=== PATIENT | male | born 1965 | race Caucasian/White ===

== ENCOUNTER 2020-10-01 14:30 | Observation (INO) | payer BC ==
[2020-10-01] MEDS ORDERED: SODIUM CHLORIDE 0.9% 1,000 ML IV ONE (15:32)
--- NOTE | 2020-10-01 15:32 | ED ---
General Adult HPI - General Chief complaint: Altered Mental Status Stated complaint: AMS Time Seen by Provider: 10/01/20 14:35 Source: patient, EMS, RN notes reviewed, old records reviewed Mode of arrival: EMS Limitations: no limitations - History of Present Illness Initial comments: This is a 55-year-old male who presents to the emergency department because he was altered this morning according to the . Patient comes from [facility] where he had a workup done a CAT scan of his brain and neck. Patient had lab work done as well. Patient's states this morning about 6:30 he started acting confused and texting her about his mother and answered all of her dad stating that they were coming up to see him patient states he uses house phone he hasn't had a house for many years patient also took a knife to cut superficially an the left thigh because of the timing seem to make sense to him that that might relieve some of the pain he was having in his back and leg. Patient still a little bit confused now but states is considerably better than he was. states he hasn't had any recent fever chills and in fact has been working the last 6 days in a row and acting completely fine. Patient states been getting enough sleep lately. Patient has no complaints currently the believes he still a little bit confused. Patient denies any recent chest pain or difficulty breathing or shortness of breath. Patient denies any palpitations. Patient denies any recent injury or trauma. Review of Systems ROS Statement: Those systems with pertinent positive or pertinent negative responses have been documented in the HPI. ROS Other: All systems not noted in ROS Statement are negative. Past Medical History Past Medical History: Diabetes Mellitus, Hypertension, Sleep Apnea/CPAP/BIPAP Additional Past Medical History / Comment(s): LULÚ, diverticulitis History of Any Multi-Drug Resistant Organisms: None Reported Past Surgical History: Hernia Repair, Orthopedic Surgery, Tonsillectomy Additional Past Surgical History / Comment(s): sigmoid colon, vasectomy Smoking Status: Never smoker Past Alcohol Use History: None Reported Past Drug Use History: None Reported General Exam - General Exam Comments Initial Comments: GENERAL: Patient is well-developed and well-nourished. Patient is nontoxic and well- hydrated and is in no acute distress. ENT: Neck is soft and supple. No significant lymphadenopathy is noted. Oropharynx is clear. Moist mucous membranes. Neck has full range of motion without eliciting any pain. EYES: The sclera were anicteric and conjunctiva were pink and moist. Extraocular movements were intact and pupils were equal round and reactive to light. Eyelids were unremarkable. PULMONARY: Unlabored respirations. Good breath sounds bilaterally. No audible rales rhonchi or wheezing was noted. CARDIOVASCULAR: There is a regular rate and rhythm without any murmurs gallops or rubs. ABDOMEN: Soft and nontender with normal bowel sounds. SKIN: Skin is clear with no lesions or rashes and otherwise unremarkable. NEUROLOGIC: Patient is alert and oriented x3. Cranial nerves II through XII are grossly intact. Motor and sensory are also intact. Normal speech, volume and content. Symmetrical smile. Cerebellar testing finger to nose is normal bilaterally. Patient has no drift MUSCULOSKELETAL: Normal extremities with adequate strength and full range of motion. LYMPHATICS: No significant lymphadenopathy is noted PSYCHIATRIC: Normal psychiatric evaluation. Limitations: no limitations Course Vital Signs 10/01/20 14:32 Temperature 98.8 F Pulse Rate 65 Respiratory 19 Rate Blood Pressure 151/89 O2 Sat by Pulse 96 Oximetry Medical Decision Making - Medical Decision Making I reviewed the patient's labs and CAT scans. I spoke with Dr. Lozano agreed with the patient admitted the patient wrote admitting orders. Disposition Clinical Impression: Altered mental status Disposition: ADMITTED IP TO THIS HOSP Referrals: Troy Michele MD [Primary Care Provider] - 1-2 days Time of Disposition: 15:32
[2020-10-01] MEDS ORDERED: NALOXONE 0.4 MG/ML 1 ML VIAL IV PRN (16:26)
[2020-10-01] MEDS ORDERED: CYCLOBENZAPRINE 10 MG TAB PO PRN (16:26)
[2020-10-01] MEDS ORDERED: LORazepam 0.5 MG TAB PO PRN (16:26)
[2020-10-01] MEDS ORDERED: MAGNESIUM HYDROXIDE 2,400 MG/10 ML CUP PO PRN (16:26)
[2020-10-01] MEDS ORDERED: ONDANSETRON 4 MG/2 ML VIAL IVP PRN (16:26)
[2020-10-01] MEDS ORDERED: MELATONIN 3 MG TABLET PO PRN (16:26)
[2020-10-01] MEDS ORDERED: LACTULOSE 20 GM/30 ML CUP PO PRN (16:26)
[2020-10-01] MEDS ORDERED: MAG HYDROX/AL HYDROX/SIMETH 30 ML CUP PO PRN (16:26)
[2020-10-01] MEDS ORDERED: CALCIUM CARBONATE 500 MG CHEWABLE PO PRN (16:26)
[2020-10-01] MEDS ORDERED: ACETAMINOPHEN TAB 325 MG TAB PO PRN (16:26)
[2020-10-01] MEDS ORDERED: IBUPROFEN 200 MG TAB PO PRN (16:26)
--- NOTE | 2020-10-01 17:38 | P.HPIM ---
History of Present Illness H&P Date: 10/01/20 Chief Complaint: New-onset of confusion History of presenting complaint: This is a pleasant 55-year-old patient who follows with Dr. Michele. Chronic stable medical conditions include diabetes mellitus type 2, hypertension, obstructive sleep apnea uses CPAP, diverticulosis, ankylosing spondylosis causing lower back pain depression. History is obtained by the at the bedside. 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 This morning around 5 AM the received text from the patient saying that his right leg felt wriggly. She asked him to take Aleve. She came into work and he was leaving and saw him briefly. Subsequently she had received a text from him, saying that. Taking care of his like. Then she would've texture him that he is in the proximal out which 0 9 AM. He was sitting in his truck. He was talking about 2 of his aunts Ruby and Barb were coming home and he was concerned about them. They both had been . He was looking somewhat agitated. When she tried to tell him that they were diet he got somewhat upset. He also didn't show to that he had taken a knife and made a superficial cut on the right thigh to take care of the discomfort. Apparently patient had gone home and taken some boxes to the post office. Some of the events of the morning slightly fuzzy to him. He still thinks that the aunts are not . Patient's sleep cycle is rather disturbed as he often mixes nights a nd days. There is no fever. There is no use of alcohol or any recreational drugs. has noticed symptoms of bit more critical and skeptical in the last few months about things. Review of systems: GEN.: None EYES: None HEENT: None NECK: None RESPIRATORY: None CARDIOVASCULAR: None GASTROINTESTINAL: None GENITOURINARY: None MUSCULOSKELETAL: Chronic low back pain LYMPHATICS: None HEMATOLOGICAL: None PSYCHIATRY: As above NEUROLOGICAL: None Past medical history to include: Diabetes, hypertension, obstructive sleep apnea uses CPAP, depression, and ankylosing spondylosis Social history: 18-year-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 . 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 Physical examination: VITAL SIGNS: 98.8, 65, 19, 151/89, 96% room air GENERAL: BMI 30.8, laying in bed, somewhat anxious appearing. EYES: Pupils equal. Conjunctiva normal. HEENT: External appearance of nose and ears normal, oral cavity grossly normal. NECK: JVD not raised; masses not palpable. HEART: First and second heart sounds are normal; no edema. LUNGS: Respiratory rate normal; clear to auscultation. ABDOMEN: Soft, nontender, liver spleen not palpable, no masses palpable. PSYCH: Alert and oriented x3; mood and affect anxiousl. NEUROLOGICAL: Cranial nerves grossly intact; no facial asymmetry, power and sensation grossly intact. DERMATOLOGICAL: Superficial linear cut on the right thigh LYMPHATICS: No lymph nodes palpable in the axilla and neck INVESTIGATIONS, reviewed in the clinical context: From [facility] Assessment and plan: -This patient has a new onset of symptoms that appear to be delusional. Patient has been noted to be somewhat skeptical in the last few months. This could be underlying schizophrenia-like disorder with element of psychosis. This will need further evaluation by psychiatry. They could be a contribution from underlying sleep deprivation. Did not see any obvious metabolic reason for the presentation. Patient does not have any focal neurological symptoms otherwise. There is no obvious change in sensorium -Diabetes mellitus type 2, oral hypoglycemic Resume Glucophage, Glucotrol and farxiga. Follow Accu-Cheks -Essential hypertension Continue Vasotec 10 mg daily at bedtime -Hyperlipidemia Continue Pravachol 10 mg daily at bedtime -Depression not otherwise specified On Effexor XR 35.5 mg by mouth daily at bedtime -Chronic ankylosing spondylitis primarily affecting the lumbar spine. With muscle spasms Use Flexeril when necessary -Linear self-inflicted laceration on the right thigh with a knife. Bacitracin ointment twice daily -Obstructive sleep apnea Continue CPAP We will order EEG, MRI of the brain. Use CPAP. Home medications to be resumed. Follow Accu-Cheks. Consultation to neurology and psychiatry. Care was discussed with the patient and at the bedside. Questions answered. Given the complexity and severity of patient's condition expect the patient to be in the hospital at least for 2 overnights. Patient not be safe to be discharged prior to that. Past Medical History Past Medical History: Diabetes Mellitus, Hypertension, Sleep Apnea/CPAP/BIPAP Additional Past Medical History / Comment(s): LULÚ, diverticulitis History of Any Multi-Drug Resistant Organisms: None Reported Past Surgical History: Hernia Repair, Orthopedic Surgery, Tonsillectomy Additional Past Surgical History / Comment(s): sigmoid colon, vasectomy Smoking Status: Never smoker Past Alcohol Use History: None Reported Past Drug Use History: None Reported Medications and Allergies Home Medications Medication Instructions Recorded Confirmed Type Cyclobenzaprine [Flexeril] 10 mg PO TID PRN 10/01/20 10/01/20 History Dapagliflozin Propanediol [Farxiga] 10 mg PO HS 10/01/20 10/01/20 History Enalapril [Vasotec] 10 mg PO HS 10/01/20 10/01/20 History Fexofenadine HCl [Candi Allergy] 180 mg PO HS 10/01/20 10/01/20 History Fluticasone Nasal [place] [Flonase 1 - 2 spr EA NOSTRIL DAILY PRN 10/01/20 10/01/20 History Nasal [place]] Ibuprofen [Motrin Ib] 400 mg PO Q6H PRN 10/01/20 10/01/20 History Montelukast [Singulair] 10 mg PO HS 10/01/20 10/01/20 History Pravastatin Sodium [Pravachol] 10 mg PO HS 10/01/20 10/01/20 History Venlafaxine HCl ER [Effexor Xr] 37.5 mg PO HS 10/01/20 10/01/20 History glipiZIDE [Glucotrol] 10 mg PO BID 10/01/20 10/01/20 History metFORMIN HCL [Glucophage] 1,000 mg PO BID 10/01/20 10/01/20 History Allergies Allergy/AdvReac Type Severity Reaction Status Date / Time Cephalosporins AdvReac Nausea & Verified 10/01/20 16:21 Vomiting & Diarrhea Physical Exam Vitals: Vital Signs Temp Pulse Resp BP Pulse Ox 10/01/20 14:32 98.8 F 65 19 151/89 96 Intake and Output 10/01/20 10/01/20 10/01/20 06:59 14:59 22:59 Other: Weight 97.522 kg
[2020-10-01 17:51] LABS: Glucose,Whole Blood 115 mg/dL (75-99)
[2020-10-01] MEDS: INSULIN ASPART (NovoLOG) 100 UNIT/ML VIAL SQ SCH ×2 (17:59→21:36)
[2020-10-01] MEDS: ENOXAPARIN 40 MG/0.4 ML SYRINGE SQ SCH (18:20)
[2020-10-01] MEDS: BACITRACIN OINT 1 EACH PACKET TOPICAL SCH ×2 (18:20→21:37)
[2020-10-01 21:13] LABS: Glucose,Whole Blood 207 mg/dL (75-99)
[2020-10-01] MEDS: NON FORMULARY DRUG (Dapagliflozin Propanediol [Farxiga] 10 MG Tablet) PO SCH (21:33)
[2020-10-01] MEDS: PRAVASTATIN SODIUM 20 MG TAB PO SCH (21:36)
[2020-10-01] MEDS: metFORMIN 500 MG TAB PO SCH (21:37)
[2020-10-01] MEDS: VENLAFAXINE HCL ER 37.5 MG CAP PO SCH (21:37)
[2020-10-01] MEDS: glipiZIDE 10 MG TAB PO SCH (21:37)
[2020-10-01] MEDS: lisinopriL 20 MG TAB PO SCH (21:37)
[2020-10-01] MEDS: MONTELUKAST 10 MG TAB PO SCH (21:37)
[2020-10-02 07:26] LABS: Glucose,Whole Blood 93 mg/dL (75-99)
[2020-10-02] MEDS: INSULIN ASPART (NovoLOG) 100 UNIT/ML VIAL SQ SCH ×4 (07:33→20:15)
[2020-10-02] MEDS: metFORMIN 500 MG TAB PO SCH ×2 (07:43→19:57)
[2020-10-02] MEDS: BACITRACIN OINT 1 EACH PACKET TOPICAL SCH ×3 (07:43→19:57)
[2020-10-02] MEDS: glipiZIDE 10 MG TAB PO SCH ×2 (07:43→19:56)
[2020-10-02 11:35] LABS: Glucose,Whole Blood 105 mg/dL (75-99)
--- NOTE | 2020-10-02 11:36 | MR ---
EXAMINATION TYPE: MR brain wo/w con DATE OF EXAM: 10/02/2020 COMPARISON: None HISTORY: New onset of confusion. Nonfocal. CONTRAST: Performed utilizing 10 mL intravenous Gadavist gadolinium contrast. TECHNIQUE: Multiplanar, multiecho imaging on a 3.0 Duyen magnet is performed through the brain. Stud y is performed within 24 hours of arrival to the hospital. The craniovertebral junction is normal. The pituitary is normal. Minimal diffuse narrowing of the m id posterior corpus callosum is not excluded. No abnormal signal however is evident. Diffusion-weighted imaging is performed. No abnormal hyperintensity is present to suggest an acute i ntracranial infarct or acute ischemic change. There are multiple punctate hypointense areas within the centrum semiovale white matter. Couple of fa int similar areas are within the basal ganglion. Findings are nonspecific but may be related to etat crible, perivascular atrophy. Preliminary results were discussed with Dr. Flores by Dr. Staples by tel cristian at the time of preliminary interpretation. Within the left cerebral, series 601 image 9, there is a 0.4 cm hyperintense area. This is nonspecifi c. Conjunction with the perivascular atrophy, consider the possibility of developing multiple scleros is. Additional findings to suggest multiple sclerosis are not evident. Ventricles and sulci are appropriate for the patient age. IMPRESSIONS: 1. Centrum semiovale etat crible and a white matter lesion within the left medial cerebellum. Finding s are nonspecific, but consider possible developing multiple sclerosis. 2. Mild corpus callosum atrophy not excluded. 3. Suspicious mass lesions or other lesions not identified.
[2020-10-02 11:51] LABS: Basophils # (A) 0.04 X 10*3/uL (0.00-0.10); Basophils % (A) 0.5 %; Eosinophils # (A) 0.13 X 10*3/uL (0.04-0.35); Eosinophils % (A) 1.7 %; HCT 48.5 % (39.6-50.0); HGB 15.8 g/dL (13.0-17.0); Lymphocytes # (A) 2.15 X 10*3/uL (0.90-5.00); Lymphocytes % (A) 27.6 %; MCH 28.3 pg (27.0-32.0); MCHC 32.6 g/dL (32.0-37.0); MCV 86.9 fL (80.0-97.0); Mean Platelet Volume 10.6 fL (9.5-12.2); Monocytes # (A) 0.66 X 10*3/uL (0.20-1.00); Monocytes % (A) 8.5 %; Neutrophils # (A) 4.78 X 10*3/uL (1.80-7.70); Neutrophils % (A) 61.2 %; Platelet Count 261 X 10*3/uL (140-440); RBC 5.58 X 10*6/uL (4.40-5.60); RDW 13.7 % (11.5-14.5)
--- NOTE | 2020-10-02 13:35 | EEG ---
ELECTROENCEPHALOGRAM REPORT DATE OF SERVICE: 10/02/2020. CLINICAL HISTORY: This is a 55-year-old gentleman who presented to the hospital because of an episode of confusion. The video EEG is obtained to evaluate for seizure episode and epileptiform activity. RELEVANT MEDICATION: The patient is not on any antiepileptic drugs. EEG TYPE: A routine 21 channel EEG is performed with video using the 10/20 electrode system. DESCRIPTION: Wakefulness is only obtained. During wakefulness, there is a posterior dominant rhythm of low to moderate voltage of 9.5 hertz, that is well modulated, well sustained. There is no sleep architecture seen. There is no focal slowing. Interictal and ictal is none. ACTIVATION PROCEDURES: Photic stimulation did not evoke a posterior driving response. There is no abnormality during the photic stimulation. Hyperventilation is performed and there was no abnormality during hyperventilation. CLINICAL INTERPRETATION: This is a normal routine EEG. There are no focal slowing, epileptiform discharges or seizure on the EEG. Clinical correlation is recommended. MMYING / IJN: [id number] /
--- NOTE | 2020-10-02 13:41 | P.CNNES ---
History of Present Illness Consult date: 10/02/20 Requesting physician: Ilir Salcedo Reason for Consult: altered mental status History of Present Illness: This is a 55-year-old gentleman with medical history of ADD, diabetes mellitus (for 10-12 years), peripheral neuropathy, sleep apnea on CPAP (chronic) who was transferred from outside facility to our emergency department on 10/01/2020 for altered mental status and escalation of care. History is obtained from the patient's (Barb) and she is accompanied with their son who are at bedside. 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 Then he texted-her back again at 6:30 and in the morning that same day that he didn't feel right and he notified her that he fixed the issue. Around 9:15 AM he was in the parking lot of the hospital ([facility]) for her come and see him. At 9:30 the she stated that when she saw me was a visibly upset and he stated his aunts called to their house to their land line which she stated they don't have land line and that he had to notified them about the of his mother. She stated that his mother as well as his aunts are all . She also saw him with the multiple abrasion in the right thigh and it seems that he caught himself. Patient states he still feels his aunt has called him and he known it is off for him. Per the she denies of the patient had that any complaints of headaches, fevers, any focal weakness, any rash, she denies that he completed of any visual disturbance or difficulty getting his words out recently. She denies similar episodes like this in the past. She stated that the patient has been falling the last 6-8 months and his right or left leg gives out and there were in the process of seeing a neurologist but have not done so. He does have chronic lower back pain. He also has history of neuropathy. He usually has a photophobia but that's chronic nothing more than usual. That she denied that he has any history of any intentional weight loss. Denies any recent travel in the last 6 month. 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 Patient denies of alcohol use, tobacco use or illicit drug use. Patient does not have any history of seizures, stroke or TIA in the past. She is not sure about his history thinks it was normal. There is no family history of seizures. Of note patient saw Dr. Tapia in the past and was told he had peripheral neuropathy in his feet and he had injection but he said it did not help. His home medication consist of Flexeril 10 mg 1 tablet 3 times a day when necessary, metformin, glipizide, Effexor, pravastatin 10 mg daily at bedtime, ibuprofen, Candi, enalapril, Dapagliflozin. Some other workup in the hospital consisted of: Initial vital signs is blood pressure of 151/89, heart rate of 65, respiratory of 19, temperature of 98.8 Fahrenheit oral and pulse ox of 96% room air. Since the patient has been the hospital the patient has been afebrile. Initial POC glucose is 115 in the repeat his daughter and 7. I do not see any labs on the patient besides the POC glucose in our facility since he had work-up at outside facility: Per the patient had CT of the head as well as CT of the head and neck and was reported as normal. As well all labs were normal except for elevated lacte level. wbc 8.5K (normal). Na 140, Creatning 0.7, calcium 9.4, phosphorus 2.8, Magnesium 2.0 (all normal). Lactate level is 3.2 (elevated) TSH: 2.06, AST 28 and ALT 26 U/A was negative for UTI. Urine drug screen negative. EtOH 0.0 CT of the head as well as a CT angiography of the head and neck was reported as unremarkable pre-contrast imaging of the brain. Normal enhancement of intracranial anatomy. No evidence of significant carotid vascular or vertebral artery disease. MRI lumbar on 06/03/2016: is reported as mild multilevel degenerative disc disease. Of note there is a right intraforaminal disc protrusion at L4-L5 causing moderate right neuroforaminal stenosis with disc material abutting the existing right L4 nerve root. Mild left neuroforaminal stenosis at this level. No significant spinal canal stenosis though there is mild congenital canal narrowing in the mid lumbar spine. Review of Systems Review of system: The 12 point system was reviewed and apparent positive and negative per HPI. Past Medical History Past Medical History: Diabetes Mellitus, Hypertension, Sleep Apnea/CPAP/BIPAP Additional Past Medical History / Comment(s): LULÚ, diverticulitis History of Any Multi-Drug Resistant Organisms: None Reported Past Surgical History: Hernia Repair, Orthopedic Surgery, Tonsillectomy Additional Past Surgical History / Comment(s): sigmoid colon, vasectomy Additional Psychological History / Comment(s): Patient admitted with altered mental status. Smoking Status: Never smoker Past Alcohol Use History: None Reported Past Drug Use History: None Reported - Past Family History Mother Additional Family Medical History / Comment(s): Cancer history Father Additional Family Medical History / Comment(s): Heart Disease Medications and Allergies Home Medications Medication Instructions Recorded Confirmed Type Cyclobenzaprine [Flexeril] 10 mg PO TID PRN 10/01/20 10/01/20 History Dapagliflozin Propanediol [Farxiga] 10 mg PO HS 10/01/20 10/01/20 History Enalapril [Vasotec] 10 mg PO HS 10/01/20 10/01/20 History Fexofenadine HCl [Candi Allergy] 180 mg PO HS 10/01/20 10/01/20 History Fluticasone Nasal [place] [Flonase 1 - 2 spr EA NOSTRIL DAILY PRN 10/01/20 10/01/20 History Nasal [place]] Ibuprofen [Motrin Ib] 400 mg PO Q6H PRN 10/01/20 10/01/20 History Montelukast [Singulair] 10 mg PO HS 10/01/20 10/01/20 History Pravastatin Sodium [Pravachol] 10 mg PO HS 10/01/20 10/01/20 History Venlafaxine HCl ER [Effexor Xr] 37.5 mg PO HS 10/01/20 10/01/20 History glipiZIDE [Glucotrol] 10 mg PO BID 10/01/20 10/01/20 History metFORMIN HCL [Glucophage] 1,000 mg PO BID 10/01/20 10/01/20 History Allergies Allergy/AdvReac Type Severity Reaction Status Date / Time Cephalosporins AdvReac Nausea & Verified 10/01/20 16:21 Vomiting & Diarrhea Physical Examination - Vital Signs Vital Signs: Vital Signs Temp Pulse Pulse Resp BP BP Pulse Ox 10/02/20 07:22 97.9 F 53 L 17 125/71 97 10/02/20 02:00 98.3 F 58 L 15 119/75 97 10/01/20 20:00 97.8 F 53 L 16 135/80 97 10/01/20 18:00 97.9 F 66 18 148/88 97 10/01/20 17:35 98.6 F 78 16 146/79 98 10/01/20 14:32 98.8 F 65 19 151/89 96 Intake and Output 10/01/20 10/02/20 10/02/20 22:59 06:59 14:59 Other: # Voids 1 2 Weight 97.522 kg GENERAL: The patient is lying in bed and is not in acute distress. CHEST: The heart rate is regular rate rhythm. No murmurs to auscultation. No carotid bruit bilaterally. LUNG: Clear to auscultation bilaterally no wheezing noted throughout. Not labored breathing. ABDOMEN/GI: Bowel sounds present in all 4 quadrants. No tenderness to palpation throughout. INTEGUMENTARY: Has scar abrasion on anterior of right thigh. NEUROLOGICAL: Higher mental function: The patient is awake, alert, oriented to self, place and time. Patient is following commands. No aphasia and no neglect. Cranial nerves: The pupils are round, equal and reactive to light and accommodation. Visual zurita are full to confrontation throughout. Extraocular movement is intact no nystagmus is noted. Facial sensation is normal to touch throughout. The facial strength is normal throughout. Hearing is normal bilaterally to hand rub. Tongue is midline and moved [id number] without any difficulty. No dysarthria is noted. Shoulder shrug is normal bilaterally. Motor: Gait is normal with normal arm swings. The strength is right proximal thigh flexion is 5-. Otherwise 5 over 5 throughout. Normal tone and bulk. Cerebellum: Normal finger to nose heel to mcrae bilaterally. Sensation: Sensation is normal to touch throughout. Reflexes (right/left): 2+ throughout. Plantars are downgoing bilaterally. Results - Laboratory Findings CBC and BMP: 10/02/20 08:03 10/02/20 08:03 Abnormal Lab Findings: Abnormal Labs 10/01/20 10/01/20 17:50 21:13 POC Glucose (mg/dL) 115 H 207 H Assessment and Plan Assessment: * Acute transient Encephalopathy of unknown etiology. No fever or leukocytosis for suggestion of meningoencephalitis. * Brief psychotic episode--resolved * Falling episode for the past 6-8 months on unknown etiology * Chronic low back pain * History of Lumbar spondylosis L4-L5 over MRI Lumbar spine * History of Neuropathy * ADD * Diabetes mellitus (for past 10-12 years) * Sleep apnea on CPAP (chronic) Plan: MRI of the brain with and without is ordered as well as an EEG is ordered by the primary team is pending Also ordered MRI Cervical spine and ordered lumbar puncture. Continue neuro checks. Psychiatry is also consulted. We'll defer the rest of medical management to the primary team. Upon discharge would recommend to follow-up with neurologist as outpatient within 1-2 weeks for further work-up (I gave him a referral script to see a neurologist and he was told to see someone that he feels comfortable with). The plan is discussed with the patient and his . Thank you for consultation. UPDATE: MRI Brain w/ and w/o: Centrum semiovale et al crible and a white matter lesion within the left medial cerebellum. Findings are nonspecific but consider possible developing Multiple Sclerosis. I personally reviewed MRI of the brain and I don't feel that patient's white matter lesions are the cause of his Transient encephalopathy/psychotic event. Routine EEG on 10/02/20 was normal. There are no focal slowing, epileptiform discharges or seizure on the EEG. I ordered MRI of the brain as well as lumbar puncture to rule out any lesion that would support multiple sclerosis. The patient does not have any fever or leukocytosis that'll be suggestive of the meningeal encephalitis. This was updated to the patient. Kali Go MD Neuro-Hospitalist Time with Patient: Greater than 30
[2020-10-02 14:16] LABS: African American GFR (CKD) 118.2 (60.0-200.0); Anion Gap 9.9 mmol/L (4.00-12.00); BUN/Creat Ratio 16.25 Ratio (12.00-20.00); Calcium 9.2 mg/dL (8.7-10.3); Carbon Dioxide 24.1 mmol/L (21.6-31.8); Potassium 4.4 mmol/L (3.5-5.5)
--- NOTE | 2020-10-02 15:38 | P.CN ---
Psychiatric Consult - . Consult date: 10/02/20 Consult:: 10/02/20 15:35 IDENTIFYING DATA: This patient is a , employed, 55-year-old male with a significant history of ADHD, diabetes mellitus, sleep apnea presented to this hospital with psychosis. HISTORY OF PRESENT ILLNESS: The patient presented to the hospital brought in by EMS on 10/01/2020 from [facility] for confusion. Present in the room with the patient is his Barb Escalante. The patient verbally agrees to allow his to present in the room to provide any collateral information. The patient reports that approximately between 4:30 and 5 AM on 10/01/20, the patient began to feel "a little off and foggy." He then reported that he began to feel like there was a worm in his right leg that was moving. At 6 AM, the patient got off work and continued to feel like the leg was bothering him. He then states that around 6:30 AM, the patient contacted his informing her that he "fixed it (his leg)." The patient ended up superficially cutting hims elf on his right upper thigh. The patient then reports that in between 7 AM and 9 AM and he received a call from his aunt informing him about the of his mother. He also reported to his that they spoke to him over the land line even though they do not own a landline anymore. Examination of the patient's phone revealed no calls were made to him during the times he stated. The patient then returned back to the hospital at 9 AM to see his . The patient then went to the hospital at [place] and he was found to have a blood sugar of 255 and was admitted for evaluation of altered mental status. Both patient and report that he appears to be back to normal. The patient is currently denying any auditory or visual hallucinations. He is denying any tactile hallucinations. He is not reporting any paranoia or other delusions at this time. The patient is able to acknowledge that what happened over the phone was very bizarre and not real. He is denying any other delusions when explored. He reports no delusions of parasitosis. Both patient and report no prior history of psychotic episodes. In regards to mood symptoms, he is currently denying any suicidal or homicidal ideation, intention, and/or plan. He denies any significant symptoms of depression at this time but does admit that he has a significant history of depression and was treated for it 20+ years ago. He reports no prior attempts at suicide. The patient is also reporting no significant history of bipolar disorder. He reports no periods of excessive energy, grandiosity, or increased goal-directed behavior. The patient does endorse an irregular sleep schedule. 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 He states that when he is not working, that he is unable to sleep and at times has gone 24 hours without any sleep. He does have a significant history of sleep apnea and is on CPAP. The patient does admit that he has occasional episodes of sleep paralysis where he feels like he cannot move his arms while he is lying down in bed. He does report that he has had multiple falls and is being worked up by his Neurologist Dr Tapia. The patient does state that when he has these "falls" he feels like his leg on the left appears to give out. PAST PSYCHIATRIC HISTORY: Patient has a history of depression and ADHD. The patient reports that he has trialed multiple antidepressant medications but is only able to recall Effexor and Paxil. He reports he has been in adherent with his Effexor for his depression. The patient reports no prior inpatient psychiatric hospitalizations. He reports that he was last seen by [facility] almost 15-20 years ago. He is currently not open with any outpatient psychiatric clinic. PAST MEDICAL HISTORY: Past Medical History: Diabetes Mellitus, Hypertension, Sleep Apnea/CPAP/BIPAP Additional Past Medical History / Comment(s): LULÚ, diverticulitis History of Any Multi-Drug Resistant Organisms: None Reported Past Surgical History: Hernia Repair, Orthopedic Surgery, Tonsillectomy Additional Past Surgical History / Comment(s): sigmoid colon, vasectomy Additional Psychological History / Comment(s): Patient admitted with altered mental status. Smoking Status: Never smoker Past Alcohol Use History: None Reported Past Drug Use History: None Reported ALLERGIES: Cephalosporins CHEMICAL DEPENDENCY HISTORY: Patient denies any tobacco, alcohol, marijuana, or illicit drug use. He reports no previous abuse of any benzodiazepine or opiate medications. FAMILY PSYCHIATRIC/SUBSTANCE USE HISTORY: No reported family psychiatric or substance abuse history. SOCIAL HISTORY: Patient is currently to his Barb for the past 29 years and have 5 children together. 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 The patient previously was in the [employer]. He reports no significant history of trauma. MENTAL STATUS EXAM: General Appearance: Patient appears to be stated age is alert, pleasant, and cooperative. Patient appears to have excellent hygiene and grooming wearing hospital gown with good eye contact. Behavior: Patient is calmly seated in his chair without any agitated behavior. Approach is cooperative and polite. Speech: Patient's speech is fluent and nonpressured. Mood/Affect: Patient reports their mood is "I feel pretty good", affect is congruent and euthymic to bright. Full range of affect. Suicidality/Homicidality: Patient denies having any suicidal or homicidal ideation intent or plan. Perceptions: Patient denies any visual hallucinations and denies any auditory hallucinations Though content/process: There is no evidence of any delusional thought content and thought process is linear and goal-directed. Memory and concentration: AOX3, grossly intact for the purposes of this session. Can spell "WORLD" backwards Judgment and insight: Good IMPRESSIONS: Brief psychotic episode - appears resolved; Onset of psychotic symptoms appear to be acute in nature. The patient appears to have a full range of affect and does not appear to be responding to any internal stimuli. The patient is currently being worked up by neurology for possible causes of altered mental status. ADD Depressive disorder, unspecified -On Effexor, low dose - do not suspect reason for psychosis at this dose. Falling episode for the past 6-8 months on unknown etiology -As patient does endorse a history of cataplexy-like episodes. Furthermore reports a history of sleep paralysis. Consider MSLT. Chronic low back pain History of Lumbar spondylosis L4-L5 over MRI Lumbar spine History of Neuropathy Diabetes mellitus (for past 10-12 years) Sleep apnea on CPAP (chronic) PLAN: -At this time patient DOES NOT meet criteria for inpatient psychiatric admission. Patient is cleared Psychiatrically for discharge. Brief Psychotic episode appears to be resolved at this time. He does not present with an imminent risk of harm to self, others, or display an inability to care for himself. He has numerous protective factors including strong family support, financial stability, no substance abuse history, and no prior attempts at suicide. Patient and family were encouraged to return to the hospital should another episode occur. -Would recommend the following medication changes/additions: No medication recommendations at this time. -Agree with Neurology work up. Consider work up for Narcolepsy in the outpatient setting. -Psychiatry will sign off at this point, please contact with any questions. 10/02/20 15:36
[2020-10-02 16:33] LABS: Glucose,Whole Blood 223 mg/dL (75-99)
--- NOTE | 2020-10-02 16:51 | P.PN ---
Progress Note - Text Progress Note Date: 10/02/20 Chief Complaint: New-onset of confusion History of presenting complaint: This is a pleasant 55-year-old patient who follows with Dr. Michele. Chronic stable medical conditions include diabetes mellitus type 2, hypertension, obstructive sleep apnea uses CPAP, diverticulosis, ankylosing spondylosis causing lower back pain depression. History is obtained by the at the bedside. 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 This morning around 5 AM the received text from the patient saying that his right leg felt wriggly. She asked him to take Aleve. She came into work and he was leaving and saw him briefly. Subsequently she had received a text from him, saying that. Taking care of his like. Then she would've texture him that he is in the proximal out which 0 9 AM. He was sitting in his truck. He was talking about 2 of his aunts Ruby and Barb were coming home and he was concerned about them. They both had been . He was looking somewhat agitated. When she tried to tell him that they were diet he got somewhat upset. He also didn't show to that he had taken a knife and made a superficial cut on the right thigh to take care of the discomfort. Apparently patient had gone home and taken some boxes to the post office. Some of the events of the morning slightly fuzzy to him. He still thinks that the aunts are not . Patient's sleep cycle is rather disturbed as he often mixes nights and days. There is no fever. There is no use of alcohol or any recreational drugs. has noticed symptoms of bit more critical and skeptical in the last few months about things. Patient admitted with suspected acute psychosis, sleep deprivation. Consultation made to psychiatry and neurology. October 02: Patient doing much better today. He did explain that when he is not doing nights his sleep is rather poor. EEG was negative for seizure activity. MRI showed some white matter changes. Discussion was held with Dr. Clement from psychiatry. Episode was felt to be acute psychosis. Which is resolved. Lumbar puncture is being planned by Dr. Go from neurology Review of systems: Was done for constitutional, cardiovascular, GI, pulmonary. relevant finding as above Active Medications Acetaminophen (Acetaminophen Tab 325 Mg Tab) 650 mg PO Q6HR PRN PRN Reason: Mild Pain or Fever > 100.5 Al Hydroxide/Mg Hydroxide (Mag Hydrox/Al Hydrox/Simeth 30 Ml Cup) 15 ml PO Q6HR PRN PRN Reason: Indigestion Bacitracin (Bacitracin Oint 1 Each Packet) 1 each TOPICAL TID [facility]; Protocol Last Admin: 10/02/20 07:43 Dose: 1 each Documented by: Calcium Carbonate/Glycine (Calcium Carbonate 500 Mg Chewable) 1,000 mg PO Q4HR PRN PRN Reason: Dyspepsia Cyclobenzaprine HCl (Cyclobenzaprine 10 Mg Tab) 10 mg PO TID PRN PRN Reason: Muscle Spasm Enoxaparin Sodium (Enoxaparin 40 Mg/0.4 Ml Syringe) 40 mg SQ DAILY@1800 [facility] Last Admin: 10/01/20 18:20 Dose: 40 mg Documented by: Glipizide (Glipizide 10 Mg Tab) 10 mg PO BID [facility] Last Admin: 10/02/20 07:43 Dose: 10 mg Documented by: Ibuprofen (Ibuprofen 200 Mg Tab) 400 mg PO Q6H PRN PRN Reason: Pain Insulin Aspart (Insulin Aspart (Novolog) 100 Unit/Ml Vial) 0 unit SQ [facility]; Protocol Last Admin: 10/02/20 12:47 Dose: Not Given Documented by: Lactulose (Lactulose 20 Gm/30 Ml Cup) 20 gm PO DAILY PRN PRN Reason: Constipation Lisinopril (Lisinopril 20 Mg Tab) 20 mg PO HS [facility] Last Admin: 10/01/20 21:37 Dose: 20 mg Documented by: Lorazepam (Lorazepam 0.5 Mg Tab) 0.5 mg PO Q6HR PRN PRN Reason: Anxiety Magnesium Hydroxide (Magnesium Hydroxide 2,400 Mg/10 Ml Cup) 2,400 mg PO DAILY PRN PRN Reason: Constipation Melatonin (Melatonin 3 Mg Tablet) 3 mg PO HS PRN PRN Reason: Insomnia Metformin HCl (Metformin 500 Mg Tab) 1,000 mg PO BID [facility] Last Admin: 10/02/20 07:43 Dose: 1,000 mg Documented by: Montelukast Sodium (Montelukast 10 Mg Tab) 10 mg PO [facility] Last Admin: 10/01/20 21:37 Dose: 10 mg Documented by: Naloxone HCl (Naloxone 0.4 Mg/Ml 1 Ml Vial) 0.2 mg IV Q2M PRN PRN Reason: Opioid Reversal Non-Formulary Medication (Dapagliflozin Propanediol [Farxiga]) 10 mg PO [facility] Last Admin: 10/01/20 21:33 Dose: Not Given Documented by: Ondansetron HCl (Ondansetron 4 Mg/2 Ml Vial) 4 mg IVP Q8H PRN PRN Reason: Nausea And Vomiting Pravastatin Sodium (Pravastatin Sodium 20 Mg Tab) 10 mg PO [facility] Last Admin: 10/01/20 21:36 Dose: 10 mg Documented by: Venlafaxine HCl (Venlafaxine Hcl Er 37.5 Mg Cap) 37.5 mg PO [facility] Last Admin: 10/01/20 21:37 Dose: 37.5 mg Documented by: Past medical history to include: Diabetes, hypertension, obstructive sleep apnea uses CPAP, depression, and ankylosing spondylosis Social history: 18-year-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 . 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 Physical examination: VITAL SIGNS: 97.7, 63, 18, 123/72, 97% room air GENERAL: Sitting up, comfortable EYES: Pupils equal. Conjunctiva normal. NECK: JVD not raised; masses not palpable. HEART: First and second heart sounds are normal; no edema. LUNGS: Respiratory rate normal; clear to auscultation. ABDOMEN: Soft, nontender, liver spleen not palpable, no masses palpable. PSYCH: Alert and oriented x3; mood and affect anxiousl. DERMATOLOGICAL: Superficial linear cut on the right thigh INVESTIGATIONS, reviewed in the clinical context: WBC 7.8 hemoglobin 15.8 platelets 261 potassium 4.4 creatinine 0.8 EEG: Negative for epileptiform activity. MRI of the brain: Within the left contrast: Multiple punctate hyperintense areas within the centrum semiovale white matter. From [facility] Assessment and plan: -Acute psychosis, likely precipitated by sleep deprivation. Discussed with psychiatry Dr. Clement. Not for any medications. No need for any outpatient psychiatry follow-up at this point. -Diabetes mellitus type 2, oral hypoglycemic Glucophage, Glucotrol and farxiga. Follow Accu-Cheks -Essential hypertension Vasotec 10 mg daily at bedtime -Hyperlipidemia Pravachol 10 mg daily at bedtime -Depression not otherwise specified On Effexor XR 35.5 mg by mouth daily at bedtime -Chronic ankylosing spondylitis primarily affecting the lumbar spine. With musc le spasms Use Flexeril when necessary -Linear self-inflicted laceration on the right thigh with a knife. Bacitracin ointment twice daily -Obstructive sleep apnea Continue CPAP -Acute and chronic sleep deprivation, from poor sleeps hygiene/habits Care was discussed at length with the patient and the . Importantly patient have to maintain his sleep cycle and developed a more specific schedule. That could be contribution. Patient white matter changes are nonspecific. Lumbar puncture is planned by neurology. Other medications to continue. Care also discussed with Dr. Clement from psychiatry. Total time spent today about 45 minutes with over 25 minutes of discussion
[2020-10-02] MEDS: ENOXAPARIN 40 MG/0.4 ML SYRINGE SQ SCH (17:23)
[2020-10-02] MEDS: NON FORMULARY DRUG (Dapagliflozin Propanediol [Farxiga] 10 MG Tablet) PO SCH (19:26)
[2020-10-02 19:46] LABS: Glucose,Whole Blood 221 mg/dL (75-99)
[2020-10-02] MEDS: VENLAFAXINE HCL ER 37.5 MG CAP PO SCH (19:57)
[2020-10-02] MEDS: MONTELUKAST 10 MG TAB PO SCH (19:57)
[2020-10-02] MEDS: lisinopriL 20 MG TAB PO SCH (19:57)
[2020-10-02] MEDS: PRAVASTATIN SODIUM 20 MG TAB PO SCH (19:57)
[2020-10-03 06:51] LABS: Glucose,Whole Blood 104 mg/dL (75-99)
[2020-10-03] MEDS: INSULIN ASPART (NovoLOG) 100 UNIT/ML VIAL SQ SCH ×2 (06:59→11:50)
[2020-10-03] MEDS: metFORMIN 500 MG TAB PO SCH (07:01)
[2020-10-03] MEDS: glipiZIDE 10 MG TAB PO SCH (07:01)
[2020-10-03] MEDS: BACITRACIN OINT 1 EACH PACKET TOPICAL SCH (07:02)
[2020-10-03 08:25] VITALS: TEMP 98.2
[2020-10-03 09:31] VITALS: RESP 16
[2020-10-03 10:08] VITALS: BP 125/67; PULSE 58
[2020-10-03] MEDS ORDERED: LACTATED RINGERS 1,000 ML IV ONE (10:15)
--- NOTE | 2020-10-03 10:42 | P.PCN ---
Date of Procedure: 10/03/20 Procedure(s) Performed: Preoperative diagnosis: Altered mental status Post operative diagnoses: Altered mental status Procedure= lumbar puncture Anesthesia local infiltration with lidocaine 1% 4 mL. Condition: stable Complication: none. Description of the procedure procedure risk and benefits discussed with the patient , consent signed. Patient and the procedure area placed in sitting positions, back prepped with chlorhexidine 3 times been local infiltration of the skin and subcutaneous tissue with lidocaine 1% 4mL for skin and subcu interstitial frustrations at L4 5 levels then 22-gauge Quincke-type needle advanced slowly at L4- 5 interlaminar space there was positive cerebrospinal fluid which was clear, no heme, no paresthesia ,total of 8 ML of clear cerebrospinal fluid collected in 4 different tubes 2 mL in each, then the needle removed and a Band-Aid applied and patient tolerated the procedure well without any complications.
[2020-10-03 11:27] LABS: Glucose,Whole Blood 107 mg/dL (75-99)
--- NOTE | 2020-10-03 11:42 | MR ---
EXAMINATION TYPE: MR cervical spine wo/w con DATE OF EXAM: 10/03/2020 COMPARISON: None HISTORY: Falls, Rule out any cervical lesion or MS lesions CONTRAST: Performed utilizing 10 mL intravenous Gadavist gadolinium contrast. TECHNIQUE: Multiplanar multiecho imaging on a 3.0 Duyen magnet is performed through the cervical spin e. FINDINGS: The craniovertebral junction is normal. Vertebral body alignment is normal. C7-T1: Right paracentral broad-based disc bulge is present with moderate anterior thecal sac marlin mia. No cord contact is evident. No spinal canal stenosis is present. Neural foramen appear patent.. C6-7: There is central disc protrusion with mild anterior thecal sac contact. No AP spinal canal sten osis is present. Neural foramen are patent.. C5-6: Mild central protrusion is present with mild anterior thecal sac contact. No cord contact. No s willie canal stenosis is present. Some mild left foraminal narrowing is present. C4-5: No focal disc herniation or significant disc bulge is evident. No spinal canal stenosis or avery ral foraminal stenosis is present. C3-4: No focal disc herniation or significant disc bulge is evident. No spinal canal stenosis or avery ral foraminal stenosis is present. C2-3: No focal disc herniation or significant disc bulge is evident. No spinal canal stenosis or avery ral foraminal stenosis is present. IMPRESSIONS: 1. Disc protrusion C5-6 and C6-7. 2. Right paracentral disc bulging C7-T1 with moderate anterior thecal sac compression.
[2020-10-03 12:13] LABS: Glucose,CSF 85 mg/dL (40-70); Total Protein,CSF 56 mg/dL (12-60)
[2020-10-03 12:42] LABS: CSF Tube Number 1
[2020-10-03 13:20] LABS: Appearance,CSF Clear; CSF Tube Number 4; Nucleated Cells, CSF 1 u/L (0-5); Red Blood Cell,CSF 2 u/L (0-10)
--- NOTE | 2020-10-03 16:25 | P.PN ---
Subjective Progress Note Date: 10/03/20 The patient is seen at bedside and he feels he continues to be at baseline. He denies of any further neurological issues or any further psychotic events. At outside facility work-up: All labs were normal except for elevated lacte level. wbc 8.5K (normal). Na 140, Creatning 0.7, calcium 9.4, phosphorus 2.8, Magnesium 2.0 (all normal). Lactate level is 3.2 (elevated) TSH: 2.06, AST 28 and ALT 26 U/A was negative for UTI. Urine drug screen negative. EtOH 0.0 CT of the head as well as a CT angiography of the head and neck was reported as unremarkable pre-contrast imaging of the brain. Normal enhancement of intracranial anatomy. No evidence of significant carotid vascular or vertebral artery disease. At out facility work-up ESR of 2 and CRP is less than 0.5 which is considered within the normal limits. MRI Brain w/ and w/o: Centrum semiovale et al crible and a white matter lesion within the left medial cerebellum. Findings are nonspecific but consider possible developing Multiple Sclerosis. I personally reviewed MRI of the brain and I don't feel that patient's white matter lesions are the cause of his Transient encephalopathy/psychotic event. Routine EEG on 10/02/20 was normal. There are no focal slowing, epileptiform discharges or seizure on the EEG. MRI of the cervical spine was reported as disc protrusion over the C5-C6 and C6- C7. Right paracentral disc bulging over the C7-T1 with moderate anterior thecal sac a compression. CSF study on 10/03/2020 and appears clear, colorless, 1 nuclear cells, the glucose is 85 which is elevated them baseline and the protein is 56 which is within normal limits. His elevated glucose is likely due to his diabetes mellitus. CSF Gram stain there is no organisms seen. Rare epithelial cells. Objective - Vital Signs Vital signs: Vital Signs Temp 98.2 F 10/03/20 08:23 Pulse 58 L 10/03/20 10:07 Resp 16 10/03/20 10:07 BP 125/67 10/03/20 10:07 Pulse Ox 95 10/03/20 10:07 Intake & Output 10/02/20 10/03/20 10/03/20 18:59 06:59 18:59 Intake Total 600 Balance 600 Intake: IV 600 Other: # Voids 2 - Labs CBC & Chem 7: 10/02/20 08:03 10/02/20 08:03 Labs: Abnormal Lab Results - Last 24 Hours (Table) 10/02/20 10/02/20 10/03/20 Range/Units 16:31 19:44 06:50 POC Glucose (mg/dL) 223 H 221 H 104 H (75-99) mg/dL CSF Glucose (40-70) mg/dL 10/03/20 10/03/20 Range/Units 09:52 11:25 POC Glucose (mg/dL) 107 H (75-99) mg/dL CSF Glucose 85 H (40-70) mg/dL Microbiology - Last 24 Hours (Table) 10/03/20 09:52 CSF Gram Stain - Preliminary Cerebral Spinal Fluid CSF Culture - Preliminary Assessment and Plan Assessment: * Acute transient Encephalopathy of unknown etiology. No fever or leukocytosis for suggestion of meningoencephalitis (also CSF study is negative). * Brief psychotic episode--resolved * Falling episode for the past 6-8 months on unknown etiology * Chronic low back pain * History of Lumbar spondylosis L4-L5 over MRI Lumbar spine * History of Neuropathy * ADD * Diabetes mellitus (for past 10-12 years) * Sleep apnea on CPAP (chronic) Plan: Psychiatry is on board.. We'll defer the rest of medical management to the primary team. Upon discharge would recommend to follow-up with neurologist as outpatient within 1-2 weeks for further work-up (I gave him a referral script to see a neurologist and he was told to see someone that he feels comfortable with). The plan is discussed with the patient and his . There is no further work-up. He is clear from neurological stand point. Kali Go MD Neuro-Hospitalist Time with Patient: Less than 30
--- NOTE | 2020-10-03 17:55 | P.DS ---
Providers Date of admission: 10/01/20 15:52 Expected date of discharge: 10/03/20 Attending physician: Rodney Lozano Consults: 10/01/20 15:32 Consult Physician Urgent Consulting Provider: Kali Go Consult Reason/Comments: Altered mental status Do you want consulting provider notified?: Yes 10/01/20 16:59 Consult Physician Urgent Consulting Provider: Ilya Clement Consult Reason/Comments: Delusional, altered mental status Do you want consulting provider notified?: Yes 10/02/20 12:48 Consult Physician Stat Consulting Provider: Anesthesia,Services Consult Reason/Comments: lumbar puncture Do you want consulting provider notified?: Already Contacted Primary care physician: [facility] Course: Chief Complaint: New-onset of confusion History of presenting complaint: This is a pleasant 55-year-old patient who follows with Dr. Michele. Chronic stable medical conditions include diabetes mellitus type 2, hypertension, obstructive sleep apnea uses CPAP, diverticulosis, ankylosing spondylosis causing lower back pain depression. History is obtained by the at the bedside. 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 This morning around 5 AM the received text from the patient saying that his right leg felt wriggly. She asked him to take Aleve. She came into work and he was leaving and saw him briefly. Subsequently she had received a text from him, saying that. Taking care of his like. Then she would've texture him that he is in the proximal out which 0 9 AM. He was sitting in his truck. He was talking about 2 of his aunts Ruby and Barb were coming home and he was concerned about them. They both had been . He was looking somewhat agitated. When she tried to tell him that they were diet he got somewhat upset. He also didn't show to that he had taken a knife and made a superficial cut on the right thigh to take care of the discomfort. Apparently patient had gone home and taken some boxes to the post office. Some of the events of the morning slightly fuzzy to him. He still thinks that the aunts are not . Patient's sleep cycle is rather disturbed as he often mixes nights and days. There is no fever. There is no use of alcohol or any recreational drugs. has noticed symptoms of bit more critical and skeptical in the last few months about things. Patient admitted with suspected acute psychosis, sleep deprivation. Consultation made to psychiatry and neurology. October 02: Patient doing much better today. He did explain that when he is not doing nights his sleep is rather poor. EEG was negative for seizure activity. MRI showed some white matter changes. Discussion was held with Dr. Clement from psychiatry. Episode was felt to be acute psychosis. Which is resolved. Lumbar puncture is being planned by Dr. Go from neurology October 03: Sitting up in a chair. Comfortable. Patient and son are present. Had a lengthy discussion with them. I told him first and foremost she should try and regulate his sleep cycle. He does sleep well on the days he is working. Then after that doesn't work then he needs to get a further sleep study done. Outpatient neurology workup. CSF came back unremarkable. Cleared by Dr. Go. Discussion and discharge planning more than 35 minutes Consultation: Dr. Go from neurology Dr. Clement from psychiatry Past medical history to include: Diabetes, hypertension, obstructive sleep apnea uses CPAP, depression, and ankylosing spondylosis Social history: 18-year-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 . 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 Physical examination: VITAL SIGNS: 98.2, 58, 16, 125 a 67, 95% room air GENERAL: Sitting up, comfortable EYES: Pupils equal. Conjunctiva normal. NECK: JVD not raised; masses not palpable. HEART: First and second heart sounds are normal; no edema. LUNGS: Respiratory rate normal; clear to auscultation. ABDOMEN: Soft, nontender, liver spleen not palpable, no masses palpable. PSYCH: Alert and oriented x3; mood and affect normal DERMATOLOGICAL: Superficial linear cut on the right thigh INVESTIGATIONS, reviewed in the clinical context: CSF nucleated cells 1 glucose 85. Total protein 56 WBC 7.8 hemoglobin 15.8 platelets 261 potassium 4.4 creatinine 0.8 EEG: Negative for epileptiform activity. MRI of the brain: Within the left contrast: Multiple punctate hyperintense areas within the centrum semiovale white matter. From [facility] Assessment and plan: -Acute psychosis, likely precipitated by severe sleep deprivation. Discussed with psychiatry Dr. Clement. Not for any medications. No need for any outpatient psychiatry follow-up at this point. -Diabetes mellitus type 2, oral hypoglycemic Glucophage, Glucotrol and farxiga. Follow Accu-Cheks -Essential hypertension Vasotec 10 mg daily at bedtime -Hyperlipidemia Pravachol 10 mg daily at bedtime -Depression not otherwise specified On Effexor XR 35.5 mg by mouth daily at bedtime -Chronic ankylosing spondylitis primarily affecting the lumbar spine. With muscle spasms Use Flexeril when necessary -Linear self-inflicted laceration on the right thigh with a knife. Bacitracin ointment twice daily -Obstructive sleep apnea Continue CPAP -Acute and chronic sleep deprivation, from poor sleeps hygiene/habits Sleep hygiene to be improved. Disposition: Home Patient Condition at Discharge: Good Plan - Discharge Summary New Discharge Prescriptions: Continue metFORMIN HCL [Glucophage] 1,000 mg PO BID Venlafaxine HCl ER [Effexor XR] 37.5 mg PO HS Pravastatin Sodium [Pravachol] 10 mg PO HS Ibuprofen [Motrin Ib] 400 mg PO Q6H PRN PRN Reason: Pain Cyclobenzaprine [Flexeril] 10 mg PO TID PRN PRN Reason: Muscle Spasm Montelukast [Singulair] 10 mg PO HS glipiZIDE [Glucotrol] 10 mg PO BID Enalapril [Vasotec] 10 mg PO HS Dapagliflozin Propanediol [Farxiga] 10 mg PO HS Discontinued Fexofenadine HCl [Candi Allergy] 180 mg PO HS Fluticasone Nasal [place] [Flonase Nasal [place]] 1 - 2 spr EA NOSTRIL DAILY PRN PRN Reason: Allergy Symptoms Discharge Medication List Cyclobenzaprine [Flexeril] 10 mg PO TID PRN 10/01/20 [History] Dapagliflozin Propanediol [Farxiga] 10 mg PO HS 10/01/20 [History] Enalapril [Vasotec] 10 mg PO HS 10/01/20 [History] Ibuprofen [Motrin Ib] 400 mg PO Q6H PRN 10/01/20 [History] Montelukast [Singulair] 10 mg PO HS 10/01/20 [History] Pravastatin Sodium [Pravachol] 10 mg PO HS 10/01/20 [History] Venlafaxine HCl ER [Effexor XR] 37.5 mg PO HS 10/01/20 [History] glipiZIDE [Glucotrol] 10 mg PO BID 10/01/20 [History] metFORMIN HCL [Glucophage] 1,000 mg PO BID 10/01/20 [History] Follow up Appointment(s)/Referral(s): Troy Michele MD [Primary Care Provider] - 10/08/20 9:30 am Damir Tapia MD [Medical Doctor] - 10/21/20 2:00 pm Patient Instructions/Handouts: Altered Mental Status (GEN) Discharge Disposition: HOME SELF-CARE
== END 2020-10-03 14:20 | disposition home or self-care (01) ==
LOC: EC 14:30 → 4SSUR 15:52
PROVIDERS: ADMIT Hospitalist; ATTEND Hospitalist
DX: F23 Brief psychotic disorder (principal); R41.82 Altered mental status, unspecified; E11.42 Type 2 diabetes mellitus with diabetic polyneuropathy; E11.65 Type 2 diabetes mellitus with hyperglycemia; E78.5 Hyperlipidemia, unspecified; F32.9 Major depressive disorder, single episode, unspecified; G47.33 Obstructive sleep apnea (adult) (pediatric); G89.29 Other chronic pain; I10 Essential (primary) hypertension; K57.90 Diverticulosis of intestine, part unspecified, without perforation or abscess without bleeding; M45.9 Ankylosing spondylitis of unspecified sites in spine; M47.9 Spondylosis, unspecified; M48.061 Spinal stenosis, lumbar region without neurogenic claudication; M50.222 Other cervical disc displacement at C5-C6 level; M51.26 Other intervertebral disc displacement, lumbar region; X78.9XXA Intentional self-harm by unspecified sharp object, initial encounter; Z72.820 Sleep deprivation; Z79.84 Long term (current) use of oral hypoglycemic drugs; Z79.899 Other long term (current) drug therapy
CPT/HCPCS: 62270; 99285; 96372 ×2; 95816; 84157; 80048; 82945; 85652; 83916; 82164; 83873; 85025; 86140; 89050; 84311; 87070; 87205; 70553; 72156; G0378 ×3; J1650 ×2; A9585 ×2

== ENCOUNTER 2020-10-06 10:13 | Emergency (ER) | payer BC ==
[2020-10-06 10:17] VITALS: RESP 18
[2020-10-06] MEDS ORDERED: KETOROLAC 15 MG/ML 1 ML VIAL IVP STA (11:23)
[2020-10-06] MEDS ORDERED: METOCLOPRAMIDE 5 MG/ML 2 ML VIAL IVP STA (11:23)
[2020-10-06] MEDS ORDERED: diphenhydrAMINE 50 MG/ML 1 ML VIAL IVP STA (11:23)
[2020-10-06] MEDS ORDERED: SODIUM CHLORIDE 0.9% 1,000 ML IV STA (11:23)
--- NOTE | 2020-10-06 11:24 | ED ---
General Adult HPI - General Chief complaint: Headache Stated complaint: spinal headache Time Seen by Provider: 10/06/20 10:35 Source: patient Mode of arrival: ambulatory Limitations: no limitations - History of Present Illness Initial comments: 55-year-old male with a possible history of diabetes mellitus, hypertension presents to the emergency room for chief complaint of headache. Patient describes the pain across his forehead at a 7 out of 10 in pain. No vomiting. Patient states he had a spinal tap 3 days ago to rule out multiple sclerosis by Dr Schwarz. For the past 2 days patient has had a headache. Patient states it is better when he lies flat and worse and he stands up. Patient states he has difficulty lying completely flat because of chronic back pain as well. Patient has not been able to go to work today because of the headache so presented to the emergency room. He has been trying to take Aleve and caffeine and has been unsuccessful with pain improvement.Patient has no other complaints at this time including shortness of breath, chest pain, abdominal pain, nausea or vomiting, or visual changes. - Related Data Home Medications Medication Instructions Recorded Confirmed Cyclobenzaprine [Flexeril] 10 mg PO TID PRN 10/01/20 10/06/20 Dapagliflozin Propanediol [Farxiga] 10 mg PO HS 10/01/20 10/06/20 Enalapril [Vasotec] 10 mg PO HS 10/01/20 10/06/20 Ibuprofen [Motrin Ib] 400 mg PO Q6H PRN 10/01/20 10/06/20 Montelukast [Singulair] 10 mg PO HS 10/01/20 10/06/20 Pravastatin Sodium [Pravachol] 10 mg PO HS 10/01/20 10/06/20 Venlafaxine HCl ER [Effexor XR] 37.5 mg PO HS 10/01/20 10/06/20 glipiZIDE [Glucotrol] 10 mg PO BID 10/01/20 10/06/20 metFORMIN HCL [Glucophage] 1,000 mg PO BID 10/01/20 10/06/20 Allergies Allergy/AdvReac Type Severity Reaction Status Date / Time Cephalosporins AdvReac Nausea & Verified 10/06/20 10:58 Vomiting & Diarrhea Review of Systems ROS Statement: Those systems with pertinent positive or pertinent negative responses have been documented in the HPI. ROS Other: All systems not noted in ROS Statement are negative. Past Medical History Past Medical History: Diabetes Mellitus, Hypertension, Sleep Apnea/CPAP/BIPAP Additional Past Medical History / Comment(s): LULÚ, diverticulitis History of Any Multi-Drug Resistant Organisms: C-DIFF Date of last positivie culture/infection: 1994 Past Surgical History: Hernia Repair, Orthopedic Surgery, Tonsillectomy Additional Past Surgical History / Comment(s): sigmoid colon, vasectomy Past Psychological History: Depression Smoking Status: Never smoker Past Alcohol Use History: None Reported Past Drug Use History: None Reported - Past Family History Mother Additional Family Medical History / Comment(s): Cancer history Father Additional Family Medical History / Comment(s): Heart Disease General Exam Limitations: no limitations General appearance: alert, in no apparent distress Head exam: Present: atraumatic Eye exam: Present: normal appearance, PERRL, EOMI. Absent: scleral icterus, conjunctival injection ENT exam: Present: normal exam, mucous membranes moist Neck exam: Present: normal inspection, full ROM. Absent: tenderness Respiratory exam: Present: normal lung sounds bilaterally. Absent: respiratory distress, wheezes Cardiovascular Exam: Present: regular rate, normal rhythm, normal heart sounds GI/Abdominal exam: Present: soft, normal bowel sounds. Absent: distended, tenderness, guarding, rebound, rigid Neurological exam: Present: alert, oriented X3, normal gait Course Vital Signs 10/06/20 10/06/20 10:15 17:19 Temperature 98 F 98.3 F Pulse Rate 70 76 Respiratory 18 18 Rate Blood Pressure 159/82 143/88 O2 Sat by Pulse 98 98 Oximetry Medical Decision Making - Medical Decision Making Vitals are stable. Patient well-appearing. Patient presents with positional headache status post lumbar puncture 3 days ago. Migraine cocktail was ordered as well as caffeine IV. This did not seem to help much with pain. Anesthesia was consulted. Blood patch was performed. The patient to be discharged home to follow up with primary care. Will return here for any worsening symptoms. Disposition Clinical Impression: Spinal headache Disposition: HOME SELF-CARE Condition: Good Instructions (If sedation given, give patient instructions): Acute Headache (ED) Additional Instructions: Follow-up with your doctor. Return to the emergency room for any worsening symptoms. Is patient prescribed a controlled substance at d/c from ED?: No Referrals: Troy Michele MD [Primary Care Provider] - 1-2 days Time of Disposition: 15:45
[2020-10-06] MEDS ORDERED: CAFFEINE-SODIUM BENZOATE 500 MG in SODIUM CHLORIDE 0.9% 1,000 ML IVPB ONE (11:45)
[2020-10-06] MEDS ORDERED: LIDOCAINE 1% INJ 10MG/ML (20 ML MDV) SQ STA (14:50)
--- NOTE | 2020-10-06 15:18 | P.PCN ---
Date of Procedure: 10/06/20 Description of Procedure: Procedure= lumbar epidural blood patch. Preoperative diagnosis= postdural puncture headache. Postoperative diagnoses= post dural puncture headache. Indication for the procedure= patient developed headache after lumbar puncture 10/03, spinal headache persists in spite of conservative treatment, there is no focal neurological deficit, no fever, no neck stiffness, headache worse with sitting and standing position, and improved with lying supine, for this reason patient is a good candidate for epidural blood patch. anesthesia= local infiltration with lidocaine 1% 3 mL. Procedure date 10/06/20 Procedure time: 2578-9822 Complications= none. Description of the procedure= patient identified risks and benefits of the procedure explained to the patient and patient agreed with proceeding, vital signs monitored during the procedure Back lumbar area prepped with Betadine 3 times, then drape applied. Local infiltration of the skin and subcutaneous tissue with lidocaine 1% 3 mL at [L4-5 interlaminar space (at the site of prior lumbar puncture) then 20-gauge Tuohy needle advanced slowly, there was positive loss of resistance to normal saline, no heme no paresthesia no cerebrospinal fluid. Then, patient's blood was taken under strict sterile technique, after the left antecubital area was prepped with a chlorhexidine 2 times, using 20-gauge Angiocath, 20 ML of the blood removed was injected into the epidural space, at which point patient did not experience intense pressure, no paresthesias. Then the needle was removed intact the skin cleaned and bandage applied and patient was placed supine in recovery room for 2 hours and subsequently discharged home in stable condition after discharge criteria met Follow-up: When necessary
[2020-10-06 17:20] VITALS: BP 143/88; PULSE 76; TEMP 98.3
== END 2020-10-06 17:20 | disposition home or self-care (01) ==
LOC: EC 10:13
DX: R51.9 Headache, unspecified (principal); E11.9 Type 2 diabetes mellitus without complications; I10 Essential (primary) hypertension; F32.9 Major depressive disorder, single episode, unspecified; Z79.84 Long term (current) use of oral hypoglycemic drugs; Z79.1 Long term (current) use of non-steroidal anti-inflammatories (NSAID); Z79.899 Other long term (current) drug therapy; Z79.52 Long term (current) use of systemic steroids
CPT/HCPCS: 62270; 96374; 96375 ×3; 96361; 99283; J1200; J2765; J1885

== ENCOUNTER 2021-01-03 20:15 | Observation (INO) | payer BC ==
[2021-01-03 20:25] LABS: Glucose,Whole Blood 262 mg/dL (75-99)
[2021-01-03] MEDS ORDERED: SODIUM CHLORIDE 0.9% 1,000 ML IV ONE (20:56)
[2021-01-03 21:36] LABS: Basophils % (A) 1 %; Eosinophils # (A) 0.1 k/uL (0-0.7); Eosinophils % (A) 1 %; HCT 54.1 % (39.0-53.0); HGB 18.1 gm/dL (13.0-17.5); Lymphocytes # (A) 1.2 k/uL (1.0-4.8); Lymphocytes % (A) 20 %; MCH 27.8 pg (25.0-35.0); MCHC 33.4 g/dL (31.0-37.0); MCV 83.2 fL (80.0-100.0); Mean Platelet Volume 7.4; Monocytes # (A) 0.6 k/uL (0-1.0); Monocytes % (A) 11 %; Neutrophils % (A) 65 %; Platelet Count 232 k/uL (150-450); RDW 13.3 % (11.5-15.5); WBC 6.1 k/uL (3.8-10.6)
[2021-01-03 21:38] LABS: Appearance,Urine Clear (Clear); Bilirubin,Urine Negative (Negative); Blood,Urine Negative (Negative); Color,Urine Light Yellow; Glucose,Urine (UA) 4+ (Negative); Ketones,Urine Negative (Negative); Leukocyte Esterase,Urine Negative (Negative); Nitrite,Urine Negative (Negative); Protein,Urine Negative (Negative); Specific Gravity,Urine 1.038 (1.001-1.035); Urobilinogen,Urine <2.0 mg/dL (<2.0)
[2021-01-03 21:48] LABS: Amphetamine Screen,Urine Not Detected (NotDetected); Barbiturate Screen,Urine Not Detected (NotDetected); Benzodiazepines Screen,Urine Not Detected (NotDetected); Cocaine Screen,Urine Not Detected (NotDetected); Methadone Screen, Urine Not Detected (NotDetected); Opiate Screen,Urine Not Detected (NotDetected); Oxycodone Screen, Urine Not Detected (NotDetected); Phencyclidine Screen,Urine Not Detected (NotDetected); Tricyclic Antidepressant,Urine Not Detected (NotDetected); Urn Cannabinoid Scrn Not Detected (NotDetected)
[2021-01-03 21:49] LABS: Partial Thromboplastin Time 24.9 sec (22.0-30.0); Prothrombin Time 10.8 sec (9.0-12.0)
[2021-01-03 21:56] LABS: ALT 40 U/L (4-49); AST 28 U/L (17-59); African American GFR (CKD) >90 (>60 ml/min/1.73 sqM); Albumin 4.1 g/dL (3.5-5.0); Alcohol <10 mg/dL; Alkaline Phosphatase 101 U/L (38-126); Anion Gap 11 mmol/L; Blood Urea Nitrogen 14 mg/dL (9-20); Calcium 9.4 mg/dL (8.4-10.2); Carbon Dioxide 22 mmol/L (22-30); Chloride 100 mmol/L (98-107); Glucose 251 mg/dL (74-99); Non-African American GFR(CKD) >90 (>60 ml/min/1.73 sqM); Sodium 133 mmol/L (137-145); Total Bilirubin 1.1 mg/dL (0.2-1.3); Total Protein 6.9 g/dL (6.3-8.2)
[2021-01-03 22:23] VITALS: RESP 18
--- NOTE | 2021-01-03 22:27 | CT ---
EXAMINATION TYPE: CT brain wo con DATE OF EXAM: 01/03/2021 COMPARISON: None HISTORY: ams, weakness, confusion CT DLP: 1202.4 mGycm Automated exposure control for dose reduction was used. Ventricles have normal size. There is no mass effect nor midline shift. There is no sign of intracran ial hemorrhage. Calvarium is intact. Skull base is intact. IMPRESSION: Negative unenhanced head CT scan.
--- NOTE | 2021-01-03 22:30 | XR ---
EXAMINATION TYPE: XR chest 2V DATE OF EXAM: 01/03/2021 COMPARISON: NONE HISTORY: Altered mental status TECHNIQUE: 2 views FINDINGS: Heart and mediastinum are normal. Lungs are clear. Diaphragm is normal. Bony thorax appears normal. IMPRESSION: Normal chest.
--- NOTE | 2021-01-03 22:42 | ED ---
General Adult HPI - General Chief complaint: Altered Mental Status Stated complaint: Confused Time Seen by Provider: 01/03/21 20:47 Source: patient, family Mode of arrival: ambulatory Limitations: altered mental status - History of Present Illness Initial comments: 55 year-old male patient presents to the emergency department for evaluation after having an episode of confusion. Patient was driving to a lining strap closer but never showed up. He called family and told them he did not know where he was and needed help. They were able to locate him at a local hindu about 45 minutes in the opposite direction of where he was supposed to be. When they got there he did not remember how he had gotten there, he did not recognize the hindu even though he grew up in the area and attended hindu there as a child. 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 Denies facial droop. states this did occur once before in September of this year and they were unable to find a cause. Patient denies any recent rash, fever, chills, cough, shortness of breath, chest pain, abdominal pain, nausea, vomiting, diarrhea, constipation, back pain, numbness, tingling, dizziness, weakness, hematuria, dysuria, urinary urgency, urinary frequency, headache, visual changes, or any other complaints. - Related Data Home Medications Medication Instructions Recorded Confirmed Dapagliflozin Propanediol [Farxiga] 10 mg PO HS 10/01/20 01/03/21 Enalapril [Vasotec] 10 mg PO HS 10/01/20 01/03/21 Montelukast [Singulair] 10 mg PO DAILY 10/01/20 01/03/21 Pravastatin Sodium [Pravachol] 10 mg PO DAILY 10/01/20 01/03/21 glipiZIDE [Glucotrol] 10 mg PO BID 10/01/20 01/03/21 metFORMIN HCL [Glucophage] 1,000 mg PO BID 10/01/20 01/03/21 Aspirin EC [Ecotrin Low Dose] 81 mg PO DAILY 01/03/21 01/03/21 Fluticasone Nasal [place] [Flonase 1 spray EA NOSTRIL DAILY 01/03/21 01/03/21 Nasal [place]] Venlafaxine HCl [Effexor XR] 75 mg PO DAILY 01/03/21 01/03/21 Allergies Allergy/AdvReac Type Severity Reaction Status Date / Time Cephalosporins AdvReac Nausea & Verified 01/03/21 22:22 Vomiting & Diarrhea Review of Systems ROS Statement: Those systems with pertinent positive or pertinent negative responses have been documented in the HPI. ROS Other: All systems not noted in ROS Statement are negative. Past Medical History Past Medical History: Diabetes Mellitus, Hypertension, Sleep Apnea/CPAP/BIPAP Additional Past Medical History / Comment(s): LULÚ, diverticulitis History of Any Multi-Drug Resistant Organisms: C-DIFF Date of last positivie culture/infection: 1994 Past Surgical History: Hernia Repair, Orthopedic Surgery, Tonsillectomy Additional Past Surgical History / Comment(s): sigmoid colon, vasectomy Past Psychological History: Depression Smoking Status: Never smoker Past Alcohol Use History: None Reported Past Drug Use History: None Reported - Past Family History Mother Additional Family Medical History / Comment(s): Cancer history Father Additional Family Medical History / Comment(s): Heart Disease General Exam Limitations: altered mental status General appearance: alert, in no apparent distress, other (This is a well-devel oped, well-nourished adult male patient in no acute distress) Eye exam: Present: normal appearance, PERRL, EOMI. Absent: scleral icterus, conjunctival injection, periorbital swelling Neck exam: Present: normal inspection. Absent: tenderness, meningismus, lymphadenopathy Respiratory exam: Present: normal lung sounds bilaterally. Absent: respiratory distress, wheezes, rales, rhonchi, stridor Cardiovascular Exam: Present: regular rate, normal rhythm, normal heart sounds. Absent: systolic murmur, diastolic murmur, rubs, gallop, clicks GI/Abdominal exam: Present: soft, normal bowel sounds. Absent: distended, tenderness, guarding, rebound, rigid Neurological exam: Present: alert, CN II-XII intact. Absent: oriented X3 (oriented x2) Expanded Speech: Present: fluid speech Cranial nerves: EOM's Intact: Normal, Tongue Deviation: Normal, Nystagmus: Normal Motor strength exam: RUE: 5, LUE: 5, RLE: 5, LLE: 5 Psychiatric exam: Present: normal affect, normal mood Skin exam: Present: warm, dry, intact, normal color. Absent: rash Course Vital Signs 11/08/1801/03/21 01/04/21 20:18 22:22 00:00 Temperature 98.0 F Pulse Rate 103 H 78 70 Respiratory 20 18 18 Rate Blood Pressure 148/83 124/85 123/79 O2 Sat by Pulse 96 95 98 Oximetry 01/04/21 01:20 EDT Temperature Pulse Rate 84 Respiratory 18 Rate Blood Pressure 131/82 O2 Sat by Pulse 97 Oximetry EKG Findings - EKG Comments: EKG Findings:: EKG obtained at 2137 shows normal sinus rhythm with a ventricular rate of 82, NM interval 160, QRS duration 104, QT 384, QTC 448. No evidence of ST elevation or depression. Medical Decision Making - Medical Decision Making 55 year-old male patient presenting for altered mental status. Was driving and did not know where he was or where he was going. Upon arrival patient is answering most questions appropriately, though does think it is the end of November rather than 01/03. He denies any current symptoms. He is neurologically intact with no focal deficits. Labs reviewed and did reveal elevated blood s ugar. CT brain is negative. I did discuss findings and results with the patient and family. We admitted to the hospital for further evaluation by neurology. My attending is Dr. Spencer. - Lab Data Result diagrams: 01/03/21 21:11 01/03/21 21:11 Lab Results 01/03/21 01/03/21 01/03/21 Range/Units 20:23 21:11 21:11 WBC 6.1 (3.8-10.6) k/uL RBC 6.50 H (4.30-5.90) m/uL Hgb 18.1 H (13.0-17.5) gm/dL Hct 54.1 H (39.0-53.0) % MCV 83.2 (80.0-100.0) fL MCH 27.8 (25.0-35.0) pg MCHC 33.4 (31.0-37.0) g/dL RDW 13.3 (11.5-15.5) % Plt Count 232 (150-450) k/uL MPV 7.4 Neutrophils % 65 % Lymphocytes % 20 % Monocytes % 11 % Eosinophils % 1 % Basophils % 1 % Neutrophils # 4.0 (1.3-7.7) k/uL Lymphocytes # 1.2 (1.0-4.8) k/uL Monocytes # 0.6 (0-1.0) k/uL Eosinophils # 0.1 (0-0.7) k/uL Basophils # 0.0 (0-0.2) k/uL PT 10.8 (9.0-12.0) sec INR 1.0 (<1.2) APTT 24.9 (22.0-30.0) sec Sodium (137-145) mmol/L Potassium (3.5-5.1) mmol/L Chloride (98-107) mmol/L Carbon Dioxide (22-30) mmol/L Anion Gap mmol/L BUN (9-20) mg/dL Creatinine (0.66-1.25) mg/dL Est GFR (CKD-EPI)AfAm (>60 ml/min/1.73 sqM) Est GFR (CKD-EPI)NonAf (>60 ml/min/1.73 sqM) Glucose (74-99) mg/dL POC Glucose (mg/dL) 262 H (75-99) mg/dL POC Glu Tax Staff Accountant ID Calcium (8.4-10.2) mg/dL Total Bilirubin (0.2-1.3) mg/dL AST (17-59) U/L ALT (4-49) U/L Alkaline Phosphatase (38-126) U/L Ammonia (<30) umol/L Troponin I (0.000-0.034) ng/mL Total Protein (6.3-8.2) g/dL Albumin (3.5-5.0) g/dL Urine Color Urine Appearance (Clear) Urine pH (5.0-8.0) Ur Specific [place] (1.001-1.035) Urine Protein (Negative) Urine Glucose (UA) (Negative) Urine Ketones (Negative) Urine Blood (Negative) Urine Nitrite (Negative) Urine Bilirubin (Negative) Urine Urobilinogen (<2.0) mg/dL Ur Leukocyte Esterase (Negative) Urine Opiates Screen (NotDetected) Ur Oxycodone Screen (NotDetected) Urine Methadone Screen (NotDetected) Ur Propoxyphene Screen (NotDetected) Ur Barbiturates Screen (NotDetected) U Tricyclic Antidepress (NotDetected) Ur Phencyclidine Scrn (NotDetected) Ur Amphetamines Screen (NotDetected) U Methamphetamines Scrn (NotDetected) U Benzodiazepines Scrn (NotDetected) Urine Cocaine Screen (NotDetected) U Marijuana (THC) Screen (NotDetected) Serum Alcohol mg/dL 01/03/21 01/03/21 01/03/21 Range/Units 21:11 21:11 21:11 WBC (3.8-10.6) k/uL RBC (4.30-5.90) m/uL Hgb (13.0-17.5) gm/dL Hct (39.0-53.0) % MCV (80.0-100.0) fL MCH (25.0-35.0) pg MCHC (31.0-37.0) g/dL RDW (11.5-15.5) % Plt Count (150-450) k/uL MPV Neutrophils % % Lymphocytes % % Monocytes % % Eosinophils % % Basophils % % Neutrophils # (1.3-7.7) k/uL Lymphocytes # (1.0-4.8) k/uL Monocytes # (0-1.0) k/uL Eosinophils # (0-0.7) k/uL Basophils # (0-0.2) k/uL PT (9.0-12.0) sec INR (<1.2) APTT (22.0-30.0) sec Sodium 133 L (137-145) mmol/L Potassium 4.0 (3.5-5.1) mmol/L Chloride 100 (98-107) mmol/L Carbon Dioxide 22 (22-30) mmol/L Anion Gap 11 mmol/L BUN 14 (9-20) mg/dL Creatinine 0.59 L (0.66-1.25) mg/dL Est GFR (CKD-EPI)AfAm >90 (>60 ml/min/1.73 sqM) Est GFR (CKD-EPI)NonAf >90 (>60 ml/min/1.73 sqM) Glucose 251 H (74-99) mg/dL POC Glucose (mg/dL) (75-99) mg/dL POC Glu Tax Staff Accountant ID Calcium 9.4 (8.4-10.2) mg/dL Total Bilirubin 1.1 (0.2-1.3) mg/dL AST 28 (17-59) U/L ALT 40 (4-49) U/L Alkaline Phosphatase 101 (38-126) U/L Ammonia 13 (<30) umol/L Troponin I (0.000-0.034) ng/mL Total Protein 6.9 (6.3-8.2) g/dL Albumin 4.1 (3.5-5.0) g/dL Urine Color Light Yellow Urine Appearance Clear (Clear) Urine pH 5.0 (5.0-8.0) Ur Specific [place] 1.038 H (1.001-1.035) Urine Protein Negative (Negative) Urine Glucose (UA) 4+ H (Negative) Urine Ketones Negative (Negative) Urine Blood Negative (Negative) Urine Nitrite Negative (Negative) Urine Bilirubin Negative (Negative) Urine Urobilinogen <2.0 (<2.0) mg/dL Ur Leukocyte Esterase Negative (Negative) Urine Opiates Screen Not Detected (NotDetected) Ur Oxycodone Screen Not Detected (NotDetected) Urine Methadone Screen Not Detected (NotDetected) Ur Propoxyphene Screen Not Detected (NotDetected) Ur Barbiturates Screen Not Detected (NotDetected) U Tricyclic Antidepress Not Detected (NotDetected) Ur Phencyclidine Scrn Not Detected (NotDetected) Ur Amphetamines Screen Not Detected (NotDetected) U Methamphetamines Scrn Not Detected (NotDetected) U Benzodiazepines Scrn Not Detected (NotDetected) Urine Cocaine Screen Not Detected (NotDetected) U Marijuana (THC) Screen Not Detected (NotDetected) Serum Alcohol <10 mg/dL 01/03/21 Range/Units 21:11 WBC (3.8-10.6) k/uL RBC (4.30-5.90) m/uL Hgb (13.0-17.5) gm/dL Hct (39.0-53.0) % MCV (80.0-100.0) fL MCH (25.0-35.0) pg MCHC (31.0-37.0) g/dL RDW (11.5-15.5) % Plt Count (150-450) k/uL MPV Neutrophils % % Lymphocytes % % Monocytes % % Eosinophils % % Basophils % % Neutrophils # (1.3-7.7) k/uL Lymphocytes # (1.0-4.8) k/uL Monocytes # (0-1.0) k/uL Eosinophils # (0-0.7) k/uL Basophils # (0-0.2) k/uL PT (9.0-12.0) sec INR (<1.2) APTT (22.0-30.0) sec Sodium (137-145) mmol/L Potassium (3.5-5.1) mmol/L Chloride (98-107) mmol/L Carbon Dioxide (22-30) mmol/L Anion Gap mmol/L BUN (9-20) mg/dL Creatinine (0.66-1.25) mg/dL Est GFR (CKD-EPI)AfAm (>60 ml/min/1.73 sqM) Est GFR (CKD-EPI)NonAf (>60 ml/min/1.73 sqM) Glucose (74-99) mg/dL POC Glucose (mg/dL) (75-99) mg/dL POC Glu Tax Staff Accountant ID Calcium (8.4-10.2) mg/dL Total Bilirubin (0.2-1.3) mg/dL AST (17-59) U/L ALT (4-49) U/L Alkaline Phosphatase (38-126) U/L Ammonia (<30) umol/L Troponin I <0.012 (0.000-0.034) ng/mL Total Protein (6.3-8.2) g/dL Albumin (3.5-5.0) g/dL Urine Color Urine Appearance (Clear) Urine pH (5.0-8.0) Ur Specific [place] (1.001-1.035) Urine Protein (Negative) Urine Glucose (UA) (Negative) Urine Ketones (Negative) Urine Blood (Negative) Urine Nitrite (Negative) Urine Bilirubin (Negative) Urine Urobilinogen (<2.0) mg/dL Ur Leukocyte Esterase (Negative) Urine Opiates Screen (NotDetected) Ur Oxycodone Screen (NotDetected) Urine Methadone Screen (NotDetected) Ur Propoxyphene Screen (NotDetected) Ur Barbiturates Screen (NotDetected) U Tricyclic Antidepress (NotDetected) Ur Phencyclidine Scrn (NotDetected) Ur Amphetamines Screen (NotDetected) U Methamphetamines Scrn (NotDetected) U Benzodiazepines Scrn (NotDetected) Urine Cocaine Screen (NotDetected) U Marijuana (THC) Screen (NotDetected) Serum Alcohol mg/dL - Radiology Data Radiology results: report reviewed, image reviewed CT brain without contrast was obtained. Report is reviewed in its entirety. Impression by Dr. Canada shows negative unenhanced head CT scan. 2 views of the chest are obtained. Report was reviewed in its entirety. Impression by Dr. Canada shows normal chest. Disposition Clinical Impression: Altered mental status Disposition: ADMITTED IP TO THIS [facility] Condition: Serious Decision to Admit Reason: Admit from EC Decision Date: 01/03/21 Decision Time: 23:15
[2021-01-03] MEDS ORDERED: NALOXONE 0.4 MG/ML 1 ML VIAL IV PRN (23:04)
[2021-01-04 02:09] LABS: Glucose,Whole Blood 136 mg/dL (75-99)
[2021-01-04 06:56] LABS: Glucose,Whole Blood 107 mg/dL (75-99)
[2021-01-04 07:03] VITALS: TEMP 97.8
[2021-01-04] MEDS: INSULIN ASPART (NovoLOG) 100 UNIT/ML VIAL SQ SCH ×2 (13:03→13:08)
[2021-01-04 13:08] LABS: Glucose,Whole Blood 122 mg/dL (75-99)
[2021-01-04 16:20] VITALS: BP 146/72; PULSE 82
--- NOTE | 2021-01-05 11:12 | P.CNNES ---
History of Present Illness Consult date: 01/04/21 Chief complaint: altered mental status History of Present Illness: The patient is a 55-year-old male who is seen in neurologic [facility] on January 04, 2021, via telemedicine. The patient is seen in the emergency department holding area. Patient's is the one who provides the history. She says that she and her daughter were planning on meeting her at a dinner and the patient did not show up. He apparently called his daughter on herself on and reported that he had gotten lost. He did not recognize where he was. The and daughter were eventually able to track the patient down to a "hinduism parking lot in [place]". According to the patient's , the patient did not recognize his surroundings. He was found in a hinduism parking lot, should be very familiar to him. On the drive home, the patient did not recognize his surroundings or local landmarks. The patient did reportedly recognize his and his daughter. He was able to answer basic questions, correctly. There is no noted facial droop, dysarthria, ataxia or weakness of any of the extremities. According to his , the patient was not his "usual self", after he was picked up by her. The patient denied headache. There are no visual changes. There is no sleep deprivation leading up to this event. No history of closed head injury. The patient reportedly had a similar event in September 2020. He was admitted to the hospital and fully worked up. He had an MRI of his brain with and without contrast, EEG, lumbar puncture. No etiology was determined. The patient does report having weekly headaches for the past year. Prior to 1 year ago, the patient did not have headaches. Patient reports that with the headaches he has light sensitivity. There is no nausea or vomiting. The patient has been able to take Tylenol or Motrin, and receive relief. He describes them as a pressure sensation. They have not interfered with his ability to do his work. 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 He has been exposed to numerous people with Covid 19. He reports that he is tested twice weekly and has had his antibodies drawn. They are negative. Past Medical History Past Medical History: Diabetes Mellitus, Hypertension, Sleep Apnea/CPAP/BIPAP Additional Past Medical History / Comment(s): LULÚ, diverticulitis History of Any Multi-Drug Resistant Organisms: C-DIFF Date of last positivie culture/infection: 1994 Past Surgical History: Hernia Repair, Orthopedic Surgery, Tonsillectomy Additional Past Surgical History / Comment(s): sigmoid colon, vasectomy Past Psychological History: Depression Smoking Status: Never smoker Past Alcohol Use History: None Reported Past Drug Use History: None Reported - Past Family History Mother Additional Family Medical History / Comment(s): Cancer history Father Additional Family Medical History / Comment(s): Heart Disease Medications and Allergies Home Medications Medication Instructions Recorded Confirmed Type Dapagliflozin Propanediol [Farxiga] 10 mg PO HS 10/01/20 01/03/21 History Enalapril [Vasotec] 10 mg PO HS 10/01/20 01/03/21 History Montelukast [Singulair] 10 mg PO DAILY 10/01/20 01/03/21 History Pravastatin Sodium [Pravachol] 10 mg PO DAILY 10/01/20 01/03/21 History glipiZIDE [Glucotrol] 10 mg PO BID 10/01/20 01/03/21 History metFORMIN HCL [Glucophage] 1,000 mg PO BID 10/01/20 01/03/21 History Aspirin EC [Ecotrin Low Dose] 81 mg PO DAILY 01/03/21 01/03/21 History Fluticasone Nasal [place] [Flonase 1 spray EA NOSTRIL DAILY 01/03/21 01/03/21 History Nasal [place]] Venlafaxine HCl [Effexor XR] 75 mg PO DAILY 01/03/21 01/03/21 History Allergies Allergy/AdvReac Type Severity Reaction Status Date / Time Cephalosporins AdvReac Nausea & Verified 01/03/21 22:22 Vomiting & Diarrhea Physical Examination - Vital Signs Vital Signs: Vital Signs Temp Pulse Resp BP Pulse Ox 01/04/21 13:00 85 18 122/65 96 01/04/21 11:00 81 18 130/82 94 L 01/04/21 07:35 92 18 131/92 96 01/04/21 07:00 97.8 F 79 18 123/80 98 01/04/21 05:00 72 18 01/04/21 04:00 18 01/04/21 03:00 70 18 01/04/21 02:00 73 18 129/81 95 01/04/21 01:20 EDT 84 18 131/82 97 01/04/21 00:00 70 18 123/79 98 01/03/21 22:22 78 18 124/85 95 01/03/21 20:18 98.0 F 103 H 20 148/83 96 Intake and Output 01/03/21 01/04/21 01/04/21 23:59 06:59 14:59 Other: Weight Gen.: The patient is seated on the gurney in the emergency department. He is well-nourished, well-developed and in no acute distress. HEENT: Head is atraumatic, normocephalic. Fundus not visualized. There is no scleral icterus. Mucous membranes are moist. Neck: Supple without carotid bruits Heart: Regular rate and rhythm Extremities: Without edema Neurological examination Mental status: The patient is awake, alert and oriented 3. His speech is clear. He is able to state his full name, date of , age, month, holiday, president and day of the week. He is able to accurately repeat phrases. He follows two-step commands accurately. There is no anomia. Cranial nerves: Pupils are equal at 4 mm and reactive. Visual zurita are full to confrontation. Extraocular movements are intact. There is no nystagmus. Facial sensation is intact. There is no facial asymmetry. Hearing is grossly intact. Uvula and palate are midline. Shoulder shrug is symmetric. Motor: Strength is 5/5 throughout. Coordination: Finger to nose testing is intact. There is a mild intention tremor of the bilateral upper extremities. Sensation is grossly intact to light touch throughout. There is no extinction with double simultaneous stimulation. Deep tendon reflexes: 2+/4+ throughout. Results - Laboratory Findings CBC and BMP: 01/03/21 21:11 01/03/21 21:11 Abnormal Lab Findings: Abnormal Labs 01/03/21 01/03/21 01/03/21 20:23 21:11 21:11 RBC 6.50 H Hgb 18.1 H Hct 54.1 H Sodium Creatinine Glucose POC Glucose (mg/dL) 262 H Ur Specific [place] 1.038 H Urine Glucose (UA) 4+ H 01/03/21 01/04/21 01/04/21 21:11 02:07 06:46 RBC Hgb Hct Sodium 133 L Creatinine 0.59 L Glucose 251 H POC Glucose (mg/dL) 136 H 107 H Ur Specific [place] Urine Glucose (UA) 01/04/21 13:06 RBC Hgb Hct Sodium Creatinine Glucose POC Glucose (mg/dL) 122 H Ur Specific [place] Urine Glucose (UA) Assessment and Plan Assessment: 1. Transient episode of encephalopathy, second occurrence-etiology still unde termined Plan: 1. The patient was advised to follow-up with his neurologist, Dr. Hallman, for further recommendations regarding testing and/or possible referral to [facility] or [facility] neurology. Time with Patient: Greater than 30 (spent 40 minutes with patient via telemedicine)
== END 2021-01-04 17:28 | disposition home or self-care (01) ==
LOC: EC 20:15 → 6NMEDSUR 22:51
PROVIDERS: ADMIT Internal Medicine; ATTEND Internal Medicine
DX: G93.40 Encephalopathy, unspecified (principal); E11.65 Type 2 diabetes mellitus with hyperglycemia; I10 Essential (primary) hypertension; Z20.822 Contact with and (suspected) exposure to COVID-19; K57.90 Diverticulosis of intestine, part unspecified, without perforation or abscess without bleeding; G47.33 Obstructive sleep apnea (adult) (pediatric); F32.9 Major depressive disorder, single episode, unspecified; Z79.82 Long term (current) use of aspirin; Z79.84 Long term (current) use of oral hypoglycemic drugs; Z79.899 Other long term (current) drug therapy; Z88.1 Allergy status to other antibiotic agents; Z86.19 Personal history of other infectious and parasitic diseases; Z86.69 Personal history of other diseases of the nervous system and sense organs; Z80.9 Family history of malignant neoplasm, unspecified; Z82.49 Family history of ischemic heart disease and other diseases of the circulatory system
CPT/HCPCS: 99285; 96360; 36415; 93005; 80053; 82140; 84484; 85025; 85610; 85730; 81003; 80306; 80320; 87635; 71046; 70450; G0378 ×2

== ENCOUNTER 2023-03-24 04:31 | Inpatient (IN) | payer BC ==
[2023-03-24 05:33] LABS: Basophils # (A) 0.1 k/uL (0-0.2); Basophils % (A) 1 %; Eosinophils # (A) 0.3 k/uL (0-0.7); Eosinophils % (A) 3 %; HCT 49.8 % (39.0-53.0); HGB 17.2 gm/dL (13.0-17.5); Lymphocytes % (A) 21 %; MCH 29.7 pg (25.0-35.0); MCHC 34.6 g/dL (31.0-37.0); MCV 85.9 fL (80.0-100.0); Mean Platelet Volume 7.3; Monocytes # (A) 0.7 k/uL (0-1.0); Monocytes % (A) 7 %; Neutrophils # (A) 6.7 k/uL (1.3-7.7); Neutrophils % (A) 68 %; Platelet Count 304 k/uL (150-450); RBC 5.79 m/uL (4.30-5.90); RDW 12.7 % (11.5-15.5); WBC 9.8 k/uL (3.8-10.6)
[2023-03-24 05:48] LABS: ALT 62 U/L (4-49); AST 43 U/L (17-59); Alkaline Phosphatase 88 U/L (38-126); Anion Gap 9 mmol/L; Blood Urea Nitrogen 15 mg/dL (9-20); Calcium 9.4 mg/dL (8.4-10.2); Carbon Dioxide 21 mmol/L (22-30); Chloride 110 mmol/L (98-107); Glucose 146 mg/dL (74-99); Potassium 4.1 mmol/L (3.5-5.1); Sodium 140 mmol/L (137-145); Total Bilirubin 0.4 mg/dL (0.2-1.3); Total Protein 6.4 g/dL (6.3-8.2)
[2023-03-24 06:04] LABS: African American GFR (CKD) >90 (>60 ml/min/1.73 sqM); Non-African American GFR(CKD) >90 (>60 ml/min/1.73 sqM)
[2023-03-24 06:10] LABS: INR 0.9 (<1.2); Partial Thromboplastin Time 22.3 sec (22.0-30.0); Prothrombin Time 10.5 sec (10.0-12.5)
[2023-03-24] MEDS ORDERED: IPRATROPIUM-ALBUTEROL 3 ML NEB INHALATION STA (06:18)
--- NOTE | 2023-03-24 07:20 | XR ---
EXAM: XR Chest, 2 Views CLINICAL HISTORY: ITS.REASON XR Reason: shortness of breath TECHNIQUE: Frontal and lateral views of the chest. COMPARISON: 01/03/21 FINDINGS: Lungs: Interval development of diffuse reticulonodular opacity. More confluent opacity in the right infrahilar region. Low lung volume limit evaluation. Pleural space: Unremarkable. No pneumothorax. Heart: Unremarkable. No cardiomegaly. Mediastinum: Unremarkable. Normal mediastinal contour. Bones/joints: Unremarkable. No acute fracture. IMPRESSION: 1. Interval development of diffuse bilateral reticulonodular opacity. 2. Follow-up to clearing recommended.
--- NOTE | 2023-03-24 08:13 | CT ---
CTA CHEST EXAMINATION TYPE: CT chest angio for PE DATE OF EXAM: 03/24/2023 INDICATION: SOB CT DLP: 514.9 mGycm, Automated exposure control for dose reduction was used. CONTRAST: Patient injected with 100 mL of Isovue 370. COMPARISON: TECHNIQUE: CT of the chest is performed on a spiral scan at 2 mm thick sections. Study is performed with intravenous contrast timed for evaluation for pulmonary embolism. This will limit additional po rtions of the evaluation. 3-D MIP images reconstructed by the technologist are reviewed on the compu ter in the coronal and sagittal planes. FINDINGS: No persistent filling defects are evident to suggest an acute pulmonary embolism. There are innumerable tiny nodules present throughout the bilateral lung zurita. Largest nodules won ure up to 0.6 cm with the vast majority measuring 1 to 2 mm. No mediastinal or hilar adenopathy enlarged by CT criteria is evident. Small scattered mediastinal a denopathy is present. The ascending aorta diameter at the level of the main pulmonary artery is 3.7 c m. The main pulmonary artery diameter at the bifurcation is 3.0 cm. There is a small right pleural effusion. There is consolidation in the posterior medial right lung. L mino mass or pneumonia could be considered. Limited CT sections through the upper abdomen. IMPRESSION: 1. No acute pulmonary embolism. 2. Innumerable tiny nodules throughout the bilateral lung zurita. Consider metastasis. 3. Consolidation posterior right lower lung field. Workup for pneumonia or mass.
[2023-03-24] MEDS ORDERED: AZITHROMYCIN 500 MG in SODIUM CHLORIDE 0.9% 250 ML IVPB STA (09:04)
[2023-03-24] MEDS ORDERED: PIPERACILLIN-TAZOBACTAM 3.375 GM in SODIUM CHLORIDE 0.9% 100 ML IVPB STA (09:04)
[2023-03-24] MEDS ORDERED: PNEUMONIA PROTOCOL UTILIZED 1 EACH MISC PO PRN (09:04)
--- NOTE | 2023-03-24 09:04 | ED ---
SOB HPI - General Chief Complaint: Shortness of Breath Stated Complaint: SOB Time Seen by Provider: 03/24/23 06:02 Source: patient, RN notes reviewed Mode of arrival: ambulatory Limitations: no limitations - History of Present Illness Initial Comments: 58-year-old male presents emergency department complaint of shortness of breath. He states has been having worsening shortness of breath over the last month. Patient states he was recently placed on Augmentin, steroids. He states he finished a course of treatment but did not have much improvement. He has no prior lung disease he does have a history of diabetes. Patient states he has had no significant sick contacts he reports fever at the beginning of his illness. He denies chest pain no prior cardiac disease. - Related Data Home Medications Medication Instructions Recorded Confirmed Dapagliflozin Propanediol [Farxiga] 10 mg PO HS 10/01/20 01/03/21 Enalapril [Vasotec] 10 mg PO HS 10/01/20 01/03/21 Montelukast [Singulair] 10 mg PO DAILY 10/01/20 01/03/21 Pravastatin Sodium [Pravachol] 10 mg PO DAILY 10/01/20 01/03/21 glipiZIDE [Glucotrol] 10 mg PO BID 10/01/20 01/03/21 metFORMIN HCL [Glucophage] 1,000 mg PO BID 10/01/20 01/03/21 Aspirin EC [Ecotrin Low Dose] 81 mg PO DAILY 01/03/21 01/03/21 Fluticasone Nasal [place] [Flonase 1 spray EA NOSTRIL DAILY 01/03/21 01/03/21 Nasal [place]] Venlafaxine HCl [Effexor XR] 75 mg PO DAILY 01/03/21 01/03/21 Allergies Allergy/AdvReac Type Severity Reaction Status Date / Time Cephalosporins AdvReac Nausea & Verified 03/24/23 04:43 Vomiting & Diarrhea Review of Systems ROS Statement: Those systems with pertinent positive or pertinent negative responses have been documented in the HPI. ROS Other: All systems not noted in ROS Statement are negative. Past Medical History Past Medical History: Diabetes Mellitus, Hypertension, Sleep Apnea/CPAP/BIPAP Additional Past Medical History / Comment(s): LULÚ, diverticulitis History of Any Multi-Drug Resistant Organisms: C-DIFF Date of last positivie culture/infection: 1994 Past Surgical History: Hernia Repair, Orthopedic Surgery, Tonsillectomy Additional Past Surgical History / Comment(s): sigmoid colon, vasectomy Past Psychological History: Depression Smoking Status: Never smoker Past Alcohol Use History: None Reported Past Drug Use History: None Reported - Past Family History Mother Additional Family Medical History / Comment(s): Cancer history Father Additional Family Medical History / Comment(s): Heart Disease General Exam Limitations: no limitations General appearance: alert, in no apparent distress Head exam: Present: atraumatic, normocephalic, normal inspection Eye exam: Present: normal appearance, PERRL, EOMI. Absent: scleral icterus, conjunctival injection, periorbital swelling ENT exam: Present: normal exam, normal oropharynx, mucous membranes moist Neck exam: Present: normal inspection, full ROM. Absent: tenderness, meningismus, lymphadenopathy Respiratory exam: Present: wheezes. Absent: normal lung sounds bilaterally, respiratory distress, rales, rhonchi, stridor Cardiovascular Exam: Present: normal rhythm, tachycardia, normal heart sounds. Absent: systolic murmur, diastolic murmur, rubs, gallop, clicks GI/Abdominal exam: Present: soft, normal bowel sounds. Absent: distended, tenderness, guarding, rebound, rigid Extremities exam: Absent: pedal edema Course Vital Signs 03/24/23 03/24/23 03/24/23 04:40 06:18 06:30 Temperature 97.8 F Pulse Rate 101 H 88 92 Respiratory 18 18 Rate Blood Pressure 147/86 133/96 O2 Sat by Pulse 93 L 93 L Oximetry 03/24/23 03/24/23 03/24/23 06:40 07:00 07:30 Temperature 97.8 F Pulse Rate 100 103 H Respiratory 18 Rate Blood Pressure 157/84 O2 Sat by Pulse 94 L 90 L Oximetry 03/24/23 03/24/23 03/24/23 08:25 08:40 08:46 Temperature Pulse Rate 105 H Respiratory 20 Rate Blood Pressure 161/88 O2 Sat by Pulse 93 L 91 L 95 Oximetry Medical Decision Making - Medical Decision Making Was pt. sent in by a medical professional or institution (, PA, APPAREL SALES LEADER, urgent care, hospital, or penitentiary...) When possible be specific @ -No Did you speak to anyone other than the patient for history (EMS, parent, family, police, friend...)? What history was obtained from this source @ -No Did you review nursing and triage notes (agree or disagree)? Why? @ -I reviewed and agree with nursing and triage notes Were old charts reviewed (outside hosp., previous admission, EMS record, old EKG, old radiological studies, urgent care reports/EKG's, penitentiary records)? Report findings @ -[Reviewed prior x-rays, labs Differential Diagnosis (chest pain, altered mental status, abdominal pain women, abdominal pain men, vaginal bleeding, weakness, fever, dyspnea, syncope, headache, dizziness, GI bleed, back pain, seizure, CVA, palpatations, mental health, musculoskeletal)? @ -Differential Dyspnea: Coronary syndrome, arrhythmia, tamponade, asthma, COPD, pulmonary embolism, pneumonia, pneumothorax, pulmonary effusion, anaphylaxis, diabetic ketoacidosis, flailed chest, pulmonary contusion, diaphragmatic rupture, anemia, neuromuscular, this is not meant to be an all-inclusive list. EKG interpreted by me (3pts min.). @ -[As above X-rays interpreted by me (1pt min.). @ -Chest x-ray shows diffuse reticulonodular changes, possible infiltrate right lower CT interpreted by me (1pt min.). @ -[N CT angio chest showing diffuse nodular change with the right lung posterior mass versus consolidation U/S interpreted by me (1pt. min.). @ -None done What testing was considered but not performed or refused? (CT, X-rays, U/S, labs)? Why? @ -None What meds were considered but not given or refused? Why? @ -None Did you discuss the management of the patient with other professionals (professionals i.e. , PA, APPAREL SALES LEADER, lab, RT, psych nurse, social welfare administrator, rn x ray, teacher, youth probation officer, director case management)? Give summary @ -[Dr. Lozano for admission secondary to hypoxia, pneumonia versus lung mass and metastasis Was smoking cessation discussed for >3mins.? @ -No Was critical care preformed (if so, how long)? @ -No Were there social determinants of health that impacted care today? How? (Homelessness, low income, unemployed, alcoholism, drug addiction, transportation, low edu. Level, literacy, decrease access to med. care, penitentiary, rehab)? @ -No Was there de-escalation of care discussed even if they declined (Discuss DNR or withdrawal of care, Hospice)? DNR status @ -No What co-morbidities impacted this encounter? (DM, HTN, Smoking, COPD, CAD, Cancer, CVA, ARF, Chemo, Hep., AIDS, mental health diagnosis, sleep apnea, morbid obesity)? @ -[Diabetes Was patient admitted / discharged? Hospital course, mention meds given and route, prescriptions, significant lab abnormalities, going to OR and other pertinent info. @ -Admitted patient presented for increasing dyspnea. Patient's pulse ox is 88% on room air. Patient CT shows diffuse nodular changes with concern of mass versus pneumonia. Patient is started on IV antibiotics will have consult to oncology, pulmonology. Undiagnosed new problem with uncertain prognosis? @ -[Yes Drug Therapy requiring intensive monitoring for toxicity (Heparin, Nitro, Insulin, Cardizem)? @ -No Were any procedures done? @ -No Diagnosis/symptom? @ -[Hypoxia, pneumonia, lung mass Acute, or Chronic, or Acute on Chronic? @ -Acute Uncomplicated (without systemic symptoms) or Complicated (systemic symptoms)? @ -[Complicated Side effects of treatment? @ -No Exacerbation, Progression, or Severe Exacerbation? @ -No Poses a threat to life or bodily function? How? (Chest pain, [place], [place], pneumonia, PE, COPD, DKA, ARF, appy, cholecystitis, CVA, Diverticulitis, Homicidal, Suicidal, threat to staff... and all critical care pts) @ -Yes, hypoxia, pneumonia - Lab Data Result diagrams: 03/24/23 04:59 03/24/23 04:59 Lab Results 03/24/23 03/24/23 03/24/23 Range/Units 04:59 04:59 04:59 WBC 9.8 (3.8-10.6) k/uL RBC 5.79 (4.30-5.90) m/uL Hgb 17.2 (13.0-17.5) gm/dL Hct 49.8 (39.0-53.0) % MCV 85.9 (80.0-100.0) fL MCH 29.7 (25.0-35.0) pg MCHC 34.6 (31.0-37.0) g/dL RDW 12.7 (11.5-15.5) % Plt Count 304 (150-450) k/uL MPV 7.3 Neutrophils % 68 % Lymphocytes % 21 % Monocytes % 7 % Eosinophils % 3 % Basophils % 1 % Neutrophils # 6.7 (1.3-7.7) k/uL Lymphocytes # 2.0 (1.0-4.8) k/uL Monocytes # 0.7 (0-1.0) k/uL Eosinophils # 0.3 (0-0.7) k/uL Basophils # 0.1 (0-0.2) k/uL PT 10.5 (10.0-12.5) sec INR 0.9 (<1.2) APTT 22.3 (22.0-30.0) sec Sodium 140 (137-145) mmol/L Potassium 4.1 (3.5-5.1) mmol/L Chloride 110 H (98-107) mmol/L Carbon Dioxide 21 L (22-30) mmol/L Anion Gap 9 mmol/L BUN 15 (9-20) mg/dL Creatinine 0.59 L (0.66-1.25) mg/dL Est GFR (CKD-EPI)AfAm >90 (>60 ml/min/1.73 sqM) Est GFR (CKD-EPI)NonAf >90 (>60 ml/min/1.73 sqM) Glucose 146 H (74-99) mg/dL Calcium 9.4 (8.4-10.2) mg/dL Total Bilirubin 0.4 (0.2-1.3) mg/dL AST 43 (17-59) U/L ALT 62 H (4-49) U/L Alkaline Phosphatase 88 (38-126) U/L Troponin I (0.000-0.034) ng/mL NT-Pro-B Natriuret Pep pg/mL Total Protein 6.4 (6.3-8.2) g/dL Albumin 4.0 (3.5-5.0) g/dL Influenza Type A (PCR) (Not Detectd) Influenza Type B (PCR) (Not Detectd) RSV (PCR) (Not Detectd) SARS-CoV-2 (PCR) (Not Detectd) 03/24/23 03/24/23 03/24/23 Range/Units 04:59 04:59 05:28 WBC (3.8-10.6) k/uL RBC (4.30-5.90) m/uL Hgb (13.0-17.5) gm/dL Hct (39.0-53.0) % MCV (80.0-100.0) fL MCH (25.0-35.0) pg MCHC (31.0-37.0) g/dL RDW (11.5-15.5) % Plt Count (150-450) k/uL MPV Neutrophils % % Lymphocytes % % Monocytes % % Eosinophils % % Basophils % % Neutrophils # (1.3-7.7) k/uL Lymphocytes # (1.0-4.8) k/uL Monocytes # (0-1.0) k/uL Eosinophils # (0-0.7) k/uL Basophils # (0-0.2) k/uL PT (10.0-12.5) sec INR (<1.2) APTT (22.0-30.0) sec Sodium (137-145) mmol/L Potassium (3.5-5.1) mmol/L Chloride (98-107) mmol/L Carbon Dioxide (22-30) mmol/L Anion Gap mmol/L BUN (9-20) mg/dL Creatinine (0.66-1.25) mg/dL Est GFR (CKD-EPI)AfAm (>60 ml/min/1.73 sqM) Est GFR (CKD-EPI)NonAf (>60 ml/min/1.73 sqM) Glucose (74-99) mg/dL Calcium (8.4-10.2) mg/dL Total Bilirubin (0.2-1.3) mg/dL AST (17-59) U/L ALT (4-49) U/L Alkaline Phosphatase (38-126) U/L Troponin I <0.012 (0.000-0.034) ng/mL NT-Pro-B Natriuret Pep <20 pg/mL Total Protein (6.3-8.2) g/dL Albumin (3.5-5.0) g/dL Influenza Type A (PCR) Not Detected (Not Detectd) Influenza Type B (PCR) Not Detected (Not Detectd) RSV (PCR) Not Detected (Not Detectd) SARS-CoV-2 (PCR) Not Detected (Not Detectd) Disposition Clinical Impression: Pneumonia, Lung mass, Hypoxia Disposition: ADMITTED IP TO THIS HOSP Condition: Poor Referrals: Troy Michele MD [Primary Care Provider] - 1-2 days Time of Disposition: 08:42
[2023-03-24] MEDS: VENLAFAXINE HCL ER 75 MG CAP PO SCH (10:31)
[2023-03-24] MEDS: ASPIRIN 81 MG PO SCH (10:31)
[2023-03-24] MEDS: metFORMIN 500 MG TAB PO SCH ×2 (10:32→21:04)
[2023-03-24] MEDS: PRAVASTATIN SODIUM 20 MG TAB PO SCH (10:32)
[2023-03-24] MEDS: MONTELUKAST 10 MG TAB PO SCH (10:33)
[2023-03-24] MEDS: ALBUTEROL NEBULIZED 2.5 MG/3 ML INHALATION PRN (11:51)
[2023-03-24] MEDS: IPRATROPIUM-ALBUTEROL 3 ML NEB INHALATION SCH ×3 (13:15→19:22)
[2023-03-24] MEDS ORDERED: DEXTROSE 50% SYRINGE 50 ML IVP PRN ×2 (13:51)
--- NOTE | 2023-03-24 13:52 | P.CNPUL ---
History of Present Illness Consult date: 03/24/23 Requesting physician: Rodney Lozano Reason for consult: dyspnea, cough, abnormal CXR/CT Chief complaint: Shortness of breath, cough, congestion History of present illness: This is a very pleasant 58-year-old male patient with a known history of obstructive sleep apnea utilizing CPAP, diabetes mellitus, hyperlipidemia, previous psychosis episodes. Approximately 4 weeks ago the patient developed increasing shortness of breath cough and congestion and was seen in an emergent urgent care. He was treated with Augmentin, steroids and albuterol and had some improvement however his treatment finished yesterday and he developed worsening shortness of breath cough congestion wheezing and dyspnea on exertion. He denies any recent travels. He denies any recent sick contacts. He denies any previous history of smoking or chemical inhalations. He does state many years ago he did test positive for tuberculosis and was treated with 6 months of INH. Chest x-ray reveals interval development of diffuse bilateral reticulonodular opacities. This was compared to a previous chest x-ray from December 2020. CT angiogram ruled out pulmonary embolism. There is innumerable tiny nodules throughout the bilateral lung zurita. Consider metastasis. Consolidation in the posterior right lower lung field. Workup for pneumonia versus mass recommended. White count 9.8. Hemoglobin 17.2. Platelets 304. Sodium 140. Potassium 4.1. Bicarb 21. BUN 15. Creatinine 0.59. Glucose 146. AST 43. AL T 62. proBNP less than 20. Viral screen negative. The patient is seen in consultation in the emergency department. He is currently sitting up on a stretcher. Awake and alert in no acute distress. He is currently wearing his CPAP device from home. While off he is requiring 4 L nasal cannula to maintain O2 saturation in the 90s. He has been afebrile. Hemodynamically stable. He denies any hemoptysis. Denies any significant weight loss. He has been initiated on Zosyn and azithromycin. Review of Systems REVIEW OF SYSTEMS: CONSTITUTIONAL: Denies any recent significant weight loss or weight gain. EYES: Denies change in vision. EARS, NOSE, MOUTH, THROAT: Denies headaches, denies sore throat. CARDIOVASCULAR: Denies chest pain, palpitations or syncopal episodes. RESPIRATORY: Positive for shortness of breath, cough, congestion no hemoptysis. GASTROINTESTINAL: Denies change in appetite, denies abdominal pain GENITOURINARY: Denies hematuria, denies infections. MUSKULOSKELETAL: Denies pain, denies swelling. INTEGUMENTARY: Denies rash, denies eczema. NEUROLOGICAL: Denies recent memory loss, no recent seizure activity. PSYCHIATRIC: Denies anxiety, denies depression. HEMATOLOGIC/LYMPHATIC: Denies anemia, denies enlarged lymph nodes. Past Medical History Past Medical History: Diabetes Mellitus, Hypertension, Sleep Apnea/CPAP/BIPAP Additional Past Medical History / Comment(s): LULÚ, diverticulitis History of Any Multi-Drug Resistant Organisms: C-DIFF Date of last positivie culture/infection: 1994 Past Surgical History: Hernia Repair, Orthopedic Surgery, Tonsillectomy Additional Past Surgical History / Comment(s): sigmoid colon, vasectomy Past Psychological History: Depression Smoking Status: Never smoker Past Alcohol Use History: None Reported Past Drug Use History: None Reported - Past Family History Mother Additional Family Medical History / Comment(s): Cancer history Father Additional Family Medical History / Comment(s): Heart Disease Medications and Allergies Home Medications Medication Instructions Recorded Confirmed Type Enalapril [Vasotec] 10 mg PO HS 10/01/20 03/24/23 History Pravastatin Sodium [Pravachol] 10 mg PO DAILY 10/01/20 03/24/23 History glipiZIDE [Glucotrol] 10 mg PO BID 10/01/20 03/24/23 History metFORMIN HCL [Glucophage] 1,000 mg PO BID 10/01/20 03/24/23 History Fluticasone Nasal [place] [Flonase 1 spray EA NOSTRIL DAILY 01/03/21 03/24/23 History Nasal [place]] Albuterol Sulfate [Albuterol 1 - 2 puff PO RT-Q4H PRN 03/24/23 03/24/23 History Sulfate Hfa] Amoxic-Pot Clav 875-125Mg 1 tab PO Q12HR 03/24/23 03/24/23 History [Augmentin 875-125] Benztropine Mesylate [Cogentin] 1 mg PO BID 03/24/23 03/24/23 History Cariprazine HCl [Vraylar] 3 mg PO DAILY 03/24/23 03/24/23 History Citalopram Hydrobromide [CeleXA] 40 mg PO DAILY 03/24/23 03/24/23 History Dulaglutide [Trulicity] 3 mg SQ FR 03/24/23 03/24/23 History Ipratropium-Albuterol Nebulize 3 ml INHALATION RT-Q4H each 03/24/23 Rx [Duoneb 0.5 mg-3 mg/3 ml Soln] carBAMazepine [TEGretol] 200 mg PO BID 03/24/23 03/24/23 History sitaGLIPtin [Januvia] 100 mg PO DAILY 03/24/23 03/24/23 History Allergies Allergy/AdvReac Type Severity Reaction Status Date / Time Cephalosporins AdvReac Nausea & Verified 03/24/23 10:31 Vomiting & Diarrhea Physical Exam Vitals: Vital Signs Temp Pulse Resp BP Pulse Ox 03/24/23 13:10 107 H 20 145/83 94 L 03/24/23 12:25 105 H 18 152/88 95 03/24/23 11:58 102 H 03/24/23 11:53 102 H 03/24/23 11:09 105 H 21 142/96 94 L 03/24/23 10:05 98.0 F 105 H 20 155/87 94 L 03/24/23 09:14 102 H 24 123/98 96 03/24/23 08:46 95 03/24/23 08:40 91 L 03/24/23 08:25 105 H 20 161/88 93 L 03/24/23 07:30 97.8 F 103 H 18 157/84 90 L 03/24/23 07:00 94 L 03/24/23 06:40 100 03/24/23 06:30 92 03/24/23 06:18 88 18 133/96 93 L 03/24/23 04:40 97.8 F 101 H 18 147/86 93 L Intake and Output 03/23/23 03/24/23 03/24/23 22:59 06:59 14:59 Other: Weight 97.522 kg GENERAL EXAM: Alert, very pleasant 58-year-old male patient, on 4 L nasal cannula, comfortable in no apparent distress. HEAD: Normocephalic. EYES: Normal reaction of pupils, equal size. NOSE: Clear with pink turbinates. THROAT: No erythema or exudates. NECK: No masses, no JVD. CHEST: No chest wall deformity. LUNGS: Equal air entry with crackles, dullness in the right lung base. CVS: S1 and S2 normal with no audible murmur, regular rhythm. ABDOMEN: No hepatosplenomegaly, normal bowel sounds, no guarding or rigidity. SPINE: No scoliosis or deformity SKIN: No rashes CENTRAL NERVOUS SYSTEM: No focal deficits, tone is normal in all 4 extremities. EXTREMITIES: There is no peripheral edema. No clubbing, no cyanosis. Peripheral pulses are intact. Results - Laboratory Findings CBC and BMP: 03/24/23 04:59 03/24/23 04:59 PT/INR, D-dimer PT 10.5 sec (10.0-12.5) 03/24/23 04:59 INR 0.9 (<1.2) 03/24/23 04:59 Abnormal lab findings: Abnormal Labs 03/24/23 04:59 Chloride 110 H Carbon Dioxide 21 L Creatinine 0.59 L Glucose 146 H ALT 62 H - Diagnostic Findings Chest x-ray: image reviewed CT scan - chest: image reviewed Assessment and Plan Assessment: Acute hypoxemic respiratory failure secondary to acute right lower lobe pneumonia versus mass. CT angiogram ruled out acute pulmonary embolism. There is innumerable tiny nodules throughout the bilateral lung zurita. Metastasis versus fungal versus atypical infection is within the differential. Chest x-ray from December 2020 was clear. History of tuberculosis positive testing and treated with INH x 6 months several years ago Obstructive sleep apnea utilizes CPAP in the outpatient setting Diabetes mellitus Hyperlipidemia History of previous episode of psychosis Lifelong non-smoker Plan: The patient was seen and evaluated Chest x-ray, CT angiogram, labs and medications reviewed Continue Zosyn and azithromycin for now Check a procalcitonin Plan for bronchoscopy with biopsies in a.m. The patient and his are agreeable to the plan We will continue to follow and make further recommendations based on his clinical status I have personally seen and examined the patient, performed the documentation and the assessment and plan as written. Number of minutes spent on the visit: 20.
--- NOTE | 2023-03-24 13:52 | P.HPIM ---
History of Present Illness H&P Date: 03/24/23 Chief Complaint: Short of breath This is a pleasant 58-year-old patient who follows with Dr. Michele. Chronic stable medical conditions include diabetes mellitus type 2, hypertension, obstructive sleep apnea uses CPAP, diverticulosis, ankylosing spondylosis causing lower back pain depression. For about 4 weeks patient been getting short of breath. He did go to urgent care once he was told he has a walking pneumonia and was given Augmentin and prednisone bronchodilators and after he finished the course the symptoms again got worse. Back in 1989 he was positive for TB skin test did not receive 6 months of INH. Has a slight cough. Non-smoker. Some wheezing. Denies any fever and chills. Tired. Review of systems: GEN.: Tired EYES: None HEENT: None NECK: None RESPIRATORY: As above CARDIOVASCULAR: None GASTROINTESTINAL: None GENITOURINARY: None MUSCULOSKELETAL: Chronic low back pain LYMPHATICS: None HEMATOLOGICAL: None PSYCHIATRY: Bit anxious NEUROLOGICAL: None Past medical history to include: Diabetes, hypertension, obstructive sleep apnea uses CPAP, depression, and ankylosing spondylosis Social history: 18-year-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 . 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 Physical examination: VITAL SIGNS: 97.8, 101, 18, 147 x 86, 93% room air upon presentation GENERAL: BMI 30.8, l sitting at the edge of the bed, slightly anxious EYES: Pupils equal. Conjunctiva normal. HEENT: External appearance of nose and ears normal, oral cavity grossly normal. NECK: JVD not raised; masses not palpable. HEART: First and second heart sounds are normal; no edema. LUNGS: Respiratory rate increased; coarse breath sounds on the left side posteriorly with some wheezing. ABDOMEN: Soft, nontender, liver spleen not palpable, no masses palpable. PSYCH: Alert and oriented x3; mood and affect anxiousl. NEUROLOGICAL: Cranial nerves grossly intact; no facial asymmetry, power and sensation grossly intact. DERMATOLOGICAL: Superficial linear cut on the right thigh LYMPHATICS: No lymph nodes palpable in the axilla and neck INVESTIGATIONS, reviewed in the clinical context: March 24, 2023: White count 9.8 hemoglobin 7.2 platelets 304 sodium 140 potassium 4.1 BUN 15 creatinine 0.59 Troponin I less than 0.012. proBNP less than 20 Influenza type A, type B, RSV, COVID-19: Not detected EKG tracing personally reviewed by me-normal sinus rhythm. Chest x-ray film personally reviewed by me-cardiomegaly. Some elevation of the right diaphragm. Some reticular nodular opacity. Chest CTA: Innumerable tiny nodules present throughout bilateral lung zurita. No mediastinal or hilar adenopathy. Consolidation in the posterior medial right lung. Assessment and plan: -Patient has been short of breath for close to 4 weeks. Some wheezing. Did receive outpatient a course of steroids Augmentin and bronchodilator.'s slight improvement. CT chest showing consolidation in the posterior medial right lung. Concern for underlying tumor. Pulmonary consulted. Review to bronchoscopy. -Possible pneumonia. Suspect gram-negative organism Check procalcitonin. IV Zosyn. -Secondary bronchospasm DuoNeb -Diabetes mellitus type 2, oral hypoglycemic Glucophage, Januvia farxiga. Follow Accu-Cheks with sliding scale. Hold glipizide -Essential hypertension Vasotec 10 mg daily at bedtime -Hyperlipidemia Pravachol 10 mg daily at bedtime -Depression not otherwise specified Effexor XR 35.5 mg ,vraylar. Carbamazepine -Chronic ankylosing spondylitis primarily affecting the lumbar spine. With muscle spasms Pain medication as needed. Carbamazepine -Obstructive sleep apnea Continue CPAP Discussed with patient. Follow-up with pulmonary. Past Medical History Past Medical History: Diabetes Mellitus, Hypertension, Sleep Apnea/CPAP/BIPAP Additional Past Medical History / Comment(s): LULÚ, diverticulitis History of Any Multi-Drug Resistant Organisms: C-DIFF Date of last positivie culture/infection: 1994 Past Surgical History: Hernia Repair, Orthopedic Surgery, Tonsillectomy Additional Past Surgical History / Comment(s): sigmoid colon, vasectomy Past Psychological History: Depression Smoking Status: Never smoker Past Alcohol Use History: None Reported Past Drug Use History: None Reported - Past Family History Mother Additional Family Medical History / Comment(s): Cancer history Father Additional Family Medical History / Comment(s): Heart Disease Medications and Allergies Home Medications Medication Instructions Recorded Confirmed Type Enalapril [Vasotec] 10 mg PO HS 10/01/20 03/24/23 History Pravastatin Sodium [Pravachol] 10 mg PO DAILY 10/01/20 03/24/23 History glipiZIDE [Glucotrol] 10 mg PO BID 10/01/20 03/24/23 History metFORMIN HCL [Glucophage] 1,000 mg PO BID 10/01/20 03/24/23 History Fluticasone Nasal [place] [Flonase 1 spray EA NOSTRIL DAILY 01/03/21 03/24/23 History Nasal [place]] Albuterol Sulfate [Albuterol 1 - 2 puff PO RT-Q4H PRN 03/24/23 03/24/23 History Sulfate Hfa] Amoxic-Pot Clav 875-125Mg 1 tab PO Q12HR 03/24/23 03/24/23 History [Augmentin 875-125] Benztropine Mesylate [Cogentin] 1 mg PO BID 03/24/23 03/24/23 History Cariprazine HCl [Vraylar] 3 mg PO DAILY 03/24/23 03/24/23 History Citalopram Hydrobromide [CeleXA] 40 mg PO DAILY 03/24/23 03/24/23 History Dulaglutide [Trulicity] 3 mg SQ FR 03/24/23 03/24/23 History Ipratropium-Albuterol Nebulize 3 ml INHALATION RT-Q4H each 03/24/23 Rx [Duoneb 0.5 mg-3 mg/3 ml Soln] carBAMazepine [TEGretol] 200 mg PO BID 03/24/23 03/24/23 History sitaGLIPtin [Januvia] 100 mg PO DAILY 03/24/23 03/24/23 History Allergies Allergy/AdvReac Type Severity Reaction Status Date / Time Cephalosporins AdvReac Nausea & Verified 03/24/23 10:31 Vomiting & Diarrhea Physical Exam Vitals: Vital Signs Temp Pulse Resp BP Pulse Ox 03/24/23 10:05 98.0 F 105 H 20 155/87 94 L 03/24/23 09:14 102 H 24 123/98 96 03/24/23 08:46 95 03/24/23 08:40 91 L 03/24/23 08:25 105 H 20 161/88 93 L 03/24/23 07:30 97.8 F 103 H 18 157/84 90 L 03/24/23 07:00 94 L 03/24/23 06:40 100 03/24/23 06:30 92 03/24/23 06:18 88 18 133/96 93 L 03/24/23 04:40 97.8 F 101 H 18 147/86 93 L Intake and Output 03/23/23 03/24/23 03/24/23 22:59 06:59 14:59 Other: Weight 97.522 kg Results CBC & Chem 7: 03/24/23 04:59 03/24/23 04:59 Labs: Abnormal Lab Results - Last 24 Hours (Table) 03/24/23 Range/Units 04:59 Chloride 110 H (98-107) mmol/L Carbon Dioxide 21 L (22-30) mmol/L Creatinine 0.59 L (0.66-1.25) mg/dL Glucose 146 H (74-99) mg/dL ALT 62 H (4-49) U/L
[2023-03-24 15:56] LABS: Glucose,Whole Blood 231 mg/dL (70-110)
[2023-03-24] MEDS: INSULIN ASPART (NovoLOG) 100 UNIT/ML VIAL SQ SCH ×2 (15:57→17:59)
[2023-03-24] MEDS: ENOXAPARIN 40 MG/0.4 ML SYRINGE SQ SCH ×2 (15:58→15:59)
[2023-03-24] MEDS: PIPERACILLIN-TAZOBACTAM 3.375 GM in SODIUM CHLORIDE 0.9% 100 ML IVPB SCH ×2 (15:59→23:37)
[2023-03-24 17:59] LABS: Glucose,Whole Blood 218 mg/dL (70-110)
--- NOTE | 2023-03-24 18:31 | P.CONS ---
History of Present Illness - Reason for Consult Consult date: 03/24/23 Pulmonary nodules Requesting physician: Nadeem Mendez - Chief Complaint Shortness of breath - History of Present Illness Mr. Escalante is a 58-year-old male we have been asked to see for abnormal findings on a CTA. He is admitted with complaints of shortness of breath, p ersistent and progressive. He was treated with antibiotics and steroids but, as soon as he stopped taking them the shortness of breath would return. This has been going on for about 1 month. He has a very dry, harsh cough, worse if he moves or attempts to take a deep breath. Being on the oxygen currently makes him feel little better. No history of smoking, he does use CPAP machine, he has for about 20 years. He was in the [place], denies exposure to asbestos, did test positive for TB but was treated for the same. He has a history of colon polyps, he has had several colonoscopies. His mother had pancreatic cancer at the age of 69, maternal grandmother with breast cancer and 3 brothers with skin cancers. Patient denies any unintentional weight loss, night sweats, fevers, hemoptysis, chest pain, nausea, vomiting, abdominal complaints, acute changes in bowel or bladder habits. He is comfortable on the oxygen at this time. CTA was negative for pulmonary embolism, multiple tiny nodules were seen throughout both lung zurita, right lower lung consolidation Review of Systems 10 point review of systems is negative except as stated in HPI Past Medical History Past Medical History: Diabetes Mellitus, Hypertension, Sleep Apnea/CPAP/BIPAP Additional Past Medical History / Comment(s): LULÚ, diverticulitis History of Any Multi-Drug Resistant Organisms: C-DIFF Year Discovered:: 1994 Past Surgical History: Hernia Repair, Orthopedic Surgery, Tonsillectomy Additional Past Surgical History / Comment(s): sigmoid colon, vasectomy Past Psychological History: Depression Smoking Status: Never smoker Past Alcohol Use History: None Reported Past Drug Use History: None Reported - Past Family History Mother Additional Family Medical History / Comment(s): Cancer history Father Additional Family Medical History / Comment(s): Heart Disease Medications and Allergies Home Medications Medication Instructions Recorded Confirmed Type Enalapril [Vasotec] 10 mg PO HS 10/01/20 03/24/23 History Pravastatin Sodium [Pravachol] 10 mg PO DAILY 10/01/20 03/24/23 History glipiZIDE [Glucotrol] 10 mg PO BID 10/01/20 03/24/23 History metFORMIN HCL [Glucophage] 1,000 mg PO BID 10/01/20 03/24/23 History Fluticasone Nasal [place] [Flonase 1 spray EA NOSTRIL DAILY 01/03/21 03/24/23 History Nasal [place]] Albuterol Sulfate [Albuterol 1 - 2 puff PO RT-Q4H PRN 03/24/23 03/24/23 History Sulfate Hfa] Amoxic-Pot Clav 875-125Mg 1 tab PO Q12HR 03/24/23 03/24/23 History [Augmentin 875-125] Benztropine Mesylate [Cogentin] 1 mg PO BID 03/24/23 03/24/23 History Cariprazine HCl [Vraylar] 3 mg PO DAILY 03/24/23 03/24/23 History Citalopram Hydrobromide [CeleXA] 40 mg PO DAILY 03/24/23 03/24/23 History Dulaglutide [Trulicity] 3 mg SQ FR 03/24/23 03/24/23 History Ipratropium-Albuterol Nebulize 3 ml INHALATION RT-Q4H each 03/24/23 Rx [Duoneb 0.5 mg-3 mg/3 ml Soln] carBAMazepine [TEGretol] 200 mg PO BID 03/24/23 03/24/23 History sitaGLIPtin [Januvia] 100 mg PO DAILY 03/24/23 03/24/23 History Allergies Allergy/AdvReac Type Severity Reaction Status Date / Time Cephalosporins AdvReac Nausea & Verified 03/24/23 10:31 Vomiting & Diarrhea Physical Exam Vitals: Vital Signs Temp Pulse Resp BP Pulse Ox 03/24/23 13:10 107 H 20 145/83 94 L 03/24/23 12:25 105 H 18 152/88 95 03/24/23 11:58 102 H 03/24/23 11:53 102 H 03/24/23 11:09 105 H 21 142/96 94 L 03/24/23 10:05 98.0 F 105 H 20 155/87 94 L 03/24/23 09:14 102 H 24 123/98 96 03/24/23 08:46 95 03/24/23 08:40 91 L 03/24/23 08:25 105 H 20 161/88 93 L 03/24/23 07:30 97.8 F 103 H 18 157/84 90 L 03/24/23 07:00 94 L 03/24/23 06:40 100 03/24/23 06:30 92 03/24/23 06:18 88 18 133/96 93 L 03/24/23 04:40 97.8 F 101 H 18 147/86 93 L Intake and Output 03/24/23 03/24/23 03/24/23 06:59 14:59 22:59 Other: Weight 97.522 kg - Constitutional General appearance: cooperative, mild distress, obese - EENT Eyes: anicteric sclerae, EOMI ENT: hearing grossly normal, normal oropharynx - Neck Neck: no lymphadenopathy - Respiratory Respiratory: bilateral: wheezing, prolonged expiration - Cardiovascular Rhythm: regular Heart sounds: normal: S1, S2 Abnormal Heart Sounds: no systolic murmur, no diastolic murmur, no rub, no S3 Gallop, no S4 Gallop, no click, no other leg Peripheral Edema: bilateral: Trace - Gastrointestinal General gastrointestinal: no absent bowel sounds, no decreased bowel sounds, no distended, no hepatomegaly, no hyperactive bowel sounds, normal bowel sounds, no organomegaly, no rigid, no scaphoid, soft, no splenomegaly, no tenderness, no umbilical hernia, no ventral hernia - Integumentary Integumentary: normal - Neurologic Neurologic: CNII-XII intact - Musculoskeletal Musculoskeletal: strength equal bilaterally - Psychiatric Psychiatric: A&O x's 3, appropriate affect, intact judgment & insight Results CBC & Chem 7: 03/24/23 04:59 03/24/23 04:59 Labs: Abnormal Lab Results - Last 24 Hours (Table) 03/24/23 Range/Units 04:59 Chloride 110 H (98-107) mmol/L Carbon Dioxide 21 L (22-30) mmol/L Creatinine 0.59 L (0.66-1.25) mg/dL Glucose 146 H (74-99) mg/dL ALT 62 H (4-49) U/L Chest x-ray: report reviewed CT scan - chest: report reviewed, image reviewed Assessment and Plan (1) Lung mass Current Visit: Yes Status: Acute Priority: High Code(s): R91.8 - OTHER NONSPECIFIC ABNORMAL FINDING OF LUNG FIELD SNOMED Code(s): 526527060 Plan: Lung mass -Images reviewed. Based on what was seen in the images, patient has no palpable lymphadenopathy, no constitutional symptoms. Differential includes atypical infection and possibly malignancy. -Patient has been evaluated by Pulmonary, there are plans for bronchoscopy and biopsy in the a.m. -F/U will be planned based on biopsy results -Based on patient's personal history and family history, will see if he would be an appropriate candidate for genetic testing.
[2023-03-24 20:50] LABS: Glucose,Whole Blood 202 mg/dL (70-110)
[2023-03-24] MEDS: lisinopriL 20 MG TAB PO SCH (21:04)
[2023-03-24] MEDS: DAPAGLIFLOZIN PROPANEDIOL 10 MG TABLET PO SCH (21:04)
[2023-03-25 06:05] LABS: Glucose,Whole Blood 102 mg/dL (70-110)
[2023-03-25] MEDS: INSULIN ASPART (NovoLOG) 100 UNIT/ML VIAL SQ SCH ×3 (06:05→16:31)
[2023-03-25] MEDS: ASPIRIN 81 MG PO SCH (08:01)
[2023-03-25] MEDS: AZITHROMYCIN 500 MG in SODIUM CHLORIDE 0.9% 250 ML IVPB SCH (08:01)
[2023-03-25] MEDS: PRAVASTATIN SODIUM 20 MG TAB PO SCH (08:01)
[2023-03-25] MEDS: MONTELUKAST 10 MG TAB PO SCH (08:01)
[2023-03-25] MEDS: VENLAFAXINE HCL ER 75 MG CAP PO SCH (08:01)
--- NOTE | 2023-03-25 09:14 | XR ---
EXAMINATION TYPE: XR chest 2V DATE OF EXAM: 03/25/2023 COMPARISON: 03/24/2023 HISTORY: 58-year-old male with pneumonia TECHNIQUE: PA and lateral views FINDINGS: Heart normal size. Diffuse reticulonodular opacity persists. Focal airspace disease medial right base also persists. IMPRESSION: Similar extensive, diffuse reticulonodular interstitial infiltrates and focal medial right basilar ai rspace disease.
[2023-03-25] MEDS: PIPERACILLIN-TAZOBACTAM 3.375 GM in SODIUM CHLORIDE 0.9% 100 ML IVPB SCH ×3 (09:22→23:54)
[2023-03-25] MEDS: IPRATROPIUM-ALBUTEROL 3 ML NEB INHALATION SCH ×4 (09:47→22:18)
[2023-03-25] MEDS ORDERED: IV FLUID CONTINUATION 900 ML IV ONE (10:45)
[2023-03-25] MEDS: metFORMIN 500 MG TAB PO SCH ×2 (10:52→20:31)
[2023-03-25 10:58] LABS: Glucose,Whole Blood 117 mg/dL (70-110)
[2023-03-25] MEDS ORDERED: LIDOCAINE 1% INJ 10MG/ML (20 ML MDV) ONE (11:29)
[2023-03-25] MEDS ORDERED: ROCURONIUM 10 MG/ML (5 ML VIAL) IV ONE (11:29)
[2023-03-25] MEDS ORDERED: NEOSTIGMINE 1 MG/ML 10 ML VIAL ONE (11:29)
[2023-03-25] MEDS ORDERED: fentaNYL (PF) 50 MCG/ML 2 ML AMP ONE (11:29)
[2023-03-25] MEDS ORDERED: GLYCOPYRROLATE 0.2 MG/ML 2 ML VIAL ONE (11:29)
[2023-03-25] MEDS ORDERED: SUCCINYLCHOLINE CHLORIDE 200 MG/10 ML VIAL IV ONE (11:29)
[2023-03-25] MEDS ORDERED: PROPOFOL 10 MG/ML 20 ML VIAL IV ONE (11:29)
[2023-03-25] MEDS ORDERED: ALBUTEROL NEBULIZED 2.5 MG/3 ML INHALATION ONE (12:33)
--- NOTE | 2023-03-25 12:36 | XR ---
EXAMINATION TYPE: XR chest 1V portable DATE OF EXAM: 03/25/2023 12:25 PM CLINICAL INDICATION:Male, 58 years old with history of Hypoxemia; [facility] COMPARISON: Chest radiographs from 03/25/2023, CT 03/24/2023 TECHNIQUE: XR chest 1V portable Frontal view of the chest. FINDINGS: Lungs/Pleura: Scattered miliary pulmonary nodules throughout the lungs low lung volumes are present. No pneumothorax. Consolidation changes in the right lung base are better appreciated on CT. Pulmonary vascularity: Mediastinal lungs could represent pulmonary vascular congestion. Heart/mediast inum: Cardiomediastinal silhouette is enlarged and stable. Musculoskeletal: No acute osseous pathology. Other findings: None Lines/Tubes: Endotracheal tube with distal tip 4.1 cm above the regan. IMPRESSION: 1. Endotracheal tube appears in satisfactory position. 2. Miliary pattern to pulmonary nodules throughout the lungs correlate for history of tuberculosis a nd correlation with malignancy history. 3. Correlate with serum BNP to rule out underlying congestive heart failure. 4. Consolidation changes in the right lung base better appreciated on CT.
--- NOTE | 2023-03-25 12:46 | FL ---
EXAMINATION TYPE: FL bronchoscopy Intraoperative/procedural fluoroscopic services were provided. Tota l fluoroscopy time is 21 seconds with a total of 4 submitted images to PACS. Please see the operative /procedural note for further details. DAP: 2.6877 Gycm2
[2023-03-25] MEDS ORDERED: FUROSEMIDE 10 MG/ML 2 ML VIAL IV ONE (12:56)
[2023-03-25] MEDS ORDERED: DEXAMETHASONE SOD PHOSPHATE 4 MG/ML 1 ML VIAL IVP STA (12:58)
[2023-03-25 13:10] LABS: Glucose,Whole Blood 187 mg/dL (70-110)
--- NOTE | 2023-03-25 13:13 | P.PN ---
Subjective Progress Note Date: 03/25/23 Principal diagnosis: Acute hypoxic respiratory failure with possible pneumonitis, abnormal CT of the chest. Atypical infection. This is a very pleasant 58-year-old male patient with a known history of obstructive sleep apnea utilizing CPAP, diabetes mellitus, hyperlipidemia, p revious psychosis episodes. Approximately 4 weeks ago the patient developed increasing shortness of breath cough and congestion and was seen in an emergent urgent care. He was treated with Augmentin, steroids and albuterol and had some improvement however his treatment finished yesterday and he developed worsening shortness of breath cough congestion wheezing and dyspnea on exertion. He denies any recent travels. He denies any recent sick contacts. He denies any previous history of smoking or chemical inhalations. He does state many years ago he did test positive for tuberculosis and was treated with 6 months of INH. Chest x-ray reveals interval development of diffuse bilateral reticulonodular opacities. This was compared to a previous chest x-ray from December 2020. CT angiogram ruled out pulmonary embolism. There is innumerable tiny nodules throughout the bilateral lung zurita. Consider metastasis. Consolidation in the posterior right lower lung field. Workup for pneumonia versus mass recommended. White count 9.8. Hemoglobin 17.2. Platelets 304. Sodium 140. Potassium 4.1. Bicarb 21. BUN 15. Creatinine 0.59. Glucose 146. AST 43. ALT 62. proBNP less than 20. Viral screen negative. The patient is seen in consultation in the emergency department. He is currently sitting up on a stretcher. Awake and alert in no acute distress. He is currently wearing his CPAP device from home. While off he is requiring 4 L nasal cannula to maintain O2 saturation in the 90s. He has been afebrile. Hemodynamically stable. He denies any hemoptysis. Denies any significant weight loss. He has been initiated on Zosyn and azithromycin. He was reevaluated today on 03/25/2023, patient was seen yesterday on consultation, and he presented with shortness of breath, cough, wheezing, and he had a significantly abnormal CT of the chest showing a miliary pattern, diffe rential diagnosis included malignancy and/or infection also the possibility of allergic alveolitis/hypersensitivity pneumonitis, sarcoidosis, atypical infection. Patient is scheduled to have bronchoscopy and transbronchial biopsy today, please refer to the operative report once it is available. Clinically the patient is doing well, continues to have some cough and wheezing, no fever, no chills, no hemoptysis. Patient is on 4 L nasal cannula with O2 saturation of 92%.Multiple labs were ordered yesterday including fungal titers, QuantiFERON TB test, sed rate, KINGSLEY, P ANCA and C ANCA, LILIANA level, and these are all pending. In the meantime the patient is receiving antibiotics, his procalcitonin level is 0.09, hence this is very unlikely that the patient has underlying bacterial infection. I believe if there is infection this is definitely atypical or we may be dealing with malignancy or possibly allergic alveolitis and or granulomatous disease Objective - Vital Signs Vital signs: Vital Signs Temp 97.5 F L 03/25/23 12:26 Pulse 97 03/25/23 12:39 Resp 22 03/25/23 12:39 BP 145/80 03/25/23 12:39 Pulse Ox 91 L 03/25/23 12:39 FiO2 Intake & Output 03/24/23 03/25/23 03/25/23 18:59 06:59 18:59 Intake Total 400 Balance 400 Weight 97.522 kg 97.522 kg Intake: IV 400 Other: Voiding Method Toilet Toilet # Voids 2 - Exam General: The patient is awake and alert, in no distress, and does not appear acutely ill. On 4 L nasal cannula Skin: Skin is warm and dry and no rashes or lesions are noted. Eye: Pupils are equal, round and reactive to light, extra-ocular movements are intact; there is normal conjunctiva bilaterally. Ears, nose, mouth and throat: There are moist mucous membranes and no oral lesions. Neck: The neck is supple, there is no tenderness or JVD. Cardiovascular: There is a regular rate and rhythm. No murmur, rub or gallop is appreciated. Respiratory: Rhonchi and wheezing on forced expiratory maneuver. Gastrointestinal: Soft, non-distended, non-tender abdomen without masses or org anomegaly noted. There is no rebound or guarding present. Bowel sounds are unremarkable. Back: There is no tenderness to palpation in the midline. There is no obvious deformity. Musculoskeletal: Normal ROM, no tenderness, There is no pedal edema. There is no calf tenderness or swelling. No cords were appreciated. Neurological: CN II-XII intact, Cranial nerves III through XII are intact. Ther e are no obvious motor or sensory deficits. Coordination appears grossly intact. Speech is normal. Psychiatric: Cooperative, appropriate mood & affect, normal judgment. - Labs CBC & Chem 7: 03/24/23 04:59 03/24/23 04:59 Labs: Abnormal Lab Results - Last 24 Hours (Table) 03/24/23 03/24/23 03/24/23 Range/Units 15:54 17:57 20:48 POC Glucose (mg/dL) 231 H 218 H 202 H (70-110) mg/dL 03/25/23 Range/Units 10:55 POC Glucose (mg/dL) 117 H (70-110) mg/dL Assessment and Plan Assessment: Impression: Acute hypoxemic respiratory failure secondary to acute right lower lobe pneumonia versus mass. CT angiogram ruled out acute pulmonary embolism. There is innumerable tiny nodules throughout the bilateral lung zurita. Metastasis versus fungal versus atypical infection is within the differential. Chest x-ray from December 2020 was clear. Patient will undergo bronchoscopy and transbronchial biopsy today, will also lavage the right lower lobe/medial seg ment, although it is very likely that the findings in the right medial lobe could be a pulmonary sequestration. History of tuberculosis positive testing and treated with INH x 6 months several years ago Obstructive sleep apnea utilizes CPAP in the outpatient setting Diabetes mellitus Hyperlipidemia History of previous episode of psychosis Lifelong non-smoker Recommendation: Await further results of the transbronchial biopsies Continue bronchodilators Utilize Solu-Medrol for symptoms of bronchospasm once infection is entirely ruled out, Continue Zosyn and Zithromax for now. Multiple labs were ordered at this are pending including LILIANA level, sed rate, KINGSLEY, p-ANCA and c-ANCA, fungal titers, QuantiFERON TB test, Will continue to follow. Time with Patient: Less than 30
[2023-03-25] MEDS: ENOXAPARIN 40 MG/0.4 ML SYRINGE SQ SCH (13:40)
--- NOTE | 2023-03-25 13:40 | OP ---
OPERATIVE REPORT DATE OF SERVICE : PROCEDURES PERFORMED: Bronchoscopy, multiple transbronchial biopsies of right lower lobe, right middle lobe, and right upper lobe and bronchoalveolar lavage of the medial segment of the right lower lobe, and multiple endobronchial biopsies of the medial segment of the right lower lobe, and brushings of the medial segment of the right lower lobe. PREOPERATIVE DIAGNOSES: Nonspecific pneumonitis with miliary pattern noted on the CT of the chest, differential diagnosis includes a malignancy or infection. POSTOPERATIVE DIAGNOSIS: Nonspecific pneumonitis with miliary pattern noted on the CT of the chest, differential diagnosis includes a malignancy or infection. ANESTHESIA USED: The patient had general anesthesia administered by anesthesia. DESCRIPTION OF PROCEDURE: The patient was brought in to the bronchoscopy suite, he was placed in a supine position, intubated by OUTPATIENT CODER, and connected to mechanical ventilation. Then, the bronchoscope was advanced through the adapter of the endotracheal tube, and went all the way down, and thorough examination was done of the right upper lobe, right middle lobe, right lower lobe, left upper lobe, lingula and left lower lobe. No significant abnormal findings noted except the medial segment of the right lower lobe was noted to be extremely narrow and extrinsically compressed, however I was able to look into the segment itself, I did not visualize any endobronchial tumors. Nonetheless, bronchoalveolar lavage of the segment was done and brushings of the same area was done, and endobronchial biopsies of the segment were done. I then moved on to utilize fluoroscopy and multiple transbronchial biopsies were done of the right lower lobe, multiple transbronchial biopsies were done from the right middle lobe, lateral segment, and multiple biopsies were done from the anterior segment of the right upper lobe. All the specimen were sent for different diagnostic studies. Procedure was well tolerated, no complications, however, at the end of the procedure, patient developed some bronchospasm with marginal desaturation, treated with albuterol, the patient was eventually extubated, and sent to recovery. Family updated on his condition. Followup chest x-ray showed no evidence of pneumothorax, the pulmonary vascular congestion was noted, the patient was given a dose of Lasix 20 mg IV push after the procedure. MMODL / IJN: [id number] /
[2023-03-25 13:58] LABS: Glucose,Whole Blood 183 mg/dL (70-110)
[2023-03-25] MEDS: IOPAMIDOL CONTRAST (ORAL USE) VIAL PO PRN ×2 (14:08→15:08)
--- NOTE | 2023-03-25 15:10 | P.PN ---
Subjective Progress Note Date: 03/25/23 S/p bronchoscopy with biopsy today. Continues on IV antibiotics for treatment of pneumonia. Patient remains afebrile. SPO2 92% on 5 L nasal cannula Objective - Vital Signs Vital signs: Vital Signs Temp 97.5 F L 03/25/23 12:26 Pulse 104 H 03/25/23 14:35 Resp 19 03/25/23 14:35 BP 136/80 03/25/23 14:35 Pulse Ox 91 L 03/25/23 14:35 FiO2 Intake & Output 03/24/23 03/25/23 03/25/23 18:59 06:59 18:59 Intake Total 450 Balance 450 Weight 97.522 kg 97.522 kg Intake: IV 450 Other: Voiding Method Toilet Toilet # Voids 2 - Constitutional General appearance: Present: average body habitus, no acute distress - EENT Eyes: Present: anicteric sclerae, EOMI ENT: Present: hearing grossly normal - Respiratory Details: breathing even and unlabored - Cardiovascular Details: well perfused - Integumentary Integumentary: Absent: cyanotic - Neurologic Neurologic Comment(s): grossly intact - Musculoskeletal Musculoskeletal: Present: strength equal bilaterally - Psychiatric Psychiatric: Present: A&O x's 3 - Labs CBC & Chem 7: 03/24/23 04:59 03/24/23 04:59 Labs: Abnormal Lab Results - Last 24 Hours (Table) 03/24/23 03/24/23 03/24/23 Range/Units 15:54 17:57 20:48 POC Glucose (mg/dL) 231 H 218 H 202 H (70-110) mg/dL 03/25/23 03/25/23 03/25/23 Range/Units 10:55 13:08 13:55 POC Glucose (mg/dL) 117 H 187 H 183 H (70-110) mg/dL Assessment and Plan (1) Hypoxia Current Visit: Yes Status: Acute Priority: High Code(s): R09.02 - HYPOXEMIA SNOMED Code(s): 979055127 (2) Lung mass Current Visit: Yes Status: Acute Priority: High Code(s): R91.8 - OTHER NONSPECIFIC ABNORMAL FINDING OF LUNG FIELD SNOMED Code(s): 772077511 (3) Pneumonia Current Visit: Yes Status: Acute Priority: High Code(s): J18.9 - PNEUMONIA, UNSPECIFIED ORGANISM SNOMED Code(s): 669572496 Plan: Lung mass -Images reviewed. Based on what was seen in the images, patient has no palpable lymphadenopathy, no constitutional symptoms. Differential includes atypical infection and possibly malignancy. Of note he has hx of TB, dx and treated in 1989, which could contribute to abnormal findings noted on CT scan. -Patient has been evaluated by Pulmonary. S/p bronchoscopy and biopsy today. Will await path -CT AP ordered for staging -F/U will be planned based on biopsy results -Based on patient's personal history and family history, will see if he would be an appropriate candidate for genetic testing. Pt and family updated on POC
[2023-03-25 15:35] LABS: ALT 64 U/L (4-49); AST 47 U/L (17-59); African American GFR (CKD) >90 (>60 ml/min/1.73 sqM); Albumin 4.5 g/dL (3.5-5.0); Alkaline Phosphatase 96 U/L (38-126); Anion Gap 12 mmol/L; Blood Urea Nitrogen 12 mg/dL (9-20); Calcium 9.2 mg/dL (8.4-10.2); Carbon Dioxide 24 mmol/L (22-30); Chloride 103 mmol/L (98-107); Glucose 220 mg/dL (74-99); Non-African American GFR(CKD) >90 (>60 ml/min/1.73 sqM); Potassium 4.6 mmol/L (3.5-5.1); Sodium 139 mmol/L (137-145); Total Bilirubin 0.9 mg/dL (0.2-1.3); Total Protein 6.9 g/dL (6.3-8.2)
--- NOTE | 2023-03-25 16:12 | P.PN ---
Progress Note - Text Progress Note Date: 03/25/23 Chief Complaint: Short of breath This is a pleasant 58-year-old patient who follows with Dr. Michele. Chronic stable medical conditions include diabetes mellitus type 2, hypertension, obstructive sleep apnea uses CPAP, diverticulosis, ankylosing spondylosis causing lower back pain depression. For about 4 weeks patient been getting short of breath. He did go to urgent care once he was told he has a walking pneumonia and was given Augmentin and prednisone bronchodilators and after he finished the course the symptoms again got worse. Back in 1989 he was positive for TB skin test did not receive 6 months of INH. Has a slight cough. Non-smoker. Some wheezing. Denies any fever and chills. Tired. March 25: Some wheezing and shortness of breath. Underwent bronchoscopy by Dr. Ward. Currently on CPAP. Biopsies were sent out. Patient's son and his are visiting at the bedside. Active Medications Albuterol Sulfate (Albuterol Nebulized 2.5 Mg/3 Ml) 2.5 mg INHALATION RT-Q2H PRN PRN Reason: Shortness Of Breath Or Wheezing Last Admin: 03/24/23 11:51 Dose: 2.5 mg Albuterol/Ipratropium (Ipratropium-Albuterol 3 Ml Neb) 3 ml INHALATION RT-QID [facility] Last Admin: 03/25/23 16:07 Dose: Not Given Aspirin (Aspirin 81 Mg) 81 mg PO DAILY [facility] Last Admin: 03/25/23 08:01 Dose: 81 mg Dapagliflozin (Dapagliflozin Propanediol 10 Mg Tablet) 10 mg PO HS [facility] Last Admin: 03/24/23 21:04 Dose: 10 mg Dextrose/Water (Dextrose 50% Syringe 50 Ml) 25 ml IVP PER PROTOCOL PRN; Protocol PRN Reason: Hypoglycemia Dextrose/Water (Dextrose 50% Syringe 50 Ml) 50 ml IVP PER PROTOCOL PRN; Protocol PRN Reason: Hypoglycemia Enoxaparin Sodium (Enoxaparin 40 Mg/0.4 Ml Syringe) 40 mg SQ DAILY [facility] Last Admin: 03/25/23 13:40 Dose: 40 mg Piperacillin Sod/Tazobactam (Sod 3.375 gm/ Sodium Chloride) 100 mls @ 25 mls/hr IVPB Q8HR [facility]; Protocol Stop: 03/29/23 16:01 Last Admin: 03/25/23 09:22 Dose: 25 mls/hr Azithromycin 500 mg/ Sodium (Chloride) 250 mls @ 250 mls/hr IVPB DAILY [facility]; Protocol Stop: 03/26/23 09:59 Last Admin: 03/25/23 08:01 Dose: 250 mls/hr Insulin Aspart (Insulin Aspart (Novolog) 100 Unit/Ml Vial) 0 unit SQ AC-TID [facility]; Protocol Last Admin: 03/25/23 14:24 Dose: Not Given Lisinopril (Lisinopril 20 Mg Tab) 20 mg PO HS [facility] Last Admin: 03/24/23 21:04 Dose: 20 mg Metformin HCl (Metformin 500 Mg Tab) 1,000 mg PO BID [facility] Last Admin: 03/25/23 10:52 Dose: Not Given Miscellaneous Information (Pneumonia Protocol Utilized 1 Each Misc) 1 each PO ONCE PRN PRN Reason: Per Protocol Montelukast Sodium (Montelukast 10 Mg Tab) 10 mg PO DAILY [facility] Last Admin: 03/25/23 08:01 Dose: 10 mg Pravastatin Sodium (Pravastatin Sodium 20 Mg Tab) 10 mg PO DAILY [facility] Last Admin: 03/25/23 08:01 Dose: 10 mg Venlafaxine HCl (Venlafaxine Hcl Er 75 Mg Cap) 75 mg PO DAILY [facility] Last Admin: 03/25/23 08:01 Dose: 75 mg Past medical history to include: Diabetes, hypertension, obstructive sleep apnea uses CPAP, depression, and ankylosing spondylosis Social history: 18-year-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 . 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 Physical examination: VITAL SIGNS: 104, 19, 136 x 80, 91% on 5 L GENERAL: Laying in bed on CPAP some shortness of breath EYES: Pupils equal. Conjunctiva normal. HEENT: External appearance of nose and ears normal, oral cavity grossly normal. NECK: JVD not raised; masses not palpable. HEART: First and second heart sounds are normal; no edema. LUNGS: Respiratory rate increased; coarse breath sounds on the left side posteriorly with some wheezing. ABDOMEN: Soft, nontender, liver spleen not palpable, no masses palpable. PSYCH: Alert and oriented x3; mood and affect anxiousl. INVESTIGATIONS, reviewed in the clinical context: March 25: Potassium 4.6 creatinine 0.85. Procalcitonin 0.09 Aspergillus fumigated S IgE less than 0.1 March 24, 2023: White count 9.8 hemoglobin 7.2 platelets 304 sodium 140 potassium 4.1 BUN 15 creatinine 0.59 Troponin I less than 0.012. proBNP less than 20 Influenza type A, type B, RSV, COVID-19: Not detected EKG tracing personally reviewed by me-normal sinus rhythm. Chest x-ray film personally reviewed by me-cardiomegaly. Some elevation of the right diaphragm. Some reticular nodular opacity. Chest CTA: Innumerable tiny nodules present throughout bilateral lung zurita. No mediastinal or hilar adenopathy. Consolidation in the posterior medial right lung. Assessment and plan: -Patient has been short of breath for close to 4 weeks. Some wheezing. Did receive outpatient a course of steroids Augmentin and bronchodilator.'s slight improvement. CT chest showing consolidation in the posterior medial right lung. Concern for underlying tumor. Patient had bronchoscopy today biopsy done. By Dr. Ward -Possible pneumonia. Suspect gram-negative organism . IV Zosyn. -Secondary bronchospasm DuoNeb -Diabetes mellitus type 2, oral hypoglycemic Glucophage, Januvia farxiga. Follow Accu-Cheks with sliding scale. Hold glipizide -Essential hypertension Vasotec 10 mg daily at bedtime -Hyperlipidemia Pravachol 10 mg daily at bedtime -Depression not otherwise specified Effexor XR 35.5 mg ,vraylar. Carbamazepine -Chronic ankylosing spondylitis primarily affecting the lumbar spine. With muscle spasms Pain medication as needed. Carbamazepine -Obstructive sleep apnea Continue CPAP Discussed with patient. Bronchoscopy/biopsy done. Continue current medications. Past Medical History Past Medical History: Diabetes Mellitus, Hypertension, Sleep Apnea/CPAP/BIPAP Additional Past Medical History / Comment(s): LULÚ, diverticulitis History of Any Multi-Drug Resistant Organisms: C-DIFF Date of last positivie culture/infection: 1994 Past Surgical History: Hernia Repair, Orthopedic Surgery, Tonsillectomy Additional Past Surgical History / Comment(s): sigmoid colon, vasectomy Past Psychological History: Depression Smoking Status: Never smoker Past Alcohol Use History: None Reported Past Drug Use History: None Reported
[2023-03-25 16:28] LABS: Glucose,Whole Blood 229 mg/dL (70-110)
--- NOTE | 2023-03-25 16:31 | CT ---
EXAMINATION TYPE: CT abdomen pelvis w con DATE OF EXAM: 03/25/2023 COMPARISON: None HISTORY: concern for malignancy on CT chest, staging CT DLP: 1446.5 mGycm Automated exposure control for dose reduction was used. TECHNIQUE: Helical acquisition of images was performed from the lung bases through the pelvis. CONTRAST: Performed with Oral Contrast and with IV Contrast, patient injected with 100ml mL of Isovue 300. FINDINGS: There is a large consolidative/airspace density in the right lung base raising the suspicion for pneu monia. There is a diffuse interstitial nodular pattern scattered throughout the visualized lung bases consistent with diffuse metastatic disease/lymphangitic spread of metastasis. There are surgical absence of the gallbladder. There is fatty infiltration of the liver. There is no focal mass or organomegaly involving the liver, pancreas, spleen or adrenal glands. There is no solid renal mass or hydronephrosis. The caliber of the abdominal aorta is normal and there is no retroperitoneal adenopathy. The bowel loops are normal in caliber No dilatation or obstruction. No inflammatory changes identified in the bowel wall mesentery. There a re postsurgical changes involving the sigmoid colon where there are anastomotic sutures. There is no pelvic mass or adenopathy. There is moderate prostatic hypertrophy. There is a small lytic lesion in the left iliac wing which is well-circumscribed and is likely benign . There is no definite evidence of metastatic bone disease. IMPRESSION: 1. Diffuse reticular nodular pattern in the visualized lung bases consistent with diffuse metastatic disease/lymphangitic spread of metastasis. 2. Dense consolidation in the right lung base possibly indicating a superimposed right lower lobe pne umonia. 3. Fatty infiltration liver. 4. no evidence of metastatic disease within the abdomen or pelvis.
[2023-03-25 20:31] LABS: Glucose,Whole Blood 221 mg/dL (70-110)
[2023-03-25] MEDS: lisinopriL 20 MG TAB PO SCH (20:31)
[2023-03-25] MEDS: DAPAGLIFLOZIN PROPANEDIOL 10 MG TABLET PO SCH (21:02)
[2023-03-26 05:49] LABS: Glucose,Whole Blood 108 mg/dL (70-110)
[2023-03-26] MEDS: INSULIN ASPART (NovoLOG) 100 UNIT/ML VIAL SQ SCH ×3 (05:51→17:14)
[2023-03-26] MEDS: IPRATROPIUM-ALBUTEROL 3 ML NEB INHALATION SCH ×4 (08:21→18:31)
[2023-03-26] MEDS: ENOXAPARIN 40 MG/0.4 ML SYRINGE SQ SCH (10:04)
[2023-03-26] MEDS: metFORMIN 500 MG TAB PO SCH ×2 (10:05→21:42)
[2023-03-26] MEDS: VENLAFAXINE HCL ER 75 MG CAP PO SCH (10:05)
[2023-03-26] MEDS: MONTELUKAST 10 MG TAB PO SCH (10:05)
[2023-03-26] MEDS: ASPIRIN 81 MG PO SCH (10:05)
[2023-03-26] MEDS: PRAVASTATIN SODIUM 20 MG TAB PO SCH (10:05)
[2023-03-26] MEDS: PIPERACILLIN-TAZOBACTAM 3.375 GM in SODIUM CHLORIDE 0.9% 100 ML IVPB SCH ×3 (10:06→23:53)
[2023-03-26 11:43] LABS: Glucose,Whole Blood 160 mg/dL (70-110)
[2023-03-26] MEDS: methylPREDNISolone SOD SUCCI 125 MG/2 ML VIAL IV SCH ×3 (12:33→23:53)
--- NOTE | 2023-03-26 13:03 | P.PN ---
Subjective Progress Note Date: 03/26/23 This is a very pleasant 58-year-old male patient with a known history of obstructive sleep apnea utilizing CPAP, diabetes mellitus, hyperlipidemia, previous psychosis episodes. Approximately 4 weeks ago the patient developed increasing shortness of breath cough and congestion and was seen in an emergent urgent care. He was treated with Augmentin, steroids and albuterol and had some improvement however his treatment finished yesterday and he developed worsening shortness of breath cough congestion wheezing and dyspnea on exertion. He denies any recent travels. He denies any recent sick contacts. He denies any previous history of smoking or chemical inhalations. He does state many years ago he did test positive for tuberculosis and was treated with 6 months of INH. Chest x-ray reveals interval development of diffuse bilateral reticulonodular opacities. This was compared to a previous chest x-ray from December 2020. CT angiogram ruled out pulmonary embolism. There is innumerable tiny nodules throughout the bilateral lung zurita. Consider metastasis. Consolidation in the posterior right lower lung field. Workup for pneumonia versus mass recommended. White count 9.8. Hemoglobin 17.2. Platelets 304. Sodium 140. Potassium 4.1. Bicarb 21. BUN 15. Creatinine 0.59. Glucose 146. AST 43. ALT 62. proBNP less than 20. Viral screen negative. The patient is seen in consultation in the emergency department. He is currently sitting up on a stretcher. Awake and alert in no acute distress. He is currently wearing his CPAP device from home. While off he is requiring 4 L nasal cannula to maintain O2 saturation in the 90s. He has been afebrile. Hemodynamically stable. He denies any hemoptysis. Denies any significant weight loss. He has been initiated on Zosyn and azithromycin. He was reevaluated today on 03/25/2023, patient was seen yesterday on consultation, and he presented with shortness of breath, cough, wheezing, and he had a significantly abnormal CT of the chest showing a miliary pattern, differential diagnosis included malignancy and/or infection also the possibility of allergic alveolitis/hypersensitivity pneumonitis, sarcoidosis, atypical infection. Patient is scheduled to have bronchoscopy and transbronchial biopsy today, please refer to the operative report once it is available. Clinically the patient is doing well, continues to have some cough and wheezing, no fever, no chills, no hemoptysis. Patient is on 4 L nasal cannula with O2 saturation of 92%.Multiple labs were ordered yesterday including fungal titers, QuantiFERON TB test, sed rate, KINGSLEY, P ANCA and C ANCA, LILIANA level, and these are all pending. In the meantime the patient is receiving antibiotics, his procalcitonin level is 0.09, hence this is very unlikely that the patient has underlying bacterial infection. I believe if there is infection this is definitely atypical or we may be dealing with malignancy or possibly allergic alveolitis and or granulomatous disease The patient is seen today March 26, 2023 and follow-up on the regular medical floor. He is currently sitting up in bed. Awake and alert in no acute distress. Feeling better today compared to yesterday. Still with some coughing and wheezing. Maintaining O2 saturations in the 90s on 5 L/min per nasal cannula. Utilizing his home CPAP. CT scan of the abdomen pelvis report revealed diffuse reticular nodular pattern in the lung bases consistent with diffuse metastatic disease/lymphangitic spread of metastasis. Dense consolidation in the right lung base possibly indicating a superimposed right lower lobe pneumonia. Fatty infiltration of the liver. No evidence of metastatic disease within the abdomen or pelvis. Undergo bronchoscopy with biopsies yesterday. Pathology is pending. Blood sugar 160. Objective - Vital Signs Vital signs: Vital Signs Temp 97.7 F 03/26/23 07:54 Pulse 103 H 03/26/23 07:54 Resp 19 03/26/23 07:54 BP 142/76 03/26/23 07:54 Pulse Ox 96 03/26/23 12:36 FiO2 Intake & Output 03/25/23 03/26/23 03/26/23 18:59 06:59 18:59 Intake Total 450 Balance 450 Weight 97.522 kg Intake: IV 450 Other: Voiding Method Toilet # Voids 1 1 - Exam GENERAL EXAM: Alert, 58-year-old male, on 5 L nasal cannula, comfortable in no apparent distress. HEAD: Normocephalic. EYES: Normal reaction of pupils, equal size. NOSE: Clear with pink turbinates. THROAT: No erythema or exudates. NECK: No masses, no JVD. CHEST: No chest wall deformity. LUNGS: Equal air entry with bilateral end expiratory wheeze. CVS: S1 and S2 normal with no audible murmur, regular rhythm. ABDOMEN: No hepatosplenomegaly, normal bowel sounds, no guarding or rigidity. SPINE: No scoliosis or deformity SKIN: No rashes CENTRAL NERVOUS SYSTEM: No focal deficits, tone is normal in all 4 extremities. EXTREMITIES: There is no peripheral edema. No clubbing, no cyanosis. Peripheral pulses are intact. - Labs CBC & Chem 7: 03/24/23 04:59 03/25/23 15:02 Labs: Abnormal Lab Results - Last 24 Hours (Table) 03/25/23 03/25/23 03/25/23 Range/Units 13:08 13:55 15:02 Glucose 220 H (74-99) mg/dL POC Glucose (mg/dL) 187 H 183 H (70-110) mg/dL ALT 64 H (4-49) U/L 03/25/23 03/25/23 03/26/23 Range/Units 16:27 20:30 11:42 Glucose (74-99) mg/dL POC Glucose (mg/dL) 229 H 221 H 160 H (70-110) mg/dL ALT (4-49) U/L Microbiology - Last 24 Hours (Table) 03/25/23 12:09 Gram Stain - Preliminary Bronchoalviolar Lavage - Right Bronchial Washings Culture - Preliminary 03/24/23 09:25 Blood Culture - Preliminary Blood 03/24/23 09:10 Blood Culture - Preliminary Blood Assessment and Plan Assessment: Acute hypoxemic respiratory failure secondary to acute right lower lobe pneumonia versus mass. CT angiogram ruled out acute pulmonary embolism. There is innumerable tiny nodules throughout the bilateral lung zurita. Metastasis versus fungal versus atypical infection is within the differential. Chest x-ray from December 2020 was clear. Procalcitonin negative x 2. Aspergillus fumigatus allergen negative. Status post bronchoscopy with biopsies 03/25/2023. Pathology pending History of tuberculosis positive testing and treated with INH x 6 months several years ago Obstructive sleep apnea utilizes CPAP in the outpatient setting Diabetes mellitus Hyperlipidemia History of previous episode of psychosis Lifelong non-smoker Plan: The patient was seen and evaluated CT scan of the abdomen pelvis, labs and medications reviewed Add Solu-Medrol Continue bronchodilators Lovenox for DVT prophylaxis Titrate down the FiO2 as tolerated Waiting further lab results We will continue to follow I have personally seen and examined the patient, performed the documentation and the assessment and plan as written. Number of minutes spent on the visit: 10.
[2023-03-26] MEDS: AZITHROMYCIN 500 MG in SODIUM CHLORIDE 0.9% 250 ML IVPB SCH (14:08)
--- NOTE | 2023-03-26 14:34 | P.PN ---
Progress Note - Text Progress Note Date: 03/26/23 Chief Complaint: Short of breath This is a pleasant 58-year-old patient who follows with Dr. Michele. Chronic stable medical conditions include diabetes mellitus type 2, hypertension, obstructive sleep apnea uses CPAP, diverticulosis, ankylosing spondylosis causing lower back pain depression. For about 4 weeks patient been getting short of breath. He did go to urgent care once he was told he has a walking pneumonia and was given Augmentin and prednisone bronchodilators and after he finished the course the symptoms again got worse. Back in 1989 he was positive for TB skin test did not receive 6 months of INH. Has a slight cough. Non-smoker. Some wheezing. Denies any fever and chills. Tired. March 25: Some wheezing and shortness of breath. Underwent bronchoscopy by Dr. Ward. Currently on CPAP. Biopsies were sent out. Patient's son and his are visiting at the bedside. March 26: Some improvement in wheezing and shortness of breath. Tired. Family at the bedside. Being followed by pulmonary. Remains on IV Zosyn. Told the patient sit up in a chair. Active Medications Albuterol Sulfate (Albuterol Nebulized 2.5 Mg/3 Ml) 2.5 mg INHALATION RT-Q2H PRN PRN Reason: Shortness Of Breath Or Wheezing Last Admin: 03/24/23 11:51 Dose: 2.5 mg Albuterol/Ipratropium (Ipratropium-Albuterol 3 Ml Neb) 3 ml INHALATION RT-QID [facility] Last Admin: 03/26/23 11:53 Dose: Not Given Aspirin (Aspirin 81 Mg) 81 mg PO DAILY [facility] Last Admin: 03/26/23 10:05 Dose: 81 mg Dapagliflozin (Dapagliflozin Propanediol 10 Mg Tablet) 10 mg PO HS [facility] Last Admin: 03/25/23 21:02 Dose: 10 mg Dextrose/Water (Dextrose 50% Syringe 50 Ml) 25 ml IVP PER PROTOCOL PRN; Protocol PRN Reason: Hypoglycemia Dextrose/Water (Dextrose 50% Syringe 50 Ml) 50 ml IVP PER PROTOCOL PRN; Protocol PRN Reason: Hypoglycemia Enoxaparin Sodium (Enoxaparin 40 Mg/0.4 Ml Syringe) 40 mg SQ DAILY [facility] Last Admin: 03/26/23 10:04 Dose: 40 mg Piperacillin Sod/Tazobactam (Sod 3.375 gm/ Sodium Chloride) 100 mls @ 25 mls/hr IVPB Q8HR [facility]; Protocol Stop: 03/29/23 16:01 Last Admin: 03/26/23 10:06 Dose: 25 mls/hr Insulin Aspart (Insulin Aspart (Novolog) 100 Unit/Ml Vial) 0 unit SQ AC-TID [facility]; Protocol Last Admin: 03/26/23 12:33 Dose: 2 unit Lisinopril (Lisinopril 20 Mg Tab) 20 mg PO HS [facility] Last Admin: 03/25/23 20:31 Dose: 20 mg Metformin HCl (Metformin 500 Mg Tab) 1,000 mg PO BID [facility] Last Admin: 03/26/23 10:05 Dose: 1,000 mg Methylprednisolone Sodium Succinate (Methylprednisolone Sod Succi 125 Mg/2 Ml Vial) 60 mg IV Q6HR [facility] Last Admin: 03/26/23 12:33 Dose: 60 mg Miscellaneous Information (Pneumonia Protocol Utilized 1 Each Misc) 1 each PO ONCE PRN PRN Reason: Per Protocol Montelukast Sodium (Montelukast 10 Mg Tab) 10 mg PO DAILY [facility] Last Admin: 03/26/23 10:05 Dose: 10 mg Pravastatin Sodium (Pravastatin Sodium 20 Mg Tab) 10 mg PO DAILY [facility] Last Admin: 03/26/23 10:05 Dose: 10 mg Venlafaxine HCl (Venlafaxine Hcl Er 75 Mg Cap) 75 mg PO DAILY [facility] Last Admin: 03/26/23 10:05 Dose: 75 mg Past medical history to include: Diabetes, hypertension, obstructive sleep apnea uses CPAP, depression, and ankylosing spondylosis Social history: 18-year-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 . 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 Physical examination: VITAL SIGNS: 97.7, 103, 19, 142 x 76, 95% on 5 L GENERAL: Laying in bed, some shortness of breath EYES: Pupils equal. Conjunctiva normal. HEENT: External appearance of nose and ears normal, oral cavity grossly normal. NECK: JVD not raised; masses not palpable. HEART: First and second heart sounds are normal; no edema. LUNGS: Respiratory rate increased; coarse breath sounds on the left side posteriorly with some wheezing. ABDOMEN: Soft, nontender, liver spleen not palpable, no masses palpable. PSYCH: Alert and oriented x3; mood and affect anxiousl. INVESTIGATIONS, reviewed in the clinical context: March 25: Potassium 4.6 creatinine 0.85. Procalcitonin 0.09 Aspergillus fumi gated S IgE less than 0.1 March 24, 2023: White count 9.8 hemoglobin 7.2 platelets 304 sodium 140 potassium 4.1 BUN 15 creatinine 0.59 Troponin I less than 0.012. proBNP less than 20 Influenza type A, type B, RSV, COVID-19: Not detected EKG tracing personally reviewed by me-normal sinus rhythm. Chest x-ray film personally reviewed by me-cardiomegaly. Some elevation of the right diaphragm. Some reticular nodular opacity. Chest CTA: Innumerable tiny nodules present throughout bilateral lung zurita. No mediastinal or hilar adenopathy. Consolidation in the posterior medial right lung. Assessment and plan: -Patient has been short of breath for close to 4 weeks. Some wheezing. Did receive outpatient a course of steroids Augmentin and bronchodilator.'s slight improvement. CT chest showing consolidation in the posterior medial right lung. Concern for underlying tumor. Patient had bronchoscopy today biopsy done. By Dr. Ward -Possible pneumonia. Suspect gram-negative organism . IV Zosyn. -Secondary bronchospasm DuoNeb -Diabetes mellitus type 2, oral hypoglycemic Glucophage, Januvia farxiga. Follow Accu-Cheks with sliding scale. Hold glipizide -Essential hypertension Vasotec 10 mg daily at bedtime -Hyperlipidemia Pravachol 10 mg daily at bedtime -Depression not otherwise specified Effexor XR 35.5 mg ,vraylar. Carbamazepine -Chronic ankylosing spondylitis primarily affecting the lumbar spine. With muscle spasms Pain medication as needed. Carbamazepine -Obstructive sleep apnea Continue CPAP Continue current treatment plan. Discussed. Up in a chair. Incentive spirometry. Past Medical History Past Medical History: Diabetes Mellitus, Hypertension, Sleep Apnea/CPAP/BIPAP Additional Past Medical History / Comment(s): LULÚ, diverticulitis History of Any Multi-Drug Resistant Organisms: C-DIFF Date of last positivie culture/infection: 1994 Past Surgical History: Hernia Repair, Orthopedic Surgery, Tonsillectomy Additional Past Surgical History / Comment(s): sigmoid colon, vasectomy Past Psychological History: Depression Smoking Status: Never smoker Past Alcohol Use History: None Reported Past Drug Use History: None Reported
[2023-03-26 17:08] LABS: Glucose,Whole Blood 278 mg/dL (70-110)
[2023-03-26 20:03] LABS: Glucose,Whole Blood 221 mg/dL (70-110)
[2023-03-26] MEDS: lisinopriL 20 MG TAB PO SCH (21:42)
[2023-03-26] MEDS: DAPAGLIFLOZIN PROPANEDIOL 10 MG TABLET PO SCH (21:42)
[2023-03-27 05:26] LABS: Glucose,Whole Blood 179 mg/dL (70-110)
[2023-03-27] MEDS: methylPREDNISolone SOD SUCCI 125 MG/2 ML VIAL IV SCH ×4 (06:26→23:27)
[2023-03-27] MEDS: INSULIN ASPART (NovoLOG) 100 UNIT/ML VIAL SQ SCH ×3 (06:26→18:20)
[2023-03-27] MEDS: ASPIRIN 81 MG PO SCH (08:12)
[2023-03-27] MEDS: MONTELUKAST 10 MG TAB PO SCH (08:12)
[2023-03-27] MEDS: PRAVASTATIN SODIUM 20 MG TAB PO SCH (08:12)
[2023-03-27] MEDS: ENOXAPARIN 40 MG/0.4 ML SYRINGE SQ SCH (08:12)
[2023-03-27] MEDS: VENLAFAXINE HCL ER 75 MG CAP PO SCH (08:12)
[2023-03-27] MEDS: metFORMIN 500 MG TAB PO SCH ×2 (08:12→20:09)
[2023-03-27] MEDS: CARIPRAZINE 3 MG PO SCH (08:13)
[2023-03-27] MEDS: PIPERACILLIN-TAZOBACTAM 3.375 GM in SODIUM CHLORIDE 0.9% 100 ML IVPB SCH ×3 (08:14→23:27)
[2023-03-27] MEDS: IPRATROPIUM-ALBUTEROL 3 ML NEB INHALATION SCH ×4 (09:11→21:17)
--- NOTE | 2023-03-27 09:33 | P.PN ---
Progress Note - Text Progress Note Date: 03/27/23 Chief Complaint: Short of breath This is a pleasant 58-year-old patient who follows with Dr. Michele. Chronic stable medical conditions include diabetes mellitus type 2, hypertension, obstructive sleep apnea uses CPAP, diverticulosis, ankylosing spondylosis causing lower back pain depression. For about 4 weeks patient been getting short of breath. He did go to urgent care once he was told he has a walking pneumonia and was given Augmentin and prednisone bronchodilators and after he finished the course the symptoms again got worse. Back in 1989 he was positive for TB skin test did not receive 6 months of INH. Has a slight cough. Non-smoker. Some wheezing. Denies any fever and chills. Tired. March 25: Some wheezing and shortness of breath. Underwent bronchoscopy by Dr. Ward. Currently on CPAP. Biopsies were sent out. Patient's son and his are visiting at the bedside. March 26: Some improvement in wheezing and shortness of breath. Tired. Family at the bedside. Being followed by pulmonary. Remains on IV Zosyn. Told the patient sit up in a chair. March 27: Up in a chair. Using incentive spirometry. Breathing better. Decreased wheezing. Did ambulate. Oxygen down to 2 L. Eating fair. Biopsy results pending. Cultures negative till now. Active Medications Albuterol Sulfate (Albuterol Nebulized 2.5 Mg/3 Ml) 2.5 mg INHALATION RT-Q2H PRN PRN Reason: Shortness Of Breath Or Wheezing Last Admin: 03/24/23 11:51 Dose: 2.5 mg Albuterol/Ipratropium (Ipratropium-Albuterol 3 Ml Neb) 3 ml INHALATION RT-QID [facility] Last Admin: 03/27/23 09:11 Dose: Not Given Aspirin (Aspirin 81 Mg) 81 mg PO DAILY [facility] Last Admin: 03/27/23 08:12 Dose: 81 mg Dapagliflozin (Dapagliflozin Propanediol 10 Mg Tablet) 10 mg PO HS [facility] Last Admin: 03/26/23 21:42 Dose: 10 mg Dextrose/Water (Dextrose 50% Syringe 50 Ml) 25 ml IVP PER PROTOCOL PRN; Protocol PRN Reason: Hypoglycemia Dextrose/Water (Dextrose 50% Syringe 50 Ml) 50 ml IVP PER PROTOCOL PRN; Protocol PRN Reason: Hypoglycemia Enoxaparin Sodium (Enoxaparin 40 Mg/0.4 Ml Syringe) 40 mg SQ DAILY [facility] Last Admin: 03/27/23 08:12 Dose: 40 mg Piperacillin Sod/Tazobactam (Sod 3.375 gm/ Sodium Chloride) 100 mls @ 25 mls/hr IVPB Q8HR [facility]; Protocol Stop: 03/29/23 16:01 Last Admin: 03/27/23 08:14 Dose: 25 mls/hr Insulin Aspart (Insulin Aspart (Novolog) 100 Unit/Ml Vial) 0 unit SQ AC-TID [facility]; Protocol Last Admin: 03/27/23 06:26 Dose: 100 unit Lisinopril (Lisinopril 20 Mg Tab) 20 mg PO HS [facility] Last Admin: 03/26/23 21:42 Dose: 20 mg Metformin HCl (Metformin 500 Mg Tab) 1,000 mg PO BID [facility] Last Admin: 03/27/23 08:12 Dose: 1,000 mg Methylprednisolone Sodium Succinate (Methylprednisolone Sod Succi 125 Mg/2 Ml Vial) 60 mg IV Q6HR [facility] Last Admin: 03/27/23 06:26 Dose: 60 mg Miscellaneous Information (Pneumonia Protocol Utilized 1 Each Misc) 1 each PO ONCE PRN PRN Reason: Per Protocol Montelukast Sodium (Montelukast 10 Mg Tab) 10 mg PO DAILY [facility] Last Admin: 03/27/23 08:12 Dose: 10 mg Patient's Own ( (Cariprazine 3 Mg)) 3 mg PO DAILY [facility] Last Admin: 03/27/23 08:13 Dose: 3 mg Pravastatin Sodium (Pravastatin Sodium 20 Mg Tab) 10 mg PO DAILY [facility] Last Admin: 03/27/23 08:12 Dose: 10 mg Venlafaxine HCl (Venlafaxine Hcl Er 75 Mg Cap) 75 mg PO DAILY [facility] Last Admin: 03/27/23 08:12 Dose: 75 mg Past medical history to include: Diabetes, hypertension, obstructive sleep apnea uses CPAP, depression, and ankylosing spondylosis Social history: 18-year-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 . 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 Physical examination: VITAL SIGNS: 98,'s 91, 18, 127 x 85, 94% on 2 L GENERAL: Up in a recliner recliner, breathing better EYES: Pupils equal. Conjunctiva normal. HEENT: External appearance of nose and ears normal, oral cavity grossly normal. NECK: JVD not raised; masses not palpable. HEART: First and second heart sounds are normal; no edema. LUNGS: Respiratory rate increased; decreased coarse breath sounds on the left side posteriorly with improved wheezing. ABDOMEN: Soft, nontender, liver spleen not palpable, no masses palpable. PSYCH: Alert and oriented x3; mood and affect anxiousl. INVESTIGATIONS, reviewed in the clinical context: March 25: Potassium 4.6 creatinine 0.85. Procalcitonin 0.09 Aspergillus fumigated S IgE less than 0.1 March 24, 2023: White count 9.8 hemoglobin 7.2 platelets 304 sodium 140 potassium 4.1 BUN 15 creatinine 0.59 Troponin I less than 0.012. proBNP less than 20 Influenza type A, type B, RSV, COVID-19: Not detected EKG tracing personally reviewed by me-normal sinus rhythm. Chest x-ray film personally reviewed by me-cardiomegaly. Some elevation of the right diaphragm. Some reticular nodular opacity. Chest CTA: Innumerable tiny nodules present throughout bilateral lung zurita. No mediastinal or hilar adenopathy. Consolidation in the posterior medial right lung. Assessment and plan: -Patient has been short of breath for close to 4 weeks. Some wheezing. Did receive outpatient a course of steroids Augmentin and bronchodilator.'s slight improvement. CT chest showing consolidation in the posterior medial right lung. Concern for underlying tumor. Patient had bronchoscopy March 25 with biopsy-by Dr. Ward -Possible pneumonia. Suspect gram-negative organism . IV Zosyn. -Secondary bronchospasm DuoNeb -Diabetes mellitus type 2, oral hypoglycemic Glucophage, Januvia farxiga. Follow Accu-Cheks with sliding scale. Hold glipizide -Essential hypertension Vasotec 10 mg daily at bedtime -Hyperlipidemia Pravachol 10 mg daily at bedtime -Depression not otherwise specified Effexor XR 35.5 mg ,vraylar. Carbamazepine -Chronic ankylosing spondylitis primarily affecting the lumbar spine. With muscle spasms Pain medication as needed. Carbamazepine -Obstructive sleep apnea Continue CPAP Better. Continue current treatment. Hopefully discharge tomorrow and then follow-up with pulmonary outpatient. Past Medical History Past Medical History: Diabetes Mellitus, Hypertension, Sleep Apnea/CPAP/BIPAP Additional Past Medical History / Comment(s): LULÚ, diverticulitis History of Any Multi-Drug Resistant Organisms: C-DIFF Date of last positivie culture/infection: 1994 Past Surgical History: Hernia Repair, Orthopedic Surgery, Tonsillectomy Additional Past Surgical History / Comment(s): sigmoid colon, vasectomy Past Psychological History: Depression Smoking Status: Never smoker Past Alcohol Use History: None Reported Past Drug Use History: None Reported
[2023-03-27 11:17] LABS: Glucose,Whole Blood 208 mg/dL (70-110)
--- NOTE | 2023-03-27 13:17 | P.PN ---
Subjective Progress Note Date: 03/27/23 This is a very pleasant 58-year-old male patient with a known history of obstructive sleep apnea utilizing CPAP, diabetes mellitus, hyperlipidemia, previous psychosis episodes. Approximately 4 weeks ago the patient developed increasing shortness of breath cough and congestion and was seen in an emergent urgent care. He was treated with Augmentin, steroids and albuterol and had some improvement however his treatment finished yesterday and he developed worsening shortness of breath cough congestion wheezing and dyspnea on exertion. He denies any recent travels. He denies any recent sick contacts. He denies any previous history of smoking or chemical inhalations. He does state many years ago he did test positive for tuberculosis and was treated with 6 months of INH. Chest x-ray reveals interval development of diffuse bilateral reticulonodular opacities. This was compared to a previous chest x-ray from December 2020. CT angiogram ruled out pulmonary embolism. There is innumerable tiny nodules throughout the bilateral lung zurita. Consider metastasis. Consolidation in the posterior right lower lung field. Workup for pneumonia versus mass recommended. White count 9.8. Hemoglobin 17.2. Platelets 304. Sodium 140. Potassium 4.1. Bicarb 21. BUN 15. Creatinine 0.59. Glucose 146. AST 43. ALT 62. proBNP less than 20. Viral screen negative. The patient is seen in consultation in the emergency department. He is currently sitting up on a stretcher. Awake and alert in no acute distress. He is currently wearing his CPAP device from home. While off he is requiring 4 L nasal cannula to maintain O2 saturation in the 90s. He has been afebrile. Hemodynamically stable. He denies any hemoptysis. Denies any significant weight loss. He has been initiated on Zosyn and azithromycin. He was reevaluated today on 03/25/2023, patient was seen yesterday on consultation, and he presented with shortness of breath, cough, wheezing, and he had a significantly abnormal CT of the chest showing a miliary pattern, differential diagnosis included malignancy and/or infection also the possibility of allergic alveolitis/hypersensitivity pneumonitis, sarcoidosis, atypical infection. Patient is scheduled to have bronchoscopy and transbronchial biopsy today, please refer to the operative report once it is available. Clinically the patient is doing well, continues to have some cough and wheezing, no fever, no chills, no hemoptysis. Patient is on 4 L nasal cannula with O2 saturation of 92%.Multiple labs were ordered yesterday including fungal titers, QuantiFERON TB test, sed rate, KINGSLEY, P ANCA and C ANCA, LILIANA level, and these are all pending. In the meantime the patient is receiving antibiotics, his procalcitonin level is 0.09, hence this is very unlikely that the patient has underlying bacterial infection. I believe if there is infection this is definitely atypical or we may be dealing with malignancy or possibly allergic alveolitis and or granulomatous disease The patient is seen today March 26, 2023 and follow-up on the regular medical floor. He is currently sitting up in bed. Awake and alert in no acute distress. Feeling better today compared to yesterday. Still with some coughing and wheezing. Maintaining O2 saturations in the 90s on 5 L/min per nasal cannula. Utilizing his home CPAP. CT scan of the abdomen pelvis report revealed diffuse reticular nodular pattern in the lung bases consistent with diffuse metastatic disease/lymphangitic spread of metastasis. Dense consolidation in the right lung base possibly indicating a superimposed right lower lobe pneumonia. Fatty infiltration of the liver. No evidence of metastatic disease within the abdomen or pelvis. Undergo bronchoscopy with biopsies yesterday. Pathology is pending. Blood sugar 160. The patient is seen today March 27, 2023 in follow-up on the regular medical floor. He is currently sitting up in a chair at the bedside. Awake and alert in no acute distress. He is maintaining good O2 saturations in the 90s on 2 L/min per nasal cannula. He is utilizing his home CPAP. He was initiated on steroids yesterday. Suspecting possible hypersensitivity pneumonitis. Pathology is pending from biopsies. Remains on bronchodilators. Remains on Zosyn. Lovenox for DVT prophylaxis. They will wash cultures revealed no growth. Blood sugar 179. Objective - Vital Signs Vital signs: Vital Signs Temp 98.0 F 03/27/23 07:11 Pulse 91 03/27/23 07:11 Resp 18 03/27/23 07:11 BP 127/85 03/27/23 07:11 Pulse Ox 94 L 03/27/23 08:44 FiO2 Intake & Output 03/26/23 03/27/23 03/27/23 18:59 06:59 18:59 Other: # Voids 6 2 - Exam GENERAL EXAM: Alert, 58-year-old male, on 2 L nasal cannula, sitting up in a chair, comfortable in no apparent distress. HEAD: Normocephalic. EYES: Normal reaction of pupils, equal size. NOSE: Clear with pink turbinates. THROAT: No erythema or exudates. NECK: No masses, no JVD. CHEST: No chest wall deformity. LUNGS: Equal air entry with bilateral end expiratory wheeze. CVS: S1 and S2 normal with no audible murmur, regular rhythm. ABDOMEN: No hepatosplenomegaly, normal bowel sounds, no guarding or rigidity. SPINE: No scoliosis or deformity SKIN: No rashes CENTRAL NERVOUS SYSTEM: No focal deficits, tone is normal in all 4 extremities. EXTREMITIES: There is no peripheral edema. No clubbing, no cyanosis. Peripheral pulses are intact. - Labs CBC & Chem 7: 03/24/23 04:59 03/25/23 15:02 Labs: Abnormal Lab Results - Last 24 Hours (Table) 03/26/23 03/26/23 03/27/23 Range/Units 17:07 20:02 05:25 POC Glucose (mg/dL) 278 H 221 H 179 H (70-110) mg/dL 03/27/23 Range/Units 11:16 POC Glucose (mg/dL) 208 H (70-110) mg/dL Microbiology - Last 24 Hours (Table) 03/25/23 12:09 Gram Stain - Final Bronchoalviolar Lavage - Right Bronchial Washings Culture - Final 03/25/23 12:09 Acid Fast Bacilli Smear - Preliminary Bronchoalviolar Lavage - Right 03/24/23 09:25 Blood Culture - Preliminary Blood 03/24/23 09:10 Blood Culture - Preliminary Blood Assessment and Plan Assessment: Acute hypoxemic respiratory failure secondary to acute right lower lobe pneumonia versus mass. CT angiogram ruled out acute pulmonary embolism. There is innumerable tiny nodules throughout the bilateral lung zurita. Metastasis versus fungal versus atypical infection is within the differential. Chest x-ray from December 2020 was clear. Procalcitonin negative x 2. Aspergillus fumigatus allergen negative. Status post bronchoscopy with biopsies 03/25/2023. Pathology pending History of tuberculosis positive testing and treated with INH x 6 months several years ago Obstructive sleep apnea utilizes CPAP in the outpatient setting Diabetes mellitus Hyperlipidemia History of previous episode of psychosis Lifelong non-smoker Plan: The patient was seen and evaluated Labs and medications reviewed Continue Solu-Medrol Continue bronchodilators Lovenox for DVT prophylaxis Titrate down the FiO2 as tolerated Increase his activity as tolerated We will continue to follow I have personally seen and examined the patient, performed the documentation and the assessment and plan as written. Number of minutes spent on the visit: 10.
[2023-03-27 16:39] LABS: Glucose,Whole Blood 250 mg/dL (70-110)
[2023-03-27] MEDS: DAPAGLIFLOZIN PROPANEDIOL 10 MG TABLET PO SCH (20:10)
[2023-03-27] MEDS: lisinopriL 20 MG TAB PO SCH (20:10)
[2023-03-27 20:22] LABS: Glucose,Whole Blood 338 mg/dL (70-110)
[2023-03-28] MEDS: ALBUTEROL NEBULIZED 2.5 MG/3 ML INHALATION PRN (00:33)
[2023-03-28 05:36] LABS: Glucose,Whole Blood 232 mg/dL (70-110)
[2023-03-28] MEDS: methylPREDNISolone SOD SUCCI 125 MG/2 ML VIAL IV SCH (06:40)
[2023-03-28] MEDS: INSULIN ASPART (NovoLOG) 100 UNIT/ML VIAL SQ SCH ×2 (06:40→12:33)
[2023-03-28] MEDS: IPRATROPIUM-ALBUTEROL 3 ML NEB INHALATION SCH ×2 (07:57→11:14)
--- NOTE | 2023-03-28 08:05 | XR ---
EXAMINATION TYPE: XR chest 1V portable DATE OF EXAM: 03/28/2023 HISTORY: Shortness of breath. COMPARISON: 03/25/2023 TECHNIQUE: Single view of the chest is submitted. FINDINGS: Demonstrated are scattered senescent parenchymal change. Reticulonodular infiltrates seen diffusely bilaterally persist without significant change given diffe rences in technique. The heart is stable. Hilar and mediastinal structures are within normal limits. Degenerative changes are seen of the dorsal spine. IMPRESSION: 1. Reticulonodular infiltrates seen diffusely bilaterally persist without significant change given d ifferences in technique.
[2023-03-28] MEDS: ENOXAPARIN 40 MG/0.4 ML SYRINGE SQ SCH (08:29)
[2023-03-28] MEDS: MONTELUKAST 10 MG TAB PO SCH (08:29)
[2023-03-28] MEDS: ASPIRIN 81 MG PO SCH (08:29)
[2023-03-28] MEDS: VENLAFAXINE HCL ER 75 MG CAP PO SCH (08:29)
[2023-03-28] MEDS: PIPERACILLIN-TAZOBACTAM 3.375 GM in SODIUM CHLORIDE 0.9% 100 ML IVPB SCH (08:29)
[2023-03-28] MEDS: PRAVASTATIN SODIUM 20 MG TAB PO SCH (08:29)
[2023-03-28] MEDS: metFORMIN 500 MG TAB PO SCH (08:29)
[2023-03-28] MEDS: CARIPRAZINE 3 MG PO SCH (08:31)
[2023-03-28 08:43] VITALS: BP 160/71; RESP 20; TEMP 97.7
[2023-03-28 11:50] LABS: Glucose,Whole Blood 348 mg/dL (70-110)
[2023-03-28 11:59] VITALS: PULSE 98
--- NOTE | 2023-03-28 14:24 | P.PN ---
Subjective Progress Note Date: 03/28/23 This is a very pleasant 58-year-old male patient with a known history of obstructive sleep apnea utilizing CPAP, diabetes mellitus, hyperlipidemia, previous psychosis episodes. Approximately 4 weeks ago the patient developed increasing shortness of breath cough and congestion and was seen in an emergent urgent care. He was treated with Augmentin, steroids and albuterol and had some improvement however his treatment finished yesterday and he developed worsening shortness of breath cough congestion wheezing and dyspnea on exertion. He denies any recent travels. He denies any recent sick contacts. He denies any previous history of smoking or chemical inhalations. He does state many years ago he did test positive for tuberculosis and was treated with 6 months of INH. Chest x-ray reveals interval development of diffuse bilateral reticulonodular opacities. This was compared to a previous chest x-ray from December 2020. CT angiogram ruled out pulmonary embolism. There is innumerable tiny nodules throughout the bilateral lung zurita. Consider metastasis. Consolidation in the posterior right lower lung field. Workup for pneumonia versus mass recommended. White count 9.8. Hemoglobin 17.2. Platelets 304. Sodium 140. Potassium 4.1. Bicarb 21. BUN 15. Creatinine 0.59. Glucose 146. AST 43. ALT 62. proBNP less than 20. Viral screen negative. The patient is seen in consultation in the emergency department. He is currently sitting up on a stretcher. Awake and alert in no acute distress. He is currently wearing his CPAP device from home. While off he is requiring 4 L nasal cannula to maintain O2 saturation in the 90s. He has been afebrile. Hemodynamically stable. He denies any hemoptysis. Denies any significant weight loss. He has been initiated on Zosyn and azithromycin. He was reevaluated today on 03/25/2023, patient was seen yesterday on consultation, and he presented with shortness of breath, cough, wheezing, and he had a significantly abnormal CT of the chest showing a miliary pattern, differential diagnosis included malignancy and/or infection also the possibility of allergic alveolitis/hypersensitivity pneumonitis, sarcoidosis, atypical infection. Patient is scheduled to have bronchoscopy and transbronchial biopsy today, please refer to the operative report once it is available. Clinically the patient is doing well, continues to have some cough and wheezing, no fever, no chills, no hemoptysis. Patient is on 4 L nasal cannula with O2 saturation of 92%.Multiple labs were ordered yesterday including fungal titers, QuantiFERON TB test, sed rate, KINGSLEY, P ANCA and C ANCA, LILIANA level, and these are all pending. In the meantime the patient is receiving antibiotics, his procalcitonin level is 0.09, hence this is very unlikely that the patient has underlying bacterial infection. I believe if there is infection this is definitely atypical or we may be dealing with malignancy or possibly allergic alveolitis and or granulomatous disease The patient is seen today March 26, 2023 and follow-up on the regular medical floor. He is currently sitting up in bed. Awake and alert in no acute distress. Feeling better today compared to yesterday. Still with some coughing and wheezing. Maintaining O2 saturations in the 90s on 5 L/min per nasal cannula. Utilizing his home CPAP. CT scan of the abdomen pelvis report revealed diffuse reticular nodular pattern in the lung bases consistent with diffuse metastatic disease/lymphangitic spread of metastasis. Dense consolidation in the right lung base possibly indicating a superimposed right lower lobe pneumonia. Fatty infiltration of the liver. No evidence of metastatic disease within the abdomen or pelvis. Undergo bronchoscopy with biopsies yesterday. Pathology is pending. Blood sugar 160. The patient is seen today March 27, 2023 in follow-up on the regular medical floor. He is currently sitting up in a chair at the bedside. Awake and alert in no acute distress. He is maintaining good O2 saturations in the 90s on 2 L/min per nasal cannula. He is utilizing his home CPAP. He was initiated on steroids yesterday. Suspecting possible hypersensitivity pneumonitis. Pathology is pending from biopsies. Remains on bronchodilators. Remains on Zosyn. Lovenox for DVT prophylaxis. They will wash cultures revealed no growth. Blood sugar 179. The patient is seen today March 28, 2023 in follow-up on the regular medical floor. He is awake and alert in no acute distress. Resting comfortably in bed. Utilizing his home CPAP. Follow-up chest x-ray reveals reticular nodular infiltrate seen diffusely bilaterally persistent without change. Bronchoscopy biopsies pending. Remains on steroids. She was revealed no growth. Procalcitonin was negative. Blood sugar 232. Bronchial wash cultures revealed no growth. Objective - Vital Signs Vital signs: Vital Signs Temp 97.7 F 03/28/23 07:32 Pulse 98 03/28/23 11:33 Resp 20 03/28/23 07:32 BP 160/71 03/28/23 07:32 Pulse Ox 98 03/28/23 07:58 FiO2 Intake & Output 03/27/23 03/28/23 03/28/23 18:59 06:59 18:59 Other: # Voids 3 2 - Exam GENERAL EXAM: Alert, 58-year-old male, resting in bed, on his home CPAP, comfortable in no apparent distress. HEAD: Normocephalic. EYES: Normal reaction of pupils, equal size. NOSE: Clear with pink turbinates. THROAT: No erythema or exudates. NECK: No masses, no JVD. CHEST: No chest wall deformity. LUNGS: Equal air entry with bilateral end expiratory wheeze. CVS: S1 and S2 normal with no audible murmur, regular rhythm. ABDOMEN: No hepatosplenomegaly, normal bowel sounds, no guarding or rigidity. SPINE: No scoliosis or deformity SKIN: No rashes CENTRAL NERVOUS SYSTEM: No focal deficits, tone is normal in all 4 extremities. EXTREMITIES: There is no peripheral edema. No clubbing, no cyanosis. Peripheral pulses are intact. - Labs CBC & Chem 7: 03/24/23 04:59 03/25/23 15:02 Labs: Abnormal Lab Results - Last 24 Hours (Table) 03/25/23 03/27/23 03/27/23 Range/Units 07:38 16:37 20:21 POC Glucose (mg/dL) 250 H 338 H (70-110) mg/dL Angiotensin Convert Enz 5 L (8-52) U/L 03/28/23 03/28/23 Range/Units 05:35 11:49 POC Glucose (mg/dL) 232 H 348 H (70-110) mg/dL Angiotensin Convert Enz (8-52) U/L Microbiology - Last 24 Hours (Table) 03/24/23 09:25 Blood Culture - Preliminary Blood 03/24/23 09:10 Blood Culture - Preliminary Blood 03/25/23 12:09 Gram Stain - Final Bronchoalviolar Lavage - Right Bronchial Washings Culture - Final Assessment and Plan Assessment: Acute hypoxemic respiratory failure secondary to acute right lower lobe pneumonia versus mass. CT angiogram ruled out acute pulmonary embolism. There is innumerable tiny nodules throughout the bilateral lung zurita. Metastasis versus fungal versus atypical infection is within the differential. Chest x-ray from December 2020 was clear. Procalcitonin negative x 2. Aspergillus fumigatus allergen negative. Status post bronchoscopy with biopsies 03/25/2023. Pathology pending History of tuberculosis positive testing and treated with INH x 6 months several years ago Obstructive sleep apnea utilizes CPAP in the outpatient setting Diabetes mellitus Hyperlipidemia History of previous episode of psychosis Lifelong non-smoker Plan: The patient was seen and evaluated Labs and medications reviewed Cleared for discharge from the pulmonary standpoint Continue a prednisone taper Follow-up in our office in 1 week I have personally seen and examined the patient, performed the documentation and the assessment and plan as written. Number of minutes spent on the visit: 10.
[2023-03-28 15:01] LABS: C-ANCA <1:20 Titer (<1:20)
--- NOTE | 2023-03-28 19:42 | P.DS ---
Providers Date of admission: 03/24/23 08:40 Expected date of discharge: 03/28/23 Attending physician: Rodney Lozano Consults: 03/24/23 09:04 Consult Physician Routine Consulting Provider: Dennys Ward Consult Reason/Comments: Possible lung mass, pneumonia Do you want consulting provider notified?: Yes 03/24/23 09:11 Consult Physician Routine Consulting Provider: Cuba Shell Consult Reason/Comments: possible lung mass Do you want consulting provider notified?: Yes Primary care physician: Troy Michele Procedures: Chief Complaint: Short of breath This is a pleasant 58-year-old patient who follows with Dr. Michele. Chronic stable medical conditions include diabetes mellitus type 2, hypertension, obstructive sleep apnea uses CPAP, diverticulosis, ankylosing spondylosis causing lower back pain depression. For about 4 weeks patient been getting short of breath. He did go to urgent care once he was told he has a walking pneumonia and was given Augmentin and prednisone bronchodilators and after he finished the course the symptoms again got worse. Back in 1989 he was positive for TB skin test did not receive 6 months of INH. Has a slight cough. Non-smoker. Some wheezing. Denies any fever and chills. Tired. March 25: Some wheezing and shortness of breath. Underwent bronchoscopy by Dr. Ward. Currently on CPAP. Biopsies were sent out. Patient's son and his are visiting at the bedside. March 26: Some improvement in wheezing and shortness of breath. Tired. Family at the bedside. Being followed by pulmonary. Remains on IV Zosyn. Told the patient sit up in a chair. March 27: Up in a chair. Using incentive spirometry. Breathing better. Decreased wheezing. Did ambulate. Oxygen down to 2 L. Eating fair. Biopsy results pending. Cultures negative till now. March 28: Breathing much better. Cleared by pulmonary. Will follow-up in the office Dr. Ward. Will send home on a tapering dose of steroids Symbicort albuterol as needed. Discussed. Questions answered. Past medical history to include: Diabetes, hypertension, obstructive sleep apnea uses CPAP, depression, and ankylosing spondylosis Social history: 18-year-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 . 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 Physical examination: VITAL SIGNS: 97.7, 92, 20, 160/91, 96% room air GENERAL: Breathing better r EYES: Pupils equal. Conjunctiva normal. HEENT: External appearance of nose and ears normal, oral cavity grossly normal. NECK: JVD not raised; masses not palpable. HEART: First and second heart sounds are normal; no edema. LUNGS: Respiratory rate normal; decreased breath sounds, improved wheezing ABDOMEN: Soft, nontender, liver spleen not palpable, no masses palpable. PSYCH: Alert and oriented x3; mood and affect anxiousl. INVESTIGATIONS, reviewed in the clinical context: March 25: Potassium 4.6 creatinine 0.85. Procalcitonin 0.09 Aspergillus fumigated S IgE less than 0.1 March 24, 2023: White count 9.8 hemoglobin 7.2 platelets 304 sodium 140 potassium 4.1 BUN 15 creatinine 0.59 Troponin I less than 0.012. proBNP less than 20 Influenza type A, type B, RSV, COVID-19: Not detected EKG tracing personally reviewed by me-normal sinus rhythm. Chest x-ray film personally reviewed by me-cardiomegaly. Some elevation of the right diaphragm. Some reticular nodular opacity. Chest CTA: Innumerable tiny nodules present throughout bilateral lung zurita. No mediastinal or hilar adenopathy. Consolidation in the posterior medial right lung. Assessment and plan: -Patient has been short of breath for close to 4 weeks. Some wheezing. Did receive outpatient a course of steroids Augmentin and bronchodilator.'s slight improvement. CT chest showing consolidation in the posterior medial right lung. Concern for underlying tumor. bronchoscopy March 25 with biopsy-by Dr. Ward -Possible pneumonia. Suspect gram-negative organism . IV Zosyn-completed course. -Secondary bronchospasm -Diabetes mellitus type 2, oral hypoglycemic Glucophage, Januvia farxiga. Follow Accu-Cheks with sliding scale. Hold glipizide -Essential hypertension Vasotec 10 mg daily at bedtime -Hyperlipidemia Pravachol 10 mg daily at bedtime -Depression not otherwise specified Effexor XR 35.5 mg ,vraylar. Carbamazepine -Chronic ankylosing spondylitis primarily affecting the lumbar spine. With muscle spasms Pain medication as needed. Carbamazepine -Obstructive sleep apnea Continue CPAP Disposition: Home Past Medical History Past Medical History: Diabetes Mellitus, Hypertension, Sleep Apnea/CPAP/BIPAP Additional Past Medical History / Comment(s): LULÚ, diverticulitis History of Any Multi-Drug Resistant Organisms: C-DIFF Date of last positivie culture/infection: 1994 Past Surgical History: Hernia Repair, Orthopedic Surgery, Tonsillectomy Additional Past Surgical History / Comment(s): sigmoid colon, vasectomy Past Psychological History: Depression Smoking Status: Never smoker Past Alcohol Use History: None Reported Past Drug Use History: None Reported Patient Condition at Discharge: Poor Plan - Discharge Summary Discharge Rx Participant: No New Discharge Prescriptions: New Aspirin 81 mg PO DAILY tab predniSONE 10 mg PO DAILY #30 tab Budesonide/Formoterol Fumarate [Symbicort 160-4.5 Mcg Inhaler] 1 puff INHALATION BID #10.2 gm Cariprazine 3 mg PO DAILY Montelukast [Singulair] 10 mg PO HS #30 tab Continue metFORMIN HCL [Glucophage] 1,000 mg PO BID Pravastatin Sodium [Pravachol] 10 mg PO DAILY Albuterol Sulfate [Albuterol Sulfate Hfa] 1 - 2 puff PO RT-Q4H PRN PRN Reason: Shortness Of Breath Benztropine Mesylate [Cogentin] 1 mg PO BID Cariprazine HCl [Vraylar] 3 mg PO DAILY Citalopram Hydrobromide [CeleXA] 40 mg PO DAILY Dulaglutide [Trulicity] 3 mg SQ FR glipiZIDE [Glucotrol] 10 mg PO BID Enalapril [Vasotec] 10 mg PO HS Fluticasone Nasal [place] [Flonase Nasal [place]] 1 spray EA NOSTRIL DAILY carBAMazepine [TEGretol] 200 mg PO BID sitaGLIPtin [Januvia] 100 mg PO DAILY Discontinued Amoxic-Pot Clav 875-125Mg [Augmentin 875-125] 1 tab PO Q12HR Discharge Medication List Enalapril [Vasotec] 10 mg PO HS 10/01/20 [History] Pravastatin Sodium [Pravachol] 10 mg PO DAILY 10/01/20 [History] glipiZIDE [Glucotrol] 10 mg PO BID 10/01/20 [History] metFORMIN HCL [Glucophage] 1,000 mg PO BID 10/01/20 [History] Fluticasone Nasal [place] [Flonase Nasal [place]] 1 spray EA NOSTRIL DAILY 01/03/21 [History] Albuterol Sulfate [Albuterol Sulfate Hfa] 1 - 2 puff PO RT-Q4H PRN 03/24/23 [History] Benztropine Mesylate [Cogentin] 1 mg PO BID 03/24/23 [History] Cariprazine HCl [Vraylar] 3 mg PO DAILY 03/24/23 [History] Citalopram Hydrobromide [CeleXA] 40 mg PO DAILY 03/24/23 [History] Dulaglutide [Trulicity] 3 mg SQ FR 03/24/23 [History] carBAMazepine [TEGretol] 200 mg PO BID 03/24/23 [History] sitaGLIPtin [Januvia] 100 mg PO DAILY 03/24/23 [History] Aspirin 81 mg PO DAILY tab 03/28/23 [Rx] Budesonide/Formoterol Fumarate [Symbicort 160-4.5 Mcg Inhaler] 1 puff INHALATION BID #10.2 gm 03/28/23 [Rx] Cariprazine 3 mg PO DAILY 03/28/23 [Rx] Montelukast [Singulair] 10 mg PO HS #30 tab 03/28/23 [Rx] predniSONE 10 mg PO DAILY #30 tab 03/28/23 [Rx] Follow up Appointment(s)/Referral(s): Dennys Ward MD [STAFF PHYSICIAN] - 1 Week Troy Michele MD [Primary Care Provider] - 1-2 days Patient Instructions/Handouts: Pneumonia (DC) Discharge Disposition: HOME SELF-CARE
[2023-03-30 16:06] LABS: Histoplasma Abs by ID Not Detected (Not Detected); Histoplasma Abs by Mycelia, CF <1:8 (<1:8)
== END 2023-03-28 15:09 | disposition home or self-care (01) | DRG 166 ==
LOC: EC 04:31 → 4SSUR 08:40 → 1SOBS 16:27 → 4SSUR 03-25 19:06
PROVIDERS: ADMIT Hospitalist; ATTEND Hospitalist
PROC: 0BDF8ZX Extraction of Right Lower Lung Lobe, Via Natural or Artificial Opening Endoscopic, Diagnostic (ICD-10-PCS; 2023-03-25)
PROC: 0B9F8ZX Drainage of Right Lower Lung Lobe, Via Natural or Artificial Opening Endoscopic, Diagnostic (ICD-10-PCS; 2023-03-25)
PROC: 0BBF8ZX Excision of Right Lower Lung Lobe, Via Natural or Artificial Opening Endoscopic, Diagnostic (ICD-10-PCS; principal; 2023-03-25 11:00)
PROC: 0BBD8ZX Excision of Right Middle Lung Lobe, Via Natural or Artificial Opening Endoscopic, Diagnostic (ICD-10-PCS; 2023-03-25 11:00)
PROC: 0BBC8ZX Excision of Right Upper Lung Lobe, Via Natural or Artificial Opening Endoscopic, Diagnostic (ICD-10-PCS; 2023-03-25 11:00)
DX: J15.69 Pneumonia due to other Gram-negative bacteria (principal); J96.01 Acute respiratory failure with hypoxia; Z11.52 Encounter for screening for COVID-19; E78.5 Hyperlipidemia, unspecified; F32.A Depression, unspecified; M45.6 Ankylosing spondylitis lumbar region; G47.33 Obstructive sleep apnea (adult) (pediatric); I10 Essential (primary) hypertension; K57.30 Diverticulosis of large intestine without perforation or abscess without bleeding; J98.01 Acute bronchospasm; E11.9 Type 2 diabetes mellitus without complications; K76.0 Fatty (change of) liver, not elsewhere classified; Z79.82 Long term (current) use of aspirin; Z79.84 Long term (current) use of oral hypoglycemic drugs; Z79.899 Other long term (current) drug therapy; Z87.19 Personal history of other diseases of the digestive system; Z88.1 Allergy status to other antibiotic agents
CPT/HCPCS: 31623; 31624; 31628; 36415; 71045; 71046; 71275; 74177; 80053; 82164; 83880; 84145; 84484; 85025; 85610; 85652; 85730; 86001; 86003; 86255; 86480; 86606; 86609; 86635; 86698; 87040; 87070; 87102; 87116; 87205; 87206; 87449; 87496; 87498; 87502; 87529; 87634; 87635; 87636; 87798; 88104; 88108; 88305; 88341; 88342; 93005; 94640; 94760

== ENCOUNTER 2023-04-02 00:06 | Inpatient (IN) | payer BC ==
[2023-04-02 01:11] LABS: Basophils # (A) 0.1 k/uL (0-0.2); Basophils % (A) 1 %; Eosinophils # (A) 0.2 k/uL (0-0.7); Eosinophils % (A) 1 %; HCT 49.7 % (39.0-53.0); HGB 16.9 gm/dL (13.0-17.5); Lymphocytes # (A) 1.7 k/uL (1.0-4.8); Lymphocytes % (A) 10 %; MCH 29.7 pg (25.0-35.0); MCHC 33.9 g/dL (31.0-37.0); MCV 87.5 fL (80.0-100.0); Monocytes # (A) 1.2 k/uL (0-1.0); Monocytes % (A) 7 %; Neutrophils # (A) 13.3 k/uL (1.3-7.7); Neutrophils % (A) 80 %; Platelet Count 243 k/uL (150-450); RBC 5.68 m/uL (4.30-5.90); RDW 12.7 % (11.5-15.5); WBC 16.6 k/uL (3.8-10.6)
--- NOTE | 2023-04-02 01:16 | XR ---
EXAMINATION TYPE: XR chest 2V DATE OF EXAM: 04/02/2023 COMPARISON: Chest x-ray March 28, 2023. CTA chest March 24, 2023 HISTORY: Shortness of breath TECHNIQUE: Frontal and lateral views of the chest are obtained. FINDINGS: There are bilateral small scattered pulmonary nodules with more dense consolidation in the right lung base redemonstrated. The cardiac silhouette size is stable and within normal limits. T he osseous structures are intact. Cholecystectomy clips are redemonstrated. IMPRESSION: Persistent bilateral small nodular opacities with more dense consolidation in the right lower lung. Atypical infection needs to be considered. No significant change from most recent studies .
[2023-04-02 01:17] LABS: Partial Thromboplastin Time 24.3 sec (22.0-30.0)
[2023-04-02 01:23] LABS: ALT 39 U/L (4-49); AST 25 U/L (17-59); African American GFR (CKD) >90 (>60 ml/min/1.73 sqM); Albumin 3.8 g/dL (3.5-5.0); Alkaline Phosphatase 123 U/L (38-126); Anion Gap 8 mmol/L; Blood Urea Nitrogen 18 mg/dL (9-20); Calcium 9.4 mg/dL (8.4-10.2); Carbon Dioxide 25 mmol/L (22-30); Chloride 101 mmol/L (98-107); Glucose 310 mg/dL (74-99); Non-African American GFR(CKD) >90 (>60 ml/min/1.73 sqM); Potassium 4.3 mmol/L (3.5-5.1); Sodium 134 mmol/L (137-145); Total Bilirubin 0.6 mg/dL (0.2-1.3); Total Protein 6.3 g/dL (6.3-8.2)
--- NOTE | 2023-04-02 01:36 | ED ---
SOB HPI - General Chief Complaint: Shortness of Breath Stated Complaint: SOB Time Seen by Provider: 04/02/23 01:17 Source: patient Mode of arrival: ambulatory Limitations: no limitations - History of Present Illness Initial Comments: This patient is a 58-year-old man with recent diagnosis of lung cancer. The patient also has history of COPD. He presents with complaint that he is having persistent cough and shortness of breath. He states that it is preventing him from sleeping. Patient has not noted fever or chills. Cough is nonproductive. No chest pain. MD Complaint: shortness of breath, cough Onset/Timin -: days(s) Severity scale (1-10): 0 Consistency: constant Improves With: nothing Worsens With: lying flat Known History Of: COPD, other (Lung cancer) Associated Symptoms: cough Treatments Prior to Arrival: bronchodilator - Related Data Home Oxygen Therapy: No Home Medications Medication Instructions Recorded Confirmed Enalapril [Vasotec] 10 mg PO HS 10/01/20 04/02/23 Pravastatin Sodium [Pravachol] 10 mg PO DAILY 10/01/20 04/02/23 glipiZIDE [Glucotrol] 10 mg PO BID 10/01/20 04/02/23 metFORMIN HCL [Glucophage] 1,000 mg PO BID 10/01/20 04/02/23 Fluticasone Nasal [place] [Flonase 1 spray EA NOSTRIL DAILY 01/03/21 04/02/23 Nasal [place]] Albuterol Sulfate [Albuterol 1 - 2 puff PO RT-Q4H PRN 03/24/23 04/02/23 Sulfate Hfa] Benztropine Mesylate [Cogentin] 1 mg PO BID 03/24/23 04/02/23 Cariprazine HCl [Vraylar] 3 mg PO DAILY 03/24/23 04/02/23 Citalopram Hydrobromide [CeleXA] 40 mg PO DAILY 03/24/23 04/02/23 Dulaglutide [Trulicity] 3 mg SQ FR 03/24/23 04/02/23 carBAMazepine [TEGretol] 200 mg PO BID 03/24/23 04/02/23 sitaGLIPtin [Januvia] 100 mg PO DAILY 03/24/23 04/02/23 Benzonatate [Tessalon Perle] 200 mg PO TID PRN 04/02/23 04/02/23 Budesonide/Formoterol Fumarate 1 puff INHALATION RT-BID 04/02/23 04/02/23 [Symbicort 160-4.5 Mcg Inhaler] Previous Rx's Medication Instructions Recorded Aspirin 81 mg PO DAILY tab 03/28/23 Montelukast [Singulair] 10 mg PO HS #30 tab 03/28/23 Allergies Allergy/AdvReac Type Severity Reaction Status Date / Time Cephalosporins AdvReac Nausea & Verified 04/02/23 13:10 Vomiting & Diarrhea Review of Systems ROS Statement: Those systems with pertinent positive or pertinent negative responses have been documented in the HPI. ROS Other: All systems not noted in ROS Statement are negative. Constitutional: Denies: fever, chills Respiratory: Reports: cough, dyspnea. Denies: hemoptysis Cardiovascular: Denies: chest pain, palpitations, edema, syncope Gastrointestinal: Denies: abdominal pain, nausea, vomiting, diarrhea Genitourinary: Denies: dysuria, hematuria Musculoskeletal: Denies: back pain Skin: Denies: rash Neurological: Denies: headache, weakness Past Medical History Past Medical History: Cancer, Diabetes Mellitus, Hypertension, Sleep Apnea/CPAP/BIPAP Additional Past Medical History / Comment(s): LULÚ, diverticulitis, lung cancer History of Any Multi-Drug Resistant Organisms: C-DIFF Date of last positivie culture/infection: 1994 MDRO Source:: stool Past Surgical History: Hernia Repair, Orthopedic Surgery, Tonsillectomy Additional Past Surgical History / Comment(s): sigmoid colon, vasectomy, lung biospy Past Anesthesia/Blood Transfusion Reactions: No Reported Reaction Past Psychological History: Depression Smoking Status: Never smoker Past Alcohol Use History: None Reported Past Drug Use History: None Reported - Past Family History Mother Family Medical History: Cancer Additional Family Medical History / Comment(s): Cancer history Father Family Medical History: Coronary Artery Disease (CAD) Additional Family Medical History / Comment(s): Heart Disease General Exam Limitations: no limitations General appearance: alert, in no apparent distress Head exam: Present: atraumatic, normocephalic Eye exam: Present: normal appearance. Absent: scleral icterus, conjunctival injection ENT exam: Present: normal oropharynx Neck exam: Present: normal inspection Respiratory exam: Present: wheezes, rales (Right base), decreased breath sounds. Absent: rhonchi, stridor, accessory muscle use Cardiovascular Exam: Present: normal rhythm, tachycardia, normal heart sounds. Absent: systolic murmur, diastolic murmur, rubs, gallop GI/Abdominal exam: Present: soft. Absent: distended, tenderness, guarding, rebound, rigid, mass Extremities exam: Present: normal inspection, normal capillary refill. Absent: pedal edema, calf tenderness Back exam: Present: normal inspection. Absent: CVA tenderness (R), CVA tenderness (L) Neurological exam: Present: alert Skin exam: Present: warm, dry, intact, normal color. Absent: rash Course Vital Signs 04/02/23 04/02/23 04/02/23 00:27 02:13 02:26 Temperature 97.5 F L Pulse Rate 122 H 76 72 Respiratory 16 Rate Blood Pressure 138/83 O2 Sat by Pulse 91 L Oximetry 04/02/23 04/02/23 04/02/23 03:10 08:58 09:11 Temperature 98.8 F Pulse Rate 110 H 94 Respiratory 20 22 Rate Blood Pressure 103/68 124/74 O2 Sat by Pulse 91 L 93 L 93 L Oximetry Medical Decision Making - Medical Decision Making This patient is a 58-year-old man with COPD and lung cancer. He has been progressively more short of breath. Patient states he is not able to sleep due to cough and dyspnea. On the exam there is definitely exacerbation of COPD. The remainder of the workup does reveal that patient is COVID-positive. The patient had chest x-ray that I interpreted as negative for acute infiltrate, pneumothorax, congestive heart failure Was pt. sent in by a medical professional or institution (Dr. PA, LIGHT RAIL TRAIN OPERATOR, urgent c are, hospital, or halfway...) When possible be specific @ -[No] Did you speak to anyone other than the patient for history (EMS, parent, family, police, friend...)? What history was obtained from this source @ -[No] Did you review nursing and triage notes (agree or disagree)? Why? @ -[I reviewed and agree with nursing and triage notes] Were old charts reviewed (outside hosp., previous admission, EMS record, old EKG, old radiological studies, urgent care reports/EKG's, halfway records)? Report findings @ -[No old charts were reviewed] Differential Diagnosis (chest pain, altered mental status, abdominal pain women, abdominal pain men, vaginal bleeding, weakness, fever, dyspnea, syncope, headache, dizziness, GI bleed, back pain, seizure, CVA, palpatations, mental health, musculoskeletal)? @ -[Differential Dyspnea: Coronary syndrome, arrhythmia, tamponade, asthma, COPD, pulmonary embolism, pneumonia, pneumothorax, pulmonary effusion, anaphylaxis, diabetic ketoacidosis, flailed chest, pulmonary contusion, diaphragmatic rupture, anemia, neuromuscular, this is not meant to be an all-inclusive list. EKG interpreted by me (3pts min.). @ -[I interpreted as above] X-rays interpreted by me (1pt min.). @ -[I interpreted as above CT interpreted by me (1pt min.). @ -[None done] U/S interpreted by me (1pt. min.). @ -[None done] What testing was considered but not performed or refused? (CT, X-rays, U/S, labs)? Why? @ -[None] What meds were considered but not given or refused? Why? @ -[None] Did you discuss the management of the patient with other professionals (brown pool i.e. , PA, LIGHT RAIL TRAIN OPERATOR, lab, RT, psych nurse, social services technician, inspector materials and processes, teacher, banking services officer, rifle case repairer)? Give summary @ -[Case discussed with admitting physician and treatment recommendations incorporated Was smoking cessation discussed for >3mins.? @ -[No] Was critical care preformed (if so, how long)? @ -[No] Were there social determinants of health that impacted care today? How? ( Homelessness, low income, unemployed, alcoholism, drug addiction, transportation, low edu. Level, literacy, decrease access to med. care, long term, rehab)? @ -[No] Was there de-escalation of care discussed even if they declined (Discuss DNR or withdrawal of care, Hospice)? DNR status @ -[No] What co-morbidities impacted this encounter? (DM, HTN, Smoking, COPD, CAD, Cancer, CVA, ARF, Chemo, Hep., AIDS, mental health diagnosis, sleep apnea, morbid obesity)? @ -[Lung cancer, COPD Was patient admitted / discharged? Hospital course, mention meds given and route, prescriptions, significant lab abnormalities, going to OR and other pertinent info. @ -[Admitted, see above Undiagnosed new problem with uncertain prognosis? @ -[No] Drug Therapy requiring intensive monitoring for toxicity (Heparin, Nitro, Insulin, Cardizem)? @ -[No] Were any procedures done? @ -[No] Diagnosis/symptom? @ -[Acute dyspnea Acute exacerbation of COPD Acute, or Chronic, or Acute on Chronic? @ -[Acute Uncomplicated (without systemic symptoms) or Complicated (systemic symptoms)? @ -[default] Side effects of treatment? @ -[No] Exacerbation, Progression, or Severe Exacerbation? @ -[Exacerbation Poses a threat to life or bodily function? How? (Chest pain, [place], [place], pneumonia, PE, COPD, DKA, ARF, appy, cholecystitis, CVA, Diverticulitis, Homicidal, Suicidal, threat to staff... and all critical care pts) @ -[Yes, COPD may progress to respiratory failure and - Lab Data Result diagrams: 04/02/23 00:59 04/02/23 00:59 Lab Results 04/02/23 04/02/23 04/02/23 Range/Units 00:57 00:59 00:59 WBC 16.6 H (3.8-10.6) k/uL RBC 5.68 (4.30-5.90) m/uL Hgb 16.9 (13.0-17.5) gm/dL Hct 49.7 (39.0-53.0) % MCV 87.5 (80.0-100.0) fL MCH 29.7 (25.0-35.0) pg MCHC 33.9 (31.0-37.0) g/dL RDW 12.7 (11.5-15.5) % Plt Count 243 (150-450) k/uL MPV 8.0 Neutrophils % 80 % Lymphocytes % 10 % Monocytes % 7 % Eosinophils % 1 % Basophils % 1 % Neutrophils # 13.3 H (1.3-7.7) k/uL Lymphocytes # 1.7 (1.0-4.8) k/uL Monocytes # 1.2 H (0-1.0) k/uL Eosinophils # 0.2 (0-0.7) k/uL Basophils # 0.1 (0-0.2) k/uL PT 11.0 (10.0-12.5) sec INR 1.0 (<1.2) APTT 24.3 (22.0-30.0) sec D-Dimer (<0.60) mg/L FEU Sodium (137-145) mmol/L Potassium (3.5-5.1) mmol/L Chloride (98-107) mmol/L Carbon Dioxide (22-30) mmol/L Anion Gap mmol/L BUN (9-20) mg/dL Creatinine (0.66-1.25) mg/dL Est GFR (CKD-EPI)AfAm (>60 ml/min/1.73 sqM) Est GFR (CKD-EPI)NonAf (>60 ml/min/1.73 sqM) Glucose (74-99) mg/dL Lactic Ac Sepsis Rflx Plasma Lactic Acid Wicho (0.7-2.0) mmol/L Calcium (8.4-10.2) mg/dL Total Bilirubin (0.2-1.3) mg/dL AST (17-59) U/L ALT (4-49) U/L Alkaline Phosphatase (38-126) U/L Troponin I (0.000-0.034) ng/mL Total Protein (6.3-8.2) g/dL Albumin (3.5-5.0) g/dL Procalcitonin 0.16 H (0.02-0.09) ng/mL 04/02/23 04/02/23 04/02/23 Range/Units 00:59 00:59 00:59 WBC (3.8-10.6) k/uL RBC (4.30-5.90) m/uL Hgb (13.0-17.5) gm/dL Hct (39.0-53.0) % MCV (80.0-100.0) fL MCH (25.0-35.0) pg MCHC (31.0-37.0) g/dL RDW (11.5-15.5) % Plt Count (150-450) k/uL MPV Neutrophils % % Lymphocytes % % Monocytes % % Eosinophils % % Basophils % % Neutrophils # (1.3-7.7) k/uL Lymphocytes # (1.0-4.8) k/uL Monocytes # (0-1.0) k/uL Eosinophils # (0-0.7) k/uL Basophils # (0-0.2) k/uL PT (10.0-12.5) sec INR (<1.2) APTT (22.0-30.0) sec D-Dimer (<0.60) mg/L FEU Sodium 134 L (137-145) mmol/L Potassium 4.3 (3.5-5.1) mmol/L Chloride 101 (98-107) mmol/L Carbon Dioxide 25 (22-30) mmol/L Anion Gap 8 mmol/L BUN 18 (9-20) mg/dL Creatinine 0.69 (0.66-1.25) mg/dL Est GFR (CKD-EPI)AfAm >90 (>60 ml/min/1.73 sqM) Est GFR (CKD-EPI)NonAf >90 (>60 ml/min/1.73 sqM) Glucose 310 H (74-99) mg/dL Lactic Ac Sepsis Rflx Plasma Lactic Acid Wicho 2.3 H* (0.7-2.0) mmol/L Calcium 9.4 (8.4-10.2) mg/dL Total Bilirubin 0.6 (0.2-1.3) mg/dL AST 25 (17-59) U/L ALT 39 (4-49) U/L Alkaline Phosphatase 123 (38-126) U/L Troponin I <0.012 (0.000-0.034) ng/mL Total Protein 6.3 (6.3-8.2) g/dL Albumin 3.8 (3.5-5.0) g/dL Procalcitonin (0.02-0.09) ng/mL 04/02/23 04/02/23 04/02/23 Range/Units 00:59 01:57 04:09 WBC (3.8-10.6) k/uL RBC (4.30-5.90) m/uL Hgb (13.0-17.5) gm/dL Hct (39.0-53.0) % MCV (80.0-100.0) fL MCH (25.0-35.0) pg MCHC (31.0-37.0) g/dL RDW (11.5-15.5) % Plt Count (150-450) k/uL MPV Neutrophils % % Lymphocytes % % Monocytes % % Eosinophils % % Basophils % % Neutrophils # (1.3-7.7) k/uL Lymphocytes # (1.0-4.8) k/uL Monocytes # (0-1.0) k/uL Eosinophils # (0-0.7) k/uL Basophils # (0-0.2) k/uL PT (10.0-12.5) sec INR (<1.2) APTT (22.0-30.0) sec D-Dimer 0.49 (<0.60) mg/L FEU Sodium (137-145) mmol/L Potassium (3.5-5.1) mmol/L Chloride (98-107) mmol/L Carbon Dioxide (22-30) mmol/L Anion Gap mmol/L BUN (9-20) mg/dL Creatinine (0.66-1.25) mg/dL Est GFR (CKD-EPI)AfAm (>60 ml/min/1.73 sqM) Est GFR (CKD-EPI)NonAf (>60 ml/min/1.73 sqM) Glucose (74-99) mg/dL Lactic Ac Sepsis Rflx Y Plasma Lactic Acid [place] 1.6 (0.7-2.0) mmol/L Calcium (8.4-10.2) mg/dL Total Bilirubin (0.2-1.3) mg/dL AST (17-59) U/L ALT (4-49) U/L Alkaline Phosphatase (38-126) U/L Troponin I (0.000-0.034) ng/mL Total Protein (6.3-8.2) g/dL Albumin (3.5-5.0) g/dL Procalcitonin (0.02-0.09) ng/mL - EKG Data -: EKG Interpreted by [facility] EKG shows normal: sinus rhythm, axis (Normal), intervals (Normal), QRS complexes (Possible old inferior infarct) Rate: tachycardia (Rate 116 bpm) Disposition Clinical Impression: COPD (chronic obstructive pulmonary disease), COVID-19 Disposition: ADMITTED IP TO THIS HOSP Is patient prescribed a controlled substance at d/c from ED?: No
[2023-04-02] MEDS: AZITHROMYCIN 500 MG TAB PO STA (01:54)
[2023-04-02] MEDS: SODIUM CHLORIDE 0.9% 1,000 ML IV STA (01:55)
[2023-04-02] MEDS: SODIUM CHLORIDE 0.9% 1,000 ML IV ONE (01:55)
[2023-04-02] MEDS: ALBUTEROL NEBULIZED 2.5 MG/3 ML INHALATION STA (02:13)
[2023-04-02] MEDS: IPRATROPIUM-ALBUTEROL 3 ML NEB INHALATION STA (02:13)
[2023-04-02] MEDS ORDERED: HYDROcodone/APAP 5-325MG 1 EACH TAB PO PRN (04:34)
[2023-04-02] MEDS ORDERED: IPRATROPIUM-ALBUTEROL 3 ML NEB INHALATION PRN (04:34)
[2023-04-02] MEDS ORDERED: NALOXONE 0.4 MG/ML 1 ML VIAL IVP PRN (04:34)
[2023-04-02] MEDS ORDERED: TIOTROPIUM 2.5 MCG INHALER INHALATION PRN (08:12)
[2023-04-02] MEDS: TIOTROPIUM 2.5 MCG INHALER INHALATION SCH (08:54)
[2023-04-02] MEDS: ALBUTEROL HFA INHALER INHALATION PRN (08:54)
[2023-04-02] MEDS: IPRATROPIUM-ALBUTEROL 3 ML NEB INHALATION SCH (09:04)
[2023-04-02] MEDS: predniSONE 20 MG TAB PO SCH (09:07)
[2023-04-02] MEDS: ALBUTEROL INHALER 60 PUFF/8 GM INHALER (MHU) INHALATION SCH (12:02)
[2023-04-02] MEDS ORDERED: DEXTROSE 50% SYRINGE 50 ML IVP PRN ×2 (12:09)
[2023-04-02 12:33] LABS: Glucose,Whole Blood 399 mg/dL (70-110)
[2023-04-02] MEDS: ALBUTEROL HFA INHALER INHALATION SCH (12:40)
[2023-04-02] MEDS: SYMBICORT 160-4.5 MCG INHALER INHALATION SCH (12:40)
[2023-04-02] MEDS: metFORMIN 500 MG TAB PO SCH (13:20)
[2023-04-02] MEDS: BENZTROPINE MESYLATE 1 MG TAB PO SCH (13:21)
[2023-04-02] MEDS: carBAMazepine 200 MG TAB PO SCH (13:22)
[2023-04-02] MEDS: NON FORMULARY DRUG (Cariprazine Hcl [Vraylar] 3 MG Capsule) PO SCH (13:23)
[2023-04-02] MEDS: CITALOPRAM HYDROBROMIDE 20 MG TAB PO SCH (13:23)
[2023-04-02] MEDS: PRAVASTATIN SODIUM 20 MG TAB PO SCH (13:23)
[2023-04-02] MEDS: INSULIN ASPART (NovoLOG) 100 UNIT/ML VIAL SQ SCH (13:24)
[2023-04-02] MEDS: INSULIN DETEMIR (LEVEMIR) 100 UNIT/ML SYR SQ SCH (13:24)
[2023-04-02] MEDS: ASPIRIN 81 MG PO SCH (13:24)
[2023-04-02] MEDS: ENOXAPARIN 40 MG/0.4 ML SYRINGE SQ SCH (13:25)
[2023-04-02 16:45] LABS: Glucose,Whole Blood 372 mg/dL (70-110)
--- NOTE | 2023-04-02 17:28 | P.HPIM ---
History of Present Illness H&P Date: 04/02/23 Chief Complaint: Coughing short of breath This is a pleasant 58-year-old patient who follows with Dr. Michele. Chronic stable medical conditions include diabetes mellitus type 2, hypertension, obstructive sleep apnea uses CPAP, diverticulosis, ankylosing spondylosis causing lower back pain depression. Patient recently in the hospital from March 24 through March 28. For about 4 weeks patient been getting short of breath. He did go to urgent care once he was told he has a walking pneumonia and was given Augmentin and prednisone bronchodilators and after he finished the course the symptoms again got worse. Back in 1989 he was positive for TB skin test did not receive 6 months of INH. Has a slight cough. Non-smoker. Some wheezing. Denies any fever and chills. Tired. Patient underwent a bronchoscopy. Biopsy was done. For the suspected lung mass. Patient also treated for possible pneumonia. Prior to discharge patient is doing well. Was on room air. Respiratory symptoms much better. Patient went home for 2 days was doing well. Started having bouts of coughing. Wheezing. Short of breath. Symptoms becoming worse. Patient's had just recovered from COVID-19. Biopsy suggestive of pulmonary adenocarcinoma. Review of systems: GEN.: Tired, decreased appetite EYES: None HEENT: None NECK: None RESPIRATORY: As above CARDIOVASCULAR: None GASTROINTESTINAL: None GENITOURINARY: None MUSCULOSKELETAL: Chronic low back pain LYMPHATICS: None HEMATOLOGICAL: None PSYCHIATRY: Anxious NEUROLOGICAL: None Past medical history to include: Diabetes, hypertension, obstructive sleep apnea uses CPAP, depression, and ankylosing spondylosis. Newly diagnosed pulmonary carcinoma Social history: 18-year-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 . 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 Physical examination: VITAL SIGNS: 98.8, 110, 20, 103 x 68, 91% on 2 L upon presentation GENERAL: BMI 30, reclining bed awake tired EYES: Pupils equal. Conjunctiva normal. HEENT: External appearance of nose and ears normal, oral cavity grossly normal. NECK: JVD not raised; masses not palpable. HEART: First and second heart sounds are normal; no edema. LUNGS: Respiratory rate increased; coarse breath sounds, expiratory wheezing ABDOMEN: Soft, nontender, liver spleen not palpable, no masses palpable. PSYCH: Alert and oriented x3; mood and affect anxiousl. NEUROLOGICAL: Cranial nerves grossly intact; no facial asymmetry, power and sensation grossly intact. LYMPHATICS: No lymph nodes palpable in the axilla and neck INVESTIGATIONS, reviewed in the clinical context: April 02: White count 16.6 hemoglobin 16.9 potassium 4.3 creatinine 0.69 lactic acid 2.3 procalcitonin 0.16 EKG tracing personally reviewed by me-normal sinus rhythm. Chest x-ray film personally reviewed by me-right diaphragm elevation/mass COVID-19: PCR: Detected Chest CTA: [March 24] innumerable tiny nodules present throughout bilateral lung zurita. No mediastinal or hilar adenopathy. Consolidation in the posterior medial right lung. Assessment and plan: -Acute COVID-19 pneumonitis with significant symptoms calling some hypoxia Dexamethasone. Consult pulmonary: For possible remdesivir -Acute hypoxia from COVID-19 pneumonitis Supplemental oxygen -Right lower lobe lung mass. Bronchoscopy is confirmed pulmonary adenocarcinoma Consult pulmonary. -Secondary bronchospasm Albuterol. -Diabetes mellitus type 2, oral hypoglycemic, uncontrolled with steroids Glucophage, Januvia farxiga. Follow Accu-Cheks with sliding scale. Hold glipizide Levemir 20 units subcu daily. -Essential hypertension Vasotec 10 mg daily at bedtime -Hyperlipidemia Pravachol 10 mg daily at bedtime -Depression not otherwise specified Effexor XR 35.5 mg ,vraylar. Carbamazepine -Chronic ankylosing spondylitis primarily affecting the lumbar spine. With muscle spasms Pain medication as needed. Carbamazepine -Obstructive sleep apnea Continue CPAP Care was discussed with the patient and at the bedside. Past Medical History Past Medical History: Cancer, Diabetes Mellitus, Hypertension, Sleep Apnea/CPAP/BIPAP Additional Past Medical History / Comment(s): LULÚ, diverticulitis, lung cancer History of Any Multi-Drug Resistant Organisms: C-DIFF Date of last positivie culture/infection: 1994 MDRO Source:: stool Past Surgical History: Hernia Repair, Orthopedic Surgery, Tonsillectomy Additional Past Surgical History / Comment(s): sigmoid colon, vasectomy, lung biospy Past Anesthesia/Blood Transfusion Reactions: No Reported Reaction Past Psychological History: Depression Smoking Status: Never smoker Past Alcohol Use History: None Reported Past Drug Use History: None Reported - Past Family History Mother Family Medical History: Cancer Additional Family Medical History / Comment(s): Cancer history Father Family Medical History: Coronary Artery Disease (CAD) Additional Family Medical History / Comment(s): Heart Disease Medications and Allergies Home Medications Medication Instructions Recorded Confirmed Type Enalapril [Vasotec] 10 mg PO HS 10/01/20 04/02/23 History Pravastatin Sodium [Pravachol] 10 mg PO DAILY 10/01/20 04/02/23 History glipiZIDE [Glucotrol] 10 mg PO BID 10/01/20 04/02/23 History metFORMIN HCL [Glucophage] 1,000 mg PO BID 10/01/20 04/02/23 History Fluticasone Nasal [place] [Flonase 1 spray EA NOSTRIL DAILY 01/03/21 04/02/23 History Nasal [place]] Albuterol Sulfate [Albuterol 1 - 2 puff PO RT-Q4H PRN 03/24/23 04/02/23 History Sulfate Hfa] Benztropine Mesylate [Cogentin] 1 mg PO BID 03/24/23 04/02/23 History Cariprazine HCl [Vraylar] 3 mg PO DAILY 03/24/23 04/02/23 History Citalopram Hydrobromide [CeleXA] 40 mg PO DAILY 03/24/23 04/02/23 History Dulaglutide [Trulicity] 3 mg SQ FR 03/24/23 04/02/23 History carBAMazepine [TEGretol] 200 mg PO BID 03/24/23 04/02/23 History sitaGLIPtin [Januvia] 100 mg PO DAILY 03/24/23 04/02/23 History Aspirin 81 mg PO DAILY tab 03/28/23 04/02/23 Rx Montelukast [Singulair] 10 mg PO HS #30 tab 03/28/23 04/02/23 Rx Benzonatate [Tessalon Perle] 200 mg PO TID PRN 04/02/23 04/02/23 History Budesonide/Formoterol Fumarate 1 puff INHALATION RT-BID 04/02/23 04/02/23 History [Symbicort 160-4.5 Mcg Inhaler] predniSONE See Taper PO DIRECTED 04/02/23 04/02/23 History Allergies Allergy/AdvReac Type Severity Reaction Status Date / Time Cephalosporins AdvReac Nausea & Verified 04/02/23 13:10 Vomiting & Diarrhea Physical Exam Vitals: Vital Signs Temp Pulse Resp BP Pulse Ox 04/02/23 09:11 94 22 124/74 93 L 04/02/23 08:58 93 L 04/02/23 03:10 98.8 F 110 H 20 103/68 91 L 04/02/23 02:26 72 04/02/23 02:13 76 04/02/23 00:27 97.5 F L 122 H 16 138/83 91 L Intake and Output 04/01/23 04/02/23 04/02/23 22:59 06:59 14:59 Other: Weight 94.801 kg Results CBC & Chem 7: 04/02/23 00:59 04/02/23 00:59 Labs: Abnormal Lab Results - Last 24 Hours (Table) 04/02/23 04/02/23 04/02/23 Range/Units 00:59 00:59 00:59 WBC 16.6 H (3.8-10.6) k/uL Neutrophils # 13.3 H (1.3-7.7) k/uL Monocytes # 1.2 H (0-1.0) k/uL Sodium 134 L (137-145) mmol/L Glucose 310 H (74-99) mg/dL Plasma Lactic Acid [place]icho 2.3 H* (0.7-2.0) mmol/L SARS-CoV-2 (PCR) (Not Detectd) 04/02/23 Range/Units 05:19 WBC (3.8-10.6) k/uL Neutrophils # (1.3-7.7) k/uL Monocytes # (0-1.0) k/uL Sodium (137-145) mmol/L Glucose (74-99) mg/dL Plasma Lactic Acid [place]icho (0.7-2.0) mmol/L SARS-CoV-2 (PCR) Detected A (Not Detectd)
[2023-04-02 20:28] LABS: Glucose,Whole Blood 402 mg/dL (70-110)
[2023-04-02 20:52] LABS: Glucose,Whole Blood 378 mg/dL (70-110)
[2023-04-02] MEDS: INSULIN ASPART (NovoLOG) 100 UNIT/ML VIAL SQ ONE (21:32)
[2023-04-02] MEDS: AZITHROMYCIN 500 MG TAB PO SCH (21:32)
[2023-04-02] MEDS: lisinopriL 20 MG TAB PO SCH (21:33)
[2023-04-02] MEDS: MONTELUKAST 10 MG TAB PO SCH (21:35)
[2023-04-03 05:16] LABS: Glucose,Whole Blood 192 mg/dL (70-110)
[2023-04-03] MEDS: INSULIN DETEMIR (LEVEMIR) 100 UNIT/ML SYR SQ SCH (06:54)
[2023-04-03] MEDS: dexAMETHasone 2 MG TAB PO SCH (08:04)
[2023-04-03 11:46] LABS: Glucose,Whole Blood 358 mg/dL (70-110)
--- NOTE | 2023-04-03 12:44 | P.CNPUL ---
History of Present Illness Consult date: 04/03/23 Requesting physician: Rodney Lozano Reason for consult: dyspnea, abnormal CXR/CT Chief complaint: Shortness of breath History of present illness: This is a very pleasant 58-year-old male patient with a known history of obstructive sleep apnea utilizing CPAP, diabetes mellitus, hyperlipidemia, p revious psychosis episodes. He was recently discharged from here on March 28 following an admission for a 4-week history of ongoing issues with shortness of breath cough and congestion. He was treated with steroids and antibiotics without much improvement. During his admission he had undergone bronchoscopy with biopsies on March 25, 2023 as CAT scan revealed innumerable tiny nodules throughout the bilateral lung zurita. That biopsy was positive for pulmonary adenocarcinoma. The patient is a lifelong non-smoker. He just found the results in a follow-up visit in our office last week. No treatment initiated thus far. He presented here to the emergency room again yesterday with compl aints of increasing shortness of breath cough and congestion. Chest x-ray reveals persistent bilateral small nodular opacities with more dense consolidation in the right lower lobe. White count 16.6. Hemoglobin 16.9. Platelets 243. D-dimer 0.49. Sodium 134. Potassium 4.3. Bicarb 25. BUN 18. Creatinine 0.69. Glucose 310. Procalcitonin 0.16. Influenza screen negative. RSV screen negative. COVID-19 screen positive. He has been initiated on Symbicort, albuterol, Spiriva, Singulair and Decadron. Lovenox for DVT prophylaxis. Empiric antibiotics in the form of azithromycin. He oscitation on the regular medical floor. He is sitting up in a chair at the bedside. Awake and alert in no acute distress. Continued O2 saturations in the 90s on 4 L/min per nasal cannula. He has normal saline at 130 mL/h. Review of Systems REVIEW OF SYSTEMS: CONSTITUTIONAL: Denies any recent significant weight loss or weight gain. EYES: Denies change in vision. EARS, NOSE, MOUTH, THROAT: Denies headaches, denies sore throat. CARDIOVASCULAR: Denies chest pain, palpitations or syncopal episodes. RESPIRATORY: Positive for shortness of breath, cough, congestion no hemoptysis. GASTROINTESTINAL: Denies change in appetite, denies abdominal pain GENITOURINARY: Denies hematuria, denies infections. MUSKULOSKELETAL: Denies pain, denies swelling. INTEGUMENTARY: Denies rash, denies eczema. NEUROLOGICAL: Denies recent memory loss, no recent seizure activity. PSYCHIATRIC: Denies anxiety, denies depression. HEMATOLOGIC/LYMPHATIC: Denies anemia, denies enlarged lymph nodes. Past Medical History Past Medical History: Cancer, Diabetes Mellitus, Hypertension, Sleep Apnea/CPAP/BIPAP Additional Past Medical History / Comment(s): LULÚ, diverticulitis, lung cancer History of Any Multi-Drug Resistant Organisms: C-DIFF Date of last positivie culture/infection: 1994 MDRO Source:: stool Past Surgical History: Hernia Repair, Orthopedic Surgery, Tonsillectomy Additional Past Surgical History / Comment(s): sigmoid colon, vasectomy, lung biospy Past Anesthesia/Blood Transfusion Reactions: No Reported Reaction Past Psychological History: Depression Smoking Status: Never smoker Past Alcohol Use History: None Reported Past Drug Use History: None Reported - Past Family History Mother Family Medical History: Cancer Additional Family Medical History / Comment(s): Cancer history Father Family Medical History: Coronary Artery Disease (CAD) Additional Family Medical History / Comment(s): Heart Disease Medications and Allergies Home Medications Medication Instructions Recorded Confirmed Type Enalapril [Vasotec] 10 mg PO HS 10/01/20 04/02/23 History Pravastatin Sodium [Pravachol] 10 mg PO DAILY 10/01/20 04/02/23 History glipiZIDE [Glucotrol] 10 mg PO BID 10/01/20 04/02/23 History metFORMIN HCL [Glucophage] 1,000 mg PO BID 10/01/20 04/02/23 History Fluticasone Nasal [place] [Flonase 1 spray EA NOSTRIL DAILY 01/03/21 04/02/23 History Nasal [place]] Albuterol Sulfate [Albuterol 1 - 2 puff PO RT-Q4H PRN 03/24/23 04/02/23 History Sulfate Hfa] Benztropine Mesylate [Cogentin] 1 mg PO BID 03/24/23 04/02/23 History Cariprazine HCl [Vraylar] 3 mg PO DAILY 03/24/23 04/02/23 History Citalopram Hydrobromide [CeleXA] 40 mg PO DAILY 03/24/23 04/02/23 History Dulaglutide [Trulicity] 3 mg SQ FR 03/24/23 04/02/23 History carBAMazepine [TEGretol] 200 mg PO BID 03/24/23 04/02/23 History sitaGLIPtin [Januvia] 100 mg PO DAILY 03/24/23 04/02/23 History Aspirin 81 mg PO DAILY tab 03/28/23 04/02/23 Rx Montelukast [Singulair] 10 mg PO HS #30 tab 03/28/23 04/02/23 Rx Benzonatate [Tessalon Perle] 200 mg PO TID PRN 04/02/23 04/02/23 History Budesonide/Formoterol Fumarate 1 puff INHALATION RT-BID 04/02/23 04/02/23 History [Symbicort 160-4.5 Mcg Inhaler] predniSONE See Taper PO DIRECTED 04/02/23 04/02/23 History Allergies Allergy/AdvReac Type Severity Reaction Status Date / Time Cephalosporins AdvReac Nausea & Verified 04/02/23 13:10 Vomiting & Diarrhea Physical Exam Vitals: Vital Signs Temp Pulse Resp BP Pulse Ox 04/03/23 08:26 98 04/03/23 07:22 97.8 F 79 17 147/89 96 04/03/23 01:34 98.0 F 88 21 127/73 94 L 04/02/23 19:05 97.8 F 108 H 21 138/85 94 L 04/02/23 15:06 98.0 F 100 16 125/77 94 L Intake and Output 04/02/23 04/03/23 04/03/23 22:59 06:59 14:59 Intake Total 1550 1100 Balance 1550 1100 Intake: Oral 1550 1100 Other: # Voids 4 5 1 GENERAL EXAM: Alert, very pleasant 58-year-old male, on 4 L nasal cannula, up in a chair, fairly comfortable in no apparent distress. HEAD: Normocephalic. EYES: Normal reaction of pupils, equal size. NOSE: Clear with pink turbinates. THROAT: No erythema or exudates. NECK: No masses, no JVD. CHEST: No chest wall deformity. LUNGS: Equal air entry with few scattered rhonchi. CVS: S1 and S2 normal with no audible murmur, regular rhythm. ABDOMEN: No hepatosplenomegaly, normal bowel sounds, no guarding or rigidity. SPINE: No scoliosis or deformity SKIN: No rashes CENTRAL NERVOUS SYSTEM: No focal deficits, tone is normal in all 4 extremities. EXTREMITIES: There is no peripheral edema. No clubbing, no cyanosis. Peripheral pulses are intact. Results - Laboratory Findings CBC and BMP: 04/02/23 00:59 04/02/23 00:59 PT/INR, D-dimer PT 11.0 sec (10.0-12.5) 04/02/23 00:59 INR 1.0 (<1.2) 04/02/23 00:59 D-Dimer 0.49 mg/L FEU (<0.60) 04/02/23 00:59 Abnormal lab findings: Abnormal Labs 04/02/23 04/02/23 04/02/23 00:57 00:59 00:59 WBC 16.6 H Neutrophils # 13.3 H Monocytes # 1.2 H Sodium 134 L Glucose 310 H POC Glucose (mg/dL) Plasma Lactic Acid Wicho Procalcitonin 0.16 H SARS-CoV-2 (PCR) 04/02/23 04/02/23 04/02/23 00:59 05:19 12:21 WBC Neutrophils # Monocytes # Sodium Glucose POC Glucose (mg/dL) 399 H Plasma Lactic Acid [place]o 2.3 H* Procalcitonin SARS-CoV-2 (PCR) Detected A 04/02/23 04/02/23 04/02/23 16:43 20:27 20:50 WBC Neutrophils # Monocytes # Sodium Glucose POC Glucose (mg/dL) 372 H 402 H 378 H Plasma Lactic Acid W[place] Procalcitonin SARS-CoV-2 (PCR) 04/03/23 04/03/23 05:14 11:45 WBC Neutrophils # Monocytes # Sodium Glucose POC Glucose (mg/dL) 192 H 358 H Plasma Lactic Acid [place]o Procalcitonin SARS-CoV-2 (PCR) - Diagnostic Findings Chest x-ray: image reviewed Assessment and Plan Assessment: Acute hypoxemic respiratory failure secondary to acute right lower lobe pneumonia versus mass. Recent bronchoscopy with biopsies on March 25, 2023 were positive for pulmonary adenocarcinoma. Procalcitonin 0.16. Currently on azithromycin. Recent diagnosis 03/25/2023 for pulmonary adenocarcinoma New COVID-19 infection possible COVID-19 pneumonia, currently on Decadron History of tuberculosis positive testing and treated with INH x 6 months several years ago Obstructive sleep apnea utilizes CPAP in the outpatient setting Diabetes mellitus Hyperlipidemia History of previous episode of psychosis Lifelong non-smoker Plan: The patient was seen and evaluated Chest x-ray, labs and medications reviewed Continue bronchodilators, steroids Lovenox for DVT prophylaxis Newly diagnosed lung cancer, biopsy 03/25/2023 Consult medical oncology Titrate the FiO2 as tolerated We will continue to follow and make further recommendations based on his clinical status I have personally seen and examined the patient, performed the documentation and the assessment and plan as written. Number of minutes spent on the visit: 20.
[2023-04-03] MEDS: glipiZIDE 10 MG TAB PO SCH (14:19)
--- NOTE | 2023-04-03 15:09 | P.PN ---
Progress Note - Text Progress Note Date: 04/03/23 Chief Complaint: Coughing short of breath This is a pleasant 58-year-old patient who follows with Dr. Michele. Chronic stable medical conditions include diabetes mellitus type 2, hypertension, obstructive sleep apnea uses CPAP, diverticulosis, ankylosing spondylosis causi ng lower back pain depression. Patient recently in the hospital from March 24 through March 28. For about 4 weeks patient been getting short of breath. He did go to urgent care once he was told he has a walking pneumonia and was given Augmentin and prednisone bronchodilators and after he finished the course the symptoms again got worse. Back in 1989 he was positive for TB skin test did not receive 6 months of INH. Has a slight cough. Non-smoker. Some wheezing. Denies any fever and chills. Tired. Patient underwent a bronchoscopy. Biopsy was done. For the suspected lung mass. Patient also treated for possible pneumonia. Prior to discharge patient is doing well. Was on room air. Respiratory symptoms much better. Patient went home for 2 days was doing well. Started having bouts of coughing. Wheezing. Short of breath. Symptoms becoming worse. Patient's had just recovered from COVID-19. Biopsy suggestive of pulmonary adenocarcinoma. March 03, 2023: Breathing a bit better. Reclining in bed. Using his CPAP. Some wheezing better. at the bedside. Incentive spirometer ordered. Accu-Cheks running high. Insulin increased. Glipizide ordered. Tolerating diet. Oncology consulted. Dr. MCGOVERN from pulmonary following. Active Medications Acetaminophen (Acetaminophen Tab 325 Mg Tab) 650 mg PO Q4HR PRN PRN Reason: Mild Pain or Fever > 100.5 Hydrocodone Bitart/Acetaminophen (Hydrocodone/Apap 5-325mg 1 Each Tab) 1 each PO Q6HR PRN PRN Reason: Moderate to Severe Pain (4-10) Albuterol Sulfate (Albuterol Hfa Inhaler) 2 puff INHALATION RT-Q2H PRN PRN Reason: WHEEZING SHORTNESS OF BREATH Last Admin: 04/02/23 08:54 Dose: 2 puff Albuterol Sulfate (Albuterol Hfa Inhaler) 4 puff INHALATION RT-Q4H [facility] Last Admin: 04/03/23 11:39 Dose: 4 puff Aspirin (Aspirin 81 Mg) 81 mg PO DAILY [facility] Last Admin: 04/03/23 08:05 Dose: 81 mg Azithromycin (Azithromycin 500 Mg Tab) 500 mg PO DAILY@2100 [facility]; Protocol Stop: 04/04/23 21:01 Last Admin: 04/02/23 21:32 Dose: 500 mg Benztropine Mesylate (Benztropine Mesylate 1 Mg Tab) 1 mg PO BID [facility] Last Admin: 04/03/23 08:04 Dose: 1 mg Budesonide/Formoterol Fumarate (Symbicort 160-4.5 Mcg Inhaler) 1 puff INHALATION RT-BID [facility] Last Admin: 04/03/23 08:21 Dose: 1 puff Carbamazepine (Carbamazepine 200 Mg Tab) 200 mg PO BID [facility] Last Admin: 04/03/23 08:05 Dose: 200 mg Citalopram Hydrobromide (Citalopram Hydrobromide 20 Mg Tab) 40 mg PO DAILY [facility] Last Admin: 04/03/23 08:05 Dose: 40 mg Dexamethasone (Dexamethasone 2 Mg Tab) 6 mg PO DAILY [facility] Last Admin: 04/03/23 08:04 Dose: 6 mg Dextrose/Water (Dextrose 50% Syringe 50 Ml) 25 ml IVP PER PROTOCOL PRN; Protocol PRN Reason: Hypoglycemia Dextrose/Water (Dextrose 50% Syringe 50 Ml) 50 ml IVP PER PROTOCOL PRN; Protocol PRN Reason: Hypoglycemia Enoxaparin Sodium (Enoxaparin 40 Mg/0.4 Ml Syringe) 40 mg SQ DAILY [facility] Last Admin: 04/03/23 08:04 Dose: 40 mg Glipizide (Glipizide 10 Mg Tab) 10 mg PO BID [facility] Last Admin: 04/03/23 14:19 Dose: 10 mg Insulin Aspart (Insulin Aspart (Novolog) 100 Unit/Ml Vial) 0 unit SQ AC-TID [facility]; Protocol Last Admin: 04/03/23 11:54 Dose: 10 unit Insulin Detemir (Insulin Detemir (Levemir) 100 Unit/Ml Syr) 28 unit SQ DAILY@0700 [facility] Last Admin: 04/03/23 06:54 Dose: 28 unit Lisinopril (Lisinopril 20 Mg Tab) 20 mg PO HS [facility] Last Admin: 04/02/23 21:33 Dose: Not Given Metformin HCl (Metformin 500 Mg Tab) 1,000 mg PO BID-W/MEALS [facility] Last Admin: 04/03/23 06:53 Dose: 1,000 mg Montelukast Sodium (Montelukast 10 Mg Tab) 10 mg PO HS [facility] Last Admin: 04/02/23 21:35 Dose: Not Given Naloxone HCl (Naloxone 0.4 Mg/Ml 1 Ml Vial) 0.2 mg IVP Q2M PRN PRN Reason: Opioid Reversal Non-Formulary Medication (Cariprazine Hcl [Vraylar]) 3 mg PO DAILY [facility] Last Admin: 04/03/23 08:06 Dose: 3 mg Non-Formulary Medication (Dulaglutide [Trulicity]) 3 mg SQ [facility] Pravastatin Sodium (Pravastatin Sodium 20 Mg Tab) 10 mg PO DAILY [facility] Last Admin: 04/03/23 08:05 Dose: 10 mg Tiotropium [place] (Tiotropium 2.5 Mcg Inhaler) 2 puff INHALATION DAILY [facility] Last Admin: 04/03/23 08:25 Dose: 2 puff Past medical history to include: Diabetes, hypertension, obstructive sleep apnea uses CPAP, depression, and ankylosing spondylosis. Newly diagnosed pulmonary carcinoma Social history: 18-year-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 . 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 Physical examination: VITAL SIGNS: 97.8, 79, 22, 1 4789, 98% on 4 L GENERAL: Reclining in bed, tired, a bit less short of breath EYES: Pupils equal. Conjunctiva normal. HEENT: External appearance of nose and ears normal, oral cavity grossly normal. NECK: JVD not raised; masses not palpable. HEART: First and second heart sounds are normal; no edema. LUNGS: Respiratory rate increased; decreased breath sounds, diminished wheezing ABDOMEN: Soft, nontender, liver spleen not palpable, no masses palpable. PSYCH: Alert and oriented x3; mood and affect anxious NEUROLOGICAL: Cranial nerves grossly intact; no facial asymmetry, power and sensation grossly intact. LYMPHATICS: No lymph nodes palpable in the axilla and neck INVESTIGATIONS, reviewed in the clinical context: April 02: White count 16.6 hemoglobin 16.9 potassium 4.3 creatinine 0.69 lactic acid 2.3 procalcitonin 0.16 EKG tracing personally reviewed by me-normal sinus rhythm. Chest x-ray film personally reviewed by me-right diaphragm elevation/mass COVID-19: PCR: Detected Chest CTA: [March 24] innumerable tiny nodules present throughout bilateral lung zurita. No mediastinal or hilar adenopathy. Consolidation in the posterior medial right lung. Assessment and plan: -Acute COVID-19 pneumonitis with significant symptoms with initial hypoxia: Some improvement Dexamethasone. Pulmonary following -Acute hypoxia from COVID-19 pneumonitis Supplemental oxygen -Right lower lobe lung mass. Bronchoscopy is confirmed pulmonary adenocarcinoma Oncology consulted -Secondary bronchospasm Albuterol. -Diabetes mellitus type 2, oral hypoglycemic, uncontrolled with steroids Glucophage, Januvia farxiga. Follow Accu-Cheks with sliding scale. Resume glipizide Increase Levemir 28 units subcu daily. -Essential hypertension Vasotec 10 mg daily at bedtime -Hyperlipidemia Pravachol 10 mg daily at bedtime -Depression not otherwise specified Effexor XR 35.5 mg ,vraylar. Carbamazepine -Chronic ankylosing spondylitis primarily affecting the lumbar spine. With muscle spasms Pain medication as needed. Carbamazepine -Obstructive sleep apnea Continue CPAP Discussed with patient . Up in chair as tolerated. Incentive spirometry. Follow-up with pulmonary. Past Medical History Past Medical History: Cancer, Diabetes Mellitus, Hypertension, Sleep Apnea/CPAP/BIPAP Additional Past Medical History / Comment(s): LULÚ, diverticulitis, lung cancer History of Any Multi-Drug Resistant Organisms: C-DIFF Date of last positivie culture/infection: 1994 MDRO Source:: stool Past Surgical History: Hernia Repair, Orthopedic Surgery, Tonsillectomy Additional Past Surgical History / Comment(s): sigmoid colon, vasectomy, lung biospy Past Anesthesia/Blood Transfusion Reactions: No Reported Reaction Past Psychological History: Depression Smoking Status: Never smoker Past Alcohol Use History: None Reported Past Drug Use History: None Reported
[2023-04-03 16:32] LABS: Glucose,Whole Blood 364 mg/dL (70-110)
[2023-04-03 19:04] LABS: Glucose,Whole Blood 298 mg/dL (70-110)
[2023-04-03] MEDS: INSULIN ASPART (NovoLOG) 100 UNIT/ML VIAL SQ ONE (21:29)
[2023-04-04 06:02] LABS: Glucose,Whole Blood 111 mg/dL (70-110)
[2023-04-04 11:23] LABS: Glucose,Whole Blood 216 mg/dL (70-110)
--- NOTE | 2023-04-04 15:04 | P.PN ---
Subjective Progress Note Date: 04/04/23 This is a very pleasant 58-year-old male patient with a known history of obstru ctive sleep apnea utilizing CPAP, diabetes mellitus, hyperlipidemia, previous psychosis episodes. He was recently discharged from here on March 28 following an admission for a 4-week history of ongoing issues with shortness of breath cough and congestion. He was treated with steroids and antibiotics without much improvement. During his admission he had undergone bronchoscopy with biopsies on March 25, 2023 as CAT scan revealed innumerable tiny nodules throughout the bilateral lung zurita. That biopsy was positive for pulmonary adenocarcinoma. The patient is a lifelong non-smoker. He just found the results in a follow-up visit in our office last week. No treatment initiated thus far. He presented here to the emergency room again yesterday with complaints of increasing shortness of breath cough and congestion. Chest x-ray reveals persistent bilateral small nodular opacities with more dense consolidation in the right lower lobe. White count 16.6. Hemoglobin 16.9. Platelets 243. D-dimer 0.49. Sodium 134. Potassium 4.3. Bicarb 25. BUN 18. Creatinine 0.69. Glucose 310. Procalcitonin 0.16. Influenza screen negative. RSV screen negative. COVID-19 screen positive. He has been initiated on Symbicort, albuterol, Spiriva, Singulair and Decadron. Lovenox for DVT pr ophylaxis. Empiric antibiotics in the form of azithromycin. He oscitation on the regular medical floor. He is sitting up in a chair at the bedside. Awake and alert in no acute distress. Continued O2 saturations in the 90s on 4 L/min per nasal cannula. He has normal saline at 130 mL/h. On today's evaluation of 04/04/2023, the patient is being seen for a follow-up. I reviewed the case and the patient has a recent diagnosis of pulm adenocarcinoma.Based on the CAT scan findings that was done on 03/24/2023, the patient had multiple tiny nodular densities scattered throughout the lungs bilaterally consistent with metastatic disease and the patient also has a masslike consolidation in the right lower lobe and the biopsy was consistent with pulm adenocarcinoma. Oncology has been consulted and the patient has not been initiated any treatment. The patient was supposed to have an outpatient PET/CT and meanwhile the patient comes into the hospital because of shortness of breath and hypoxic respiratory failure and was diagnosed having COVID-19. This is his second or third infection according to him. The patient has been infected with COVID-19 in the past. Labs were reviewed. The white cell count 16.6, D-dimer 0.49, BUN is 18 with a creatinine of 0.69 and the rest of electrolytes are all within normal limits. The patient on room air dropped down to 82% and currently is on 2 L of oxygen by nasal cannula. He remains on Lovenox 40 mg subcu for DVT prophylaxis. He remains on steroids and the patient is receiving Decadron 6 mg p.o. daily. He is on empiric antibiotic coverage w ith Zithromax. He is also on Spiriva, Ventolin HFA [id number] and Symbicort as maintenance. No other significant events otherwise for now. Objective - Vital Signs Vital signs: Vital Signs Temp 97.9 F 04/04/23 07:39 Pulse 83 04/04/23 09:30 Resp 20 04/04/23 08:00 BP 128/79 04/04/23 07:39 Pulse Ox 94 L 04/04/23 09:30 FiO2 2 04/03/23 16:45 Intake & Output 04/03/23 04/04/23 04/04/23 18:59 06:59 18:59 Other: # Voids 2 2 2 - Exam GENERAL EXAM: Alert, very pleasant 58-year-old male, on 2 L nasal cannula, up in a chair, fairly comfortable in no apparent distress. HEAD: Normocephalic. EYES: Normal reaction of pupils, equal size. NOSE: Clear with pink turbinates. THROAT: No erythema or exudates. NECK: No masses, no JVD. CHEST: No chest wall deformity. LUNGS: Equal air entry with few scattered rhonchi. CVS: S1 and S2 normal with no audible murmur, regular rhythm. ABDOMEN: No hepatosplenomegaly, normal bowel sounds, no guarding or rigidity. SPINE: No scoliosis or deformity SKIN: No rashes CENTRAL NERVOUS SYSTEM: No focal deficits, tone is normal in all 4 extremities. EXTREMITIES: There is no peripheral edema. No clubbing, no cyanosis. Per ipheral pulses are intact. - Labs CBC & Chem 7: 04/02/23 00:59 04/02/23 00:59 Labs: Abnormal Lab Results - Last 24 Hours (Table) 04/03/23 04/03/23 04/03/23 Range/Units 11:45 16:30 19:00 POC Glucose (mg/dL) 358 H 364 H 298 H (70-110) mg/dL 04/04/23 Range/Units 06:02 POC Glucose (mg/dL) 111 H (70-110) mg/dL Assessment and Plan Plan: Acute hypoxemic respiratory failure secondary to acute right lower lobe pneumonia versus mass. Recent bronchoscopy with biopsies on March 25, 2023 were positive for pulmonary adenocarcinoma. Patient is currently on 2 L of oxygen by nasal cannula. Hypoxic respiratory failure is related to underlying pulmonary adenocarcinoma which seems to metastatic at this point in time as the patient has extensive bilateral pulmonary micronodular densities in addition to right lower lobe consolidation. COVID-19 also contributing to his development of an acute hypoxic respiratory failure. D-dimer is low. Possibility of pu lmonary embolism is felt to be less likely Pulmonary adenocarcinoma, likely metastatic with diffuse micro nodularities bilaterally in addition to right lower lobe masslike consolidation. Diagnosed w ith established on 03/25/2023. New COVID-19 infection possible COVID-19 pneumonia, currently on Decadron History of tuberculosis positive testing and treated with INH x 6 months several years ago, bronchoscopy showed no acid fast organisms Obstructive sleep apnea utilizes CPAP in the outpatient setting Diabetes mellitus Hyperlipidemia History of previous episode of psychosis Lifelong non-smoker Plan: Monitor oxygenation and wean the patient off the FiO2 Continue Decadron Patient has a recent diagnosis of pulm adenocarcinoma. I think it is reasonable to obtain a outpatient PET scan. There is micronodular disease is most likely cancerous in nature rather than infectious. The bronchial lavage that was collected showed no evidence of any AFB organisms. Awaiting final cultures. Meanwhile, the patient is going to have a PET/CT once he is fully recovered from his COVID-19 infection. Continue Symbicort and Spiriva as maintenance Continue albuterol HFA [id number] Continue blood sugar management and the patient is currently on Levemir insulin 28 units along with a sliding scale coverage with NovoLog Oncology consultation Will continue to follow.
--- NOTE | 2023-04-04 15:42 | P.PN ---
Progress Note - Text Progress Note Date: 04/04/23 Chief Complaint: Coughing short of breath This is a pleasant 58-year-old patient who follows with Dr. Michele. Chronic stable medical conditions include diabetes mellitus type 2, hypertension, obstructive sleep apnea uses CPAP, diverticulosis, ankylosing spondylosis causi ng lower back pain depression. Patient recently in the hospital from March 24 through March 28. For about 4 weeks patient been getting short of breath. He did go to urgent care once he was told he has a walking pneumonia and was given Augmentin and prednisone bronchodilators and after he finished the course the symptoms again got worse. Back in 1989 he was positive for TB skin test did not receive 6 months of INH. Has a slight cough. Non-smoker. Some wheezing. Denies any fever and chills. Tired. Patient underwent a bronchoscopy. Biopsy was done. For the suspected lung mass. Patient also treated for possible pneumonia. Prior to discharge patient is doing well. Was on room air. Respiratory symptoms much better. Patient went home for 2 days was doing well. Started having bouts of coughing. Wheezing. Short of breath. Symptoms becoming worse. Patient's had just recovered from COVID-19. Biopsy suggestive of pulmonary adenocarcinoma. March 03, 2023: Breathing a bit better. Reclining in bed. Using his CPAP. Some wheezing better. at the bedside. Incentive spirometer ordered. Accu-Cheks running high. Insulin increased. Glipizide ordered. Tolerating diet. Oncology consulted. Dr. MCGOVERN from pulmonary following. March 04, 2023: Sitting up in the chair. He is using incentive spirometry. Breathing is better. But does drop his oxygen. at the bedside. Seen by oncology team earlier. PET scan will be done outpatient. Insulin adjusted for hyperglycemia secondary to steroids. Active Medications Acetaminophen (Acetaminophen Tab 325 Mg Tab) 650 mg PO Q4HR PRN PRN Reason: Mild Pain or Fever > 100.5 Hydrocodone Bitart/Acetaminophen (Hydrocodone/Apap 5-325mg 1 Each Tab) 1 each PO Q6HR PRN PRN Reason: Moderate to Severe Pain (4-10) Albuterol Sulfate (Albuterol Hfa Inhaler) 2 puff INHALATION RT-Q2H PRN PRN Reason: WHEEZING SHORTNESS OF BREATH Last Admin: 04/02/23 08:54 Dose: 2 puff Albuterol Sulfate (Albuterol Hfa Inhaler) 4 puff INHALATION RT-Q4H [facility] Last Admin: 04/04/23 12:16 Dose: 4 puff Aspirin (Aspirin 81 Mg) 81 mg PO DAILY [facility] Last Admin: 04/04/23 08:22 Dose: 81 mg Azithromycin (Azithromycin 500 Mg Tab) 500 mg PO DAILY@2100 [facility]; Protocol Stop: 04/04/23 21:01 Last Admin: 04/03/23 21:29 Dose: 500 mg Benztropine Mesylate (Benztropine Mesylate 1 Mg Tab) 1 mg PO BID [facility] Last Admin: 04/04/23 08:23 Dose: 1 mg Budesonide/Formoterol Fumarate (Symbicort 160-4.5 Mcg Inhaler) 1 puff INHALATION RT-BID [facility] Last Admin: 04/04/23 08:52 Dose: 1 puff Carbamazepine (Carbamazepine 200 Mg Tab) 200 mg PO BID [facility] Last Admin: 04/04/23 08:24 Dose: 200 mg Citalopram Hydrobromide (Citalopram Hydrobromide 20 Mg Tab) 40 mg PO DAILY [facility] Last Admin: 04/04/23 08:23 Dose: 40 mg Dexamethasone (Dexamethasone 2 Mg Tab) 6 mg PO DAILY [facility] Last Admin: 04/04/23 08:22 Dose: 6 mg Dextrose/Water (Dextrose 50% Syringe 50 Ml) 25 ml IVP PER PROTOCOL PRN; Protocol PRN Reason: Hypoglycemia Dextrose/Water (Dextrose 50% Syringe 50 Ml) 50 ml IVP PER PROTOCOL PRN; Protocol PRN Reason: Hypoglycemia Enoxaparin Sodium (Enoxaparin 40 Mg/0.4 Ml Syringe) 40 mg SQ DAILY [facility] Last Admin: 04/04/23 08:25 Dose: 40 mg Glipizide (Glipizide 10 Mg Tab) 10 mg PO BID [facility] Last Admin: 04/04/23 08:22 Dose: 10 mg Insulin Aspart (Insulin Aspart (Novolog) 100 Unit/Ml Vial) 0 unit SQ AC-TID [facility]; Protocol Last Admin: 04/04/23 12:22 Dose: 4 unit Insulin Detemir (Insulin Detemir (Levemir) 100 Unit/Ml Syr) 28 unit SQ DAILY@0700 [facility] Last Admin: 04/04/23 06:52 Dose: 28 unit Lisinopril (Lisinopril 20 Mg Tab) 20 mg PO HS [facility] Last Admin: 04/03/23 21:29 Dose: 20 mg Metformin HCl (Metformin 500 Mg Tab) 1,000 mg PO BID-W/MEALS [facility] Last Admin: 04/04/23 06:52 Dose: 1,000 mg Montelukast Sodium (Montelukast 10 Mg Tab) 10 mg PO [facility] Last Admin: 04/03/23 21:29 Dose: 10 mg Naloxone HCl (Naloxone 0.4 Mg/Ml 1 Ml Vial) 0.2 mg IVP Q2M PRN PRN Reason: Opioid Reversal Non-Formulary Medication (Cariprazine Hcl [Vraylar]) 3 mg PO DAILY [facility] Last Admin: 04/04/23 08:23 Dose: 3 mg Non-Formulary Medication (Dulaglutide [Trulicity]) 3 mg SQ [facility] Pravastatin Sodium (Pravastatin Sodium 20 Mg Tab) 10 mg PO DAILY [facility] Last Admin: 04/04/23 08:23 Dose: 10 mg Tiotropium [place] (Tiotropium 2.5 Mcg Inhaler) 2 puff INHALATION DAILY [facility] Last Admin: 04/04/23 08:52 Dose: 2 puff Past medical history to include: Diabetes, hypertension, obstructive sleep apnea uses CPAP, depression, and ankylosing spondylosis. Newly diagnosed pulmonary carcinoma Social history: 18-year-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 . 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 Physical examination: VITAL SIGNS: 97.9, 101, 20, 138 x 78, 93% on room air. Dropped down to 82% with activity. GENERAL: Up in chair, breathing a bit better EYES: Pupils equal. Conjunctiva normal. HEENT: External appearance of nose and ears normal, oral cavity grossly normal. NECK: JVD not raised; masses not palpable. HEART: First and second heart sounds are normal; no edema. LUNGS: Respiratory rate increased; decreased breath sounds, ABDOMEN: Soft, nontender, liver spleen not palpable, no masses palpable. PSYCH: Alert and oriented x3; mood and affect anxious INVESTIGATIONS, reviewed in the clinical context: April 02: White count 16.6 hemoglobin 16.9 potassium 4.3 creatinine 0.69 lactic acid 2.3 procalcitonin 0.16 EKG tracing personally reviewed by me-normal sinus rhythm. Chest x-ray film personally reviewed by me-right diaphragm elevation/mass COVID-19: PCR: Detected Chest CTA: [March 24] innumerable tiny nodules present throughout bilateral lung zurita. No mediastinal or hilar adenopathy. Consolidation in the poste rior medial right lung. Assessment and plan: -Acute COVID-19 pneumonitis with significant symptoms with initial hypoxia: Some improvement Dexamethasone. Pulmonary following -Acute hypoxia from COVID-19 pneumonitis Supplemental oxygen. Specially hypoxic with activity. -Right lower lobe lung mass. Bronchoscopy is confirmed pulmonary adenocarcinoma Oncology following. Outpatient PET scan -Secondary bronchospasm Albuterol. -Diabetes mellitus type 2, oral hypoglycemic, uncontrolled with steroids Glucophage, Januvia farxiga. Follow Accu-Cheks with sliding scale. Glipizide Increase Levemir 32 units subcu daily. -Essential hypertension Vasotec 10 mg daily at bedtime -Hyperlipidemia Pravachol 10 mg daily at bedtime -Depression not otherwise specified Effexor XR 35.5 mg ,vraylar. Carbamazepine -Chronic ankylosing spondylitis primarily affecting the lumbar spine. With muscle spasms Pain medication as needed. Carbamazepine -Obstructive sleep apnea Continue CPAP Discussed with patient . Continue current treatment. Being followed by pulmonary and oncology. Outpatient PET scan. Past Medical History Past Medical History: Cancer, Diabetes Mellitus, Hypertension, Sleep Apnea/CPAP/BIPAP Additional Past Medical History / Comment(s): LULÚ, diverticulitis, lung cancer History of Any Multi-Drug Resistant Organisms: C-DIFF Date of last positivie culture/infection: 1994 MDRO Source:: stool Past Surgical History: Hernia Repair, Orthopedic Surgery, Tonsillectomy Additional Past Surgical History / Comment(s): sigmoid colon, vasectomy, lung biospy Past Anesthesia/Blood Transfusion Reactions: No Reported Reaction Past Psychological History: Depression Smoking Status: Never smoker Past Alcohol Use History: None Reported Past Drug Use History: None Reported
[2023-04-04 16:45] LABS: Glucose,Whole Blood 293 mg/dL (70-110)
--- NOTE | 2023-04-04 20:47 | P.CONS ---
History of Present Illness - Reason for Consult Consult date: 04/04/23 NSCLC Requesting physician: Veronica Husain - Chief Complaint SOB, cough - History of Present Illness Mr. Escalante is a 58-year-old male with recently diagnosed NSCLC. Patient was seen on consult on 03/24/23 for abnormal findings on a CTA. He is admitted with complaints of progressive shortness of breath. He was treated with antibiotics and steroids but, as soon as he stopped taking them the shortness of breath would return. This has been going on for about 1 month prior. He has a very dry, harsh cough, worse if he moves or attempts to take a deep breath. No history of smoking, he does use CPAP machine, he has for about 20 years. He was in the [place], denies exposure to asbestos, did test positive for TB in the early and was treated for the same. He has a history of colon polyps, he has had several colonoscopies. His mother had pancreatic cancer at the age of 69, maternal grandmother with breast cancer and 3 brothers with skin cancers. Patient denies any unintentional weight loss, night sweats, fevers, hemoptysis, chest pain, nausea, vomiting, abdominal complaints, acute changes in bowel or bladder habits. He underwent bronchoscopy with biopsy during last admission and since discharge, pathology resulted revealing non-small cell carcinoma jax tible with pulmonary adenocarcinoma. CT AP was negative for metastatic disease. He has f/u scheduled with Dr. Darcy Beverly on 04/08/23, and had PET CT and brain MRI scheduled outpt with pulmonology. Patient represented to the emergency room with complaints of increasing shortness of breath and cough. Upon admission chest x-ray revealed persistent bilateral small nodular opacities with more dense consolidation in the right lower lobe. Procalcitonin 0.16. Lactic acid 2.3. Patient has been started on azithromycin. Patient did test positive for COVID infection. CBC revealed, WBC 10.6, hemoglobin 16.9, platelets 243,000. Patient is afebrile. Review of Systems 10 point ROS is negative except as stated in the HPI Past Medical History Past Medical History: Cancer, Diabetes Mellitus, Hypertension, Sleep Apnea/CPAP/BIPAP Additional Past Medical History / Comment(s): LULÚ, diverticulitis, lung cancer History of Any Multi-Drug Resistant Organisms: C-DIFF Year Discovered:: 1994 MDRO Source:: stool Past Surgical History: Hernia Repair, Orthopedic Surgery, Tonsillectomy Additional Past Surgical History / Comment(s): sigmoid colon, vasectomy, lung biospy Past Anesthesia/Blood Transfusion Reactions: No Reported Reaction Past Psychological History: Depression Smoking Status: Never smoker Past Alcohol Use History: None Reported Past Drug Use History: None Reported - Past Family History Mother Family Medical History: Cancer Additional Family Medical History / Comment(s): Cancer history Father Family Medical History: Coronary Artery Disease (CAD) Additional Family Medical History / Comment(s): Heart Disease Medications and Allergies Home Medications Medication Instructions Recorded Confirmed Type Enalapril [Vasotec] 10 mg PO HS 10/01/20 04/02/23 History Pravastatin Sodium [Pravachol] 10 mg PO DAILY 10/01/20 04/02/23 History glipiZIDE [Glucotrol] 10 mg PO BID 10/01/20 04/02/23 History metFORMIN HCL [Glucophage] 1,000 mg PO BID 10/01/20 04/02/23 History Fluticasone Nasal [place] [Flonase 1 spray EA NOSTRIL DAILY 01/03/21 04/02/23 History Nasal [place]] Albuterol Sulfate [Albuterol 1 - 2 puff PO RT-Q4H PRN 03/24/23 04/02/23 History Sulfate Hfa] Benztropine Mesylate [Cogentin] 1 mg PO BID 03/24/23 04/02/23 History Cariprazine HCl [Vraylar] 3 mg PO DAILY 03/24/23 04/02/23 History Citalopram Hydrobromide [CeleXA] 40 mg PO DAILY 03/24/23 04/02/23 History Dulaglutide [Trulicity] 3 mg SQ FR 03/24/23 04/02/23 History carBAMazepine [TEGretol] 200 mg PO BID 03/24/23 04/02/23 History sitaGLIPtin [Januvia] 100 mg PO DAILY 03/24/23 04/02/23 History Aspirin 81 mg PO DAILY tab 03/28/23 04/02/23 Rx Montelukast [Singulair] 10 mg PO HS #30 tab 03/28/23 04/02/23 Rx Benzonatate [Tessalon [place]] 200 mg PO TID PRN 04/02/23 04/02/23 History Budesonide/Formoterol Fumarate 1 puff INHALATION RT-BID 04/02/23 04/02/23 Histor y [Symbicort 160-4.5 Mcg Inhaler] predniSONE See Taper PO DIRECTED 04/02/23 04/02/23 History Allergies Allergy/AdvReac Type Severity Reaction Status Date / Time Cephalosporins AdvReac Nausea & Verified 04/02/23 13:10 Vomiting & Diarrhea Physical Exam Vitals: Vital Signs Temp Pulse Pulse Pulse Pulse Pulse Resp 04/04/23 09:30 88 93 83 95 04/04/23 08:00 20 04/04/23 07:39 97.9 F 96 20 04/04/23 01:29 98.2 F 90 21 04/03/23 18:58 98.0 F 98 21 04/03/23 16:45 04/03/23 14:37 97.6 F 106 H 18 BP Pulse Ox Pulse Ox Pulse Ox Pulse Ox Pulse Ox FiO2 04/04/23 09:30 95 91 L 94 L 82 L 04/04/23 08:00 04/04/23 07:39 128/79 94 L 04/04/23 01:29 124/82 93 L 04/03/23 18:58 137/84 93 L 04/03/23 16:45 95 2 04/03/23 14:37 145/81 95 Intake and Output 04/03/23 04/04/23 04/04/23 22:59 06:59 14:59 Intake Total 350 Balance 350 Intake: Oral 350 Other: # Voids 2 2 2 - Constitutional General appearance: average body habitus, no acute distress - EENT Eyes: anicteric sclerae, EOMI ENT: hearing grossly normal - Respiratory breathing even and unlabored - Cardiovascular skin warm and dry - Integumentary Integumentary: no cyanotic, no jaundiced - Neurologic Neurologic: CNII-XII intact - Musculoskeletal Musculoskeletal: strength equal bilaterally - Psychiatric Psychiatric: A&O x's 3 Results CBC & Chem 7: 04/02/23 00:59 04/02/23 00:59 Labs: Abnormal Lab Results - Last 24 Hours (Table) 04/03/23 04/03/23 04/04/23 Range/Units 16:30 19:00 06:02 POC Glucose (mg/dL) 364 H 298 H 111 H (70-110) mg/dL 04/04/23 Range/Units 11:22 POC Glucose (mg/dL) 216 H (70-110) mg/dL Comments: pathology reviewed Chest x-ray: report reviewed Assessment and Plan (1) Non-small cell lung cancer (NSCLC) Current Visit: Yes Status: Acute Priority: High Code(s): C34.90 - MALIGNANT NEOPLASM OF UNSP PART OF UNSP BRONCHUS OR LUNG SNOMED Code(s): 454410867 (2) COPD (chronic obstructive pulmonary disease) Current Visit: Yes Status: Acute Priority: High Code(s): J44.9 - CHRONIC OBSTRUCTIVE PULMONARY DISEASE, UNSPECIFIED SNOMED Code(s): 33097578 (3) COVID-19 Current Visit: Yes Status: Acute Priority: High Code(s): U07.1 - COVID-19 SNOMED Code(s): 915270894 Plan: COVID: -Presented with progressing SOB and cough. Upon admission chest x-ray revealed persistent bilateral small nodular opacities with more dense consolidation in the right lower lobe. Procalcitonin 0.16. Lactic acid 2.3. Patient has been started on azithromycin. Patient did test positive for COVID infection -Defer management to pulm/IM team NSCLC -Recent diagnosis of NSCLC. Seen on consult 03/24/23 due to findings noted on CTA chest -Underwent bronchoscopy and biopsy during last admission. Pathology revealed non-small cell carcinoma compatible with pulmonary adenocarcinoma. He has f/u scheduled with Dr. Darcy Beverly on 04/08/23, and had PET CT and brain MRI scheduled outpt with pulmonology -CT AP obtained on 03/25/23 was negative for metastasis -Will discuss with pulmonology, if pt can tolerate, will obtain brain MRI inpt. Would recommend holding PET CT a cpl weeks to let COVID infection clear, as this could cause false positives on scan due to reactive inflammation. Will further discuss with pulm team -Will request NGS and PDL-1 testing on pathology Pt and family updated on POC Attests: I have seen and examined pt, performed H&P, developed impression and plan of care. Discussed with dictator. Agree with documentation, dictated as a scribe.
[2023-04-04] MEDS: ACETAMINOPHEN TAB 325 MG TAB PO PRN (20:52)
[2023-04-05] MEDS: INSULIN DETEMIR (LEVEMIR) 100 UNIT/ML SYR SQ SCH (08:07)
[2023-04-05 10:32] LABS: Glucose,Whole Blood 209 mg/dL (70-110)
[2023-04-05 11:17] LABS: Glucose,Whole Blood 219 mg/dL (70-110)
--- NOTE | 2023-04-05 11:22 | P.PN ---
Subjective Progress Note Date: 04/05/23 This is a very pleasant 58-year-old male patient with a known history of obstru ctive sleep apnea utilizing CPAP, diabetes mellitus, hyperlipidemia, previous psychosis episodes. He was recently discharged from here on March 28 following an admission for a 4-week history of ongoing issues with shortness of breath cough and congestion. He was treated with steroids and antibiotics without much improvement. During his admission he had undergone bronchoscopy with biopsies on March 25, 2023 as CAT scan revealed innumerable tiny nodules throughout the bilateral lung zurita. That biopsy was positive for pulmonary adenocarcinoma. The patient is a lifelong non-smoker. He just found the results in a follow-up visit in our office last week. No treatment initiated thus far. He presented here to the emergency room again yesterday with complaints of increasing shortness of breath cough and congestion. Chest x-ray reveals persistent bilateral small nodular opacities with more dense consolidation in the right lower lobe. White count 16.6. Hemoglobin 16.9. Platelets 243. D-dimer 0.49. Sodium 134. Potassium 4.3. Bicarb 25. BUN 18. Creatinine 0.69. Glucose 310. Procalcitonin 0.16. Influenza screen negative. RSV screen negative. COVID-19 screen positive. He has been initiated on Symbicort, albuterol, Spiriva, Singulair and Decadron. Lovenox for DVT pr ophylaxis. Empiric antibiotics in the form of azithromycin. He oscitation on the regular medical floor. He is sitting up in a chair at the bedside. Awake and alert in no acute distress. Continued O2 saturations in the 90s on 4 L/min per nasal cannula. He has normal saline at 130 mL/h. On today's evaluation of 04/04/2023, the patient is being seen for a follow-up. I reviewed the case and the patient has a recent diagnosis of pulm adenocarcinoma.Based on the CAT scan findings that was done on 03/24/2023, the patient had multiple tiny nodular densities scattered throughout the lungs bilaterally consistent with metastatic disease and the patient also has a masslike consolidation in the right lower lobe and the biopsy was consistent with pulm adenocarcinoma. Oncology has been consulted and the patient has not been initiated any treatment. The patient was supposed to have an outpatient PET/CT and meanwhile the patient comes into the hospital because of shortness of breath and hypoxic respiratory failure and was diagnosed having COVID-19. This is his second or third infection according to him. The patient has been infected with COVID-19 in the past. Labs were reviewed. The white cell count 16.6, D-dimer 0.49, BUN is 18 with a creatinine of 0.69 and the rest of electrolytes are all within normal limits. The patient on room air dropped down to 82% and currently is on 2 L of oxygen by nasal cannula. He remains on Lovenox 40 mg subcu for DVT prophylaxis. He remains on steroids and the patient is receiving Decadron 6 mg p.o. daily. He is on empiric antibiotic coverage w ith Zithromax. He is also on Spiriva, Ventolin HFA [id number] and Symbicort as maintenance. No other significant events otherwise for now. On today's evaluation of chest x-ray and , the patient is doing well. The patient is able to maintain a pulse ox above 90% even with activity. No significant shortness of breath. Limited cough. No significant sputum production. The patient remains on Decadron 6 mg p.o. daily the patient is on Lovenox 40 mg subcu for DVT prophylaxis. Inhalers remain unchanged. Patient has no other new complaints otherwise for now. Clinically stable and hemodynamically stable. Objective - Vital Signs Vital signs: Vital Signs Temp 98.7 F 04/05/23 07:47 Pulse 67 04/05/23 07:47 Resp 20 04/05/23 07:47 BP 145/74 04/05/23 07:47 Pulse Ox 97 04/05/23 07:47 FiO2 2 04/03/23 16:45 Intake & Output 04/04/23 04/05/23 04/05/23 18:59 06:59 18:59 Intake Total 350 Balance 350 Intake: Oral 350 Other: # Voids 2 5 - Exam GENERAL EXAM: Alert, very pleasant 58-year-old male, on room air oxygen up in a chair, fairly comfortable in no apparent distress. HEAD: Normocephalic. EYES: Normal reaction of pupils, equal size. NOSE: Clear with pink turbinates. THROAT: No erythema or exudates. NECK: No masses, no JVD. CHEST: No chest wall deformity. LUNGS: Equal air entry with few scattered rhonchi. CVS: S1 and S2 normal with no audible murmur, regular rhythm. ABDOMEN: No hepatosplenomegaly, normal bowel sounds, no guarding or rigidity. SPINE: No scoliosis or deformity SKIN: No rashes CENTRAL NERVOUS SYSTEM: No focal deficits, tone is normal in all 4 extremities. EXTREMITIES: There is no peripheral edema. No clubbing, no cyanosis. Peripheral pulses are intact. - Labs CBC & Chem 7: 04/02/23 00:59 04/02/23 00:59 Labs: Abnormal Lab Results - Last 24 Hours (Table) 04/04/23 04/04/23 Range/Units 11:22 16:43 POC Glucose (mg/dL) 216 H 293 H (70-110) mg/dL Assessment and Plan Plan: Acute hypoxemic respiratory failure secondary to acute right lower lobe pneumonia versus mass. Recent bronchoscopy with biopsies on March 25, 2023 were positive for pulmonary adenocarcinoma. Patient is currently on room air oxygen Hypoxic respiratory failure is related to underlying pulmonary adenocarcinoma which seems to metastatic at this point in time as the patient has extensive bilateral pulmonary micronodular densities in addition to right lower lobe consolidation. COVID-19 also contributing to his development of an acute hypoxic respiratory failure. D-dimer is low. Possibility of pulmonary embolism is felt to be less likely. The patient is improved and oxygenation is also improved. Pulmonary adenocarcinoma, likely metastatic with diffuse micro nodularities bilaterally in addition to right lower lobe masslike consolidation. Diagnosed with established on 03/25/2023. New COVID-19 infection possible COVID-19 pneumonia, currently on Decadron History of tuberculosis positive testing and treated with INH x 6 months several years ago, bronchoscopy showed no acid fast organisms Obstructive sleep apnea utilizes CPAP in the outpatient setting Diabetes mellitus Hyperlipidemia History of previous episode of psychosis Lifelong non-smoker Plan: Monitor oxygenation and wean the patient off the FiO2, and do another walk test to make sure that the patient is able to maintain a pulse ox above 90%. Provide oxygen if needed. Continue Decadron, to complete a 10-day course Patient has a recent diagnosis of pulm adenocarcinoma. I think it is reasonable to obtain a outpatient PET scan. There is micronodular disease is most likely cancerous in nature rather than infectious. The bronchial lavage that was collected showed no evidence of any AFB organisms. Awaiting final cultures. Meanwhile, the patient is going to have a PET/CT once he is fully recovered from his COVID-19 infection. MRI of the brain was also ordered to rule out SPRING [employer] metastases. Continue Symbicort and Spiriva as maintenance Continue albuterol HFA [id number] Continue blood sugar management and the patient is currently on Levemir insulin 28 units along with a sliding scale [facility] consultation Will continue to follow.
[2023-04-05 14:04] VITALS: BP 135/76; PULSE 88; RESP 21; TEMP 97.8
--- NOTE | 2023-04-05 17:03 | MR ---
EXAMINATION TYPE: MR brain wo/w con DATE OF EXAM: 04/05/2023 4:22 PM CLINICAL INDICATION:Male, 58 years old with history of R/O metastasis; PHH, Hx lung cancer, r/o metas tasis COMPARISON: 10/02/2020 TECHNIQUE: Multi planar, multi sequence imaging was performed through the brain including: T1, T2, In version recovery, susceptibility weighted imaging and gradient echo imaging and Diffusion weighted im aging. The patient was then given intravenous contrast and multi planar, T1 fat-saturation images wer e obtained. IV Contrast: 9.5 cc Gadavist FINDINGS: The conrad-white junctions, ventricular system, basal cisterns appear unremarkable. Diffusion-weighted imaging shows no evidence of restricted diffusion to suggest acute/subacute infarct. Intracranial ar terial flow voids are maintained. Midline structures show no abnormality. Scattered foci of high T2 s ignal intensity are seen within the periventricular white matter. The susceptibility weighted images do not reveal any evidence for micro-hemorrhage. After administration of gadolinium, no abnormal enha ncement is seen. The bone marrow signal is within normal limits. Paranasal sinuses and mastoid air cells: No significant paranasal sinus disease. Visualized orbits: Orbital contents are intact. IMPRESSION: 1. No evidence of intracranial mass, acute/subacute infarct, or abnormal enhancement. 2. Nonspecific white matter changes, likely related to small vessel ischemic disease.
--- NOTE | 2023-04-05 18:15 | P.DS ---
Providers Date of admission: 04/02/23 04:36 Expected date of discharge: 04/05/23 Attending physician: Rodney Lozano Consults: 04/02/23 12:16 Consult Physician Routine Consulting Provider: Mik Go Consult Reason/Comments: covid Do you want consulting provider notified?: Yes 04/03/23 09:32 Consult Physician Routine Consulting Provider: Darcy Beverly Consult Reason/Comments: New pulmonary adenocarcinoma Do you want consulting provider notified?: Yes Primary care physician: [facility] Course: Chief Complaint: Coughing short of breath This is a pleasant 58-year-old patient who follows with Dr. Michele. Chronic stable medical conditions include diabetes mellitus type 2, hypertension, obstructive sleep apnea uses CPAP, diverticulosis, ankylosing spondylosis causing lower back pain depression. Patient recently in the hospital from March 24 through March 28. For about 4 weeks patient been getting short of breath. He did go to urgent care once he was told he has a walking pneumonia and was given Augmentin and prednisone bronchodilators and after he finished the course the symptoms again got worse. Back in 1989 he was positive for TB skin test did not receive 6 months of INH. Has a slight cough. Non-smoker. Some wheezing. Denies any fever and chills. Tired. Patient underwent a bronchoscopy. Biopsy was done. For the suspected lung mass. Patient also treated for possible pneumonia. Prior to discharge patient is doing well. Was on room air. Respiratory symptoms much better. Patient went home for 2 days was doing well. Started having bouts of coughing. Wheezing. Short of breath. Symptoms becoming worse. Patient's had just recovered from COVID-19. Biopsy suggestive of pulmonary adenocarcinoma. March 03, 2023: Breathing a bit better. Reclining in bed. Using his CPAP. Some wheezing better. at the bedside. Incentive spirometer ordered. Accu-Cheks running high. Insulin increased. Glipizide ordered. Tolerating diet. Oncology consulted. Dr. GO from pulmonary following. March 04, 2023: Sitting up in the chair. He is using incentive spirometry. Breathing is better. But does drop his oxygen. at the bedside. Seen by oncology team earlier. PET scan will be done outpatient. Insulin adjusted for hyperglycemia secondary to steroids. March 05: Breathing much improved. Walking hallway. Pulse ox 98% with activity. Underwent MRI of the brain today. Some chronic white matter changes. Patient follow-up with Dr. Shell from oncology outpatient. Care was discussed with the patient . Discussion and discharge planning more than 35 minutes. Steroids discontinued Past medical history to include: Diabetes, hypertension, obstructive sleep apnea uses CPAP, depression, and ankylosing spondylosis. Newly diagnosed pulmonary carcinoma Social history: 18-year-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 . 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 Physical examination: VITAL SIGNS: 97.8, 98, 21, 1 3576, 93% on room air with activity GENERAL: Up in chair, breathing comfortable EYES: Pupils equal. Conjunctiva normal. HEENT: External appearance of nose and ears normal, oral cavity grossly normal. NECK: JVD not raised; masses not palpable. HEART: First and second heart sounds are normal; no edema. LUNGS: Respiratory rate i normal; improved air entry ABDOMEN: Soft, nontender, liver spleen not palpable, no masses palpable. PSYCH: Alert and oriented x3; mood and affect anxious INVESTIGATIONS, reviewed in the clinical context: MRI brain: Some chronic white matter changes April 02: White count 16.6 hemoglobin 16.9 potassium 4.3 creatinine 0.69 lactic acid 2.3 procalcitonin 0.16 EKG tracing personally reviewed by me-normal sinus rhythm. Chest x-ray film personally reviewed by me-right diaphragm elevation/mass COVID-19: PCR: Detected Chest CTA: [March 24] innumerable tiny nodules present throughout bilateral lung zurita. No mediastinal or hilar adenopathy. Consolidation in the posterior medial right lung. Assessment and plan: -Acute COVID-19 pneumonitis with significant symptoms with initial hypoxia: Improved Dexamethasone given.. Pulmonary following -Acute hypoxia from COVID-19 pneumonitis: Resolved Supplemental oxygen. -Right lower lobe lung mass. Bronchoscopy is confirmed pulmonary adenocarcinoma Dr. Shell-oncology following. Outpatient PET scan MRI brain: Unremarkable -Secondary bronchospasm Albuterol. -Diabetes mellitus type 2, oral hypoglycemic, uncontrolled with steroids Glucophage, Januvia farxiga. Follow Accu-Cheks with sliding scale. Glipizide -Essential hypertension Vasotec 10 mg daily at bedtime -Hyperlipidemia Pravachol 10 mg daily at bedtime -Depression not otherwise specified Effexor XR 35.5 mg ,vraylar. Carbamazepine -Chronic ankylosing spondylitis primarily affecting the lumbar spine. With muscle spasms Pain medication as needed. Carbamazepine -Obstructive sleep apnea Continue CPAP Disposition: Home Past Medical History Past Medical History: Cancer, Diabetes Mellitus, Hypertension, Sleep Apnea/CPAP/BIPAP Additional Past Medical History / Comment(s): LULÚ, diverticulitis, lung cancer History of Any Multi-Drug Resistant Organisms: C-DIFF Date of last positivie culture/infection: 1994 MDRO Source:: stool Past Surgical History: Hernia Repair, Orthopedic Surgery, Tonsillectomy Additional Past Surgical History / Comment(s): sigmoid colon, vasectomy, lung biospy Past Anesthesia/Blood Transfusion Reactions: No Reported Reaction Past Psychological History: Depression Smoking Status: Never smoker Past Alcohol Use History: None Reported Past Drug Use History: None Reported Plan - Discharge Summary Discharge Rx Participant: No New Discharge Prescriptions: Continue metFORMIN HCL [Glucophage] 1,000 mg PO BID Pravastatin Sodium [Pravachol] 10 mg PO DAILY Albuterol Sulfate [Albuterol Sulfate Hfa] 1 - 2 puff PO RT-Q4H PRN PRN Reason: Shortness Of Breath Benztropine Mesylate [Cogentin] 1 mg PO BID Cariprazine HCl [Vraylar] 3 mg PO DAILY Citalopram Hydrobromide [CeleXA] 40 mg PO DAILY Dulaglutide [Trulicity] 3 mg SQ FR Aspirin 81 mg PO DAILY tab Budesonide/Formoterol Fumarate [Symbicort 160-4.5 Mcg Inhaler] 1 puff INHALATION RT-BID Benzonatate [Tessalon Perle] 200 mg PO TID PRN PRN Reason: Cough glipiZIDE [Glucotrol] 10 mg PO BID Enalapril [Vasotec] 10 mg PO HS Fluticasone Nasal [place] [Flonase Nasal [place]] 1 spray EA NOSTRIL DAILY carBAMazepine [TEGretol] 200 mg PO BID sitaGLIPtin [Januvia] 100 mg PO DAILY Montelukast [Singulair] 10 mg PO HS #30 tab Discontinued predniSONE See Taper PO DIRECTED Discharge Medication List Enalapril [Vasotec] 10 mg PO HS 10/01/20 [History] Pravastatin Sodium [Pravachol] 10 mg PO DAILY 10/01/20 [History] glipiZIDE [Glucotrol] 10 mg PO BID 10/01/20 [History] metFORMIN HCL [Glucophage] 1,000 mg PO BID 10/01/20 [History] Fluticasone Nasal [place] [Flonase Nasal [place]] 1 spray EA NOSTRIL DAILY 01/03/21 [History] Albuterol Sulfate [Albuterol Sulfate Hfa] 1 - 2 puff PO RT-Q4H PRN 03/24/23 [History] Benztropine Mesylate [Cogentin] 1 mg PO BID 03/24/23 [History] Cariprazine HCl [Vraylar] 3 mg PO DAILY 03/24/23 [History] Citalopram Hydrobromide [CeleXA] 40 mg PO DAILY 03/24/23 [History] Dulaglutide [Trulicity] 3 mg SQ FR 03/24/23 [History] carBAMazepine [TEGretol] 200 mg PO BID 03/24/23 [History] sitaGLIPtin [Januvia] 100 mg PO DAILY 03/24/23 [History] Aspirin 81 mg PO DAILY tab 03/28/23 [Rx] Montelukast [Singulair] 10 mg PO HS #30 tab 03/28/23 [Rx] Benzonatate [Tessalon Perle] 200 mg PO TID PRN 04/02/23 [History] Budesonide/Formoterol Fumarate [Symbicort 160-4.5 Mcg Inhaler] 1 puff INHALATION RT-BID 04/02/23 [History] Follow up Appointment(s)/Referral(s): Dennys Swartz MD [STAFF PHYSICIAN] - 04/20/23 2:15 pm Cuba Shell [STAFF PHYSICIAN] - 1 Week (Previously scheduled) Troy Michele MD [Primary Care Provider] - 1-2 days (patient want to make appointment ) Activity/Diet/Wound Care/Special Instructions: patient's home med in [facility], please return to pt at discharge. dc after MRI today Discharge Disposition: HOME SELF-CARE
[2023-04-08] MEDS ORDERED: NON FORMULARY DRUG (Dulaglutide [Trulicity] 3 MG/0.5 ML Each) SQ SCH (09:00)
--- NOTE | 2023-04-08 14:39 | CDI ---
Documentation Clarification Form Date: 04/08/2023 02:10:24 PM From: Louisa Gold RN, CCDS Email: [email or web address] Admit Date: 04/02/2023 04:36:00 AM Patient Name: Rico Escalante Visit Number: [id number] Discharge Date: 04/05/2023 04:52:00 PM ATTENTION: The Clinical Documentation Specialists (CDI) and [facility] Coding Staff appreciate your assistance in clarifying documentation. Please respond to the clarification below the line at the bottom and electronically sign. The CDI & [facility] Coding staff will review the response and follow-up if needed. Please note: Queries are made part of the Legal Health Record. If you have any questions, please contact the author of this message via ITS. Dr. Rodney Lozano The patient had Covid 19, tachycardia and elevated white count. Based on this information and the findings below, is there an additional diagnosis that is clinically appropriate for this patient? History/Risk Factors: COPD, lung Ca, LULÚ and DM. Presented with SOB, cough and congestion. Admitted with Covid-19 and acute hypoxic respiratory failure. Clinical Indicators: 2/3 H&P: "Acute COVID-19 pneumonitis with significant symptoms including some hypoxia. 2 Pulmonary consult: "New COVID-19 infection, possible COVID-19 pneumonia, currently on Decadron. Acute hypoxemic respiratory failure." 2/3 WBC: 16.6 2/3 Lactic acid: 2.3 2/3 Procalcitonin: 0.16 2/3 Vital signs: HR 122, RR 22, pox 91% Treatment: Dexamethasone 6mg po daily 04/03-04/05 Antibiotics: Zithromax 500mg x1 on 04/02 then daily 04/02-04/04 IV Bolus: 0.9 NS 1L IV bolus on 04/02 then 130mL/hr Is there an additional diagnosis that is clinically appropriate for this patient? [ ] Sepsis, present on admission [ ] No additional diagnosis [ ] Other, please specify [ ] Unable to determine SIRS Criteria: 2 or more of the following may indicate SIRS Temperature < 96.8F (36C) or > 101.0F (38.3C) Heart Rate > 90 bpm Respiratory Rate > 20 breaths/min or PaCO2 < 32 mmHg White Blood Cell Count > 12,000 or < 4,000 cells/mm3 or > 10% bands MTDD
--- NOTE | 2023-04-08 15:52 | CDI ---
Documentation Clarification Form Date: 04/08/2023 02:10:24 PM From: Louisa Gold RN, CCDS Email: [email or web address] Admit Date: 04/02/2023 04:36:00 AM Patient Name: Rico Escalante Visit Number: [id number] Discharge Date: 04/05/2023 04:52:00 PM ATTENTION: The Clinical Documentation Specialists (CDI) and [facility] Coding Staff appreciate your assistance in clarifying documentation. Please respond to the clarification below the line at the bottom and electronically sign. The CDI & [facility] Coding staff will review the response and follow-up if needed. Please note: Queries are made part of the Legal Health Record. If you have any questions, please contact the author of this message via ITS. Dr. Rodney Lozano The patient had Covid 19, tachycardia and elevated white count. Based on this information and the findings below, is there an additional diagnosis that is clinically appropriate for this patient? History/Risk Factors: COPD, lung Ca, LULÚ and DM. Presented with SOB, cough and congestion. Admitted with Covid-19 and acute hypoxic respiratory failure. Clinical Indicators: 2/3 H&P: "Acute COVID-19 pneumonitis with significant symptoms including some hypoxia. 2 Pulmonary consult: "New COVID-19 infection, possible COVID-19 pneumonia, currently on Decadron. Acute hypoxemic respiratory failure." 2/3 WBC: 16.6 2/3 Lactic acid: 2.3 2/3 Procalcitonin: 0.16 2/3 Vital signs: HR 122, RR 22, pox 91% Treatment: Dexamethasone 6mg po daily 04/03-04/05 Antibiotics: Zithromax 500mg x1 on 04/02 then daily 04/02-04/04 IV Bolus: 0.9 NS 1L IV bolus on 04/02 then 130mL/hr Is there an additional diagnosis that is clinically appropriate for this patient? [ + ] Viral Sepsis, present on admission [ ] No additional diagnosis [ ] Other, please specify [ ] Unable to determine SIRS Criteria: 2 or more of the following may indicate SIRS Temperature < 96.8F (36C) or > 101.0F (38.3C) Heart Rate > 90 bpm Respiratory Rate > 20 breaths/min or PaCO2 < 32 mmHg White Blood Cell Count > 12,000 or < 4,000 cells/mm3 or > 10% bands MTDD
== END 2023-04-05 16:52 | disposition home or self-care (01) | DRG 871 ==
LOC: EC 00:06 → OBSVTOIN 04:36 → 5NMEDONC 04:36 → 6NMEDSUR 06:48 → 4SSUR 12:34
PROVIDERS: ADMIT Hospitalist; ATTEND Hospitalist
PROC: 5A09357 Assistance with Respiratory Ventilation, Less than 24 Consecutive Hours, Continuous Positive Airway Pressure (ICD-10-PCS; principal; 2023-04-05)
DX: A41.89 Other specified sepsis (principal); J12.82 Pneumonia due to coronavirus disease 2019; U07.1 COVID-19; J96.01 Acute respiratory failure with hypoxia; C34.31 Malignant neoplasm of lower lobe, right bronchus or lung; J44.0 Chronic obstructive pulmonary disease with (acute) lower respiratory infection; T38.0X5A Adverse effect of glucocorticoids and synthetic analogues, initial encounter; M45.9 Ankylosing spondylitis of unspecified sites in spine; K57.90 Diverticulosis of intestine, part unspecified, without perforation or abscess without bleeding; G47.33 Obstructive sleep apnea (adult) (pediatric); E11.65 Type 2 diabetes mellitus with hyperglycemia; F32.A Depression, unspecified; E78.5 Hyperlipidemia, unspecified; I10 Essential (primary) hypertension; J98.01 Acute bronchospasm; M47.9 Spondylosis, unspecified; Z79.4 Long term (current) use of insulin; Z79.51 Long term (current) use of inhaled steroids; Z79.82 Long term (current) use of aspirin; Z79.84 Long term (current) use of oral hypoglycemic drugs; Z79.899 Other long term (current) drug therapy; Z82.49 Family history of ischemic heart disease and other diseases of the circulatory system; Z86.11 Personal history of tuberculosis; Z28.310 Unvaccinated for COVID-19; Z28.21 Immunization not carried out because of patient refusal; Z88.1 Allergy status to other antibiotic agents; Z80.8 Family history of malignant neoplasm of other organs or systems; Z86.010 Personal history of colon polyps
CPT/HCPCS: 36415; 70553; 71046; 80053; 83605; 84145; 84484; 85025; 85379; 85610; 85730; 87636; 93005; 94640; 94760; 96360; 96361; 96372; 99285

== ENCOUNTER → 2023-04-07 | Outpatient (CLI) | payer BC ==
--- NOTE | 2023-04-08 10:18 | PE ---
EXAMINATION TYPE: PET CT fusion skull to thigh DATE OF EXAM: 04/07/2023 COMPARISON: CT abdomen and pelvis 03/25/2023 Prior PET/CT: None at this location HISTORY: Lung cancer TECHNIQUE: Following the intravenous administration of 13.7 mCi of F-18 FDG, whole body images are p erformed from the skull base to the midthigh. Images are reviewed on the computer in the coronal, ax ial, and sagittal planes. Reconstructed rotating images are created on independent workstation and r eviewed on the computer. A localization and attenuation correction CT is performed in conjunction w ith the PET scan. DLP: 773.24 mGycm SCAN: Subsequent Blood glucose: 208 mg/dL Average Mediastinum SUV: 1.99 Average Liver SUV: 3.05 FINDINGS: NECK: There is a focus of radiotracer adjacent to the spinous process at approximately C5. This has an SUV of 6.29. THORAX: There is diffuse uptake throughout the consolidation in the mid and lower lung field right lo wer lobe. Example SUV image 110, SUV 5.18. Mild diffuse uptake appears to be within the diffuse incre ased nodularity to the bilateral lung zurita suspicious for diffuse metastasis. ABDOMEN: Liver is somewhat heterogenous. However, there may be a slightly more focal radiotracer accu mulation within the medial right lobe liver, image 143, SUV 5.01. PELVIS: No suspicious uptake within the pelvis soft tissues. OSSEOUS STRUCTURES: There is focal radiotracer accumulation within the medial left iliac wing adjacen t to the sacroiliac joint, image 2-5, SUV 4.05. There is uptake within the right medial sacrum, image 2-5, SUV 4.22. There is a lytic lesion with adjacent focal uptake within the left iliac crest compat ible with metastatic disease, image 2-4, SUV 3.73. There is uptake within the left femoral neck, imag e 248, SUV 4.18. There is uptake within the anterior left femoral head, image 248, SUV 4.28. LOCALIZATION CT: Small right pleural effusion is present. There is diffuse reticular-nodular changes throughout bilateral lung zurita of the consolidation in the right lower lobe may have some narrowing of the distal bronchi. COMPARISON: No prior PET/CT. IMPRESSION: 1. Uptake within the consolidation right lower lobe as well as diffusely throughout the particular no dular pattern in the bilateral lung zurita compatible with metastatic disease. 2. Additional osseous metastases are identified within the left pelvis, sacrum, and spinous process o f a mid cervical spine
== END | disposition home or self-care (01) ==
LOC: RADPETMAIN 11:01
PROVIDERS: ATTEND Internal Medicine
DX: C34.31 Malignant neoplasm of lower lobe, right bronchus or lung (principal); C79.51 Secondary malignant neoplasm of bone; C34.90 Malignant neoplasm of unspecified part of unspecified bronchus or lung
CPT/HCPCS: 78815; A9552

== ENCOUNTER 2023-05-02 21:38 | Emergency (ER) | payer BC ==
[2023-05-02 22:03] VITALS: TEMP 98.3
--- NOTE | 2023-05-02 22:11 | ED ---
SOB HPI - General Chief Complaint: Shortness of Breath Stated Complaint: sob Time Seen by Provider: 05/02/23 21:39 Source: patient, EMS Mode of arrival: EMS - History of Present Illness Initial Comments: This patient is a 58-year-old man with recent diagnosis of metastatic lung c ancer. The patient brought to have evaluation because he became dyspneic. Patient states that he believes this is related to intractable coughing. Patient denies having fever or chills. No chest pain other than a little bit of pain associated with the cough. He has not had sputum. No change in urination or bowel movements. No leg pain or swelling. MD Complaint: shortness of breath, cough -: hour(s) Severity: mild Quality: sharp Consistency: intermittent Improves With: nothing Worsens With: nothing Known History Of: other (Lung cancer) Associated Symptoms: cough Treatments Prior to Arrival: oxygen - Related Data Home Oxygen Therapy: Yes Home Medications Medication Instructions Recorded Confirmed Enalapril [Vasotec] 10 mg PO HS 10/01/20 05/02/23 Pravastatin Sodium [Pravachol] 10 mg PO DAILY 10/01/20 05/02/23 glipiZIDE [Glucotrol] 10 mg PO BID 10/01/20 05/02/23 metFORMIN HCL [Glucophage] 1,000 mg PO BID 10/01/20 05/02/23 Fluticasone Nasal Mineral [Flonase 1 spray EA NOSTRIL DAILY 01/03/21 05/02/23 Nasal Mineral] Albuterol Sulfate [Albuterol 1 - 2 puff INHALATION RT-Q4H PRN 03/24/23 05/02/23 Sulfate Hfa] Cariprazine HCl [Vraylar] 3 mg PO DAILY 03/24/23 05/02/23 Citalopram Hydrobromide [CeleXA] 40 mg PO DAILY 03/24/23 05/02/23 Dulaglutide [Trulicity] 3 mg SQ FR 03/24/23 05/02/23 carBAMazepine [TEGretol] 200 mg PO BID 03/24/23 05/02/23 sitaGLIPtin [Januvia] 100 mg PO DAILY 03/24/23 05/02/23 Benzonatate [Tessalon Perle] 200 mg PO TID PRN 04/02/23 05/02/23 Osimertinib Mesylate [Tagrisso] 80 mg PO DIRECTED 04/28/23 05/02/23 Amoxic-Pot Clav 875-125Mg 1 tab PO DIRECTED 05/02/23 05/02/23 [Augmentin 875-125] Budesonide/Formoterol Fumarate 1 puff INHALATION RT-BID 05/02/23 05/02/23 [Breyna 160-4.5 Mcg Inhaler] Previous Rx's Medication Instructions Recorded Aspirin 81 mg PO DAILY tab 03/28/23 Montelukast [Singulair] 10 mg PO HS #30 tab 03/28/23 guaiFENesin-Coden 100-10MG/5ML 5 - 10 ml PO Q6H PRN 3 Days #120 ml 05/03/23 [Robitussin AC] Allergies Allergy/AdvReac Type Severity Reaction Status Date / Time Cephalosporins AdvReac Nausea & Verified 05/02/23 23:06 Vomiting & Diarrhea Review of Systems ROS Statement: Those systems with pertinent positive or pertinent negative responses have been documented in the HPI. ROS Other: All systems not noted in ROS Statement are negative. Constitutional: Denies: fever, chills, weakness Respiratory: Reports: cough, dyspnea. Denies: hemoptysis Cardiovascular: Reports: chest pain. Denies: palpitations, edema Gastrointestinal: Denies: abdominal pain, nausea, vomiting Genitourinary: Denies: dysuria, hematuria Musculoskeletal: Denies: back pain Skin: Denies: rash Neurological: Denies: headache, weakness Psychiatric: Reports: anxiety Past Medical History Past Medical History: Cancer, Diabetes Mellitus, Hypertension, Sleep Apnea/CPAP/BIPAP Additional Past Medical History / Comment(s): LULÚ, diverticulitis, lung cancer History of Any Multi-Drug Resistant Organisms: C-DIFF Date of last positivie culture/infection: 1994 MDRO Source:: stool Past Surgical History: Hernia Repair, Orthopedic Surgery, Tonsillectomy Additional Past Surgical History / Comment(s): sigmoid colon, vasectomy, lung biospy Past Anesthesia/Blood Transfusion Reactions: No Reported Reaction Past Psychological History: Depression Smoking Status: Never smoker Past Alcohol Use History: None Reported Past Drug Use History: None Reported - Past Family History Mother Family Medical History: Cancer Additional Family Medical History / Comment(s): Cancer history Father Family Medical History: Coronary Artery Disease (CAD) Additional Family Medical History / Comment(s): Heart Disease General Exam General appearance: alert, in distress Head exam: Present: atraumatic, normocephalic Eye exam: Present: normal appearance. Absent: scleral icterus, conjunctival injection ENT exam: Present: normal oropharynx Neck exam: Present: normal inspection Respiratory exam: Present: respiratory distress, wheezes, other (Frequent paroxysms of cough). Absent: rales, rhonchi, stridor, accessory muscle use Cardiovascular Exam: Present: normal rhythm, tachycardia, normal heart sounds. Absent: systolic murmur, diastolic murmur, rubs, gallop GI/Abdominal exam: Present: soft. Absent: distended, tenderness, guarding, rebound, rigid, mass, pulsatile mass Extremities exam: Present: normal inspection, normal capillary refill. Absent: pedal edema, calf tenderness Back exam: Present: normal inspection. Absent: CVA tenderness (R), CVA tenderness (L) Neurological exam: Present: alert Skin exam: Present: warm, dry, intact, normal color. Absent: rash Course Vital Signs 05/02/23 05/02/23 05/02/23 21:40 22:30 23:30 Temperature 98.3 F Pulse Rate 129 H 124 H 126 H Respiratory 24 20 20 Rate Blood Pressure 177/133 139/84 172/96 O2 Sat by Pulse 95 95 96 Oximetry 05/03/23 02:13 Temperature Pulse Rate 110 H Respiratory 24 Rate Blood Pressure O2 Sat by Pulse 95 Oximetry Medical Decision Making - Medical Decision Making This patient is a 58-year-old man with recent diagnosis of small cell lung cancer with metastases. The patient recently discharged. He became acutely short of breath tonight and he states this is due to the frequent paroxysms of cough he is having. The patient workup here not revealing other acute process. He did have medication for cough and was feeling better. The patient would prefer to go home given the amount of time he has spent in hospital recently this seems acceptable. We discussed appropriate further care and follow-up as well as return parameters. The patient had chest x-ray that I interpreted as showing what appears to be diffuse lung cancer. No acute infiltrate superimposed. No pneumothorax. Was pt. sent in by a medical professional or institution (, PA, OAKES MACHINE OPERATOR, urgent care, hospital, or [facility]...) When possible be specific @ -[No] Did you speak to anyone other than the patient for history (EMS, parent, family, police, friend...)? What history was obtained from this source @ -EMS Did you review nursing and triage notes (agree or disagree)? Why? @ -[I reviewed and agree with nursing and triage notes] Were old charts reviewed (outside hosp., previous admission, EMS record, old EKG, old radiological studies, urgent care reports/EKG's, [facility] records)? Report findings @ -old charts were reviewed] Differential Diagnosis (chest pain, altered mental status, abdominal pain women, abdominal pain men, vaginal bleeding, weakness, fever, dyspnea, syncope, headache, dizziness, GI bleed, back pain, seizure, CVA, palpatations, mental health, musculoskeletal)? @ -[Differential Dyspnea: Coronary syndrome, arrhythmia, tamponade, asthma, COPD, pulmonary embolism, pneumonia, pneumothorax, pulmonary effusion, anaphylaxis, diabetic ketoacidosis, flailed chest, pulmonary contusion, diaphragmatic rupture, anemia, neuromuscular, this is not meant to be an all-inclusive list. EKG interpreted by me (3pts min.). @ -[I interpreted as above] X-rays interpreted by me (1pt min.). @ -[I interpreted as above CT interpreted by me (1pt min.). @ -[None done] U/S interpreted by me (1pt. min.). @ -[None done] What testing was considered but not performed or refused? (CT, X-rays, U/S, labs)? Why? @ -[None] What meds were considered but not given or refused? Why? @ -[None] Did you discuss the management of the patient with other professionals (kai daniels i.e. , PA, OAKES MACHINE OPERATOR, lab, RT, psych nurse, social media specialist, trauma director, teacher, court collections officer, special education case manager)? Give summary @ -[No] Was smoking cessation discussed for >3mins.? @ -[No] Was critical care preformed (if so, how long)? @ -[No] Were there social determinants of health that impacted care today? How? (Homelessness, low income, unemployed, alcoholism, drug addiction, transportation, low edu. Level, literacy, decrease access to med. care, prison, rehab)? @ -[No] Was there de-escalation of care discussed even if they declined (Discuss DNR or withdrawal of care, Hospice)? DNR status @ -[No] What co-morbidities impacted this encounter? (DM, HTN, Smoking, COPD, CAD, Cancer, CVA, ARF, Chemo, Hep., AIDS, mental health diagnosis, sleep apnea, morbid obesity)? @ -[Underlying lung cancer Was patient admitted / discharged? Hospital course, mention meds given and route, prescriptions, significant lab abnormalities, going to OR and other pertinent info. @ -[See above Undiagnosed new problem with uncertain prognosis? @ -[No] Drug Therapy requiring intensive monitoring for toxicity (Heparin, Nitro, Insulin, Cardizem)? @ -[No] Were any procedures done? @ -[No] Diagnosis/symptom? @ -[Bilateral lung cancer Paroxysmal cough Acute, or Chronic, or Acute on Chronic? @ -[Acute Uncomplicated (without systemic symptoms) or Complicated (systemic symptoms)? @ -[Uncomplicated Side effects of treatment? @ -[No] Exacerbation, Progression, or Severe Exacerbation? @ -[No] Poses a threat to life or bodily function? How? (Chest pain, [place], [place], pneumonia, PE, COPD, DKA, ARF, appy, cholecystitis, CVA, Diverticulitis, Homicidal, Suicidal, threat to staff... and all critical care pts) @ -[Yes - Lab Data Result diagrams: 05/02/23 22:11 05/02/23 22:11 Lab Results 05/02/23 05/02/23 05/02/23 Range/Units 22:11 22:11 22:11 WBC 10.3 (3.8-10.6) k/uL RBC 5.54 (4.30-5.90) m/uL Hgb 16.3 (13.0-17.5) gm/dL Hct 47.5 (39.0-53.0) % MCV 85.8 (80.0-100.0) fL MCH 29.4 (25.0-35.0) pg MCHC 34.3 (31.0-37.0) g/dL RDW 13.0 (11.5-15.5) % Plt Count 298 (150-450) k/uL MPV 8.3 Neutrophils % 73 % Lymphocytes % 14 % Monocytes % 9 % Eosinophils % 2 % Basophils % 1 % Neutrophils # 7.6 (1.3-7.7) k/uL Lymphocytes # 1.5 (1.0-4.8) k/uL Monocytes # 0.9 (0-1.0) k/uL Eosinophils # 0.2 (0-0.7) k/uL Basophils # 0.1 (0-0.2) k/uL PT 10.5 (10.0-12.5) sec INR 0.9 (<1.2) APTT 21.2 L (22.0-30.0) sec Sodium 139 (137-145) mmol/L Potassium 4.4 (3.5-5.1) mmol/L Chloride 107 (98-107) mmol/L Carbon Dioxide 24 (22-30) mmol/L Anion Gap 8 mmol/L BUN 16 (9-20) mg/dL Creatinine 0.58 L (0.66-1.25) mg/dL Est GFR (CKD-EPI)AfAm >90 (>60 ml/min/1.73 sqM) Est GFR (CKD-EPI)NonAf >90 (>60 ml/min/1.73 sqM) Glucose 274 H (74-99) mg/dL Plasma Lactic Acid Wicho (0.7-2.0) mmol/L Calcium 9.2 (8.4-10.2) mg/dL Total Bilirubin 0.5 (0.2-1.3) mg/dL AST 42 (17-59) U/L ALT 57 H (4-49) U/L Alkaline Phosphatase 176 H (38-126) U/L Troponin I (0.000-0.034) ng/mL NT-Pro-B Natriuret Pep <20 pg/mL Total Protein 6.4 (6.3-8.2) g/dL Albumin 3.9 (3.5-5.0) g/dL Influenza Type A (PCR) (Not Detectd) Influenza Type B (PCR) (Not Detectd) RSV (PCR) (Not Detectd) SARS-CoV-2 (PCR) (Not Detectd) 05/02/23 05/02/23 05/02/23 Range/Units 22:11 22:11 22:12 WBC (3.8-10.6) k/uL RBC (4.30-5.90) m/uL Hgb (13.0-17.5) gm/dL Hct (39.0-53.0) % MCV (80.0-100.0) fL MCH (25.0-35.0) pg MCHC (31.0-37.0) g/dL RDW (11.5-15.5) % Plt Count (150-450) k/uL MPV Neutrophils % % Lymphocytes % % Monocytes % % Eosinophils % % Basophils % % Neutrophils # (1.3-7.7) k/uL Lymphocytes # (1.0-4.8) k/uL Monocytes # (0-1.0) k/uL Eosinophils # (0-0.7) k/uL Basophils # (0-0.2) k/uL PT (10.0-12.5) sec INR (<1.2) APTT (22.0-30.0) sec Sodium (137-145) mmol/L Potassium (3.5-5.1) mmol/L Chloride (98-107) mmol/L Carbon Dioxide (22-30) mmol/L Anion Gap mmol/L BUN (9-20) mg/dL Creatinine (0.66-1.25) mg/dL Est GFR (CKD-EPI)AfAm (>60 ml/min/1.73 sqM) Est GFR (CKD-EPI)NonAf (>60 ml/min/1.73 sqM) Glucose (74-99) mg/dL Plasma Lactic Acid Wicho 1.8 (0.7-2.0) mmol/L Calcium (8.4-10.2) mg/dL Total Bilirubin (0.2-1.3) mg/dL AST (17-59) U/L ALT (4-49) U/L Alkaline Phosphatase (38-126) U/L Troponin I <0.012 (0.000-0.034) ng/mL NT-Pro-B Natriuret Pep pg/mL Total Protein (6.3-8.2) g/dL Albumin (3.5-5.0) g/dL Influenza Type A (PCR) Not Detected (Not Detectd) Influenza Type B (PCR) Not Detected (Not Detectd) RSV (PCR) Not Detected (Not Detectd) SARS-CoV-2 (PCR) Not Detected (Not Detectd) - EKG Data -: EKG Interpreted by Me EKG shows normal: sinus rhythm, axis (Normal), intervals (Normal), QRS complexes (Old inferior infarct) Rate: tachycardia (Rate 124 BPM) Disposition Clinical Impression: Non-small cell lung cancer (NSCLC), Hyperglycemia Disposition: HOME SELF-CARE Condition: Fair Instructions (If sedation given, give patient instructions): Lung Cancer (DC) Prescriptions: guaiFENesin-Coden 100-10MG/5ML [Robitussin AC] 5 - 10 ml PO Q6H PRN 3 Days #120 ml PRN Reason: Cough Is patient prescribed a controlled substance at d/c from ED?: Yes Referrals: Troy Michele MD [Primary Care Provider] - 1-2 days
[2023-05-02 22:17] LABS: Basophils # (A) 0.1 k/uL (0-0.2); Basophils % (A) 1 %; Eosinophils # (A) 0.2 k/uL (0-0.7); Eosinophils % (A) 2 %; HCT 47.5 % (39.0-53.0); HGB 16.3 gm/dL (13.0-17.5); Lymphocytes # (A) 1.5 k/uL (1.0-4.8); Lymphocytes % (A) 14 %; MCH 29.4 pg (25.0-35.0); MCHC 34.3 g/dL (31.0-37.0); MCV 85.8 fL (80.0-100.0); Mean Platelet Volume 8.3; Monocytes # (A) 0.9 k/uL (0-1.0); Monocytes % (A) 9 %; Neutrophils # (A) 7.6 k/uL (1.3-7.7); Neutrophils % (A) 73 %; Platelet Count 298 k/uL (150-450); RBC 5.54 m/uL (4.30-5.90); WBC 10.3 k/uL (3.8-10.6)
[2023-05-02] MEDS: MORPHINE SULFATE 4 MG/ML SYRINGE IV STA (22:17)
[2023-05-02 22:26] LABS: ALT 57 U/L (4-49); AST 42 U/L (17-59); African American GFR (CKD) >90 (>60 ml/min/1.73 sqM); Albumin 3.9 g/dL (3.5-5.0); Alkaline Phosphatase 176 U/L (38-126); Anion Gap 8 mmol/L; Blood Urea Nitrogen 16 mg/dL (9-20); Calcium 9.2 mg/dL (8.4-10.2); Carbon Dioxide 24 mmol/L (22-30); Chloride 107 mmol/L (98-107); Glucose 274 mg/dL (74-99); Non-African American GFR(CKD) >90 (>60 ml/min/1.73 sqM); Potassium 4.4 mmol/L (3.5-5.1); Sodium 139 mmol/L (137-145); Total Bilirubin 0.5 mg/dL (0.2-1.3); Total Protein 6.4 g/dL (6.3-8.2)
[2023-05-02 22:36] LABS: NT-Pro-B-Type Natriuretic Pept <20 pg/mL
[2023-05-02 22:47] LABS: INR 0.9 (<1.2); Prothrombin Time 10.5 sec (10.0-12.5)
[2023-05-02 22:51] LABS: Partial Thromboplastin Time 21.2 sec (22.0-30.0)
--- NOTE | 2023-05-02 22:56 | XR ---
EXAM: XR Chest, 1 View CLINICAL HISTORY: ITS.REASON XR Reason: dyspnea TECHNIQUE: Frontal view of the chest. COMPARISON: Exam performed earlier on the same date. .. FINDINGS: Lungs: Diffuse interstitial infiltrates. Unchanged from prior exam Pleural space: Unremarkable. No pneumothorax. Heart: Unremarkable. No cardiomegaly. Mediastinum: Unremarkable. Normal mediastinal contour. Bones/joints: Unremarkable. No acute fracture. Other findings: IMPRESSION: No change from prior exam
[2023-05-02] MEDS: guaiFENesin-Coden 100-10MG/5ML 10 ML CUP PO STA (23:57)
[2023-05-03 00:13] VITALS: BP 172/96
[2023-05-03] MEDS: guaiFENesin SYRUP 100MG/5ML 200 MG/10 ML CUP PO STA (02:12)
[2023-05-03] MEDS: ACET/COD 300 MG/30 MG STARTER PACK 6 TAB BTL PO STA (02:12)
[2023-05-03 02:35] VITALS: PULSE 110; RESP 24
== END 2023-05-03 02:21 | disposition home or self-care (01) ==
LOC: EC 21:38
DX: C34.90 Malignant neoplasm of unspecified part of unspecified bronchus or lung (principal); E78.5 Hyperlipidemia, unspecified; Z88.1 Allergy status to other antibiotic agents
CPT/HCPCS: 36415; 93005; 83880; 80053; 83605; 84484; 85025; 85610; 85730; 87636; 71045; 99285; 96374; J2270

== ENCOUNTER → 2023-06-30 | Outpatient (CLI) | payer BC ==
--- NOTE | 2023-07-02 10:47 | PE ---
EXAMINATION TYPE: PET CT fusion skull to thigh DATE OF EXAM: 06/30/2023 CLINICAL INDICATION:Male, 58 years old with history of C34.31 MALIGNANT NEOPLASM OF LOWER LOBE, RIGHT BRO; TECHNIQUE: Following the intravenous administration of 9.44 mCi of F-18 FDG, whole body images are performed from the skull base to the midthigh. Images are reviewed on the computer in the coronal, a xial, and sagittal planes. Reconstructed rotating images are created on independent workstation and reviewed on the computer. A non-contrast CT is performed in conjunction with the PET scan. Glucose level 137 mg/dL CT DLP: 756 mGycm, Automated exposure control for dose reduction was used. COMPARISON: CT 04/28/2023, PET/CT 04/07/2023, FINDINGS: Mediastinal SUV mean is 1.7. Hepatic parenchyma SUV mean is 2.6. SKULL BASE AND NECK: No suspicious radiotracer activity. CHEST, MEDIASTINUM, AND HILAR REGION: No suspicious radiotracer activity. * Significant decrease in FDG activity within the right lower lung previously consolidation changes measuring Max SUV 6.6. There is now a right pleural effusion. Mild uptake near the hilum max SUV 4.4 previously 6.3. * There is a decrease in the appearance of the diffuse nodular changes throughout the lung parenchym a. ABDOMEN AND PELVIS: No suspicious radiotracer activity. MUSCULOSKELETAL STRUCTURES: Scattered foci of uptake within the osseous structures including: C2 max SUV 5.4, 2.3 right rib one medially max SUV 4.8, previously 2.96 T10 vertebral body max SUV 5.7, previously Left iliac bone near the sacroiliac joint max SUV 6.9, previously 5.8, Sacrum max SUV 5.6, previously 5.3. Left proximal femur looks SUV 5.7, previously 4.2. Left iliac crest max SUV 5.8, previously 5.0. L2 vertebral body max SUV 8.9, previously 4.8. OTHER CT: The gallbladder surgically absent. Few scattered colonic diverticula. Heart is mildly enlar ged for size. IMPRESSION: Progression of osseous metastatic disease with positive response in the thorax with decrease in diffu se micronodular appearance and right lower lung FDG activity.
== END | disposition home or self-care (01) ==
LOC: RADPETMAIN 09:20
PROVIDERS: ATTEND Internal Medicine
DX: C34.31 Malignant neoplasm of lower lobe, right bronchus or lung (principal)
CPT/HCPCS: 78815; A9552

== ENCOUNTER 2023-07-13 08:47 | Day surgery (SDC) | payer BC ==
[2023-07-13 09:35] LABS: Mean Platelet Volume 8.3; Platelet Count 182 k/uL (150-450)
[2023-07-13 09:49] LABS: Prothrombin Time 10.9 sec (10.0-12.5)
[2023-07-13 09:54] VITALS: RESP 12; TEMP 97.7
--- NOTE | 2023-07-13 10:47 | US ---
EXAMINATION TYPE: US thoracentesis DATE OF EXAM: 07/13/2023 10:36 AM CLINICAL INDICATION:Male, 58 years old with history of J91.8 PLEURAL EFFUSION IN OTHER CONDITIONS CLA SSIF; COMPARISON: ATTENDING: Dr. Mik Jo PROCEDURE: Informed consent was obtained. The risks of the procedure were extensively explained incl uding risk of pneumothorax and need for chest tube placement. Procedure was performed in the Ultraso und procedure suite. Ultrasound imaging of the chest demonstrates right pleural effusion. An approp riate access site was localized to the posterior right pleural space. Timeout was taken per protocol. The skin was prepped and draped in the usual sterile fashion and then locally anesthetized with 1% lidocaine. The pleural cavity was then accessed via a 5-Cymraes one-step needle/catheter. Approximat miguel 630 cc of clear straw-colored fluid was obtained. Samples were sent to the lab for analysis. Pos tprocedural imaging of the chest demonstrate a decreased amount of pleural fluid. Patient tolerated procedure well without immediate complication. Hemostasis at the procedural site w as obtained with a sterile bandage placed. Immediate following the procedure, an inspiratory and expi ratory chest x-ray was reviewed. No post procedure pneumothorax was identified. The patient was monit ored in the holding area for approximately one hour following the procedure and was subsequently disc harged in stable condition. IMPRESSION: Ultrasound guided thoracentesis, with approximately 630 cc of clear straw-colored fluid drained. Pathology results pending. No immediate complications were evident.
[2023-07-13 10:52] VITALS: BP 138/85; PULSE 82
--- NOTE | 2023-07-13 10:52 | XR ---
EXAMINATION TYPE: XR chest 1V portable DATE OF EXAM: 07/13/2023 10:48 AM CLINICAL INDICATION:Male, 58 years old with history of post thoracentesis; COMPARISON: Chest radiographs from 05/02/2023 TECHNIQUE: XR chest 1V portable Frontal view of the chest. FINDINGS: Lungs/Pleura: There is no evidence of pleural effusion, focal consolidation, or pneumothorax. Pulmonary vascularity: Unremarkable. Heart/mediastinum: Cardiomediastinal silhouette is unremarkable. Musculoskeletal: No acute osseous pathology. IMPRESSION: No acute cardiopulmonary disease/process. No pneumothorax visualized.
== END 2023-07-13 10:50 | disposition home or self-care (01) ==
LOC: RADPROMAIN 08:47
PROVIDERS: ATTEND Internal Medicine
DX: J91.8 Pleural effusion in other conditions classified elsewhere (principal)
CPT/HCPCS: 32555; 36415; 71045; 82947; 85049; 85610; 87070; 87075; 87205; 88108; 88305

== ENCOUNTER 2023-09-27 17:34 | Observation (INO) | payer BC, MEDICARE ==
--- NOTE | 2023-09-27 18:07 | ED ---
General Adult HPI - General Chief complaint: Chest Pain Stated complaint: Chest pain Time Seen by Provider: 09/27/23 17:49 Source: patient, RN notes reviewed Mode of arrival: wheelchair Limitations: no limitations - History of Present Illness Initial comments: Patient is a 58-year-old male presenting to the emergency department with concerns with chest discomfort. Patient had some symptoms yesterday. Symptoms worsened several hours ago. Discomfort is 4 5/10. Discomfort feels like tightness. Minimal dyspnea. No nausea. No diaphoresis. Patient has had similar symptoms previously with negative workup. Patient also has history of metastatic non-small cell lung cancer - Related Data Home Medications Medication Instructions Recorded Confirmed Enalapril [Vasotec] 10 mg PO DAILY 10/01/20 09/27/23 Pravastatin Sodium [Pravachol] 10 mg PO DAILY 10/01/20 09/27/23 glipiZIDE [Glucotrol] 10 mg PO BID 10/01/20 09/27/23 metFORMIN HCL [Glucophage] 1,000 mg PO BID 10/01/20 09/27/23 Albuterol Sulfate [Albuterol 1 puff INHALATION RT-Q4H PRN 03/24/23 09/27/23 Sulfate Hfa] Cariprazine HCl [Vraylar] 3 mg PO DAILY 03/24/23 09/27/23 Dulaglutide [Trulicity] 3 mg SQ FR 03/24/23 09/27/23 sitaGLIPtin [Januvia] 100 mg PO DAILY 03/24/23 09/27/23 ALPRAZolam [Xanax] 1 mg PO BID 09/27/23 09/27/23 Calcium Carbonate [Calcium] 600 mg PO DAILY 09/27/23 09/27/23 Desvenlafaxine Succinate [Pristiq 50 mg PO DAILY 09/27/23 09/27/23 ER] Magnesium Oxide [Mag-Ox] 400 mg PO HS 09/27/23 09/27/23 Montelukast [Singulair] 10 mg PO DAILY 09/27/23 09/27/23 Mv-Min/Folic/K1/Lycopen/Lutein 1 tab PO DAILY 09/27/23 09/27/23 [Centrum Silver Men Tablet] Ondansetron [Zofran] 4 mg PO Q4H PRN 09/27/23 09/27/23 Osimertinib Mesylate [Tagrisso] 80 mg PO HS 09/27/23 09/27/23 Allergies Allergy/AdvReac Type Severity Reaction Status Date / Time Cephalosporins AdvReac Nausea & Verified 09/27/23 18:46 Vomiting & Diarrhea Review of Systems ROS Statement: Those systems with pertinent positive or pertinent negative responses have been documented in the HPI. ROS Other: All systems not noted in ROS Statement are negative. Constitutional: Denies: fever Eyes: Denies: eye pain ENT: Denies: ear pain Respiratory: Reports: as per HPI. Denies: cough Cardiovascular: Reports: as per HPI, chest pain Musculoskeletal: Denies: back pain Past Medical History Past Medical History: Cancer, Diabetes Mellitus, Hypertension, Sleep Apnea/CPAP/BIPAP Additional Past Medical History / Comment(s): diverticulitis, lung cancer treated with oral chemo History of Any Multi-Drug Resistant Organisms: C-DIFF Date of last positivie culture/infection: 1994 MDRO Source:: stool Past Surgical History: Bowel Resection, Hernia Repair, Orthopedic Surgery, Tonsillectomy Additional Past Surgical History / Comment(s): sigmoid colon, vasectomy, lung biospy Past Anesthesia/Blood Transfusion Reactions: No Reported Reaction Past Psychological History: Bipolar, Depression, Panic Disorder Smoking Status: Never smoker Past Alcohol Use History: None Reported Past Drug Use History: None Reported - Past Family History Mother Family Medical History: Cancer Additional Family Medical History / Comment(s): Cancer history Father Family Medical History: Coronary Artery Disease (CAD) Additional Family Medical History / Comment(s): Heart Disease General Exam Limitations: no limitations General appearance: alert, in no apparent distress Head exam: Present: normocephalic Eye exam: Present: normal appearance Neck exam: Present: normal inspection Respiratory exam: Present: normal lung sounds bilaterally. Absent: chest wall tenderness Cardiovascular Exam: Present: regular rate, normal rhythm, normal heart sounds Expanded Peripheral pulses: 2+: Radial (R), Radial (L), Dorsalis Pedis (R), Dorsalis Ped is (L) GI/Abdominal exam: Present: soft. Absent: tenderness Extremities exam: Present: normal inspection. Absent: pedal edema, calf tenderness Neurological exam: Present: alert Psychiatric exam: Present: normal affect, normal mood Skin exam: Present: normal color Course Vital Signs 09/27/23 09/27/23 09/27/23 17:36 17:45 17:47 Temperature 98.4 F Pulse Rate 108 H 96 Pulse Rate [ 96 Lighting Engineering Technician ] Respiratory 20 18 Rate Blood Pressure 144/91 150/96 O2 Sat by Pulse 98 97 Oximetry 09/27/23 09/27/23 18:13 18:44 Temperature 99.4 F Pulse Rate 98 95 Pulse Rate [ Lighting Engineering Technician ] Respiratory 18 16 Rate Blood Pressure 136/90 150/92 O2 Sat by Pulse 97 97 Oximetry EKG Findings - EKG Results: EKG: interpreted by ERMD (Q waves with inverted T wave in lead III), sinus rhythm, normal axis, normal ST/T Medical Decision Making - Medical Decision Making Was pt. sent in by a medical professional or institution (, PA, ADVERTISING PHOTOGRAPHER, urgent c are, hospital, or retirement...) When possible be specific @ -No Did you speak to anyone other than the patient for history (EMS, parent, family, police, friend...)? What history was obtained from this source @ -Family is present and helps provide history including symptoms and past medical history Did you review nursing and triage notes (agree or disagree)? Why? @ -I reviewed and agree with nursing and triage notes Were old charts reviewed (outside hosp., previous admission, EMS record, old EKG, old radiological studies, urgent care reports/EKG's, retirement records)? Report findings @ -Multiple previous chest x-rays reviewed Differential Diagnosis (chest pain, altered mental status, abdominal pain women, abdominal pain men, vaginal bleeding, weakness, fever, dyspnea, syncope, headache, dizziness, GI bleed, back pain, seizure, CVA, palpatations, mental health, musculoskeletal)? @ -Differential Chest Pain: Stable Angina, Unstable Angina, STEMI, NSTEMI Aortic Dissection, Pneumothorax, Musculoskeletal, Esophageal Spasm GERD, Cholecystitis, Pancreatitis, Zoster, this is not meant to be an all-inclusive list. EKG interpreted by me (3pts min.). @ -As above X-rays interpreted by me (1pt min.). @ -X-ray shows questionable changes right lower lobe CT interpreted by me (1pt min.). @ -None done U/S interpreted by me (1pt. min.). @ -None done What testing was considered but not performed or refused? (CT, X-rays, U/S, labs)? Why? @ -Dimer pending What meds were considered but not given or refused? Why? @ -None Did you discuss the management of the patient with other professionals (professionals i.e. , PA, ADVERTISING PHOTOGRAPHER, lab, RT, psych nurse, social welfare administrator, corporation lawyer, teacher, dog license officer supervisor, ed case manager)? Give summary @ -Dr. Lozano will admit covering Dr. Berrios Was smoking cessation discussed for >3mins.? @ -No Was critical care preformed (if so, how long)? @ -No Were there social determinants of health that impacted care today? How? (Homelessness, low income, unemployed, alcoholism, drug addiction, transportation, low edu. Level, literacy, decrease access to med. care, [facility], rehab)? @ -No Was there de-escalation of care discussed even if they declined (Discuss DNR or withdrawal of care, Hospice)? DNR status @ -No What co-morbidities impacted this encounter? (DM, HTN, Smoking, COPD, CAD, Cancer, CVA, ARF, Chemo, Hep., AIDS, mental health diagnosis, sleep apnea, morbid obesity)? @ -Lung cancer Was patient admitted / discharged? Hospital course, mention meds given and route, prescriptions, significant lab abnormalities, going to OR and other pertinent info. @ -Patient presents with chest discomfort. Patient will be admitted with cardiac consult. Admission orders written. Undiagnosed new problem with uncertain prognosis? @ -No Drug Therapy requiring intensive monitoring for toxicity (Heparin, Nitro, Insulin, Cardizem)? @ -No Were any procedures done? @ -No Diagnosis/symptom? @ -Chest pain Acute, or Chronic, or Acute on Chronic? @ -Acute Uncomplicated (without systemic symptoms) or Complicated (systemic symptoms)? @ -Default Side effects of treatment? @ -No Exacerbation, Progression, or Severe Exacerbation? @ -No Poses a threat to life or bodily function? How? (Chest pain, [place], [place], pneumonia, PE, COPD, DKA, ARF, appy, cholecystitis, CVA, Diverticulitis, Homicidal, Suicidal, threat to staff... and all critical care pts) @ -Back to cardiac function - Lab Data Result diagrams: 09/27/23 18:08 09/27/23 18:08 Lab Results 09/27/23 09/27/23 09/27/23 Range/Units 18:08 18:08 18:08 WBC 8.2 (3.8-10.6) k/uL RBC 5.92 H (4.30-5.90) m/uL Hgb 16.2 (13.0-17.5) gm/dL Hct 48.6 (39.0-53.0) % MCV 82.2 (80.0-100.0) fL MCH 27.4 (25.0-35.0) pg MCHC 33.4 (31.0-37.0) g/dL RDW 13.6 (11.5-15.5) % Plt Count 202 (150-450) k/uL MPV 7.8 Neutrophils % 74 % Lymphocytes % 15 % Monocytes % 8 % Eosinophils % 2 % Basophils % 0 % Neutrophils # 6.1 (1.3-7.7) k/uL Lymphocytes # 1.2 (1.0-4.8) k/uL Monocytes # 0.7 (0-1.0) k/uL Eosinophils # 0.1 (0-0.7) k/uL Basophils # 0.0 (0-0.2) k/uL Sodium 137 (137-145) mmol/L Potassium 4.2 (3.5-5.1) mmol/L Chloride 103 (98-107) mmol/L Carbon Dioxide 24 (22-30) mmol/L Anion Gap 10 mmol/L BUN 13 (9-20) mg/dL Creatinine 0.67 (0.66-1.25) mg/dL Est GFR (CKD-EPI)AfAm >90 (>60 ml/min/1.73 sqM) Est GFR (CKD-EPI)NonAf >90 (>60 ml/min/1.73 sqM) Glucose 217 H (74-99) mg/dL Calcium 9.7 (8.4-10.2) mg/dL Magnesium 1.7 (1.6-2.3) mg/dL Total Bilirubin 1.0 (0.2-1.3) mg/dL AST 28 (17-59) U/L ALT 29 (4-49) U/L Alkaline Phosphatase 96 (38-126) U/L Troponin I <0.012 (0.000-0.034) ng/mL Total Protein 7.1 (6.3-8.2) g/dL Albumin 4.6 (3.5-5.0) g/dL Disposition Clinical Impression: Chest pain Disposition: ADMITTED IP TO THIS HOSP Is patient prescribed a controlled substance at d/c from ED?: No Referrals: Troy Michele MD [Primary Care Provider] - 1-2 days Time of Disposition: 19:01
[2023-09-27] MEDS: ASPIRIN 81 MG PO STA ×2 (18:11→19:18)
[2023-09-27] MEDS: NITROGLYCERIN OINT 1 INCH/GM PACKET TOPICAL STA (18:12)
[2023-09-27 18:28] LABS: Basophils % (A) 0 %; Eosinophils # (A) 0.1 k/uL (0-0.7); Eosinophils % (A) 2 %; HCT 48.6 % (39.0-53.0); HGB 16.2 gm/dL (13.0-17.5); Lymphocytes # (A) 1.2 k/uL (1.0-4.8); Lymphocytes % (A) 15 %; MCH 27.4 pg (25.0-35.0); MCHC 33.4 g/dL (31.0-37.0); MCV 82.2 fL (80.0-100.0); Mean Platelet Volume 7.8; Monocytes # (A) 0.7 k/uL (0-1.0); Monocytes % (A) 8 %; Neutrophils # (A) 6.1 k/uL (1.3-7.7); Neutrophils % (A) 74 %; Platelet Count 202 k/uL (150-450); RBC 5.92 m/uL (4.30-5.90); RDW 13.6 % (11.5-15.5); WBC 8.2 k/uL (3.8-10.6)
[2023-09-27 18:38] LABS: ALT 29 U/L (4-49); AST 28 U/L (17-59); African American GFR (CKD) >90 (>60 ml/min/1.73 sqM); Albumin 4.6 g/dL (3.5-5.0); Alkaline Phosphatase 96 U/L (38-126); Anion Gap 10 mmol/L; Blood Urea Nitrogen 13 mg/dL (9-20); Calcium 9.7 mg/dL (8.4-10.2); Carbon Dioxide 24 mmol/L (22-30); Chloride 103 mmol/L (98-107); Glucose 217 mg/dL (74-99); Magnesium 1.7 mg/dL (1.6-2.3); Non-African American GFR(CKD) >90 (>60 ml/min/1.73 sqM); Potassium 4.2 mmol/L (3.5-5.1); Sodium 137 mmol/L (137-145); Total Protein 7.1 g/dL (6.3-8.2)
--- NOTE | 2023-09-27 18:47 | XR ---
EXAMINATION TYPE: XR chest 2V DATE OF EXAM: 09/27/2023 6:29 PM CLINICAL INDICATION:Male, 58 years old with history of Chest Pain; [facility] COMPARISON: Chest radiographs from TECHNIQUE: XR chest 2V Frontal and lateral views of the chest. FINDINGS: Lungs/Pleura: Moderate right pleural effusion and associated atelectasis/consolidation in the right l mino base. Left lung is grossly clear Pulmonary vascularity: Unremarkable. Heart/mediastinum: Cardiomediastinal silhouette is unremarkable. Musculoskeletal: No acute osseous pathology. Other findings: None Lines/Tubes: IMPRESSION: Moderate right pleural effusion with associated atelectasis/consolidation in the right lung base
[2023-09-27 18:52] LABS: Partial Thromboplastin Time 26.5 sec (22.0-30.0); Prothrombin Time 10.8 sec (10.0-12.5)
[2023-09-27] MEDS ORDERED: ALBUTEROL NEBULIZED 2.5 MG/3 ML INHALATION PRN (19:01)
[2023-09-27] MEDS ORDERED: ONDANSETRON 4 MG TAB PO PRN (19:01)
[2023-09-27] MEDS ORDERED: NITROGLYCERIN SL TABS 0.4 MG TAB SUBLINGUAL PRN (19:02)
[2023-09-27] MEDS ORDERED: OSIMERTINIB MESYLATE 80 MG PO SCH (21:00)
[2023-09-27] MEDS: metFORMIN 500 MG TAB PO SCH (21:20)
[2023-09-27] MEDS: ALPRAZolam 1 MG TAB PO SCH (21:20)
[2023-09-27] MEDS: OSIMERTINIB MESYLATE 80 MG PO SCH (21:21)
[2023-09-27] MEDS: MAGNESIUM OXIDE 400 MG TAB PO SCH (21:21)
[2023-09-27] MEDS: glipiZIDE 10 MG TAB PO SCH (21:21)
--- NOTE | 2023-09-27 21:35 | CT ---
EXAMINATION TYPE: CT angio chest CT DLP: 428.8 mGycm, Automated exposure control for dose reduction was used. DATE OF EXAM: 09/27/2023 8:51 PM COMPARISON: Chest radiograph from same day. Multiple CTs of the chest with most recent on . CLINICAL INDICATION:Male, 58 years old with history of cp; Chest pressure and SOB, hx of lung Ca. TECHNIQUE/CONTRAST: CTA scan of the thorax is performed with IV Contrast, patient injected with 80 cc mL of Isovue 370, M IP images are created and reviewed these are created on a separate workstation.. FINDINGS: Pulmonary Artery: There is no evidence for a filling defect within the pulmonary vasculature to sugge st acute pulmonary embolism. The pulmonary artery is of normal size. Lungs/Pleura: Moderate right pleural effusion with associated small volume atelectasis in the right l mino base. No pneumothorax. Left lung is clear. Patchy, hazy subtle groundglass pneumonia throughou t the right lung. Airway: Large airways are patent. Heart: Heart is within normal limits for size. Vasculature: No evidence of aortic aneurysm. Mediastinum: No gross evidence of adenopathy. Musculoskeletal: No acute osseous abnormalities Soft Tissues: Unremarkable. Lower neck: No significant findings. Upper Abdomen: No significant findings. IMPRESSION: 1. No evidence of pulmonary embolism. 2. Peripheral groundglass pulmonary opacities consistent with atypical pulmonary infection such as CO VID-19 and several other etiologies. Moderate size right pleural effusion with associated atelectasis in the right base..
[2023-09-27] MEDS: NITROGLYCERIN OINT 1 INCH/GM PACKET TOPICAL SCH (23:37)
[2023-09-27 23:41] VITALS: TEMP 98
[2023-09-28 06:24] VITALS: RESP 18
[2023-09-28] MEDS ORDERED: PATIENT'S OWN (Cariprazine Hcl [Vraylar] 3 MG Capsule) PO SCH (09:00)
[2023-09-28] MEDS: PRAVASTATIN SODIUM 20 MG TAB PO SCH (09:17)
[2023-09-28] MEDS: MULTIVITAMINS, THERA 1 EACH TAB PO SCH (09:19)
[2023-09-28] MEDS: CALCIUM CARBONATE 500 MG CHEWABLE PO SCH (09:19)
[2023-09-28] MEDS: MONTELUKAST 10 MG TAB PO SCH (09:19)
[2023-09-28] MEDS: LINAGLIPTIN 5 MG TABLET PO SCH (09:20)
[2023-09-28] MEDS: ASPIRIN 325 MG TAB PO SCH (09:20)
[2023-09-28] MEDS: lisinopriL 20 MG TAB PO SCH (09:20)
[2023-09-28] MEDS: DESVENLAFAXINE SUCCINATE 50 MG TAB.ER.24H PO SCH (09:21)
[2023-09-28] MEDS: PATIENT'S OWN (Cariprazine Hcl [Vraylar] 3 MG Capsule) PO SCH (09:24)
--- NOTE | 2023-09-28 10:58 | P.CRDCN ---
History of Present Illness History of present illness: This is Dr. Berrios dictating a consult on this patient The patient was interviewed and examined IMPRESSION / ASSESSMENT: Chest discomfort for the last 2 days and severe pain upon admission Serial EKGs are normal Serial cardiac enzymes are normal Stage IV lung cancer on chemotherapy PLAN: From a cardiac standpoint the patient has not had an acute myocardial infarction. He may eat He has a mildly abnormal CT of the chest and the workup and evaluation will be deferred to the medical team From a cardiac standpoint outpatient workup would be appropriate Nitropaste removed by me. If he has any more chest pain an EKG should be performed If his EKG is unchanged without any new ST segment abnormalities this is further evidence that this is not an acute coronary syndrome History patient has been has been experiencing constant chest discomfort for the last 2 days. It let up again and then came back and was quite severe lasting for a few hours Despite that his EKG was normal 3 cardiac enzymes are normal and a follow-up EKG has been normal He is completely comfortable at this time ROS: No fever chills or rigors, no cough, phlegm or expectoration, no nausea, vomiting or diarrhea, no hematuria, dysuria, no musculoskeletal complaints, no strokes or seizures, no skin lesions. EXAMINATION: Blood pressure Normal heart sounds Clear lungs No JVD No orthopnea Looks comfortable REVIEW OF LABS, ECG & MEDICAL DATA EKG Normal cardiac enzymes Past Medical History Past Medical History: Cancer, Diabetes Mellitus, Hypertension, Sleep Apnea/CPAP/BIPAP Additional Past Medical History / Comment(s): diverticulitis, lung cancer treated with oral chemo History of Any Multi-Drug Resistant Organisms: C-DIFF Date of last positivie culture/infection: 1994 MDRO Source:: stool Past Surgical History: Bowel Resection, Hernia Repair, Orthopedic Surgery, Tonsillectomy Additional Past Surgical History / Comment(s): sigmoid colon, vasectomy, lung biospy Past Anesthesia/Blood Transfusion Reactions: No Reported Reaction Past Psychological History: Bipolar, Depression, Panic Disorder Smoking Status: Never smoker Past Alcohol Use History: None Reported Past Drug Use History: None Reported - Past Family History Mother Family Medical History: Cancer Additional Family Medical History / Comment(s): Cancer history Father Family Medical History: Coronary Artery Disease (CAD) Additional Family Medical History / Comment(s): Heart Disease Medications and Allergies Home Medications Medication Instructions Recorded Confirmed Type Enalapril [Vasotec] 10 mg PO DAILY 10/01/20 09/27/23 History Pravastatin Sodium [Pravachol] 10 mg PO DAILY 10/01/20 09/27/23 History glipiZIDE [Glucotrol] 10 mg PO BID 10/01/20 09/27/23 History metFORMIN HCL [Glucophage] 1,000 mg PO BID 10/01/20 09/27/23 History Albuterol Sulfate [Albuterol 1 puff INHALATION RT-Q4H PRN 03/24/23 09/27/23 History Sulfate Hfa] Cariprazine HCl [Vraylar] 3 mg PO DAILY 03/24/23 09/27/23 History Dulaglutide [Trulicity] 3 mg SQ FR 03/24/23 09/27/23 History sitaGLIPtin [Januvia] 100 mg PO DAILY 03/24/23 09/27/23 History ALPRAZolam [Xanax] 1 mg PO BID 09/27/23 09/27/23 History Calcium Carbonate [Calcium] 600 mg PO DAILY 09/27/23 09/27/23 History Desvenlafaxine Succinate [Pristiq 50 mg PO DAILY 09/27/23 09/27/23 History ER] Magnesium Oxide [Mag-Ox] 400 mg PO HS 09/27/23 09/27/23 History Montelukast [Singulair] 10 mg PO DAILY 09/27/23 09/27/23 History Mv-Min/Folic/K1/Lycopen/Lutein 1 tab PO DAILY 09/27/23 09/27/23 History [Centrum Silver Men Tablet] Ondansetron [Zofran] 4 mg PO Q4H PRN 09/27/23 09/27/23 History Osimertinib Mesylate [Tagrisso] 80 mg PO HS 09/27/23 09/27/23 History Allergies Allergy/AdvReac Type Severity Reaction Status Date / Time Cephalosporins AdvReac Nausea & Verified 09/27/23 18:46 Vomiting & Diarrhea Physical Exam Vitals: Vital Signs Temp Pulse Pulse Resp BP Pulse Ox 09/28/23 08:14 96 09/28/23 06:20 98.0 F 96 18 106/57 97 09/28/23 02:57 99 17 102/62 96 09/27/23 23:40 98.0 F 96 16 124/79 97 09/27/23 21:23 103 H 18 119/85 96 09/27/23 19:29 97.7 F 98 17 135/87 95 09/27/23 18:44 95 16 150/92 97 09/27/23 18:13 99.4 F 98 18 136/90 97 09/27/23 17:47 96 18 150/96 97 09/27/23 17:45 96 09/27/23 17:36 98.4 F 108 H 20 144/91 98 Intake and Output 09/27/23 09/28/23 09/28/23 22:59 06:59 14:59 Output Total 400 Balance -400 Output: Urine 400 Other: Weight 90.718 kg Results 09/27/23 18:08 09/27/23 18:08 Cardiac Enzymes 09/27/23 09/27/23 09/27/23 Range/Units 18:08 18:08 21:44 AST 28 (17-59) U/L Troponin I <0.012 <0.012 (0.000-0.034) ng/mL 09/28/23 Range/Units 01:44 AST (17-59) U/L Troponin I <0.012 (0.000-0.034) ng/mL Coagulation 09/27/23 Range/Units 18:08 PT 10.8 (10.0-12.5) sec APTT 26.5 (22.0-30.0) sec Lipids 09/28/23 Range/Units 01:45 Triglycerides 281.00 H (0.00-149.00) mg/dL Cholesterol 173.00 (0.00-200.00) mg/dL HDL Cholesterol 36.80 L (40.00-60.00) mg/dL Cholesterol/HDL Ratio 4.70 Ratio CBC 09/27/23 Range/Units 18:08 WBC 8.2 (3.8-10.6) k/uL RBC 5.92 H (4.30-5.90) m/uL Hgb 16.2 (13.0-17.5) gm/dL Hct 48.6 (39.0-53.0) % Plt Count 202 (150-450) k/uL Comprehensive Metabolic Panel 09/27/23 Range/Units 18:08 Sodium 137 (137-145) mmol/L Potassium 4.2 (3.5-5.1) mmol/L Chloride 103 (98-107) mmol/L Carbon Dioxide 24 (22-30) mmol/L BUN 13 (9-20) mg/dL Creatinine 0.67 (0.66-1.25) mg/dL Glucose 217 H (74-99) mg/dL Calcium 9.7 (8.4-10.2) mg/dL AST 28 (17-59) U/L ALT 29 (4-49) U/L Alkaline Phosphatase 96 (38-126) U/L Total Protein 7.1 (6.3-8.2) g/dL Albumin 4.6 (3.5-5.0) g/dL Current Medications Generic Name Dose Route Start Last Admin Trade Name Freq PRN Reason Stop Dose Admin Albuterol Sulfate 2.5 mg 09/27/23 19:01 Albuterol Nebulized 2.5 Mg/3 Ml INHALATION RT-Q4H PRN Shortness Of Breath Alprazolam 1 mg 09/27/23 21:00 09/27/23 21:20 Alprazolam 1 Mg Tab PO 1 mg BID [facility] Administration Aspirin 325 mg 09/28/23 09:00 Aspirin 325 Mg Tab PO DAILY [facility] Calcium Carbonate/Glycine 500 mg 09/28/23 09:00 Calcium Carbonate 500 Mg Chewable PO DAILY [facility] Desvenlafaxine Succinate 50 mg 09/28/23 09:00 Desvenlafaxine Succinate 50 Mg Tab.Er.24h PO DAILY [facility] Glipizide 10 mg 09/27/23 20:00 09/27/23 21:21 Glipizide 10 Mg Tab PO 10 mg BID-W/MEALS [facility] Administration Linagliptin 5 mg 09/28/23 09:00 Linagliptin 5 Mg Tablet PO DAILY [facility] Lisinopril 20 mg 09/28/23 09:00 Lisinopril 20 Mg Tab PO DAILY [facility] Magnesium Oxide 400 mg 09/27/23 21:00 09/27/23 21:21 Magnesium Oxide 400 Mg Tab PO 400 mg HS [facility] Administration Metformin HCl 1,000 mg 09/27/23 21:00 09/27/23 21:20 Metformin 500 Mg Tab PO 1,000 mg BID [facility] Administration Montelukast Sodium 10 mg 09/28/23 09:00 Montelukast 10 Mg Tab PO DAILY [facility] Multivitamins 1 each 09/28/23 09:00 Multivitamins, Thera 1 Each Tab PO DAILY [facility] Nitroglycerin 0.4 mg 09/27/23 19:02 Nitroglycerin Sl Tabs 0.4 Mg Tab SUBLINGUAL Q5M PRN Chest Pain Nitroglycerin 1 inch 09/28/23 00:00 09/28/23 06:25 Nitroglycerin Oint 1 Inch/Gm Packet TOPICAL 1 inch Q6HR [facility] Administration Patient's Own ( 3 mg 09/30/23 09:00 Dulaglutide [ SQ Trulicity] 3 Mg/0.5 FR [facility] Ml Each) Patient's Own ( 80 mg 09/27/23 21:00 09/27/23 21:21 Osimertinib Mesylate PO 80 mg [Tagrisso] 80 Mg HS [facility] Administration Tablet) Patient's Own ( 3 mg 09/28/23 09:00 Cariprazine Hcl [ PO Vraylar] 3 Mg DAILY [facility] Capsule) Ondansetron HCl 4 mg 09/27/23 19:01 Ondansetron 4 Mg Tab PO Q4H PRN Nausea And Vomiting Pravastatin Sodium 10 mg 09/28/23 09:00 Pravastatin Sodium 20 Mg Tab PO DAILY [facility] Intake and Output 09/27/23 09/28/23 09/28/23 22:59 06:59 14:59 Output Total 400 Balance -400 Output: Urine 400 Other: Weight 90.718 kg 09/27/23 18:08 09/27/23 18:08
[2023-09-28 13:18] VITALS: BP 124/84; PULSE 103
--- NOTE | 2023-09-28 16:15 | P.HPIM ---
History of Present Illness H&P Date: 09/28/23 Chief Complaint: Chest pain This is a pleasant 58-year-old patient who follows with Dr. Michele. Chronic stable medical conditions include diabetes mellitus type 2, hypertension, obstructive sleep apnea uses CPAP, diverticulosis, ankylosing spondylosis causing lower back pain depression. 1989 he was positive for TB skin test did receive 6 months of INH. . Non- smoker. Home oxygen 2 L. Stage IV pulmonary adenocarcinoma. Has had at least 3 episodes of 3 thoracentesis. PET scan [July 02, 2023] progression of osseous metastatic disease with positive response of the thorax with decrease in the diffuse micronodular appearance in right lower lung FDG activity. Patient's appetite is fair. Able to get around the house. No trouble with bowel movements. No pain. No cough. Presents with 2 days of intermittent anterior chest pain. No radiation. No dizziness no lightheadedness. No fever no chills. No perspiration. Review of systems: GEN.: Tired, EYES: None HEENT: None NECK: None RESPIRATORY: Some shortness of breath baseline CARDIOVASCULAR: As above GASTROINTESTINAL: None GENITOURINARY: None MUSCULOSKELETAL: Chronic low back pain LYMPHATICS: None HEMATOLOGICAL: None PSYCHIATRY: Anxious NEUROLOGICAL: None Past medical history to include: Diabetes, hypertension, obstructive sleep apnea uses CPAP, depression, and ankylosing spondylosis. 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 Physical examination: VITAL SIGNS: 98.4, 108, 20, 144/91, 98% on 3 L-initial presentation GENERAL: Reclining in bed, a bit tired EYES: Pupils equal. Conjunctiva normal. HEENT: External appearance of nose and ears normal, oral cavity grossly normal. NECK: JVD not raised; masses not palpable. HEART: First and second heart sounds are normal; no edema. LUNGS: Respiratory rate ; , diminished breath sounds ABDOMEN: Soft, nontender, liver spleen not palpable, no masses palpable. PSYCH: Alert and oriented x3; mood and affect, normal NEUROLOGICAL: Cranial nerves grossly intact; no facial asymmetry, power and sensation grossly intact. LYMPHATICS: No lymph nodes palpable in the axilla and neck INVESTIGATIONS, reviewed in the clinical context: September 26: White count 8.2 hemoglobin 16.2 platelets 202 sodium 137 potassium 4.2 creatinine 0.67 Troponin I less than 0.012 x 3 LDL 80.0 EKG tracing personally reviewed by me-normal sinus rhythm. Chest CTA: Negative for PE. Peripheral groundglass pulmonary opacity. Moderate size right pleural effusion. With atelectasis Assessment and plan: -Anterior chest wall pain. Somewhat atypical. Could be musculoskeletal. Troponin negative. PE ruled out. Cardiology consulted. -Moderate right-sided pleural effusion with atelectasis secondary underlying adenocarcinoma Patient is had 3 thoracentesis done -Chronic hypoxic respiratory failure on 2 L oxygen at home from underlying malignancy and COPD -Metastatic/stage IV-Pulmonary adenocarcinoma Dr. Juan Beverly following. PET scan in June of this year showed some progression of the bone disease and decrease in the pulmonary disease MRI brain: Unremarkable Patient on-Tagrisso, -COPD in a non-smoker DuoNeb, Symbicort -Diabetes mellitus type 2, oral hypoglycemic, uncontrolled with hyperglycemia from steroids Glucophage, Januvia Follow Accu-Cheks with sliding scale. Glipizide -Essential hypertension Vasotec 10 mg daily -Hyperlipidemia Pravachol 10 mg daily at bedtime -Depression not otherwise specified Pristiq. Vraylar, -Chronic ankylosing spondylitis primarily affecting the lumbar spine. With muscle spasms Pain medication as needed. Carbamazepine -Obstructive sleep apnea Continue CPAP -Full code Care was discussed with the patient and . Cardiology was consulted. Past Medical History Past Medical History: Cancer, Diabetes Mellitus, Hypertension, Sleep Apnea/ CPAP/BIPAP Additional Past Medical History / Comment(s): diverticulitis, lung cancer treated with oral chemo History of Any Multi-Drug Resistant Organisms: C-DIFF Date of last positivie culture/infection: 1994 MDRO Source:: stool Past Surgical History: Bowel Resection, Hernia Repair, Orthopedic Surgery, Tonsillectomy Additional Past Surgical History / Comment(s): sigmoid colon, vasectomy, lung biospy Past Anesthesia/Blood Transfusion Reactions: No Reported Reaction Past Psychological History: Bipolar, Depression, Panic Disorder Smoking Status: Never smoker Past Alcohol Use History: None Reported Past Drug Use History: None Reported - Past Family History Mother Family Medical History: Cancer Additional Family Medical History / Comment(s): Cancer history Father Family Medical History: Coronary Artery Disease (CAD) Additional Family Medical History / Comment(s): Heart Disease Medications and Allergies Home Medications Medication Instructions Recorded Confirmed Type Enalapril [Vasotec] 10 mg PO DAILY 10/01/20 09/27/23 History Pravastatin Sodium [Pravachol] 10 mg PO DAILY 10/01/20 09/27/23 History glipiZIDE [Glucotrol] 10 mg PO BID 10/01/20 09/27/23 History metFORMIN HCL [Glucophage] 1,000 mg PO BID 10/01/20 09/27/23 History Albuterol Sulfate [Albuterol 1 puff INHALATION RT-Q4H PRN 03/24/23 09/27/23 History Sulfate Hfa] Cariprazine HCl [Vraylar] 3 mg PO DAILY 03/24/23 09/27/23 History Dulaglutide [Trulicity] 3 mg SQ FR 03/24/23 09/27/23 History sitaGLIPtin [Januvia] 100 mg PO DAILY 03/24/23 09/27/23 History ALPRAZolam [Xanax] 1 mg PO BID 09/27/23 09/27/23 History Calcium Carbonate [Calcium] 600 mg PO DAILY 09/27/23 09/27/23 History Desvenlafaxine Succinate [Pristiq 50 mg PO DAILY 09/27/23 09/27/23 History ER] Magnesium Oxide [Mag-Ox] 400 mg PO HS 09/27/23 09/27/23 History Montelukast [Singulair] 10 mg PO DAILY 09/27/23 09/27/23 History Mv-Min/Folic/K1/Lycopen/Lutein 1 tab PO DAILY 09/27/23 09/27/23 History [Centrum Silver Men Tablet] Ondansetron [Zofran] 4 mg PO Q4H PRN 09/27/23 09/27/23 History Osimertinib Mesylate [Tagrisso] 80 mg PO HS 09/27/23 09/27/23 History Allergies Allergy/AdvReac Type Severity Reaction Status Date / Time Cephalosporins AdvReac Nausea & Verified 09/27/23 18:46 Vomiting & Diarrhea Physical Exam Vitals: Vital Signs Temp Pulse Pulse Resp BP Pulse Ox 09/28/23 13:00 103 H 18 124/84 98 09/28/23 11:00 96 18 124/83 96 09/28/23 09:16 86 18 117/77 96 09/28/23 08:14 96 09/28/23 06:20 98.0 F 96 18 106/57 97 09/28/23 02:57 99 17 102/62 96 09/27/23 23:40 98.0 F 96 16 124/79 97 09/27/23 21:23 103 H 18 119/85 96 09/27/23 19:29 97.7 F 98 17 135/87 95 09/27/23 18:44 95 16 150/92 97 09/27/23 18:13 99.4 F 98 18 136/90 97 09/27/23 17:47 96 18 150/96 97 09/27/23 17:45 96 09/27/23 17:36 98.4 F 108 H 20 144/91 98 Intake and Output 09/27/23 09/28/23 09/28/23 22:59 06:59 14:59 Output Total 400 Balance -400 Output: Urine 400 Other: Weight 90.718 kg Results CBC & Chem 7: 09/27/23 18:08 09/27/23 18:08 Labs: Abnormal Lab Results - Last 24 Hours (Table) 09/27/23 09/27/23 09/27/23 Range/Units 18:08 18:08 18:08 RBC 5.92 H (4.30-5.90) m/uL D-Dimer 0.65 H (<0.60) mg/L FEU Glucose 217 H (74-99) mg/dL Triglycerides (0.00-149.00) mg/dL VLDL Cholesterol, Calc (5.00-40.00) mg/dL HDL Cholesterol (40.00-60.00) mg/dL 09/28/23 Range/Units 01:45 RBC (4.30-5.90) m/uL D-Dimer (<0.60) mg/L FEU Glucose (74-99) mg/dL Triglycerides 281.00 H (0.00-149.00) mg/dL VLDL Cholesterol, Calc 56.20 H (5.00-40.00) mg/dL HDL Cholesterol 36.80 L (40.00-60.00) mg/dL
--- NOTE | 2023-09-28 22:28 | P.DS ---
Providers Date of admission: 09/27/23 19:04 Expected date of discharge: 09/28/23 Attending physician: Rodney Lozano Consults: 09/27/23 19:02 Consult Physician Urgent Consulting Provider: Jemal Johnson Consult Reason/Comments: cp Do you want consulting provider notified?: Yes Primary care physician: [facility] Course: Chief Complaint: Chest pain This is a pleasant 58-year-old patient who follows with Dr. Michele. Chronic stable medical conditions include diabetes mellitus type 2, hypertension, obstructive sleep apnea uses CPAP, diverticulosis, ankylosing spondylosis causing lower back pain depression. 1989 he was positive for TB skin test did receive 6 months of INH. . Non- smoker. Home oxygen 2 L. Stage IV pulmonary adenocarcinoma. Has had at least 3 episodes of 3 thoracentesis. PET scan [July 02, 2023] progression of osseous metastatic disease with positive response of the thorax with decrease in the diffuse micronodular appearance in right lower lung FDG activity. Patient's appetite is fair. Able to get around the house. No trouble with bowel movements. No pain. No cough. Presents with 2 days of intermittent anterior chest pain. No radiation. No dizziness no lightheadedness. No fever no chills. No perspiration. Patient seen by Dr. Ronaldo Berrios per cardiology. Cleared for discharge. PE was ruled out. Possible musculoskeletal pain. Care was discussed at length with the patient at the bedside. Keen to go home. Follow-up with her oncologist. And follow-up with Dr. Ronaldo Berrios. Past medical history to include: Diabetes, hypertension, obstructive sleep apnea uses CPAP, depression, and ankylosing spondylosis. 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 Physical examination: VITAL SIGNS: 98.4, 108, 20, 144/91, 98% on 3 L-initial presentation GENERAL: Reclining in bed, a bit tired EYES: Pupils equal. Conjunctiva normal. HEENT: External appearance of nose and ears normal, oral cavity grossly normal. NECK: JVD not raised; masses not palpable. HEART: First and second heart sounds are normal; no edema. LUNGS: Respiratory rate ; , diminished breath sounds ABDOMEN: Soft, nontender, liver spleen not palpable, no masses palpable. PSYCH: Alert and oriented x3; mood and affect, normal NEUROLOGICAL: Cranial nerves grossly intact; no facial asymmetry, power and sensation grossly intact. LYMPHATICS: No lymph nodes palpable in the axilla and neck INVESTIGATIONS, reviewed in the clinical context: September 26: White count 8.2 hemoglobin 16.2 platelets 202 sodium 137 potassium 4.2 creatinine 0.67 Troponin I less than 0.012 x 3 LDL 80.0 EKG tracing personally reviewed by me-normal sinus rhythm. Chest CTA: Negative for PE. Peripheral groundglass pulmonary opacity. Moderate size right pleural effusion. With atelectasis Assessment and plan: -Anterior chest wall pain. Somewhat atypical. Could be musculoskeletal. Troponin negative. PE ruled out. Seen and cleared by cardiology Dr. Ronaldo Berrios.-Follow-up outpatient. -Moderate right-sided pleural effusion with atelectasis secondary underlying adenocarcinoma Patient is had 3 thoracentesis done -Chronic hypoxic respiratory failure on 2 L oxygen at home from underlying malignancy and COPD -Metastatic/stage IV-Pulmonary adenocarcinoma Dr. Juan Beverly following. PET scan in June of this year showed some progression of the bone disease and decrease in the pulmonary disease MRI brain: Unremarkable Patient on-Tagrisso, -COPD in a non-smoker DuoNeb, Symbicort -Diabetes mellitus type 2, oral hypoglycemic, uncontrolled with hyperglycemia from steroids Glucophage, Januvia Follow Accu-Cheks with sliding scale. Glipizide -Essential hypertension Vasotec 10 mg daily -Hyperlipidemia Pravachol 10 mg daily at bedtime -Depression not otherwise specified Pristiq. Vraylar, -Chronic ankylosing spondylitis primarily affecting the lumbar spine. With muscle spasms Pain medication as needed. Carbamazepine -Obstructive sleep apnea Continue CPAP -Full code Disposition: Home Past Medical History Past Medical History: Cancer, Diabetes Mellitus, Hypertension, Sleep Apnea/CPAP/BIPAP Additional Past Medical History / Comment(s): diverticulitis, lung cancer treated with oral chemo History of Any Multi-Drug Resistant Organisms: C-DIFF Date of last positivie culture/infection: 1994 MDRO Source:: stool Past Surgical History: Bowel Resection, Hernia Repair, Orthopedic Surgery, Tonsillectomy Additional Past Surgical History / Comment(s): sigmoid colon, vasectomy, lung biospy Past Anesthesia/Blood Transfusion Reactions: No Reported Reaction Past Psychological History: Bipolar, Depression, Panic Disorder Smoking Status: Never smoker Past Alcohol Use History: None Reported Past Drug Use History: None Reported Plan - Discharge Summary New Discharge Prescriptions: Continue metFORMIN HCL [Glucophage] 1,000 mg PO BID Pravastatin Sodium [Pravachol] 10 mg PO DAILY Albuterol Sulfate [Albuterol Sulfate Hfa] 1 puff INHALATION RT-Q4H PRN PRN Reason: Shortness Of Breath Cariprazine HCl [Vraylar] 3 mg PO DAILY Dulaglutide [Trulicity] 3 mg SQ FR ALPRAZolam [Xanax] 1 mg PO BID Magnesium Oxide [Mag-Ox] 400 mg PO HS Osimertinib Mesylate [Tagrisso] 80 mg PO HS glipiZIDE [Glucotrol] 10 mg PO BID Enalapril [Vasotec] 10 mg PO DAILY sitaGLIPtin [Januvia] 100 mg PO DAILY Mv-Min/Folic/K1/Lycopen/Lutein [Centrum Silver Men Tablet] 1 tab PO DAILY Calcium Carbonate [Calcium] 600 mg PO DAILY Ondansetron [Zofran] 4 mg PO Q4H PRN PRN Reason: Nausea And Vomiting Montelukast [Singulair] 10 mg PO DAILY Desvenlafaxine Succinate [Pristiq ER] 50 mg PO DAILY Discharge Medication List Enalapril [Vasotec] 10 mg PO DAILY 10/01/20 [History] Pravastatin Sodium [Pravachol] 10 mg PO DAILY 10/01/20 [History] glipiZIDE [Glucotrol] 10 mg PO BID 10/01/20 [History] metFORMIN HCL [Glucophage] 1,000 mg PO BID 10/01/20 [History] Albuterol Sulfate [Albuterol Sulfate Hfa] 1 puff INHALATION RT-Q4H PRN 03/24/23 [History] Cariprazine HCl [Vraylar] 3 mg PO DAILY 03/24/23 [History] Dulaglutide [Trulicity] 3 mg SQ FR 03/24/23 [History] sitaGLIPtin [Januvia] 100 mg PO DAILY 03/24/23 [History] ALPRAZolam [Xanax] 1 mg PO BID 09/27/23 [History] Calcium Carbonate [Calcium] 600 mg PO DAILY 09/27/23 [History] Desvenlafaxine Succinate [Pristiq ER] 50 mg PO DAILY 09/27/23 [History] Magnesium Oxide [Mag-Ox] 400 mg PO HS 09/27/23 [History] Montelukast [Singulair] 10 mg PO DAILY 09/27/23 [History] Mv-Min/Folic/K1/Lycopen/Lutein [Centrum Silver Men Tablet] 1 tab PO DAILY 09/27/23 [History] Ondansetron [Zofran] 4 mg PO Q4H PRN 09/27/23 [History] Osimertinib Mesylate [Tagrisso] 80 mg PO HS 09/27/23 [History] Follow up Appointment(s)/Referral(s): Raza Berrios MD [STAFF PHYSICIAN] - 3 Weeks Darcy Beverly MD [STAFF PHYSICIAN] - 10/17/23 Troy Michele MD [Primary Care Provider] - 1-2 days Discharge Disposition: HOME SELF-CARE
[2023-09-30] MEDS ORDERED: PATIENT'S OWN (Dulaglutide [Trulicity] 3 MG/0.5 ML Each) SQ SCH (09:00)
== END 2023-09-28 17:20 | disposition home or self-care (01) ==
LOC: EC 17:34 → 6NMEDSUR 19:04
PROVIDERS: ADMIT Hospitalist; ATTEND Hospitalist
DX: R07.89 Other chest pain (principal); J90 Pleural effusion, not elsewhere classified; J98.11 Atelectasis; J44.9 Chronic obstructive pulmonary disease, unspecified; J96.11 Chronic respiratory failure with hypoxia; I10 Essential (primary) hypertension; G47.33 Obstructive sleep apnea (adult) (pediatric); F41.0 Panic disorder [episodic paroxysmal anxiety]; F31.9 Bipolar disorder, unspecified; E11.65 Type 2 diabetes mellitus with hyperglycemia; E78.5 Hyperlipidemia, unspecified; M45.6 Ankylosing spondylitis lumbar region; Z85.118 Personal history of other malignant neoplasm of bronchus and lung; Z92.21 Personal history of antineoplastic chemotherapy; Z99.81 Dependence on supplemental oxygen; Z79.84 Long term (current) use of oral hypoglycemic drugs; Z79.85 Long-term (current) use of injectable non-insulin antidiabetic drugs; Z79.899 Other long term (current) drug therapy; Z88.1 Allergy status to other antibiotic agents
CPT/HCPCS: 99285; 36415; 94760; 93005 ×2; 85379; 80061; 80053; 83735; 84484 ×2; 85025; 85610; 85730; 71046; 71275; G0378 ×2; Q9967

== ENCOUNTER → 2023-10-06 | Outpatient (CLI) | payer BC, MEDICARE | END | disposition home or self-care (01) | LOC: RADECHMAIN 11:00 | PROVIDERS: ATTEND Internal Medicine | DX: C34.90 Malignant neoplasm of unspecified part of unspecified bronchus or lung (principal); R51.9 Headache, unspecified; E11.9 Type 2 diabetes mellitus without complications; Z80.8 Family history of malignant neoplasm of other organs or systems | CPT/HCPCS: 93306 ==

== ENCOUNTER 2023-12-12 00:17 | Inpatient (IN) | payer MEDICARE ==
--- NOTE | 2023-12-12 00:48 | ED ---
General Adult HPI - General Chief complaint: Upper Respiratory Infection Stated complaint: Cough, body aches Time Seen by Provider: 12/12/23 00:46 Source: patient, family (), RN notes reviewed Mode of arrival: ambulatory Limitations: no limitations - History of Present Illness Initial comments: 58-year-old male presented to the ER with a chief complaint of chills and cough. Patient has a past medical history significant of lung cancer and is currently undergoing oral chemotherapy with Dr. Beverly. Patient states for the past 2- 1/2 days he has been feeling ill with bodyaches, cough, sore throat. Denies any fevers at home. He has been taking [id number]-[id number] Mucinex, Tylenol and nebulized albuterol without relief. He denies any difficulty breathing, chest pain, abdominal pain, constipation/diarrhea, urinary complaints or peripheral edema. - Related Data Home Medications Medication Instructions Recorded Confirmed Enalapril [Vasotec] 10 mg PO DAILY 10/01/20 09/27/23 Pravastatin Sodium [Pravachol] 10 mg PO DAILY 10/01/20 09/27/23 glipiZIDE [Glucotrol] 10 mg PO BID 10/01/20 09/27/23 metFORMIN HCL [Glucophage] 1,000 mg PO BID 10/01/20 09/27/23 Albuterol Sulfate [Albuterol 1 puff INHALATION RT-Q4H PRN 03/24/23 09/27/23 Sulfate Hfa] Cariprazine HCl [Vraylar] 3 mg PO DAILY 03/24/23 09/27/23 Dulaglutide [Trulicity] 3 mg SQ FR 03/24/23 09/27/23 sitaGLIPtin [Januvia] 100 mg PO DAILY 03/24/23 09/27/23 ALPRAZolam [Xanax] 1 mg PO BID 09/27/23 09/27/23 Calcium Carbonate [Calcium] 600 mg PO DAILY 09/27/23 09/27/23 Desvenlafaxine Succinate [Pristiq 50 mg PO DAILY 09/27/23 09/27/23 ER] Magnesium Oxide [Mag-Ox] 400 mg PO HS 09/27/23 09/27/23 Montelukast [Singulair] 10 mg PO DAILY 09/27/23 09/27/23 Mv-Min/Folic/K1/Lycopen/Lutein 1 tab PO DAILY 09/27/23 09/27/23 [Centrum Silver Men Tablet] Ondansetron [Zofran] 4 mg PO Q4H PRN 09/27/23 09/27/23 Osimertinib Mesylate [Tagrisso] 80 mg PO HS 09/27/23 09/27/23 Allergies Allergy/AdvReac Type Severity Reaction Status Date / Time Cephalosporins AdvReac Nausea & Verified 12/12/23 00:18 Vomiting & Diarrhea Review of Systems ROS Statement: Those systems with pertinent positive or pertinent negative responses have been documented in the HPI. ROS Other: All systems not noted in ROS Statement are negative. Past Medical History Past Medical History: Cancer, Diabetes Mellitus, Hypertension, Sleep Apnea/CPAP/BIPAP Additional Past Medical History / Comment(s): diverticulitis, lung cancer treated with oral chemo History of Any Multi-Drug Resistant Organisms: C-DIFF Date of last positivie culture/infection: 1994 MDRO Source:: stool Past Surgical History: Bowel Resection, Hernia Repair, Orthopedic Surgery, Tonsillectomy Additional Past Surgical History / Comment(s): sigmoid colon, vasectomy, lung biospy Past Anesthesia/Blood Transfusion Reactions: No Reported Reaction Past Psychological History: Bipolar, Depression, Panic Disorder Smoking Status: Never smoker Past Alcohol Use History: None Reported Past Drug Use History: None Reported - Past Family History Mother Family Medical History: Cancer Additional Family Medical History / Comment(s): Cancer history Father Family Medical History: Coronary Artery Disease (CAD) Additional Family Medical History / Comment(s): Heart Disease General Exam Limitations: no limitations General appearance: alert, in no apparent distress ENT exam: Present: normal exam, normal oropharynx, mucous membranes moist, TM's normal bilaterally Neck exam: Present: normal inspection, lymphadenopathy (left neck) Respiratory exam: Present: wheezes (right lung) Cardiovascular Exam: Present: normal rhythm, tachycardia, normal heart sounds Extremities exam: Present: normal inspection, full ROM, normal capillary refill. Absent: tenderness, pedal edema, joint swelling, calf tenderness Neurological exam: Present: alert, oriented X3, CN II-XII intact Skin exam: Present: warm, dry, intact, normal color. Absent: rash Course Vital Signs 12/12/23 12/12/23 00:18 01:25 Temperature 100 F H Pulse Rate 124 H Respiratory 21 18 Rate Blood Pressure 142/83 O2 Sat by Pulse 95 Oximetry - Reevaluation(s) Reevaluation #1: 12/12/23 02:24 SIRS criteria at 00:59 12/12/23 02:25 Antibiotics ordered at 2:21 Medical Decision Making - Medical Decision Making Was pt. sent in by a medical professional or institution (, PA, AIRPORT CLERK, urgent care, hospital, or longterm...) When possible be specific @ -No Did you speak to anyone other than the patient for history (EMS, parent, family, police, friend...)? What history was obtained from this source @ -, at bedside, aiding in HPI and past medical history. Did you review nursing and triage notes (agree or disagree)? Why? @ -I reviewed and agree with nursing and triage notes Were old charts reviewed (outside hosp., previous admission, EMS record, old EKG, old radiological studies, urgent care reports/EKG's, longterm records)? Report findings @ -No old charts were reviewed Differential Diagnosis (chest pain, altered mental status, abdominal pain women, abdominal pain men, vaginal bleeding, weakness, fever, dyspnea, syncope, headache, dizziness, GI bleed, back pain, seizure, CVA, palpatations, mental health, musculoskeletal)? @ -Differential Fever:Pneumonia, viral URI, endocarditis, myocarditis, pericarditis, otitis, sinusitis, peritonsillar Abscess, retropharyngeal Abscess, epiglottitis, peritonitis, appendicitis, Gris cystitis, diverticulitis, hepatitis, colitis, UTI, PID, TOA, pyelonephritis, prostatitis, epididymitis, meningitis, encephalitis, pulmonary embolism, CVA, thyroid storm, pancreatitis, adrenal crisis, cavernous sinus thrombosis, this is not meant to be an all- inclusive list. EKG interpreted by me (3pts min.). @ -As above X-rays interpreted by me (1pt min.). @ -CXR right upper lobe opacity concerning of pneumonia CT interpreted by me (1pt min.). @ -None done U/S interpreted by me (1pt. min.). @ -None done What testing was considered but not performed or refused? (CT, X-rays, U/S, labs)? Why? @ -None What meds were considered but not given or refused? Why? @ -None Did you discuss the management of the patient with other professionals (professionals i.e. , PA, AIRPORT CLERK, lab, RT, psych nurse, social science professor, medical front desk coordinator, teacher, home lending officer, onsite case manager)? Give summary @ -Case discussed with [facility] for admission. Was smoking cessation discussed for >3mins.? @ -No Was critical care preformed (if so, how long)? @ -No Were there social determinants of health that impacted care today? How? (Homelessness, low income, unemployed, alcoholism, drug addiction, transportation, low edu. Level, literacy, decrease access to med. care, halfway, rehab)? @ -No Was there de-escalation of care discussed even if they declined (Discuss DNR or withdrawal of care, Hospice)? DNR status @ -No What co-morbidities impacted this encounter? (DM, HTN, Smoking, COPD, CAD, Cancer, CVA, ARF, Chemo, Hep., AIDS, mental health diagnosis, sleep apnea, morbid obesity)? @ -Lung cancer, hypertension, diabetes Was patient admitted / discharged? Hospital course, mention meds given and route, prescriptions, significant lab abnormalities, going to OR and other pertinent info. @ - Admitted. 58-year-old male with a past medical history of hypertension, diabetes and non-small cell lung cancer currently undergoing chemotherapy presen steven the ER with a chief complaint of cough, congestion and feeling unwell x 2.5 days. History and physical exam completed. Patient is febrile upon arrival at 100, heart rate 124, respirate 21, blood pressure 142/83, oxygen saturation 95% on room air. No signs of acute distress but ill-appearing on exam. Face and chest x-ray will be obtained. Laboratory studies remarkable for leukocytosis of 13.7 with a left shift. CMP unremarkable. Hyperglycemic at 222. Alk phos elevated likely due to patient's lung cancer with metastasis diagnosis. Viral swabs and strep negative. Chest x-ray concerning of pneumonia. 2 L IV fluids and Tylenol with resolution of fever and tachycardia. Patient met sepsis criteria at 00: 59. Admission considered and discussed with [facility] treatment of pneumonia. Blood cultures obtained. Levofloxacin ordered at 2:21. Maintenance fluids at 130/h. Patient agreeable for admission. Oncology on consult. Patient admitted in stable condition with for further evaluation and treatment. Case discussed with ED attending, Carolina Delatorre. Undiagnosed new problem with uncertain prognosis? @ -No Drug Therapy requiring intensive monitoring for toxicity (Heparin, Nitro, Insulin, Cardizem)? @ -No Were any procedures done? @ -No Diagnosis/symptom? @ -Pneumonia/sepsis/lung cancer Acute, or Chronic, or Acute on Chronic? @ -Acute Uncomplicated (without systemic symptoms) or Complicated (systemic symptoms)? @ -Complicated Side effects of treatment? @ -No Exacerbation, Progression, or Severe Exacerbation? @ -No Poses a threat to life or bodily function? How? (Chest pain, [place], [place], pneumonia, PE, COPD, DKA, ARF, appy, cholecystitis, CVA, Diverticulitis, Homicidal, Suicidal, threat to staff... and all critical care pts) @ -Yes, sepsis can lead to endorgan dysfunction. Patient also has cancer. - Lab Data Result diagrams: 12/12/23 00:45 12/12/23 00:45 Lab Results 12/12/23 12/12/23 12/12/23 Range/Units 00:28 00:45 00:45 WBC 13.7 H (3.8-10.6) k/uL RBC 5.75 (4.30-5.90) m/uL Hgb 15.6 (13.0-17.5) gm/dL Hct 47.3 (39.0-53.0) % MCV 82.2 (80.0-100.0) fL MCH 27.0 (25.0-35.0) pg MCHC 32.9 (31.0-37.0) g/dL RDW 13.8 (11.5-15.5) % Plt Count 207 (150-450) k/uL MPV 8.2 Neutrophils % 83 % Lymphocytes % 9 % Monocytes % 6 % Eosinophils % 1 % Basophils % 0 % Neutrophils # 11.3 H (1.3-7.7) k/uL Lymphocytes # 1.2 (1.0-4.8) k/uL Monocytes # 0.9 (0-1.0) k/uL Eosinophils # 0.1 (0-0.7) k/uL Basophils # 0.0 (0-0.2) k/uL Sodium 141 (137-145) mmol/L Potassium 4.0 (3.5-5.1) mmol/L Chloride 107 (98-107) mmol/L Carbon Dioxide 24 (22-30) mmol/L Anion Gap 10 mmol/L BUN 10 (9-20) mg/dL Creatinine 0.73 (0.66-1.25) mg/dL Est GFR (CKD-EPI)AfAm >90 (>60 ml/min/1.73 sqM) Est GFR (CKD-EPI)NonAf >90 (>60 ml/min/1.73 sqM) Glucose 222 H (74-99) mg/dL Plasma Lactic Acid Wicho (0.7-2.0) mmol/L Calcium 9.8 (8.4-10.2) mg/dL Total Bilirubin 1.1 (0.2-1.3) mg/dL AST 27 (17-59) U/L ALT 27 (4-49) U/L Alkaline Phosphatase 147 H (38-126) U/L Total Protein 6.6 (6.3-8.2) g/dL Albumin 4.2 (3.5-5.0) g/dL Influenza Type A (PCR) Not Detected (Not Detectd) Influenza Type B (PCR) Not Detected (Not Detectd) RSV (PCR) Not Detected (Not Detectd) SARS-CoV-2 (PCR) Not Detected (Not Detectd) Group A Strep (PCR) (Not Detectd) 12/12/23 12/12/23 Range/Units 00:45 00:45 WBC (3.8-10.6) k/uL RBC (4.30-5.90) m/uL Hgb (13.0-17.5) gm/dL Hct (39.0-53.0) % MCV (80.0-100.0) fL MCH (25.0-35.0) pg MCHC (31.0-37.0) g/dL RDW (11.5-15.5) % Plt Count (150-450) k/uL MPV Neutrophils % % Lymphocytes % % Monocytes % % Eosinophils % % Basophils % % Neutrophils # (1.3-7.7) k/uL Lymphocytes # (1.0-4.8) k/uL Monocytes # (0-1.0) k/uL Eosinophils # (0-0.7) k/uL Basophils # (0-0.2) k/uL Sodium (137-145) mmol/L Potassium (3.5-5.1) mmol/L Chloride (98-107) mmol/L Carbon Dioxide (22-30) mmol/L Anion Gap mmol/L BUN (9-20) mg/dL Creatinine (0.66-1.25) mg/dL Est GFR (CKD-EPI)AfAm (>60 ml/min/1.73 sqM) Est GFR (CKD-EPI)NonAf (>60 ml/min/1.73 sqM) Glucose (74-99) mg/dL Plasma Lactic Acid Wicho 2.0 (0.7-2.0) mmol/L Calcium (8.4-10.2) mg/dL Total Bilirubin (0.2-1.3) mg/dL AST (17-59) U/L ALT (4-49) U/L Alkaline Phosphatase (38-126) U/L Total Protein (6.3-8.2) g/dL Albumin (3.5-5.0) g/dL Influenza Type A (PCR) (Not Detectd) Influenza Type B (PCR) (Not Detectd) RSV (PCR) (Not Detectd) SARS-CoV-2 (PCR) (Not Detectd) Group A Strep (PCR) NOT DETECTED (Not Detectd) - EKG Data -: EKG Interpreted by Me EKG Comments: Gait taken at 00: 5 3 showing a sinus tachycardia. No acute ST segment. I nverted T waves in lead III. Ventricular rate 106, NH interval 159, QRS duration 106, QT/QTc 337/399 - Radiology Data Radiology results: report reviewed, image reviewed Disposition Clinical Impression: Pneumonia, Non-small cell lung cancer (NSCLC), Sepsis Disposition: ADMITTED IP TO THIS HOSP Condition: Stable Referrals: Troy Michele MD [Primary Care Provider] - 1-2 days Time of Disposition: 02:19
[2023-12-12] MEDS: ACETAMINOPHEN TAB 500 MG TAB PO STA (01:03)
[2023-12-12] MEDS: SODIUM CHLORIDE 0.9% 1,000 ML IV STA ×3 (01:04→03:45)
[2023-12-12 01:22] LABS: Basophils % (A) 0 %; Eosinophils # (A) 0.1 k/uL (0-0.7); Eosinophils % (A) 1 %; HCT 47.3 % (39.0-53.0); HGB 15.6 gm/dL (13.0-17.5); Lymphocytes # (A) 1.2 k/uL (1.0-4.8); Lymphocytes % (A) 9 %; MCHC 32.9 g/dL (31.0-37.0); MCV 82.2 fL (80.0-100.0); Mean Platelet Volume 8.2; Monocytes # (A) 0.9 k/uL (0-1.0); Monocytes % (A) 6 %; Neutrophils # (A) 11.3 k/uL (1.3-7.7); Neutrophils % (A) 83 %; Platelet Count 207 k/uL (150-450); RBC 5.75 m/uL (4.30-5.90); RDW 13.8 % (11.5-15.5); WBC 13.7 k/uL (3.8-10.6)
[2023-12-12 01:44] LABS: ALT 27 U/L (4-49); AST 27 U/L (17-59); African American GFR (CKD) >90 (>60 ml/min/1.73 sqM); Albumin 4.2 g/dL (3.5-5.0); Alkaline Phosphatase 147 U/L (38-126); Anion Gap 10 mmol/L; Blood Urea Nitrogen 10 mg/dL (9-20); Calcium 9.8 mg/dL (8.4-10.2); Carbon Dioxide 24 mmol/L (22-30); Chloride 107 mmol/L (98-107); Glucose 222 mg/dL (74-99); Non-African American GFR(CKD) >90 (>60 ml/min/1.73 sqM); Sodium 141 mmol/L (137-145); Total Bilirubin 1.1 mg/dL (0.2-1.3); Total Protein 6.6 g/dL (6.3-8.2)
--- NOTE | 2023-12-12 02:01 | XR ---
EXAM: XR Chest, 2 Views CLINICAL HISTORY: ITS.REASON XR Reason: fever hx lung cancer TECHNIQUE: Frontal and lateral views of the chest. COMPARISON: 10/14/23 FINDINGS: Lungs: Patchy right upper lung zone opacities. Left lung appears clear. Pleural space: Unremarkable. No pleural effusion or pneumothorax. Heart: Unremarkable. No cardiomegaly or pulmonary vascular congestion. Bones/joints: No acute fracture. No dislocation. IMPRESSION: Patchy right upper lung zone opacities. Correlate clinically for pneumonia.
[2023-12-12] MEDS ORDERED: ONDANSETRON 4 MG/2 ML VIAL IVP PRN (02:20)
[2023-12-12] MEDS ORDERED: NALOXONE 0.4 MG/ML 1 ML VIAL IV PRN (02:20)
[2023-12-12] MEDS ORDERED: SODIUM CHLORIDE 0.9% 1,000 ML IV SCH (02:30)
[2023-12-12] MEDS: LEVOFLOXACIN 750MG-D5W PMX 750 MG in DEXTROSE/WATER 1 150ML.BAG IVPB STA (02:42)
[2023-12-12] MEDS: MORPHINE SULFATE 2 MG/ML SYRINGE IVP STA (03:44)
--- NOTE | 2023-12-12 11:35 | P.HPIM ---
History of Present Illness History of present illness; 58-year-old male with past medical history of NSCLC, diabetes mellitus, hypertension, and sleep apnea (on CPAP) presents with complaints of cough and chills. Of note patient is currently undergoing chemo therapy with Dr. Benz for his NSCLC. Patient reports for the last 2 days he has been feeling under the weather with cough, sore throat, and bodyaches. Patient denies having any fevers. Patient reports he has been trying to take cppi-hon-kifgpld medications including Tylenol and Mucinex as well as his home nebulized albuterol without any relief in symptoms. Patient denies SOB, chest pain, abdominal pain, constipation/diarrhea, dysuria, or peripheral edema. Initial lab work from the ER was significant for WBC 13.7, neutrophils 11.3, glucose 222, alkaline phosphatase 147. Influenza type A and B, RSV, COVID, and group A strep all NEGATIVE. EKG done in the ER showed heart rate of 106 bpm, no ST segment elevation or depression seen, no T-wave inversions seen. Sinus tach with low QRS voltage, incomplete right bundle branch block, inferior [place] of indeterminate age. ER CXR: Patchy right upper lung zone opacities. Patient admitted to internal medicine service REVIEW OF SYSTEMS: CONSTITUTIONAL: No fever, no malaise, no fatigue. HEENT: No recent visual problems or hearing problems. Denied any sore throat. CARDIOVASCULAR: No chest pain, orthopnea, PND, no palpitations, no syncope. PULMONARY: No shortness of breath, admits to cough and sore throat, no hemoptysis. GASTROINTESTINAL: No diarrhea, no nausea, no vomiting, no abdominal pain. NEUROLOGICAL: No headaches, no weakness, no numbness. HEMATOLOGICAL: Denies any bleeding or petechiae. GENITOURINARY: Denies any burning micturition, frequency, or urgency. MUSCULOSKELETAL/RHEUMATOLOGICAL: Denies any joint pain, swelling, or any muscle pain. ENDOCRINE: Denies any polyuria or polydipsia. The rest of the 14-point review of systems is negative. PHYSICAL EXAMINATION: GENERAL: The patient is alert and oriented x3, not in any acute distress. Well developed, well nourished. HEENT: Pupils are round and equally reacting to light. EOMI. No scleral icterus. No conjunctival pallor. Normocephalic, atraumatic. No pharyngeal erythema. No thyromegaly. CARDIOVASCULAR: S1 and S2 present. No murmurs, rubs, or gallops. PULMONARY: Decreased breath sounds bilaterally ABDOMEN: Soft, nontender, nondistended, normoactive bowel sounds. No palpable organomegaly. MUSCULOSKELETAL: No joint swelling or deformity. EXTREMITIES: No cyanosis, clubbing, or pedal edema. NEUROLOGICAL: Gross neurological examination did not reveal any focal deficits. SKIN: No rashes. Assessment & Plan: Acute: #Right upper lobe pneumonia: Gram-negative versus postobstructive pneumonia Viral panel and group A strep all negative Ordered sputum and blood cultures, follow-up results Patient received one-time dose of Levaquin 750 mg IVPB ID on consult, appreciate further recommendations in regards to potential an tibiotic coverage Chronic: #History of NSCLC: Oncology on consult, currently recommend continuing current chemotherapy regimen Tagrisso 80 mg Continue to monitor #Type 2 diabetes: Started on insulin sliding scale Accu-Cheks #Hypertension: Continue home medications #Sleep apnea: Continue to monitor F: NS 50 cc/h E: None N: Consistent carb diet A: Normally ambulates at home unassisted DVT ppx: Lovenox 40 SQ daily GI ppx: Protonix 40 mg p.o. Dispo: Pending clinical course Juan David Moody MD PGY-1 FM Dictation was produced using [employer] dictation software. please excuse any grammatical, word or spelling errors. Past Medical History Past Medical History: Cancer, Diabetes Mellitus, Hypertension, Sleep Apnea /CPAP/BIPAP Additional Past Medical History / Comment(s): diverticulitis, lung cancer treated with oral chemo History of Any Multi-Drug Resistant Organisms: C-DIFF Date of last positivie culture/infection: 1994 MDRO Source:: stool Past Surgical History: Bowel Resection, Hernia Repair, Orthopedic Surgery, Tonsillectomy Additional Past Surgical History / Comment(s): sigmoid colon, vasectomy, lung biospy Past Anesthesia/Blood Transfusion Reactions: No Reported Reaction Past Psychological History: Bipolar, Depression, Panic Disorder Smoking Status: Never smoker Past Alcohol Use History: None Reported Past Drug Use History: None Reported - Past Family History Mother Family Medical History: Cancer Additional Family Medical History / Comment(s): Cancer history Father Family Medical History: Coronary Artery Disease (CAD) Additional Family Medical History / Comment(s): Heart Disease Medications and Allergies Home Medications Medication Instructions Recorded Confirmed Type Enalapril [Vasotec] 10 mg PO DAILY 10/01/20 12/12/23 History Pravastatin Sodium [Pravachol] 10 mg PO DAILY 10/01/20 12/12/23 History glipiZIDE [Glucotrol] 10 mg PO BID 10/01/20 12/12/23 History metFORMIN HCL [Glucophage] 1,000 mg PO BID 10/01/20 12/12/23 History Albuterol Sulfate [Albuterol 1 puff INHALATION RT-Q4H PRN 03/24/23 12/12/23 History Sulfate Hfa] Cariprazine HCl [Vraylar] 3 mg PO DAILY 03/24/23 12/12/23 History sitaGLIPtin [Januvia] 100 mg PO DAILY 03/24/23 12/12/23 History ALPRAZolam [Xanax] 1 mg PO BID 09/27/23 12/12/23 History Desvenlafaxine Succinate [Pristiq 50 mg PO DAILY 09/27/23 12/12/23 History ER] Magnesium Oxide [Mag-Ox] 400 mg PO HS 09/27/23 12/12/23 History Montelukast [Singulair] 10 mg PO DAILY 09/27/23 12/12/23 History Mv-Min/Folic/K1/Lycopen/Lutein 1 tab PO DAILY 09/27/23 12/12/23 History [Centrum Silver Men Tablet] Ondansetron [Zofran] 4 mg PO Q4H PRN 09/27/23 12/12/23 History Osimertinib Mesylate [Tagrisso] 80 mg PO HS 09/27/23 12/12/23 History Allergies Allergy/AdvReac Type Severity Reaction Status Date / Time Cephalosporins AdvReac Nausea & Verified 12/12/23 07:18 Vomiting & Diarrhea Physical Exam Vitals: Vital Signs Temp Pulse Pulse Resp BP BP Pulse Ox 12/12/23 08:33 92 L 12/12/23 07:29 98.1 F 90 16 131/77 92 L 12/12/23 05:59 90 16 132/84 90 L 12/12/23 05:00 98.7 F 12/12/23 04:37 100 18 143/84 92 L 12/12/23 02:30 92 20 143/87 94 L 12/12/23 01:25 18 12/12/23 00:18 100 F H 124 H 21 142/83 95 Intake and Output 12/11/23 12/12/23 12/12/23 22:59 06:59 14:59 Other: Weight 90.718 kg Results CBC & Chem 7: 12/12/23 00:45 12/12/23 00:45 Labs: Abnormal Lab Results - Last 24 Hours (Table) 12/12/23 12/12/23 Range/Units 00:45 00:45 WBC 13.7 H (3.8-10.6) k/uL Neutrophils # 11.3 H (1.3-7.7) k/uL Glucose 222 H (74-99) mg/dL Alkaline Phosphatase 147 H (38-126) U/L
[2023-12-12] MEDS ORDERED: ALBUTEROL HFA INHALER INHALATION PRN (11:44)
[2023-12-12] MEDS ORDERED: IPRATROPIUM-ALBUTEROL 3 ML NEB INHALATION PRN (11:46)
[2023-12-12] MEDS ORDERED: DEXTROSE 50% SYRINGE 50 ML IVP PRN ×2 (11:49)
[2023-12-12 12:04] LABS: Glucose,Whole Blood 134 mg/dL (70-110)
[2023-12-12] MEDS: MULTIVITAMINS, THERA 1 EACH TAB PO SCH (12:51)
[2023-12-12] MEDS: ALPRAZolam 1 MG TAB PO SCH (12:51)
[2023-12-12] MEDS: lisinopriL 20 MG TAB PO SCH (12:51)
[2023-12-12] MEDS: glipiZIDE 10 MG TAB PO SCH (12:51)
[2023-12-12] MEDS: DESVENLAFAXINE SUCCINATE 50 MG TAB.ER.24H PO SCH (12:51)
[2023-12-12] MEDS: PRAVASTATIN SODIUM 20 MG TAB PO SCH (12:51)
[2023-12-12] MEDS: metFORMIN 500 MG TAB PO SCH (12:51)
[2023-12-12] MEDS: MONTELUKAST 10 MG TAB PO SCH (12:52)
[2023-12-12] MEDS: LINAGLIPTIN 5 MG TABLET PO SCH (12:52)
[2023-12-12] MEDS: INSULIN ASPART (NovoLOG) 100 UNIT/ML VIAL SQ SCH (13:31)
[2023-12-12] MEDS: Cariprazine Hcl [Vraylar] 3 MG Capsule PO SCH (13:45)
[2023-12-12] MEDS: IPRATROPIUM-ALBUTEROL 3 ML NEB INHALATION SCH (15:41)
[2023-12-12 17:04] LABS: Glucose,Whole Blood 103 mg/dL (70-110)
[2023-12-12] MEDS: SODIUM CHLORIDE 0.9% 1,000 ML IV SCH (17:25)
[2023-12-12 20:20] LABS: Glucose,Whole Blood 170 mg/dL (70-110)
[2023-12-12] MEDS: LEVOFLOXACIN 750MG-D5W PMX 750 MG in DEXTROSE/WATER 1 150ML.BAG IVPB SCH (20:30)
[2023-12-12] MEDS: MAGNESIUM OXIDE 400 MG TAB PO SCH (20:32)
[2023-12-12] MEDS: Osimertinib Mesylate [Tagrisso] 80 MG Tablet PO SCH (20:35)
[2023-12-12] MEDS: HYDROmorphone 1 MG/ML 1 ML SYRINGE IVP PRN (20:41)
[2023-12-12] MEDS ORDERED: Osimertinib Mesylate [Tagrisso] 80 MG Tablet PO SCH (21:00)
--- NOTE | 2023-12-12 21:18 | P.CONS ---
History of Present Illness - Reason for Consult Consult date: 12/12/23 On treatment for NSCLC Requesting physician: Courtney Delatorre - Chief Complaint intractable cough - History of Present Illness Mr. Escalante is a 58-year-old male pt of Dr. 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 He was initially seen in consultation at [facility] 03/24/2023. Presented with progressive dyspnea over a 1 month associated with dry cough. CTA chest 03/24/2023 revealed no evidence of pulmonary embolism, but did note multiple tiny nodules and a miliary pattern in both lungs bilaterally. Upon additional history, he noted serving in the [employer] previously and did test positive for tuberculosis and received treatment with isoniazid in the remote past. He did not have any significant travel history. It was unclear whether his presentation was due to atypical infection or malignancy. He underwent bronchoscopy on 03/25/2023 where biopsy of right lower lobe lesions were consistent with adenocarcinoma that were positive for Napsin A and TTF-1 and negative for p40. Since his initial hospitalization, he did have a brief readmission due to testing positive for COVID-19, which was treated with steroids. Brain MRI on 04/05/2023 revealed no evidence of intracranial metastases. PET/CT on 04/07/2023 noted diffuse FDG uptake in the bilateral lungs along with focal uptake in the medial left iliac wing, right medial sacrum, left iliac crest, left femoral neck, and anterior left femoral head concerning for potential metastases. Tissue NGS and circulating tumor DNA both revealed EGFR exon 19 deletion ([id number]). Shortly after his last visit, he was admitted for progressive acute hypoxic respiratory failure due to malignancy and noted large right pleural effusion. Cytology of the pleural fluid was consistent with metastatic pulmonary adenocarcinoma. Of note germline testing obtained due to first-degree family of her having pancreatic cancer, and it was negative. Oral Osimertinib targeted agent was initiated inpatient 04/29/2023 with progressive improvement in breathing and cough, Zometa 4 mg IV was initiated on 06/06/2023. Repeat PET/CT 06/30/2023 partial response. Thoracentesis on 07/13/2023 revealed malignant pleural effusion. Treatment f/u scans in Sep did not show progressions and pt has not overt clinical signs of progression. He is also enrolled in clinical trial assessing clinical outcomes for individuals with targetable mutations. He cont on tagrisso. He is inpt with c/o general malaise, cough, sore throat, his back hurts from coughing. Denies any fevers at home, no SOB, dyspnea, hemoptysis, purulent s putum, chest pain, abdominal pain, acute changes in bowel or bladder, swelling in legs or other new/unusual pain at this time. Tmax 100F, [employer] suspicious for a RUL pneumonia CBC mild neutrophilia, no other significant lab abn Review of Systems 10 point ROS is neg except as stated in HPI Past Medical History Past Medical History: Cancer, Diabetes Mellitus, Hypertension, Sleep Apnea/CPAP/BIPAP Additional Past Medical History / Comment(s): diverticulitis, lung cancer treated with oral chemo History of Any Multi-Drug Resistant Organisms: C-DIFF Year Discovered:: 1994 MDRO Source:: stool Past Surgical History: Bowel Resection, Hernia Repair, Orthopedic Surgery, Tonsillectomy Additional Past Surgical History / Comment(s): sigmoid colon, vasectomy, lung biospy Past Anesthesia/Blood Transfusion Reactions: No Reported Reaction Past Psychological History: Bipolar, Depression, Panic Disorder Smoking Status: Never smoker Past Alcohol Use History: None Reported Past Drug Use History: None Reported - Past Family History Mother Family Medical History: Cancer Additional Family Medical History / Comment(s): Cancer history Father Family Medical History: Coronary Artery Disease (CAD) Additional Family Medical History / Comment(s): Heart Disease Medications and Allergies Home Medications Medication Instructions Recorded Confirmed Type Enalapril [Vasotec] 10 mg PO DAILY 10/01/20 12/12/23 History Pravastatin Sodium [Pravachol] 10 mg PO DAILY 10/01/20 12/12/23 History glipiZIDE [Glucotrol] 10 mg PO BID 10/01/20 12/12/23 History metFORMIN HCL [Glucophage] 1,000 mg PO BID 10/01/20 12/12/23 History Albuterol Sulfate [Albuterol 1 puff INHALATION RT-Q4H PRN 03/24/23 12/12/23 History Sulfate Hfa] Cariprazine HCl [Vraylar] 3 mg PO DAILY 03/24/23 12/12/23 History sitaGLIPtin [Januvia] 100 mg PO DAILY 03/24/23 12/12/23 History ALPRAZolam [Xanax] 1 mg PO BID 09/27/23 12/12/23 History Desvenlafaxine Succinate [Pristiq 50 mg PO DAILY 09/27/23 12/12/23 History ER] Magnesium Oxide [Mag-Ox] 400 mg PO HS 09/27/23 12/12/23 History Montelukast [Singulair] 10 mg PO DAILY 09/27/23 12/12/23 History Mv-Min/Folic/K1/Lycopen/Lutein 1 tab PO DAILY 09/27/23 12/12/23 History [Centrum Silver Men Tablet] Ondansetron [Zofran] 4 mg PO Q4H PRN 09/27/23 12/12/23 History Osimertinib Mesylate [Tagrisso] 80 mg PO HS 09/27/23 12/12/23 History Allergies Allergy/AdvReac Type Severity Reaction Status Date / Time Cephalosporins AdvReac Nausea & Verified 12/12/23 07:18 Vomiting & Diarrhea Physical Exam Vitals: Vital Signs Temp Pulse Pulse Resp BP BP Pulse Ox 12/12/23 08:33 92 L 12/12/23 07:29 98.1 F 90 16 131/77 92 L 12/12/23 05:59 90 16 132/84 90 L 12/12/23 05:00 98.7 F 12/12/23 04:37 100 18 143/84 92 L 12/12/23 02:30 92 20 143/87 94 L 12/12/23 01:25 18 12/12/23 00:18 100 F H 124 H 21 142/83 95 Intake and Output 12/11/23 12/12/23 12/12/23 22:59 06:59 14:59 Other: Weight 90.718 kg - Constitutional General appearance: average body habitus, cooperative, no acute distress - EENT Eyes: anicteric sclerae, EOMI ENT: hearing grossly normal, normal oropharynx - Neck Neck: no lymphadenopathy - Respiratory Respiratory: right: rales (RLL) - Cardiovascular Rhythm: regular Heart sounds: normal: S1, S2 Abnormal Heart Sounds: no systolic murmur, no diastolic murmur, no rub, no S3 Gallop, no S4 Gallop, no click, no other leg Peripheral Edema: bilateral: None - Gastrointestinal General gastrointestinal: no absent bowel sounds, no decreased bowel sounds, no distended, no hepatomegaly, no hyperactive bowel sounds, normal bowel sounds, no organomegaly, no rigid, no scaphoid, soft, no splenomegaly, no tenderness, no umbilical hernia, no ventral hernia - Integumentary Integumentary: normal - Neurologic Neurologic: CNII-XII intact - Musculoskeletal Musculoskeletal: strength equal bilaterally - Psychiatric Psychiatric: A&O x's 3, appropriate affect, intact judgment & insight Results CBC & Chem 7: 12/12/23 00:45 12/12/23 00:45 Labs: Abnormal Lab Results - Last 24 Hours (Table) 12/12/23 12/12/23 Range/Units 00:45 00:45 WBC 13.7 H (3.8-10.6) k/uL Neutrophils # 11.3 H (1.3-7.7) k/uL Glucose 222 H (74-99) mg/dL Alkaline Phosphatase 147 H (38-126) U/L Chest x-ray: report reviewed Assessment and Plan (1) Pneumonia Current Visit: Yes Status: Acute Priority: High Code(s): J18.9 - PNEUMONIA, UNSPECIFIED ORGANISM SNOMED Code(s): 267172984 (2) Non-small cell lung cancer (NSCLC) Current Visit: No Status: Chronic Priority: Medium Code(s): C34.90 - MALIGNANT NEOPLASM OF UNSP PART OF UNSP BRONCHUS OR LUNG SNOMED Code(s): 843056686 Plan: Pneumonia -Chest x-ray suspicious for the same -Patient is on antibiotics and nebulizers for the same, reporting improvement -ID consulted and following Non-small cell lung cancer EGFR exon 19 deletion -Patient is on targeted agent osimertinib since April, has been tolerating well. No significant heme toxicities or side effects -Do not suspect patient's symptoms are side effect of treatment. Continue treatment at this time. Doctor attests: I performed a history and physical examination of this patient, developed impression and plan of care. Discussed with dictator. I agree with dictators note, documented as a scribe.
--- NOTE | 2023-12-12 22:15 | P.CONS ---
History of Present Illness - Reason for Consult Consult date: 12/12/23 Pneumonia Requesting physician: Juan David Moody - Chief Complaint Shortness of breath and cough x 3 days - History of Present Illness Patient is a 58-year-old male with a past medical history significant for diabetes mellitus hypertension sleep apnea diverticulitis and lung cancer patient presenting to the hospital for evaluation of chills and cough patient symptom has been going on for the last 2 to 3 days has been complaining of feeling ill with generalized bodyaches sore throat she did have a cough which has been moderate intensity with occasional sputum production denies having hemoptysis no pleuritic chest pain denies having any nausea no vomiting no c hoking on the food no abdominal pain or any diarrhea patient has been taking [id number] Mucinex Tylenol and nebulized albuterol without relief relief for the patient presented to the hospital on presentation to the hospital patient did have a temperature of 100 degrees for night patient was tachycardic but not hypotensive mildly hypoxic currently on a nasal cannula oxygen patient did have a white count of 13.7 with a left shift creatinine has been normal influenza RSV COVID testing was negative patient did have a chest x-ray that has been reported as a patchy right upper lung infiltrate suggestive of pneumonia patient has been started on Levaquin because of his cephalosporin allergy in fectious disease was consulted for further management of antibiotic therapy Review of Systems Positive point and negatives has been mentioned in the HPI, complete review of systems was performed and all other systems are negative Past Medical History Past Medical History: Cancer, Diabetes Mellitus, Hypertension, Sleep Apnea/CPAP/ BIPAP Additional Past Medical History / Comment(s): diverticulitis, lung cancer treated with oral chemo History of Any Multi-Drug Resistant Organisms: C-DIFF Year Discovered:: 1994 MDRO Source:: stool Past Surgical History: Bowel Resection, Hernia Repair, Orthopedic Surgery, Tonsillectomy Additional Past Surgical History / Comment(s): sigmoid colon, vasectomy, lung biospy Past Anesthesia/Blood Transfusion Reactions: No Reported Reaction Past Psychological History: Bipolar, Depression, Panic Disorder Smoking Status: Never smoker Past Alcohol Use History: None Reported Past Drug Use History: None Reported - Past Family History Mother Family Medical History: Cancer Additional Family Medical History / Comment(s): Cancer history Father Family Medical History: Coronary Artery Disease (CAD) Additional Family Medical History / Comment(s): Heart Disease Medications and Allergies Home Medications Medication Instructions Recorded Confirmed Type Enalapril [Vasotec] 10 mg PO DAILY 10/01/20 12/12/23 History Pravastatin Sodium [Pravachol] 10 mg PO DAILY 10/01/20 12/12/23 History glipiZIDE [Glucotrol] 10 mg PO BID 10/01/20 12/12/23 History metFORMIN HCL [Glucophage] 1,000 mg PO BID 10/01/20 12/12/23 History Albuterol Sulfate [Albuterol 1 puff INHALATION RT-Q4H PRN 03/24/23 12/12/23 History Sulfate Hfa] Cariprazine HCl [Vraylar] 3 mg PO DAILY 03/24/23 12/12/23 History sitaGLIPtin [Januvia] 100 mg PO DAILY 03/24/23 12/12/23 History ALPRAZolam [Xanax] 1 mg PO BID 09/27/23 12/12/23 History Desvenlafaxine Succinate [Pristiq 50 mg PO DAILY 09/27/23 12/12/23 History ER] Magnesium Oxide [Mag-Ox] 400 mg PO HS 09/27/23 12/12/23 History Montelukast [Singulair] 10 mg PO DAILY 09/27/23 12/12/23 History Mv-Min/Folic/K1/Lycopen/Lutein 1 tab PO DAILY 09/27/23 12/12/23 History [Centrum Silver Men Tablet] Ondansetron [Zofran] 4 mg PO Q4H PRN 09/27/23 12/12/23 History Osimertinib Mesylate [Tagrisso] 80 mg PO HS 09/27/23 12/12/23 History Allergies Allergy/AdvReac Type Severity Reaction Status Date / Time Cephalosporins AdvReac Nausea & Verified 12/12/23 07:18 Vomiting & Diarrhea Physical Exam Vitals: Vital Signs Temp Pulse Pulse Resp BP BP Pulse Ox 12/12/23 11:55 97.7 F 87 16 127/78 88 L 12/12/23 08:33 92 L 12/12/23 07:29 98.1 F 90 16 131/77 92 L 12/12/23 05:59 90 16 132/84 90 L 12/12/23 05:00 98.7 F 12/12/23 04:37 100 18 143/84 92 L 12/12/23 02:30 92 20 143/87 94 L 12/12/23 01:25 18 12/12/23 00:18 100 F H 124 H 21 142/83 95 Intake and Output 12/11/23 12/12/23 12/12/23 22:59 06:59 14:59 Other: Weight 90.718 kg 90.718 kg GENERAL DESCRIPTION: Middle-aged male up in bed, no distress. No tachypnea or accessory muscle of respiration use. HEENT: Shows Pallor , no scleral icterus. Oral mucous membrane is dry. No pharyngeal erythema or thrush NECK: Trachea central, no thyromegaly. LUNGS: Unlabored breathing. Coarse breath sounds HEART: S1, S2, regular rate and rhythm. No loud murmur ABDOMEN: Soft, no tenderness , guarding or rigidity, no organomegaly EXTREMITIES: No edema of feet. SKIN: No rash, no masses palpable. NEUROLOGICAL: The patient is awake, alert, oriented x3, mood and affect normal. Results CBC & Chem 7: 12/12/23 00:45 12/12/23 00:45 Labs: Abnormal Lab Results - Last 24 Hours (Table) 12/12/23 12/12/23 12/12/23 Range/Units 00:45 00:45 12:03 WBC 13.7 H (3.8-10.6) k/uL Neutrophils # 11.3 H (1.3-7.7) k/uL Glucose 222 H (74-99) mg/dL POC Glucose (mg/dL) 134 H (70-110) mg/dL Alkaline Phosphatase 147 H (38-126) U/L Assessment and Plan (1) Allergy to cephalosporin Current Visit: Yes Status: Acute Code(s): Z88.1 - ALLERGY STATUS TO OTHER ANTIBIOTIC AGENTS SNOMED Code(s): 264665969 (2) Pneumonia Current Visit: Yes Status: Acute Priority: High Code(s): J18.9 - PNEUMONIA, UNSPECIFIED ORGANISM SNOMED Code(s): 419260678 (3) Sepsis Current Visit: Yes Status: Acute Code(s): A41.9 - SEPSIS, UNSPECIFIED ORGANISM SNOMED Code(s): 82085866 Plan: 1patient presented to hospital with increasing shortness of breath cough congestion with evidence of right upper lung opacity suggestive of pneumonia likely community-acquired pneumonia 2-patient with cephalosporin allergy that will limit the number of antibiotics safe to use 3-try to obtain a sputum for Gram stain culture check urine for Legionella antigen 4-Levaquin 750 mg daily should provide adequate antibiotic coverage while waiting for the workup to be completed We will follow on clinical condition and cultures to further adjust medication if needed Thank you for this consultation we will follow the patient along with you Dictation was produced using [employer] dictation software. please excuse any grammatical, word or spelling errors. Time with Patient: Greater than 30
[2023-12-13 07:02] LABS: Glucose,Whole Blood 96 mg/dL (70-110)
[2023-12-13 07:55] VITALS: RESP 16
[2023-12-13] MEDS: PANTOPRAZOLE 40 MG TABLET PO SCH (08:40)
[2023-12-13] MEDS: ENOXAPARIN 40 MG/0.4 ML SYRINGE SQ SCH (08:41)
[2023-12-13] MEDS ORDERED: Cariprazine Hcl [Vraylar] 3 MG Capsule PO SCH (09:00)
[2023-12-13 09:27] LABS: BUN/Creat Ratio 11.12 Ratio (12.00-20.00); Blood Urea Nitrogen 8.9 mg/dL (9.0-27.0); Carbon Dioxide 24.8 mmol/L (21.6-31.8); Chloride 105 mmol/L (96-109); Glucose 108 mg/dL (70-110); Sodium 139 mmol/L (135-145)
[2023-12-13 12:00] LABS: Glucose,Whole Blood 84 mg/dL (70-110)
--- NOTE | 2023-12-13 16:06 | P.PN ---
Subjective Progress Note Date: 12/13/23 Principal diagnosis: Reason for follow-up is pneumonia Patient is a 58-year-old male with a past medical history significant for diabetes mellitus hypertension sleep apnea diverticulitis and lung cancer patient presenting to the hospital for evaluation of chills and cough patient has been diagnosed with pneumonia did have cephalosporin allergy prompted this consultation. On today's evaluation that is 12/13/2023, Patient is afebrile patient is currently on room air and denies having any shortness of breath, the patient denies any chest pain the patient cough is decreased intensity mostly dry in nature no nausea vomiting no abdominal pain or diarrhea. Patient did have a creatinine of 0.8 no CBC was done today blood culture pending sputum not collected Objective - Vital Signs Vital signs: Vital Signs Temp 97.7 F 12/13/23 11:50 Pulse 99 12/13/23 12:07 Resp 16 12/13/23 11:50 BP 123/75 12/13/23 11:50 Pulse Ox 98 12/13/23 11:50 FiO2 Intake & Output 12/12/23 12/13/23 12/13/23 18:59 06:59 18:59 Intake Total 540 Output Total 950 Balance -950 540 Weight 90.718 kg Intake: Oral 540 Output: Urine 950 Other: # Voids 2 - Exam GENERAL DESCRIPTION: Middle-age male up in bed in no distress RESPIRATORY SYSTEM: Unlabored breathing , decreased breath sounds at bases HEART: S1 S2 regular rate and rhythm , ABDOMEN: Soft , no tenderness EXTREMITIES: No edema feet - Labs CBC & Chem 7: 12/12/23 00:45 12/13/23 04:54 Labs: Abnormal Lab Results - Last 24 Hours (Table) 12/12/23 12/13/23 12/13/23 Range/Units 20:19 04:54 04:54 BUN 8.9 L (9.0-27.0) mg/dL BUN/Creatinine Ratio 11.12 L (12.00-20.00) Ratio POC Glucose (mg/dL) 170 H (70-110) mg/dL Hemoglobin A1c 7.3 H (<=6.0) % Calcium 8.0 L (8.7-10.3) mg/dL Microbiology - Last 24 Hours (Table) 12/12/23 02:21 Blood Culture - Preliminary Blood Assessment and Plan (1) Allergy to cephalosporin Current Visit: Yes Status: Acute Code(s): Z88.1 - ALLERGY STATUS TO OTHER ANTIBIOTIC AGENTS SNOMED Code(s): 407868947 (2) Pneumonia Current Visit: Yes Status: Acute Priority: High Code(s): J18.9 - PNEUMONIA, UNSPECIFIED ORGANISM SNOMED Code(s): 892660568 (3) Sepsis Current Visit: Yes Status: Acute Code(s): A41.9 - SEPSIS, UNSPECIFIED ORGANISM SNOMED Code(s): 61638742 Plan: 1patient presented to hospital with increasing shortness of breath cough congestion with evidence of right upper lung opacity suggestive of pneumonia likely community-acquired pneumonia 2-patient with cephalosporin allergy that will limit the number of antibiotics safe to use 3-try to obtain a sputum for Gram stain culture, urine for Legionella antigen is pending 4-patient to continue with Levaquin 750 mg daily while waiting for the workup to be completed Dictation was produced using [employer] dictation software. please excuse any grammatical, word or spelling errors. Time with Patient: Less than 30
[2023-12-13 17:05] LABS: Glucose,Whole Blood 124 mg/dL (70-110)
[2023-12-13 20:15] LABS: Glucose,Whole Blood 124 mg/dL (70-110)
--- NOTE | 2023-12-13 22:20 | P.PN ---
Progress Note - Text Progress Note Date: 12/13/23 History of present illness; 58-year-old male with past medical history of NSCLC, diabetes mellitus, hypertension, and sleep apnea (on CPAP) presents with complaints of cough and chills. Of note patient is currently undergoing chemotherapy with Dr. Benz for his NSCLC. Patient reports for the last 2 days he has been feeling under the weather with cough, sore throat, and bodyaches. Patient denies having any fevers. Patient reports he has been trying to take [id number] medications including Tylenol and Mucinex as well as his home nebulized albuterol without any relief in symptoms. Patient denies SOB, chest pain, abdominal pain, constipation/diarrhea, dysuria, or peripheral edema. Initial lab work from the ER was significant for WBC 13.7, neutrophils 11.3, glucose 222, alkaline phosphatase 147. Influenza type A and B, RSV, COVID, and group A strep all NEGATIVE. EKG done in the ER showed heart rate of 106 bpm, no ST segment elevation or depression seen, no T-wave inversions seen. Sinus tach with low QRS voltage, incomplete right bundle branch block, inferior [place] of indeterminate age. ER CXR: Patchy right upper lung zone opacities. Patient admitted to internal medicine service December 12: pleasant 58-year-old patient who follows with Dr. Michele. Chronic stable medical conditions include diabetes mellitus type 2, hypertension, obstructive sleep apnea uses CPAP, diverticulosis, ankylosing spondylosis causing lower back pain depression. 1989 he was positive for TB skin test did receive 6 months of INH. . Non- smoker. Home oxygen 2 L. Stage IV pulmonary adenocarcinoma. Has had at least 3 episodes of 3 thoracentesis. PET scan [July 02, 2023] progression of osseous metastatic disease with positive response of the thorax with decrease in the diffuse micronodular appearance in right lower lung FDG activity. Patient is currently on Tagrisso Has a dry cough. No sputum. No fever no chills. Feeling better. Has been up to the bathroom. No bowel movement. at the bedside. Ate about half his supper and breakfast today. Have the patient ambulate in the hallway. Patient is on IV Levaquin. Active Medications Acetaminophen (Acetaminophen Tab 325 Mg Tab) 650 mg PO Q6HR PRN PRN Reason: Mild Pain or Fever > 100.5 Albuterol Sulfate (Albuterol Hfa Inhaler) 1 puff INHALATION RT-Q4H PRN PRN Reason: Shortness Of Breath Albuterol/Ipratropium (Ipratropium-Albuterol 3 Ml Neb) 3 ml INHALATION RT-QID PRN PRN Reason: Shortness Of Breath Or Wheezing Albuterol/Ipratropium (Ipratropium-Albuterol 3 Ml Neb) 3 ml INHALATION RT-QID [facility] Last Admin: 12/13/23 20:23 Dose: Not Given Alprazolam (Alprazolam 1 Mg Tab) 1 mg PO BID [facility] Last Admin: 12/13/23 20:13 Dose: 1 mg Desvenlafaxine Succinate (Desvenlafaxine Succinate 50 Mg Tab.Er.24h) 50 mg PO DAILY [facility] Last Admin: 12/13/23 08:40 Dose: 50 mg Dextrose/Water (Dextrose 50% Syringe 50 Ml) 25 ml IVP PER PROTOCOL PRN; Protocol PRN Reason: Hypoglycemia Dextrose/Water (Dextrose 50% Syringe 50 Ml) 50 ml IVP PER PROTOCOL PRN; Protocol PRN Reason: Hypoglycemia Enoxaparin Sodium (Enoxaparin 40 Mg/0.4 Ml Syringe) 40 mg SQ DAILY [facility] Last Admin: 12/13/23 08:41 Dose: 40 mg Glipizide (Glipizide 10 Mg Tab) 10 mg PO AC-BID [facility] Last Admin: 12/13/23 17:26 Dose: Not Given Levofloxacin 750 mg/ IV (Solution) 150 mls @ 100 mls/hr IVPB Q24H [facility]; Protocol Last Admin: 12/13/23 20:12 Dose: 100 mls/hr Insulin Aspart (Insulin Aspart (Novolog) 100 Unit/Ml Vial) 0 unit SQ ACHS [facility]; Protocol Last Admin: 12/13/23 20:14 Dose: Not Given Linagliptin (Linagliptin 5 Mg Tablet) 5 mg PO DAILY [facility] Last Admin: 12/13/23 08:41 Dose: 5 mg Lisinopril (Lisinopril 20 Mg Tab) 20 mg PO DAILY [facility] Last Admin: 12/13/23 08:40 Dose: 20 mg Magnesium Oxide (Magnesium Oxide 400 Mg Tab) 400 mg PO HS [facility] Last Admin: 12/13/23 20:14 Dose: 400 mg Metformin HCl (Metformin 500 Mg Tab) 1,000 mg PO BID [facility] Last Admin: 12/13/23 20:13 Dose: 1,000 mg Montelukast Sodium (Montelukast 10 Mg Tab) 10 mg PO DAILY [facility] Last Admin: 12/13/23 08:41 Dose: 10 mg Multivitamins (Multivitamins, Thera 1 Each Tab) 1 each PO DAILY [facility] Last Admin: 12/13/23 08:40 Dose: 1 each Naloxone HCl (Naloxone 0.4 Mg/Ml 1 Ml Vial) 0.2 mg IV Q2M PRN PRN Reason: Opioid Reversal Cariprazine Hcl [ Vraylar] 3 Mg Capsule 3 mg PO DAILY [facility] Last Admin: 12/13/23 08:41 Dose: 3 mg Osimertinib Mesylate [Tagrisso] 80 Mg Tablet 80 mg PO HS [facility] Last Admin: 12/13/23 20:17 Dose: 80 mg Ondansetron HCl (Ondansetron 4 Mg/2 Ml Vial) 4 mg IVP Q8HR PRN PRN Reason: Nausea And Vomiting Pantoprazole Sodium (Pantoprazole 40 Mg Tablet) 40 mg PO AC-BRKFST [facility] Last Admin: 12/13/23 08:40 Dose: 40 mg Pravastatin Sodium (Pravastatin Sodium 20 Mg Tab) 10 mg PO DAILY [facility] Last Admin: 12/13/23 08:40 Dose: 10 mg Past medical history to include: Diabetes, hypertension, obstructive sleep apnea uses CPAP, depression, and ankylosing spondylosis. 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 Physical examination: VITAL SIGNS: 97.7, 90, 16, 123 x 75, 98% room air GENERAL: Reclining in bed, tired EYES: Pupils equal. Conjunctiva normal. HEENT: External appearance of nose and ears normal, oral cavity grossly normal. NECK: JVD not raised; masses not palpable. HEART: First and second heart sounds are normal; no edema. LUNGS: Respiratory rate increased; , diminished breath sounds ABDOMEN: Soft, nontender, liver spleen not palpable, no masses palpable. PSYCH: Alert and oriented x3; mood and affect, tired INVESTIGATIONS, reviewed in the clinical context: December 12: Sodium 139 potassium 4 BUN 8.9 creatinine 0.8 Checks x-ray: Patchy right upper lobe opacity Assessment & Plan: Acute: #Right upper lobe pneumonia: Gram-negative versus postobstructive pneumonia: Clinically better Viral panel and group A strep all negative Chest pending Levaquin 750 mg IVPB ID following Chronic: # NSCLC: Oncology on consult, currently recommend continuing current chemotherapy regimen Tagrisso 80 mg #Type 2 diabetes:, On oral hypoglycemic Glucophage, insulin sliding scale #Hypertension: Continue home medications -COPD non-smoker DuoNeb, Symbicort # Obstructive sleep apnea: CPAP -Hyperlipidemia Pravachol -Chronic ankylosing spondylitis primary affecting lumbar spine. With muscle spasm. Carbamazepine. Antispasmodic -Depression otherwise specified Pristiq.vraylar -DNR Increase activity. Await cultures. Discussed with patient at the bedside. Past Medical History Past Medical History: Cancer, Diabetes Mellitus, Hypertension, Sleep Apnea/CPAP/BIPAP Additional Past Medical History / Comment(s): diverticulitis, lung cancer treated with oral chemo History of Any Multi-Drug Resistant Organisms: C-DIFF Date of last positivie culture/infection: 1994 MDRO Source:: stool Past Surgical History: Bowel Resection, Hernia Repair, Orthopedic Surgery, Tonsillectomy Additional Past Surgical History / Comment(s): sigmoid colon, vasectomy, lung biospy Past Anesthesia/Blood Transfusion Reactions: No Reported Reaction Past Psychological History: Bipolar, Depression, Panic Disorder Smoking Status: Never smoker Past Alcohol Use History: None Reported Past Drug Use History: None Reported
[2023-12-13 22:41] LABS: Basophils # (A) 0.03 X 10*3/uL (0.00-0.10); Basophils % (A) 0.4 %; Eosinophils # (A) 0.13 X 10*3/uL (0.04-0.35); Eosinophils % (A) 1.7 %; HCT 37.9 % (39.6-50.0); HGB 12.5 g/dL (13.0-17.0); Lymphocytes # (A) 1.12 X 10*3/uL (0.90-5.00); Lymphocytes % (A) 14.9 %; MCH 27.7 pg (27.0-32.0); MCV 83.8 FL (80.0-97.0); Mean Platelet Volume 11.3 FL (9.5-12.2); Monocytes # (A) 0.85 X 10*3/uL (0.20-1.00); Monocytes % (A) 11.3 %; NRBC Per 100 WBC 0 X 10*3/uL (0.00-0.01); Neutrophils # (A) 5.36 X 10*3/uL (1.80-7.70); Neutrophils % (A) 71.2 %; Platelet Count 181 X 10*3/uL (140-440); RBC 4.52 X 10*6/uL (4.40-5.60); RDW 13.9 % (11.5-14.5); WBC 7.53 X 10*3/uL (4.50-10.00)
[2023-12-13] MEDS: ACETAMINOPHEN TAB 325 MG TAB PO PRN (23:45)
[2023-12-14 06:56] LABS: Glucose,Whole Blood 106 mg/dL (70-110)
[2023-12-14 07:25] VITALS: BP 109/71; PULSE 84; TEMP 97.6
--- NOTE | 2023-12-14 11:58 | CDI ---
Documentation Clarification Form Date: 12/14/2023 11:27:08 AM From: Nataliia Perez RN, CCDS Phone: [phone] Admit Date: 12/12/2023 02:22:00 AM Patient Name: Rico Escalante Visit Number: [id number] Discharge Date: ATTENTION: The Clinical Documentation Specialists (CDI) and [facility] Coding Staff appreciate your assistance in clarifying documentation. Please respond to the clarification below the line at the bottom and electronically sign. The CDI & [facility] Coding staff will review the response and follow-up if needed. Please note: Queries are made part of the Legal Health Record. If you have any questions, please contact the author of this message via ITS. Doctor/Provider: Rodney Lozano The patient has sepsis documented in the ED assessment and the ID Consult and subsequent progress notes. Based on this information and the findings below, is there an additional diagnosis that is clinically appropriate for this patient? History/Risk Factors: Cancer, Diabetes Mellitus, Hypertension, Non-small cell lung cancer Clinical Indicators: 58-year-old male presented to the ER with chief complaint of chills and cough. History of lung cancer undergoing oral chemotherapy. CXR- Patchy right upper lung zone opacities. Correlate clinically for pneumonia. WBC 13.7, Neutrophils 11.3 Lactic acid: 2.0 Blood cultures: No growth after 24 hrs. 12/11 Vital signs: 142/83 124 21 100 95% RA, 131/77 90 16 98.1 92% RA, ID Consult: The patient presented to the hospital on presentation to the hospital did have a temperature of 100 degrees was tachycardic, but not hypotensive mildly hypoxic currently on a nasal cannula oxygen patient white count of 13.7 with a left shift. Pneumonia likely community-acquired. Sepsis Treatment: Levaquin 750 MG IV Daily change to PO 12/13 .9 NS 1,000 ML IV Bolus X 2 Ventolin Hfa Inhaler 1 puff RT -QID Duoneb's QID Is there an additional diagnosis that is clinically appropriate for this patient? [ + ] Sepsis, present on admission [ ] Sepsis ruled out [ ] Other, please specify [ ] Unable to determine SIRS Criteria: 2 or more of the following may indicate SIRS Temperature < 96.8F (36C) or > 101.0F (38.3C) Heart Rate > 90 bpm Respiratory Rate > 20 breaths/min or PaCO2 < 32 mmHg White Blood Cell Count > 12,000 or < 4,000 cells/mm3 or > 10% bands (Template Last Reviewed: February 2022) [facility]
[2023-12-14 12:24] LABS: Glucose,Whole Blood 75 mg/dL (70-110)
--- NOTE | 2023-12-14 16:46 | P.DS ---
Providers Date of admission: 12/12/23 02:22 Expected date of discharge: 12/14/23 Attending physician: Rodney Lozano Consults: 12/12/23 02:20 Consult Physician Urgent Consulting Provider: Darcy Beverly Consult Reason/Comments: pneumonia/lung CA Do you want consulting provider notified?: Yes, Notify in am 12/12/23 11:48 Consult Physician Routine Consulting Provider: Karri Chacon Consult Reason/Comments: pna Do you want consulting provider notified?: Yes Primary care physician: [facility] Course: History of present illness; 58-year-old male with past medical history of NSCLC, diabetes mellitus, hypertension, and sleep apnea (on CPAP) presents with complaints of cough and chills. Of note patient is currently undergoing chemotherapy with Dr. Benz for his NSCLC. Patient reports for the last 2 days he has been feeling under the weather with cough, sore throat, and bodyaches. Patient denies having any fevers. Patient reports he has been trying to take o [id number] medications including Tylenol and Mucinex as well as his home nebulized albuterol without any relief in symptoms. Patient denies SOB, chest pain, abdominal pain, constipation/diarrhea, dysuria, or peripheral edema. Initial lab work from the ER was significant for WBC 13.7, neutrophils 11.3, glucose 222, alkaline phosphatase 147. Influenza type A and B, RSV, COVID, and group A strep all NEGATIVE. EKG done in the ER showed heart rate of 106 bpm, no ST segment elevation or depression seen, no T-wave inversions seen. Sinus tach with low QRS voltage, incomplete right bundle branch block, inferior [place] of indeterminate age. ER CXR: Patchy right upper lung zone opacities. Patient admitted to internal medicine service December 12: pleasant 58-year-old patient who follows with Dr. Michele. Chronic stable medical conditions include diabetes mellitus type 2, hypertension, obstructive sleep apnea uses CPAP, diverticulosis, ankylosing spondylosis causing lower back pain depression. 1989 he was positive for TB skin test did receive 6 months of INH. . Non- smoker. Home oxygen 2 L. Stage IV pulmonary adenocarcinoma. Has had at least 3 episodes of 3 thoracentesis. PET scan [July 02, 2023] progression of osseous metastatic disease with positive response of the thorax with decrease in the diffuse micronodular appearance in right lower lung FDG activity. Patient is currently on Tagrisso Has a dry cough. No sputum. No fever no chills. Feeling better. Has been up to the bathroom. No bowel movement. at the bedside. Ate about half his supper and breakfast today. Have the patient ambulate in the hallway. Patient is on IV Levaquin. December 13: Patient is feeling well. Up and about in the hallway. Eating well. Blood culture still pending. Patient very keen to go home. Patient has responded to current antibiotic. Discussed with him. Still keen to go home. No cough no sputum no fever. Will complete 5 more days of antibiotic. Past medical history to include: Diabetes, hypertension, obstructive sleep apnea uses CPAP, depression, and ankylosing spondylosis. 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 Physical examination: VITAL SIGNS: 97.6, 84, 16, 109 x 71, 93% room air GENERAL: Sitting up, comfortable EYES: Pupils equal. Conjunctiva normal. HEENT: External appearance of nose and ears normal, oral cavity grossly normal. NECK: JVD not raised; masses not palpable. HEART: First and second heart sounds are normal; no edema. LUNGS: Respiratory rate normal, diminished breath sounds ABDOMEN: Soft, nontender, liver spleen not palpable, no masses palpable. PSYCH: Alert and oriented x3; mood and affect, tired INVESTIGATIONS, reviewed in the clinical context: December 12: Sodium 139 potassium 4 BUN 8.9 creatinine 0.8 Checks x-ray: Patchy right upper lobe opacity Assessment & Plan: Acute: #Right upper lobe pneumonia: Gram-negative versus postobstructive pneumonia: Improved Viral panel and group A strep all negative Levaquin 750 give for 5 more days Chronic: # NSCLC: Oncology on consult, currently recommend continuing current chemotherapy regimen Tagrisso 80 mg #Type 2 diabetes:, On oral hypoglycemic Glucophage, insulin sliding scale #Hypertension: Continue home medications -COPD non-smoker DuoNeb, Symbicort # Obstructive sleep apnea: CPAP -Hyperlipidemia Pravachol -Chronic ankylosing spondylitis primary affecting lumbar spine. With muscle spasm. Carbamazepine. Antispasmodic -Depression otherwise specified Pristiq.katilar -DNR Disposition: Home Past Medical History Past Medical History: Cancer, Diabetes Mellitus, Hypertension, Sleep Apnea/CPAP/BIPAP Additional Past Medical History / Comment(s): diverticulitis, lung cancer treated with oral chemo History of Any Multi-Drug Resistant Organisms: C-DIFF Date of last positivie culture/infection: 1994 MDRO Source:: stool Past Surgical History: Bowel Resection, Hernia Repair, Orthopedic Surgery, Tonsillectomy Additional Past Surgical History / Comment(s): sigmoid colon, vasectomy, lung biospy Past Anesthesia/Blood Transfusion Reactions: No Reported Reaction Past Psychological History: Bipolar, Depression, Panic Disorder Smoking Status: Never smoker Past Alcohol Use History: None Reported Past Drug Use History: None Reported Plan - Discharge Summary Discharge Rx Participant: No New Discharge Prescriptions: New Levofloxacin [Levaquin] 750 mg PO HS #5 tab Continue metFORMIN HCL [Glucophage] 1,000 mg PO BID Pravastatin Sodium [Pravachol] 10 mg PO DAILY Albuterol Sulfate [Albuterol Sulfate Hfa] 1 puff INHALATION RT-Q4H PRN PRN Reason: Shortness Of Breath Cariprazine HCl [Vraylar] 3 mg PO DAILY ALPRAZolam [Xanax] 1 mg PO BID Magnesium Oxide [Mag-Ox] 400 mg PO HS Osimertinib Mesylate [Tagrisso] 80 mg PO HS glipiZIDE [Glucotrol] 10 mg PO BID Enalapril [Vasotec] 10 mg PO DAILY sitaGLIPtin [Januvia] 100 mg PO DAILY Mv-Min/Folic/K1/Lycopen/Lutein [Centrum Silver Men Tablet] 1 tab PO DAILY Ondansetron [Zofran] 4 mg PO Q4H PRN PRN Reason: Nausea And Vomiting Montelukast [Singulair] 10 mg PO DAILY Desvenlafaxine Succinate [Pristiq ER] 50 mg PO DAILY Discharge Medication List Enalapril [Vasotec] 10 mg PO DAILY 10/01/20 [History] Pravastatin Sodium [Pravachol] 10 mg PO DAILY 10/01/20 [History] glipiZIDE [Glucotrol] 10 mg PO BID 10/01/20 [History] metFORMIN HCL [Glucophage] 1,000 mg PO BID 10/01/20 [History] Albuterol Sulfate [Albuterol Sulfate Hfa] 1 puff INHALATION RT-Q4H PRN 03/24/23 [History] Cariprazine HCl [Vraylar] 3 mg PO DAILY 03/24/23 [History] sitaGLIPtin [Januvia] 100 mg PO DAILY 03/24/23 [History] ALPRAZolam [Xanax] 1 mg PO BID 09/27/23 [History] Desvenlafaxine Succinate [Pristiq ER] 50 mg PO DAILY 09/27/23 [History] Magnesium Oxide [Mag-Ox] 400 mg PO HS 09/27/23 [History] Montelukast [Singulair] 10 mg PO DAILY 09/27/23 [History] Mv-Min/Folic/K1/Lycopen/Lutein [Centrum Silver Men Tablet] 1 tab PO DAILY 09/27/23 [History] Ondansetron [Zofran] 4 mg PO Q4H PRN 09/27/23 [History] Osimertinib Mesylate [Tagrisso] 80 mg PO HS 09/27/23 [History] Levofloxacin [Levaquin] 750 mg PO HS #5 tab 12/14/23 [Rx] Follow up Appointment(s)/Referral(s): Dennsy Swartz MD [STAFF PHYSICIAN] - 12/26/23 9:30 am Troy Michele MD [Primary Care Provider] - 12/19/23 1:00 pm ([address] [place] [address]) Patient Instructions/Handouts: Levofloxacin (By mouth), Sepsis (DC), Pneumonia (DC) Discharge Disposition: HOME SELF-CARE
[2023-12-14] MEDS ORDERED: LEVOFLOXACIN 750 MG TAB PO SCH (21:00)
--- NOTE | 2023-12-15 14:59 | P.PN ---
Subjective Progress Note Date: 12/14/23 Principal diagnosis: Reason for follow-up is pneumonia Patient is a 58-year-old male with a past medical history significant for diabetes mellitus hypertension sleep apnea diverticulitis and lung cancer patient presenting to the hospital for evaluation of chills and cough patient has been diagnosed with pneumonia did have cephalosporin allergy prompted this consultation. On today's evaluation that is 12/14/2023, patient has been afebrile, patient is breathing comfortably and is currently on room air, patient denies having any chest pain and the cough is decreased in intensity no nausea no vomiting no abdominal pain or diarrhea patient mention feeling better wants to go home. No new lab has been obtained today blood culture has been negative Objective - Vital Signs Vital signs: Vital Signs Temp 97.6 F 12/14/23 06:54 Pulse 84 12/14/23 06:54 Resp 16 12/14/23 06:54 BP 109/71 12/14/23 06:54 Pulse Ox 93 L 12/14/23 06:54 FiO2 Intake & Output 12/13/23 12/14/23 12/14/23 18:59 06:59 18:59 Other: # Voids 1 3 - Exam GENERAL DESCRIPTION: Middle-age male up in bed in no distress RESPIRATORY SYSTEM: Unlabored breathing , decreased breath sounds at bases HEART: S1 S2 regular rate and rhythm , ABDOMEN: Soft , no tenderness EXTREMITIES: No edema feet - Labs CBC & Chem 7: 12/13/23 04:54 12/13/23 04:54 Labs: Abnormal Lab Results - Last 24 Hours (Table) 12/13/23 12/13/23 12/13/23 Range/Units 04:54 17:04 20:14 Hgb 12.5 L (13.0-17.0) g/dL Hct 37.9 L (39.6-50.0) % POC Glucose (mg/dL) 124 H 124 H (70-110) mg/dL Microbiology - Last 24 Hours (Table) 12/12/23 02:21 Blood Culture - Preliminary Blood Assessment and Plan (1) Allergy to cephalosporin Status: Acute Code(s): Z88.1 - ALLERGY STATUS TO OTHER ANTIBIOTIC AGENTS SNOMED Code(s): 473498839 (2) Pneumonia Status: Acute Priority: High Code(s): J18.9 - PNEUMONIA, UNSPECIFIED ORGANISM SNOMED Code(s): 276805082 (3) Sepsis Status: Acute Code(s): A41.9 - SEPSIS, UNSPECIFIED ORGANISM SNOMED Code(s): 41090487 Plan: 1patient presented to hospital with increasing shortness of breath cough congestion with evidence of right upper lung opacity suggestive of pneumonia l ikely community-acquired pneumonia 2-patient with cephalosporin allergy that will limit the number of antibiotics safe to use 3-patient has shown clinical improvement with Levaquin 750 mg daily which will be continued discharge to finish course of therapy Dictation was produced using [employer] dictation software. please excuse any grammatical, word or spelling errors. Time with Patient: Less than 30
== END 2023-12-14 13:05 | disposition home or self-care (01) | DRG 871 ==
LOC: EC 00:17 → 5NMEDONC 02:22
PROVIDERS: ADMIT Hospitalist; ATTEND Hospitalist
DX: A41.89 Other specified sepsis (principal); J15.69 Pneumonia due to other Gram-negative bacteria; U07.1 COVID-19; J96.01 Acute respiratory failure with hypoxia; C34.90 Malignant neoplasm of unspecified part of unspecified bronchus or lung; C78.00 Secondary malignant neoplasm of unspecified lung; J91.0 Malignant pleural effusion; J44.0 Chronic obstructive pulmonary disease with (acute) lower respiratory infection; I10 Essential (primary) hypertension; G47.33 Obstructive sleep apnea (adult) (pediatric); F41.0 Panic disorder [episodic paroxysmal anxiety]; M45.6 Ankylosing spondylitis lumbar region; E11.9 Type 2 diabetes mellitus without complications; E78.5 Hyperlipidemia, unspecified; R00.0 Tachycardia, unspecified; I45.10 Unspecified right bundle-branch block; F31.9 Bipolar disorder, unspecified; K57.30 Diverticulosis of large intestine without perforation or abscess without bleeding; Z66 Do not resuscitate; M47.896 Other spondylosis, lumbar region; Z79.84 Long term (current) use of oral hypoglycemic drugs; Z79.899 Other long term (current) drug therapy; Z82.49 Family history of ischemic heart disease and other diseases of the circulatory system; Z88.1 Allergy status to other antibiotic agents; Z85.118 Personal history of other malignant neoplasm of bronchus and lung; Z88.8 Allergy status to other drugs, medicaments and biological substances; Z87.19 Personal history of other diseases of the digestive system
CPT/HCPCS: 36415; 71046; 80048; 80053; 83036; 83605; 85025; 87040; 87636; 87651; 93005; 94640; 94760; 96361; 96365; 96366; 96375; 99285

== ENCOUNTER 2023-12-18 20:45 | Emergency (ER) | payer MEDICARE ==
[2023-12-18 21:00] VITALS: TEMP 98.6
--- NOTE | 2023-12-18 21:32 | ED ---
Extremity Problem HPI - General Source: patient Mode of arrival: ambulatory Limitations: no limitations - History of Present Illness MD Complaint: extremity pain Onset/Timin -: hour(s) Time: 16:00 Location: left, lower extremity History of Same: No Radiation: none Severity scale (1-10): 5 Quality: sharp Consistency: intermittent Improves with: rest Worsens with: walking Associated Symptoms: denies other symptoms <Elijah Barros - Last Filed: 12/18/23 21:32> <Rogelio Schulz - Last Filed: 12/21/23 23:14> - General Chief complaint: Extremity Problem,Nontraumatic Stated complaint: Pain in legs Time Seen by Provider: 12/18/23 21:00 - History of Present Illness Initial comments: Quick note: This is a 58-year-old male with history of diabetes and prior cancer diagnosis presenting with sudden onset left calf pain x 5 hours. Patient describes pain as sharp (5 out of 10) and worsens with weightbearing and walking. Patient endorses recent hospitalization for pneumonia where he received Lovenox for DVT prophylaxis. States he is currently finishing Levaquin. Patient denies history of blood clots or anticoagulant use. Patient denies fever, chills, dizziness, chest pain, dyspnea, abdominal pain, N/V/D, lower leg edema or color change. (Elijah Barros) Agree with above (Rogelio Schulz) - Related Data Home Medications Medication Instructions Recorded Confirmed Enalapril [Vasotec] 10 mg PO DAILY 10/01/20 12/12/23 Pravastatin Sodium [Pravachol] 10 mg PO DAILY 10/01/20 12/12/23 glipiZIDE [Glucotrol] 10 mg PO BID 10/01/20 12/12/23 metFORMIN HCL [Glucophage] 1,000 mg PO BID 10/01/20 12/12/23 Albuterol Sulfate [Albuterol 1 puff INHALATION RT-Q4H PRN 03/24/23 12/12/23 Sulfate Hfa] Cariprazine HCl [Vraylar] 3 mg PO DAILY 03/24/23 12/12/23 sitaGLIPtin [Januvia] 100 mg PO DAILY 03/24/23 12/12/23 ALPRAZolam [Xanax] 1 mg PO BID 09/27/23 12/12/23 Desvenlafaxine Succinate [Pristiq 50 mg PO DAILY 09/27/23 12/12/23 ER] Magnesium Oxide [Mag-Ox] 400 mg PO HS 09/27/23 12/12/23 Montelukast [Singulair] 10 mg PO DAILY 09/27/23 12/12/23 Mv-Min/Folic/K1/Lycopen/Lutein 1 tab PO DAILY 09/27/23 12/12/23 [Centrum Silver Men Tablet] Ondansetron [Zofran] 4 mg PO Q4H PRN 09/27/23 12/12/23 Osimertinib Mesylate [Tagrisso] 80 mg PO HS 09/27/23 12/12/23 Previous Rx's Medication Instructions Recorded Levofloxacin [Levaquin] 750 mg PO HS #5 tab 12/14/23 Allergies Allergy/AdvReac Type Severity Reaction Status Date / Time Cephalosporins AdvReac Nausea & Verified 12/18/23 20:59 Vomiting & Diarrhea Review of Systems ROS Other: All systems not noted in ROS Statement are negative. <Elijah Barros - Last Filed: 12/18/23 21:32> ROS Other: All systems not noted in ROS Statement are negative. <Rogelio Schulz - Last Filed: 12/21/23 23:14> ROS Statement: Those systems with pertinent positive or pertinent negative responses have been documented in the HPI. Past Medical History Past Medical History: Cancer, Diabetes Mellitus, Hypertension, Sleep Apnea/CPAP/BIPAP Additional Past Medical History / Comment(s): diverticulitis, lung cancer treated with oral chemo History of Any Multi-Drug Resistant Organisms: C-DIFF Date of last positivie culture/infection: 1994 MDRO Source:: stool Past Surgical History: Bowel Resection, Hernia Repair, Orthopedic Surgery, Tonsillectomy Additional Past Surgical History / Comment(s): sigmoid colon, vasectomy, lung b iospy Past Anesthesia/Blood Transfusion Reactions: No Reported Reaction Past Psychological History: Bipolar, Depression, Panic Disorder Smoking Status: Never smoker Past Alcohol Use History: None Reported Past Drug Use History: None Reported - Past Family History Mother Family Medical History: Cancer Additional Family Medical History / Comment(s): Cancer history Father Family Medical History: Coronary Artery Disease (CAD) Additional Family Medical History / Comment(s): Heart Disease <Elijah Barros - Last Filed: 12/18/23 21:32> General Exam Limitations: no limitations <Elijah Barros - Last Filed: 12/18/23 21:32> Limitations: no limitations General appearance: alert, in no apparent distress Head exam: Present: atraumatic, normocephalic Eye exam: Present: normal appearance, EOMI Neck exam: Present: normal inspection. Absent: meningismus Respiratory exam: Absent: respiratory distress Left Lower Leg exam: Present: normal inspection, full ROM, tenderness (Patient has pain with squeezing of the calf muscle). Absent: swelling Neurological exam: Present: alert, oriented X3 Psychiatric exam: Present: normal affect, normal mood Skin exam: Present: warm, dry, normal color <Rogelio Schulz - Last Filed: 12/21/23 23:14> - General Exam Comments Initial Comments: Visual Physical Exam Vital signs reviewed General: Well-appearing, nontoxic, no acute distress. Head: Normocephalic, atraumatic Eyes: PERRLA, EOMI ENT: Airway patent Chest: Nonlabored breathing Skin: No visual rash, normal skin tone Neuro: Alert and oriented 3 Musculoskeletal: No gross abnormalities (Elijah Barros) Course Vital Signs 12/18/23 12/18/23 20:58 23:26 Temperature 98.6 F Pulse Rate 108 H 90 Respiratory 20 16 Rate Blood Pressure 145/90 128/85 O2 Sat by Pulse 96 96 Oximetry Medical Decision Making <Elijah Barros - Last Filed: 12/18/23 21:32> - Lab Data Result diagrams: 12/18/23 21:43 12/18/23 21:43 <Rogelio Schulz - Last Filed: 12/21/23 23:14> - Medical Decision Making I completed the quick note portion of this chart signed SULEMA Simpson (Elijah Barros) Was pt. sent in by a medical professional or institution ([facility]ILPA Staton, PATIENT CARE SPECIALIST, urgent care, hospital, or usp...) When possible be specific @ -No Did you speak to anyone other than the patient for history (EMS, parent, family, police, friend...)? What history was obtained from this source @ -No Did you review nursing and triage notes (agree or disagree)? Why? @ -I reviewed and agree with nursing and triage notes Were old charts reviewed (outside hosp., previous admission, EMS record, old EKG, old radiological studies, urgent care reports/EKG's, usp records)? Report findings @ -No old charts were reviewed Differential Diagnosis (chest pain, altered mental status, abdominal pain women, abdominal pain men, vaginal bleeding, weakness, fever, dyspnea, syncope, headache, dizziness, GI bleed, back pain, seizure, CVA, palpatations, mental health, musculoskeletal)? @ -Differential Musculoskeletal Muscular strain, contusion, ligament sprain, fracture, arthritis, septic arthritis, bursitis, cellulitis, muscle spasm, nerve compression, DVT, arterial occlusion, herpes zoster, electrolyte abnormality, tumor.... This is not meant to be in all inclusive list EKG interpreted by me (3pts min.). @ -As above X-rays interpreted by me (1pt min.). @ -None done CT interpreted by me (1pt min.). @ -None done U/S interpreted by me (1pt. min.). @ -Ultrasound negative for DVT What testing was considered but not performed or refused? (CT, X-rays, U/S, labs)? Why? @ -None What meds were considered but not given or refused? Why? @ -None Did you discuss the management of the patient with other professionals (professionals i.e. , PA, PATIENT CARE SPECIALIST, lab, RT, psych nurse, health social work professor, serging machine operator, teacher, delinquency prevention officer, case repairer)? Give summary @ -No Was smoking cessation discussed for >3mins.? @ -No Was critical care preformed (if so, how long)? @ -No Were there social determinants of health that impacted care today? How? (Homelessness, low income, unemployed, alcoholism, drug addiction, transportation, low edu. Level, literacy, decrease access to med. care, nursing home, rehab)? @ -No Was there de-escalation of care discussed even if they declined (Discuss DNR or withdrawal of care, Hospice)? DNR status @ -No What co-morbidities impacted this encounter? (DM, HTN, Smoking, COPD, CAD, Cancer, CVA, ARF, Chemo, Hep., AIDS, mental health diagnosis, sleep apnea, morbid obesity)? @ -None Was patient admitted / discharged? Hospital course, mention meds given and route, prescriptions, significant lab abnormalities, going to OR and other pertinent info. @ -58-year-old male presenting chief complaint of cramping in his left calf. On exam the leg is warm and no swelling is present, there is some tenderness with squeezing of the calf muscle. Dimer was obtained which is elevated at 1.11, patient is having no chest pain or difficulty breathing. Ultrasound negative for DVT. Given that the patient is negative for DVT and he is having no symptoms of PE, no clinical concern for PE at this time. Patient educated on today's findings. Discharged. Follow-up with PCP. Report back to ER with any new or worsening symptoms. Discussed return parameters and answered all questions. Patient conveyed verbal understanding and agreed to the plan. I discussed this case in detail with my attending Dr. Spencer Undiagnosed new problem with uncertain prognosis? @ -No Drug Therapy requiring intensive monitoring for toxicity (Heparin, Nitro, Insulin, Cardizem)? @ -No Were any procedures done? @ -No Diagnosis/symptom? @ -Leg pain Acute, or Chronic, or Acute on Chronic? @ -Acute Uncomplicated (without systemic symptoms) or Complicated (systemic symptoms)? @ -Uncomplicated Side effects of treatment? @ -No Exacerbation, Progression, or Severe Exacerbation? @ -No Poses a threat to life or bodily function? How? (Chest pain, [place], [place], pneumonia, PE, COPD, DKA, ARF, appy, cholecystitis, CVA, Diverticulitis, Homicidal, Suicidal, threat to staff... and all critical care pts) @ -Unlikely (Rogelio Schulz) - Lab Data Lab Results 12/18/23 12/18/23 12/18/23 Range/Units 21:43 21:43 21:43 WBC 7.6 (3.8-10.6) k/uL RBC 5.62 (4.30-5.90) m/uL Hgb 15.8 (13.0-17.5) gm/dL Hct 46.7 (39.0-53.0) % MCV 83.2 (80.0-100.0) fL MCH 28.1 (25.0-35.0) pg MCHC 33.8 (31.0-37.0) g/dL RDW 14.5 (11.5-15.5) % Plt Count 243 (150-450) k/uL MPV 8.9 Neutrophils % 72 % Lymphocytes % 16 % Monocytes % 9 % Eosinophils % 2 % Basophils % 1 % Neutrophils # 5.5 (1.3-7.7) k/uL Lymphocytes # 1.2 (1.0-4.8) k/uL Monocytes # 0.7 (0-1.0) k/uL Eosinophils # 0.2 (0-0.7) k/uL Basophils # 0.0 (0-0.2) k/uL PT 10.8 (10.0-12.5) sec INR 1.0 (<1.2) APTT 26.2 (22.0-30.0) sec D-Dimer 1.11 H (<0.60) mg/L FEU Sodium 142 (137-145) mmol/L Potassium 4.5 (3.5-5.1) mmol/L Chloride 106 (98-107) mmol/L Carbon Dioxide 29 (22-30) mmol/L Anion Gap 7 mmol/L BUN 18 (9-20) mg/dL Creatinine 1.02 (0.66-1.25) mg/dL Est GFR (CKD-EPI)AfAm >90 (>60 ml/min/1.73 sqM) Est GFR (CKD-EPI)NonAf 82 (>60 ml/min/1.73 sqM) Glucose 233 H (74-99) mg/dL Calcium 9.9 (8.4-10.2) mg/dL Total Bilirubin 0.9 (0.2-1.3) mg/dL AST 30 (17-59) U/L ALT 29 (4-49) U/L Alkaline Phosphatase 117 (38-126) U/L Total Protein 6.8 (6.3-8.2) g/dL Albumin 4.3 (3.5-5.0) g/dL Disposition <Elijah Barros - Last Filed: 12/18/23 21:32> Is patient prescribed a controlled substance at d/c from ED?: No Time of Disposition: 23:18 <Rogelio Schulz - Last Filed: 12/21/23 23:14> Clinical Impression: Leg pain Disposition: HOME SELF-CARE Condition: Good Instructions (If sedation given, give patient instructions): Leg Pain (ED) Additional Instructions: Follow-up with PCP. Report back to ER with any new or worsening symptoms. Referrals: Troy Michele MD [Primary Care Provider] - 1-2 days
[2023-12-18 22:05] LABS: Basophils % (A) 1 %; Eosinophils # (A) 0.2 k/uL (0-0.7); Eosinophils % (A) 2 %; HCT 46.7 % (39.0-53.0); HGB 15.8 gm/dL (13.0-17.5); Lymphocytes # (A) 1.2 k/uL (1.0-4.8); Lymphocytes % (A) 16 %; MCH 28.1 pg (25.0-35.0); MCHC 33.8 g/dL (31.0-37.0); MCV 83.2 fL (80.0-100.0); Mean Platelet Volume 8.9; Monocytes # (A) 0.7 k/uL (0-1.0); Monocytes % (A) 9 %; Neutrophils # (A) 5.5 k/uL (1.3-7.7); Neutrophils % (A) 72 %; Platelet Count 243 k/uL (150-450); RBC 5.62 m/uL (4.30-5.90); RDW 14.5 % (11.5-15.5); WBC 7.6 k/uL (3.8-10.6)
[2023-12-18 22:19] LABS: ALT 29 U/L (4-49); AST 30 U/L (17-59); African American GFR (CKD) >90 (>60 ml/min/1.73 sqM); Albumin 4.3 g/dL (3.5-5.0); Alkaline Phosphatase 117 U/L (38-126); Anion Gap 7 mmol/L; Blood Urea Nitrogen 18 mg/dL (9-20); Calcium 9.9 mg/dL (8.4-10.2); Carbon Dioxide 29 mmol/L (22-30); Chloride 106 mmol/L (98-107); Glucose 233 mg/dL (74-99); Non-African American GFR(CKD) 82 (>60 ml/min/1.73 sqM); Potassium 4.5 mmol/L (3.5-5.1); Sodium 142 mmol/L (137-145); Total Bilirubin 0.9 mg/dL (0.2-1.3); Total Protein 6.8 g/dL (6.3-8.2)
[2023-12-18 22:21] LABS: Partial Thromboplastin Time 26.2 sec (22.0-30.0); Prothrombin Time 10.8 sec (10.0-12.5)
--- NOTE | 2023-12-18 22:33 | US ---
EXAMINATION TYPE: US venous doppler duplex LE LT DATE OF EXAM: 12/18/2023 10:22 PM COMPARISON: NONE CLINICAL INDICATION: Male, 58 years old with history of Sudden onset left calf pain; left calf pain . . History of lung cancer. TECHNIQUE: The lower extremity deep venous system is examined utilizing real time linear array sonog brian with graded compression, color doppler sonography, and spectral doppler. SIDE PERFORMED: left FINDINGS: VESSELS IMAGED: Common Femoral Vein Deep Femoral Vein Greater Saphenous Vein * Femoral Vein Popliteal Vein Small Saphenous Vein * Proximal Calf Veins (* superficial vessels) Left Leg: No evidence of DVT IMPRESSION: 1. No evidence of deep vein thrombosis of the left lower extremity. [facility], , 12/18/2023 10:31 PM
[2023-12-18 23:27] VITALS: BP 128/85; PULSE 90; RESP 16
== END 2023-12-18 23:26 | disposition home or self-care (01) ==
LOC: EC 20:45
CPT/HCPCS: 36415; 80053; 85025; 85379; 85610; 85730; 99283

== ENCOUNTER → 2024-02-02 | Outpatient (CLI) | payer MEDICARE ==
--- NOTE | 2024-02-03 17:13 | PE ---
EXAMINATION TYPE: PET CT fusion skull to thigh DATE OF EXAM: 02/02/2024 CLINICAL INDICATION:Male, 58 years old with history of C34.81 LUNG CANCER; TECHNIQUE: Following the intravenous administration of 11.3 mCi of F-18 FDG, whole body images are performed from the skull base to the midthigh. Images are reviewed on the computer in the coronal, a xial, and sagittal planes. Reconstructed rotating images are created on independent workstation and reviewed on the computer. A non-contrast CT is performed in conjunction with the PET scan. Glucose level 183 mg/dL CT DLP: 789.22 mGycm, Automated exposure control for dose reduction was used. COMPARISON: CT 09/27/2023, 03/25/2023, PET/CT 11/04/2023, 06/30/2023, 04/07/2023, MRI: 04/05/2023 FINDINGS: Mediastinal SUV mean is 1.9. Hepatic parenchyma SUV mean is 2.9. SKULL BASE AND NECK: No suspicious radiotracer activity. CHEST, MEDIASTINUM, AND HILAR REGION: * Focal radiotracer uptake identified within the posterior right hilum with a maximum SUV of 5.2. * Subcarinal nonenlarged lymph node with focal radiotracer uptake with a maximum SUV of 4.3. ABDOMEN AND PELVIS: New peripheral right hepatic lobe focal region of radiotracer uptake with a maximum SUV of 8.9. Physiologic uptake within the bowel. MUSCULOSKELETAL STRUCTURES: Innumerable foci of uptake within the osseous structures with correspondi ng sclerotic lesions including: * C3 vertebral body with a maximum SUV of 5.6, previously 2.4, 5.4, 2.3. * Right transverse process of T1 max SUV 5.6, previously 5.4, 4.8, 2.9. * T10 vertebral body max SUV 6.5, previously 4.3, 5.7. * Left iliac bone near the sacroiliac joint max SUV 6.3, previously 7.2, 6.9, 5.8, * Sacrum max SUV 6.4, previously 2.4, 5.6, 5.3. * Left proximal femur maximum SUV 5.4, previously 3.1, 5.7, 4.2. * Left iliac crest max SUV 5.9, previously 2.1, 5.8, 5.0. * L2 vertebral body max SUV 7.9, previously 3.6, 8.9, 4.8. OTHER CT: The gallbladder is surgically absent. Few scattered colonic diverticula. Heart is mildly en larged for size. Moderate right pleural effusion redemonstrated. Prostatomegaly. Postsurgical changes to the sigmoid colon. IMPRESSION: Progression of disease with increased radiotracer uptake identified involving innumerable osseous met astatic lesions, subcarinal and right hilar lymph nodes, and development of a lateral right hepatic l obe FDG avid lesion. [facility], , 02/03/2024 5:11 PM
== END | disposition home or self-care (01) ==
LOC: RADPETMAIN 12:03
PROVIDERS: ATTEND Internal Medicine
DX: C34.81 Malignant neoplasm of overlapping sites of right bronchus and lung (principal); C78.7 Secondary malignant neoplasm of liver and intrahepatic bile duct; C79.51 Secondary malignant neoplasm of bone
CPT/HCPCS: 78815; A9552

== ENCOUNTER → 2024-02-10 | Outpatient (CLI) | payer MEDICARE ==
--- NOTE | 2024-02-10 10:33 | MR ---
EXAMINATION TYPE: MR brain wo/w con DATE OF EXAM: 02/10/2024 10:14 AM COMPARISON: 04/05/2023 CLINICAL INDICATION: Male, 58 years old with history of C34.90 lung ca, Lung, Bone, Liver, Lymph node cancer TECHNIQUE: Multiplanar, multiecho imaging on a 3.0 Duyen magnet is performed through the brain. Stud y is performed within 24 hours of arrival to the hospital.Multiplanar, multiecho imaging on a 3.0 Babs la magnet is performed through the knee. IV Contrast: 8.5 mL Gadobutrol (None, if empty) FINDINGS: The craniovertebral junction is normal. The pituitary is normal. Diffusion-weighted imaging is performed. No abnormal hyperintensity is present to suggest an acute i ntracranial infarct or acute ischemic change. There appears to be perivascular atrophy There are scattered punctate areas of hyperintensity on T2 and Inversion Recovery weighted sequences which are non-specific but can be related to microvascular ischemic changes. Ventricles and sulci are appropriate for the patient age. No abnormal enhancement is evident IMPRESSION: 1. No suspicious abnormality to suggest metastatic disease. 2. Mild atrophy [facility], , 02/10/2024 10:31 AM
== END | disposition home or self-care (01) ==
LOC: RADMRIMAIN 09:19
PROVIDERS: ATTEND Internal Medicine
DX: C34.90 Malignant neoplasm of unspecified part of unspecified bronchus or lung (principal); G31.9 Degenerative disease of nervous system, unspecified
CPT/HCPCS: 70553; A9585

== ENCOUNTER 2024-02-20 15:38 | Emergency (ER) | payer MEDICARE ==
[2024-02-20 15:53] VITALS: RESP 18
--- NOTE | 2024-02-20 16:47 | XR ---
EXAMINATION TYPE: XR chest 2V DATE OF EXAM: 02/20/2024 4:38 PM COMPARISON: 12/12/2023 CLINICAL INDICATION: Male, 58 years old with history of Cough, history of lung CA, , TECHNIQUE: PA and lateral views FINDINGS: Heart mildly enlarged. Interstitial and patchy opacities, right greater than left are similar to slig htly worsened from 12/12/2023. Prominent opacity posterior right base particularly on the lateral vie w. IMPRESSION: Interstitial and patchy opacities right greater than left especially at the posterior right base on t he lateral view. Correlate to exclude pneumonia. [facility], , 02/20/2024 4:45 PM
[2024-02-20 16:54] LABS: Basophils % (A) 0 %; Eosinophils # (A) 0.2 k/uL (0-0.7); Eosinophils % (A) 2 %; HCT 45.3 % (39.0-53.0); HGB 14.6 gm/dL (13.0-17.5); Lymphocytes # (A) 1.1 k/uL (1.0-4.8); Lymphocytes % (A) 12 %; MCH 27.1 pg (25.0-35.0); MCHC 32.2 g/dL (31.0-37.0); Mean Platelet Volume 8.9; Monocytes # (A) 0.7 k/uL (0-1.0); Monocytes % (A) 8 %; Neutrophils # (A) 7.1 k/uL (1.3-7.7); Neutrophils % (A) 77 %; Platelet Count 205 k/uL (150-450); WBC 9.1 k/uL (3.8-10.6)
[2024-02-20 17:17] LABS: ALT 21 U/L (4-49); AST 22 U/L (17-59); African American GFR (CKD) >90 (>60 ml/min/1.73 sqM); Albumin 3.9 g/dL (3.5-5.0); Alkaline Phosphatase 196 U/L (38-126); Anion Gap 7 mmol/L; Blood Urea Nitrogen 10 mg/dL (9-20); Calcium 9.7 mg/dL (8.4-10.2); Carbon Dioxide 27 mmol/L (22-30); Chloride 104 mmol/L (98-107); Glucose 315 mg/dL (74-99); Non-African American GFR(CKD) >90 (>60 ml/min/1.73 sqM); Potassium 4.1 mmol/L (3.5-5.1); Sodium 138 mmol/L (137-145); Total Bilirubin 0.7 mg/dL (0.2-1.3); Total Protein 6.2 g/dL (6.3-8.2)
--- NOTE | 2024-02-20 17:19 | ED ---
URI HPI - General Chief Complaint: Upper Respiratory Infection Stated Complaint: Cough,Weakness Time Seen by Provider: 02/20/24 15:52 Source: patient, RN notes reviewed Mode of arrival: ambulatory Limitations: no limitations - History of Present Illness Initial Comments: This is a 58-year-old male with history of lung cancer and DM presenting with dry cough x 1 week. Also endorses fatigue. Patient states he recently finished a steroid regiment for symptoms. Denies fever, chills, chest pain, dyspnea, hemoptysis, abdominal pain, N/V/D. MD Complaint: cough Onset/Timin -: days(s) Consistency: constant Improves With: nothing Worsens With: nothing Associated Symptoms: cough Treatments Prior to Arrival: other (Solu-Medrol, prednisone) - Related Data Home Medications Medication Instructions Recorded Confirmed Enalapril [Vasotec] 10 mg PO DAILY 10/01/20 12/12/23 Pravastatin Sodium [Pravachol] 10 mg PO DAILY 10/01/20 12/12/23 glipiZIDE [Glucotrol] 10 mg PO BID 10/01/20 12/12/23 metFORMIN HCL [Glucophage] 1,000 mg PO BID 10/01/20 12/12/23 Albuterol Sulfate [Albuterol 1 puff INHALATION RT-Q4H PRN 03/24/23 12/12/23 Sulfate Hfa] Cariprazine HCl [Vraylar] 3 mg PO DAILY 03/24/23 12/12/23 sitaGLIPtin [Januvia] 100 mg PO DAILY 03/24/23 12/12/23 ALPRAZolam [Xanax] 1 mg PO BID 09/27/23 12/12/23 Desvenlafaxine Succinate [Pristiq 50 mg PO DAILY 09/27/23 12/12/23 ER] Magnesium Oxide [Mag-Ox] 400 mg PO HS 09/27/23 12/12/23 Montelukast [Singulair] 10 mg PO DAILY 09/27/23 12/12/23 Mv-Min/Folic/K1/Lycopen/Lutein 1 tab PO DAILY 09/27/23 12/12/23 [Centrum Silver Men Tablet] Ondansetron [Zofran] 4 mg PO Q4H PRN 09/27/23 12/12/23 Osimertinib Mesylate [Tagrisso] 80 mg PO HS 09/27/23 12/12/23 Previous Rx's Medication Instructions Recorded Levofloxacin [Levaquin] 750 mg PO HS #5 tab 12/14/23 Azithromycin [Zithromax Z Pack] 1 tab PO DIRECTED #4 tab 02/20/24 Allergies Allergy/AdvReac Type Severity Reaction Status Date / Time Cephalosporins AdvReac Nausea & Verified 12/18/23 20:59 Vomiting & Diarrhea Review of Systems ROS Statement: Those systems with pertinent positive or pertinent negative responses have been documented in the HPI. ROS Other: All systems not noted in ROS Statement are negative. Past Medical History Past Medical History: Cancer, Diabetes Mellitus, Hypertension, Sleep Apnea/CPAP/BIPAP Additional Past Medical History / Comment(s): diverticulitis, lung cancer treated with oral chemo History of Any Multi-Drug Resistant Organisms: C-DIFF Date of last positivie culture/infection: 1994 MDRO Source:: stool Past Surgical History: Bowel Resection, Hernia Repair, Orthopedic Surgery, Tonsillectomy Additional Past Surgical History / Comment(s): sigmoid colon, vasectomy, lung biospy Past Anesthesia/Blood Transfusion Reactions: No Reported Reaction Past Psychological History: Bipolar, Depression, Panic Disorder Smoking Status: Never smoker Past Alcohol Use History: None Reported Past Drug Use History: None Reported - Past Family History Mother Family Medical History: Cancer Additional Family Medical History / Comment(s): Cancer history Father Family Medical History: Coronary Artery Disease (CAD) Additional Family Medical History / Comment(s): Heart Disease General Exam Limitations: no limitations General appearance: alert, in no apparent distress Head exam: Present: atraumatic, normocephalic, normal inspection Eye exam: Present: normal appearance, PERRL, EOMI. Absent: scleral icterus, conjunctival injection, periorbital swelling ENT exam: Present: normal exam, mucous membranes moist Neck exam: Present: normal inspection. Absent: tenderness, meningismus, lymphadenopathy Respiratory exam: Present: normal lung sounds bilaterally. Absent: respiratory distress, wheezes, rales, rhonchi, stridor Cardiovascular Exam: Present: regular rate, normal rhythm, normal heart sounds. Absent: systolic murmur, diastolic murmur, rubs, gallop, clicks GI/Abdominal exam: Present: soft, normal bowel sounds. Absent: distended, tenderness, guarding, rebound, rigid Extremities exam: Present: normal inspection, full ROM, normal capillary refill. Absent: tenderness, pedal edema, joint swelling, calf tenderness Back exam: Present: normal inspection Neurological exam: Present: alert, oriented X3, CN II-XII intact Psychiatric exam: Present: normal affect, normal mood Skin exam: Present: warm, dry, intact, normal color. Absent: rash Course Vital Signs 02/20/24 02/20/24 02/20/24 15:50 16:50 17:28 Temperature 98.2 F 98 F Pulse Rate 119 H 105 H Respiratory 18 18 18 Rate Blood Pressure 133/82 129/77 O2 Sat by Pulse 95 95 Oximetry 02/20/24 18:16 Temperature 98 F Pulse Rate 101 H Respiratory 18 Rate Blood Pressure 124/76 O2 Sat by Pulse 96 Oximetry Medical Decision Making - Medical Decision Making Was pt. sent in by a medical professional or institution (SHILPA Staton, STAFFING MANAGER, urgent care, hospital, or longterm...) When possible be specific @ -No Did you speak to anyone other than the patient for history (EMS, parent, family, police, friend...)? What history was obtained from this source @ -No Did you review nursing and triage notes (agree or disagree)? Why? @ -I reviewed and agree with nursing and triage notes Were old charts reviewed (outside hosp., previous admission, EMS record, old EKG, old radiological studies, urgent care reports/EKG's, longterm records)? Report findings @ -No old charts were reviewed Differential Diagnosis (chest pain, altered mental status, abdominal pain women, abdominal pain men, vaginal bleeding, weakness, fever, dyspnea, syncope, headache, dizziness, GI bleed, back pain, seizure, CVA, palpatations, mental health, musculoskeletal)? @ -Differential Fever: Pneumonia, viral URI, endocarditis, myocarditis, pericarditis, otitis, sinusitis, peritonsillar Abscess, retropharyngeal Abscess, epiglottitis, peritonitis, appendicitis, Gris cystitis, diverticulitis, hepatitis, colitis, UTI, PID, TOA, pyelonephritis, prostatitis, epididymitis, meningitis, encephalitis, pulmonary embolism, CVA, thyroid storm, pancreatitis, adrenal crisis, cavernous sinus thrombosis, this is not meant to be an all-inclusive list. EKG interpreted by me (3pts min.). @ -Not done X-rays interpreted by me (1pt min.). @ -CXR shows bilateral pneumonia. CT interpreted by me (1pt min.). @ -None done U/S interpreted by me (1pt. min.). @ -None done What testing was considered but not performed or refused? (CT, X-rays, U/S, labs)? Why? @ -None What meds were considered but not given or refused? Why? @ -Considered Rocephin administration for pneumonia but not given due to patient's cephalosporin allergy. Did you discuss the management of the patient with other professionals (pro fessionals i.e. , PA, STAFFING MANAGER, lab, RT, psych nurse, social services manager, hip hop artist, teacher, space operations officer, field case manager)? Give summary @ -No Was smoking cessation discussed for >3mins.? @ -No Was critical care preformed (if so, how long)? @ -No Were there social determinants of health that impacted care today? How? (Homelessness, low income, unemployed, alcoholism, drug addiction, transportation, low edu. Level, literacy, decrease access to med. care, fpc, rehab)? @ -No Was there de-escalation of care discussed even if they declined (Discuss DNR or withdrawal of care, Hospice)? DNR status @ -No What co-morbidities impacted this encounter? (DM, HTN, Smoking, COPD, CAD, Cancer, CVA, ARF, Chemo, Hep., AIDS, mental health diagnosis, sleep apnea, morbid obesity)? @ -Lung CA, DM Was patient admitted / discharged? Hospital course, mention meds given and route, prescriptions, significant lab abnormalities, going to OR and other pertinent info. @ -Lab work shows hyperglycemia (315) and alk phos (196). Cepheid test negative. CXR shows bilateral pneumonia. Patient provided initial dose of azithromycin and remaining regimen sent to patient's pharmacy. Undiagnosed new problem with uncertain prognosis? @ -No Drug Therapy requiring intensive monitoring for toxicity (Heparin, Nitro, Insulin, Cardizem)? @ -No Were any procedures done? @ -No Diagnosis/symptom? @ -Pneumonia Acute, or Chronic, or Acute on Chronic? @ -Acute Uncomplicated (without systemic symptoms) or Complicated (systemic symptoms)? @ -Complicated Side effects of treatment? @ -No Exacerbation, Progression, or Severe Exacerbation? @ -No Poses a threat to life or bodily function? How? (Chest pain, [place], [place], pneumonia, PE, COPD, DKA, ARF, appy, cholecystitis, CVA, Diverticulitis, Homicidal, Suicidal, threat to staff... and all critical care pts) @ -Pneumonia - Lab Data Result diagrams: 02/20/24 16:43 02/20/24 16:43 Lab Results 02/20/24 02/20/24 02/20/24 Range/Units 16:43 16:43 16:43 WBC 9.1 (3.8-10.6) k/uL RBC 5.40 (4.30-5.90) m/uL Hgb 14.6 (13.0-17.5) gm/dL Hct 45.3 (39.0-53.0) % MCV 84.0 (80.0-100.0) fL MCH 27.1 (25.0-35.0) pg MCHC 32.2 (31.0-37.0) g/dL RDW 14.0 (11.5-15.5) % Plt Count 205 (150-450) k/uL MPV 8.9 Neutrophils % 77 % Lymphocytes % 12 % Monocytes % 8 % Eosinophils % 2 % Basophils % 0 % Neutrophils # 7.1 (1.3-7.7) k/uL Lymphocytes # 1.1 (1.0-4.8) k/uL Monocytes # 0.7 (0-1.0) k/uL Eosinophils # 0.2 (0-0.7) k/uL Basophils # 0.0 (0-0.2) k/uL Sodium 138 (137-145) mmol/L Potassium 4.1 (3.5-5.1) mmol/L Chloride 104 (98-107) mmol/L Carbon Dioxide 27 (22-30) mmol/L Anion Gap 7 mmol/L BUN 10 (9-20) mg/dL Creatinine 0.69 (0.66-1.25) mg/dL Est GFR (CKD-EPI)AfAm >90 (>60 ml/min/1.73 sqM) Est GFR (CKD-EPI)NonAf >90 (>60 ml/min/1.73 sqM) Glucose 315 H (74-99) mg/dL Calcium 9.7 (8.4-10.2) mg/dL Total Bilirubin 0.7 (0.2-1.3) mg/dL AST 22 (17-59) U/L ALT 21 (4-49) U/L Alkaline Phosphatase 196 H (38-126) U/L Total Protein 6.2 L (6.3-8.2) g/dL Albumin 3.9 (3.5-5.0) g/dL Influenza Type A (PCR) Not Detected (Not Detectd) Influenza Type B (PCR) Not Detected (Not Detectd) RSV (PCR) Not Detected (Not Detectd) SARS-CoV-2 (PCR) Not Detected (Not Detectd) Disposition Clinical Impression: Pneumonia Disposition: HOME SELF-CARE Condition: Good Instructions (If sedation given, give patient instructions): Community Acquired Pneumonia (ED) Prescriptions: Azithromycin [Zithromax Z Pack] 1 tab PO DIRECTED #4 tab Is patient prescribed a controlled substance at d/c from ED?: No Referrals: Troy Michele MD [Primary Care Provider] - 1-2 days Time of Disposition: 17:18
[2024-02-20] MEDS: AZITHROMYCIN 500 MG TAB PO STA (17:26)
[2024-02-20 17:28] VITALS: TEMP 98
[2024-02-20 18:18] VITALS: BP 124/76; PULSE 101
== END 2024-02-20 18:18 | disposition home or self-care (01) ==
LOC: EC 15:38
DX: J18.9 Pneumonia, unspecified organism (principal); E11.9 Type 2 diabetes mellitus without complications; Z88.1 Allergy status to other antibiotic agents; Z85.118 Personal history of other malignant neoplasm of bronchus and lung; Z79.84 Long term (current) use of oral hypoglycemic drugs
CPT/HCPCS: 36415; 71046; 80053; 85025; 87636; 99285

== ENCOUNTER 2024-04-26 13:33 | Inpatient (IN) | payer MEDICARE ==
[2024-04-26 14:03] LABS: Basophils % (A) 0 %; Eosinophils # (A) 0.3 k/uL (0-0.7); Eosinophils % (A) 2 %; HCT 50.7 % (39.0-53.0); HGB 15.3 gm/dL (13.0-17.5); Hypochromasia Moderate; Lymphocytes # (A) 0.7 k/uL (1.0-4.8); Lymphocytes % (A) 6 %; MCH 25.6 pg (25.0-35.0); MCHC 30.1 g/dL (31.0-37.0); MCV 84.8 fL (80.0-100.0); Mean Platelet Volume 8.4; Monocytes # (A) 0.5 k/uL (0-1.0); Monocytes % (A) 5 %; Neutrophils # (A) 8.8 k/uL (1.3-7.7); Neutrophils % (A) 86 %; Platelet Count 215 k/uL (150-450); RBC 5.98 m/uL (4.30-5.90); RDW 15.8 % (11.5-15.5); WBC 10.3 k/uL (3.8-10.6)
--- NOTE | 2024-04-26 14:10 | ED ---
General Adult HPI - General Chief complaint: Shortness of Breath Stated complaint: SOB Time Seen by Provider: 04/26/24 13:52 Source: patient, RN notes reviewed Mode of arrival: ambulatory Limitations: no limitations - History of Present Illness Initial comments: Patient is a 59-year-old male presenting to the emergency department with concerns with difficulty breathing. Onset of symptoms was the past day or 2. Patient does have known stage IV lung cancer and is on immunotherapy with oncology here. Patient does have mild cough. Symptoms worsen with exertion. Patient does feel fatigued. Patient has mild foot edema. No calf pain. - Related Data Home Medications Medication Instructions Recorded Confirmed Pravastatin Sodium [Pravachol] 10 mg PO DAILY 10/01/20 04/26/24 metFORMIN HCL [Glucophage] 1,000 mg PO BID 10/01/20 04/26/24 Albuterol Sulfate [Albuterol 1 puff INHALATION RT-Q4H PRN 03/24/23 04/26/24 Sulfate Hfa] Cariprazine HCl [Vraylar] 3 mg PO DAILY 03/24/23 04/26/24 sitaGLIPtin [Januvia] 100 mg PO DAILY 03/24/23 04/26/24 ALPRAZolam [Xanax] 1 mg PO BID PRN 09/27/23 04/26/24 Desvenlafaxine Succinate [Pristiq 50 mg PO DAILY 09/27/23 04/26/24 ER] Montelukast [Singulair] 10 mg PO DAILY 09/27/23 04/26/24 Mv-Min/Folic/K1/Lycopen/Lutein 1 tab PO DAILY 09/27/23 04/26/24 [Centrum Silver Men Tablet] Ondansetron [Zofran] 4 mg PO Q4H PRN 09/27/23 04/26/24 Amivantamab-Vmjw [Rybrevant] 1,400 mg IV Q14D 04/26/24 04/26/24 Apixaban [Eliquis] 2.5 mg PO BID 04/26/24 04/26/24 Benzonatate [Tessalon Perle] 200 mg PO TID PRN 04/26/24 04/26/24 Budesonide/Formoterol Fumarate 2 puff INHALATION RT-BID 04/26/24 04/26/24 [Breyna 160-4.5 Mcg Inhaler] Codeine Phosphate/Guaifenesin 5 ml PO Q4H PRN 04/26/24 04/26/24 [Codeine Phosphate/Guaifenesin 10-100 mg/5 ml] Doxycycline [Vibramycin] 100 mg PO BID 04/26/24 04/26/24 Fluticasone Propionate [Flonase 1 spray EA NOSTRIL DAILY 04/26/24 04/26/24 Allergy Relief] Hydrocortisone Cream 1 applic TOPICAL BID 04/26/24 04/26/24 [Hydrocortisone 2.5% Cream] Insulin Glargine (Lantus) [Lantus See Protocol SQ DAILY MDD 14 units 04/26/24 04/26/24 Vial] Lazertinib Mesylate [Lazcluze] 240 mg PO DAILY 04/26/24 04/26/24 Magnesium Citrate 100 mg PO HS 04/26/24 04/26/24 diphenhydrAMINE [Benadryl] 50 mg PO HS 04/26/24 04/26/24 traMADol HCl [Ultram] 50 mg PO Q8H PRN 04/26/24 04/26/24 Allergies Allergy/AdvReac Type Severity Reaction Status Date / Time Cephalosporins AdvReac Diarrhea & Verified 04/26/24 16:47 C-DIFF Review of Systems ROS Statement: Those systems with pertinent positive or pertinent negative responses have been documented in the HPI. ROS Other: All systems not noted in ROS Statement are negative. Constitutional: Denies: fever Eyes: Denies: eye pain Respiratory: Reports: cough, dyspnea Cardiovascular: Denies: chest pain Endocrine: Reports: fatigue Gastrointestinal: Denies: abdominal pain Musculoskeletal: Denies: back pain Past Medical History Past Medical History: Cancer, Diabetes Mellitus, Hypertension, Sleep Apnea/CPAP/BIPAP Additional Past Medical History / Comment(s): diverticulitis, lung cancer treated with oral chemo History of Any Multi-Drug Resistant Organisms: C-DIFF Date of last positivie culture/infection: 1994 MDRO Source:: stool Past Surgical History: Bowel Resection, Hernia Repair, Orthopedic Surgery, Tonsillectomy Additional Past Surgical History / Comment(s): sigmoid colon, vasectomy, lung biospy Past Anesthesia/Blood Transfusion Reactions: No Reported Reaction Past Psychological History: Bipolar, Depression, Panic Disorder Smoking Status: Never smoker Past Alcohol Use History: None Reported Past Drug Use History: None Reported - Past Family History Mother Family Medical History: Cancer Additional Family Medical History / Comment(s): Cancer history Father Family Medical History: Coronary Artery Disease (CAD) Additional Family Medical History / Comment(s): Heart Disease General Exam Limitations: no limitations General appearance: alert Head exam: Present: normocephalic Eye exam: Present: normal appearance Neck exam: Present: normal inspection Respiratory exam: Present: normal lung sounds bilaterally Cardiovascular Exam: Present: tachycardia GI/Abdominal exam: Present: soft. Absent: tenderness Extremities exam: Present: pedal edema (+1 bilateral). Absent: calf tenderness Neurological exam: Present: alert Psychiatric exam: Present: flat affect Skin exam: Present: normal color Course Vital Signs 04/26/24 04/26/24 04/26/24 13:34 15:55 16:04 Temperature 97.8 F Pulse Rate 125 H 87 87 Respiratory 20 Rate Blood Pressure 133/83 O2 Sat by Pulse 95 Oximetry 04/26/24 16:26 Temperature Pulse Rate 120 H Respiratory 18 Rate Blood Pressure 122/75 O2 Sat by Pulse 96 Oximetry Medical Decision Making - Medical Decision Making There is concern for pneumonia diagnosed at 1645. Lactic acid is elevated however this may be somewhat due to oncological history and treatments. In addition patient may deteriorate with large fluid bolus secondary to effusion and respiratory symptoms and therefore large fluid bolus of 30 cc/kg was not provided at this time. Was pt. sent in by a medical professional or institution (SHILPA Staton, INTERNET PROJECT MANAGER, urgent care, hospital, or assisted...) When possible be specific @ -No Did you speak to anyone other than the patient for history (EMS, parent, family, police, friend...)? What history was obtained from this source @ - is present helps right history including oncological history and treatment Did you review nursing and triage notes (agree or disagree)? Why? @ -I reviewed and agree with nursing and triage notes Were old charts reviewed (outside hosp., previous admission, EMS record, old EKG, old radiological studies, urgent care reports/EKG's, assisted records)? Report findings @ -Multiple previous chest x-ray including admission x-rays reviewed Differential Diagnosis (chest pain, altered mental status, abdominal pain women, abdominal pain men, vaginal bleeding, weakness, fever, dyspnea, syncope, headache, dizziness, GI bleed, back pain, seizure, CVA, palpatations, mental health, musculoskeletal)? @ -Differential Dyspnea: Coronary syndrome, arrhythmia, tamponade, asthma, COPD, pulmonary embolism, pneumonia, pneumothorax, pulmonary effusion, anaphylaxis, diabetic ketoacidosis, flailed chest, pulmonary contusion, diaphragmatic rupture, anemia, neuromuscular, this is not meant to be an all-inclusive list. EKG interpreted by me (3pts min.). @ -As above X-rays interpreted by me (1pt min.). @ -Chest x-ray concerning for right mid lung infiltrate and posterior effusion CT interpreted by me (1pt min.). @ -None done U/S interpreted by me (1pt. min.). @ -None done What testing was considered but not performed or refused? (CT, X-rays, U/S, labs)? Why? @ -None What meds were considered but not given or refused? Why? @ -See above with fluids Did you discuss the management of the patient with other professionals (professionals i.e. , PA, INTERNET PROJECT MANAGER, lab, RT, psych nurse, addiction social worker, fast food crew lead, teacher, ship's electronic warfare officer, case assembler)? Give summary @ -[facility] Dr. Bae will admit covering Dr. Lozano, who meds for Dr. Michele. Was smoking cessation discussed for >3mins.? @ -No Was critical care preformed (if so, how long)? @ -No Were there social determinants of health that impacted care today? How? (Homelessness, low income, unemployed, alcoholism, drug addiction, transportation, low edu. Level, literacy, decrease access to med. care, penitentiary, rehab)? @ -No Was there de-escalation of care discussed even if they declined (Discuss DNR or withdrawal of care, Hospice)? DNR status @ -No What co-morbidities impacted this encounter? (DM, HTN, Smoking, COPD, CAD, Cancer, CVA, ARF, Chemo, Hep., AIDS, mental health diagnosis, sleep apnea, morbid obesity)? @ -History of metastatic lung cancer Was patient admitted / discharged? Hospital course, mention meds given and route, prescriptions, significant lab abnormalities, going to OR and other pertinent info. @ -Patient with lung cancer presents with dyspnea and tachycardia. Chest x- ray concerning for effusion and questionable pneumonia. Patient will be admitted with IV antibiotics and pulmonary consult. Patient may benefit from thoracocentesis. Patient reevaluated. Patient is improved on oxygen. Patient and family updated. Admission orders written. Undiagnosed new problem with uncertain prognosis? @ -No Drug Therapy requiring intensive monitoring for toxicity (Heparin, Nitro, Insulin, Cardizem)? @ -No Were any procedures done? @ -No Diagnosis/symptom? @ -Pleural effusion, lung infiltrate Acute, or Chronic, or Acute on Chronic? @ -Acute, acute Uncomplicated (without systemic symptoms) or Complicated (systemic symptoms)? @ -Default Side effects of treatment? @ -No Exacerbation, Progression, or Severe Exacerbation? @ -No Poses a threat to life or bodily function? How? (Chest pain, [place], [place], pneumonia, PE, COPD, DKA, ARF, appy, cholecystitis, CVA, Diverticulitis, Homicidal, Suicidal, threat to staff... and all critical care pts) @ -Threat to respiratory function - Lab Data Result diagrams: 04/26/24 13:42 04/26/24 13:42 Lab Results 04/26/24 04/26/24 04/26/24 Range/Units 13:42 13:42 13:42 WBC 10.3 (3.8-10.6) k/uL RBC 5.98 H (4.30-5.90) m/uL Hgb 15.3 (13.0-17.5) gm/dL Hct 50.7 (39.0-53.0) % MCV 84.8 (80.0-100.0) fL MCH 25.6 (25.0-35.0) pg MCHC 30.1 L (31.0-37.0) g/dL RDW 15.8 H (11.5-15.5) % Plt Count 215 (150-450) k/uL MPV 8.4 Neutrophils % 86 % Lymphocytes % 6 % Monocytes % 5 % Eosinophils % 2 % Basophils % 0 % Neutrophils # 8.8 H (1.3-7.7) k/uL Lymphocytes # 0.7 L (1.0-4.8) k/uL Monocytes # 0.5 (0-1.0) k/uL Eosinophils # 0.3 (0-0.7) k/uL Basophils # 0.0 (0-0.2) k/uL Hypochromasia Moderate PT 12.0 (10.0-12.5) sec INR 1.1 (<1.2) APTT 22.9 (22.0-30.0) sec Sodium 141 (137-145) mmol/L Potassium 4.2 (3.5-5.1) mmol/L Chloride 104 (98-107) mmol/L Carbon Dioxide 28 (22-30) mmol/L Anion Gap 9 mmol/L BUN 14 (9-20) mg/dL Creatinine 0.73 (0.66-1.25) mg/dL Est GFR (CKD-EPI)AfAm >90 (>60 ml/min/1.73 sqM) Est GFR (CKD-EPI)NonAf >90 (>60 ml/min/1.73 sqM) Glucose 217 H (74-99) mg/dL Lactic Ac Sepsis Rflx Plasma Lactic Acid Wicho (0.7-2.0) mmol/L Calcium 8.6 (8.4-10.2) mg/dL Total Bilirubin 0.8 (0.2-1.3) mg/dL AST 35 (17-59) U/L ALT 44 (4-49) U/L Alkaline Phosphatase 334 H (38-126) U/L Troponin I (0.000-0.034) ng/mL Total Protein 5.8 L (6.3-8.2) g/dL Albumin 3.2 L (3.5-5.0) g/dL Influenza Type A (PCR) (Not Detectd) Influenza Type B (PCR) (Not Detectd) RSV (PCR) (Not Detectd) SARS-CoV-2 (PCR) (Not Detectd) 04/26/24 04/26/24 04/26/24 Range/Units 13:42 13:42 13:42 WBC (3.8-10.6) k/uL RBC (4.30-5.90) m/uL Hgb (13.0-17.5) gm/dL Hct (39.0-53.0) % MCV (80.0-100.0) fL MCH (25.0-35.0) pg MCHC (31.0-37.0) g/dL RDW (11.5-15.5) % Plt Count (150-450) k/uL MPV Neutrophils % % Lymphocytes % % Monocytes % % Eosinophils % % Basophils % % Neutrophils # (1.3-7.7) k/uL Lymphocytes # (1.0-4.8) k/uL Monocytes # (0-1.0) k/uL Eosinophils # (0-0.7) k/uL Basophils # (0-0.2) k/uL Hypochromasia PT (10.0-12.5) sec INR (<1.2) APTT (22.0-30.0) sec Sodium (137-145) mmol/L Potassium (3.5-5.1) mmol/L Chloride (98-107) mmol/L Carbon Dioxide (22-30) mmol/L Anion Gap mmol/L BUN (9-20) mg/dL Creatinine (0.66-1.25) mg/dL Est GFR (CKD-EPI)AfAm (>60 ml/min/1.73 sqM) Est GFR (CKD-EPI)NonAf (>60 ml/min/1.73 sqM) Glucose (74-99) mg/dL Lactic Ac Sepsis Rflx Plasma Lactic Acid Wicho 4.2 H* (0.7-2.0) mmol/L Calcium (8.4-10.2) mg/dL Total Bilirubin (0.2-1.3) mg/dL AST (17-59) U/L ALT (4-49) U/L Alkaline Phosphatase (38-126) U/L Troponin I <0.012 (0.000-0.034) ng/mL Total Protein (6.3-8.2) g/dL Albumin (3.5-5.0) g/dL Influenza Type A (PCR) Not Detected (Not Detectd) Influenza Type B (PCR) Not Detected (Not Detectd) RSV (PCR) Not Detected (Not Detectd) SARS-CoV-2 (PCR) Not Detected (Not Detectd) 04/26/24 Range/Units 14:20 WBC (3.8-10.6) k/uL RBC (4.30-5.90) m/uL Hgb (13.0-17.5) gm/dL Hct (39.0-53.0) % MCV (80.0-100.0) fL MCH (25.0-35.0) pg MCHC (31.0-37.0) g/dL RDW (11.5-15.5) % Plt Count (150-450) k/uL MPV Neutrophils % % Lymphocytes % % Monocytes % % Eosinophils % % Basophils % % Neutrophils # (1.3-7.7) k/uL Lymphocytes # (1.0-4.8) k/uL Monocytes # (0-1.0) k/uL Eosinophils # (0-0.7) k/uL Basophils # (0-0.2) k/uL Hypochromasia PT (10.0-12.5) sec INR (<1.2) APTT (22.0-30.0) sec Sodium (137-145) mmol/L Potassium (3.5-5.1) mmol/L Chloride (98-107) mmol/L Carbon Dioxide (22-30) mmol/L Anion Gap mmol/L BUN (9-20) mg/dL Creatinine (0.66-1.25) mg/dL Est GFR (CKD-EPI)AfAm (>60 ml/min/1.73 sqM) Est GFR (CKD-EPI)NonAf (>60 ml/min/1.73 sqM) Glucose (74-99) mg/dL Lactic Ac Sepsis Rflx Y Plasma Lactic Acid Wicho (0.7-2.0) mmol/L Calcium (8.4-10.2) mg/dL Total Bilirubin (0.2-1.3) mg/dL AST (17-59) U/L ALT (4-49) U/L Alkaline Phosphatase (38-126) U/L Troponin I (0.000-0.034) ng/mL Total Protein (6.3-8.2) g/dL Albumin (3.5-5.0) g/dL Influenza Type A (PCR) (Not Detectd) Influenza Type B (PCR) (Not Detectd) RSV (PCR) (Not Detectd) SARS-CoV-2 (PCR) (Not Detectd) Disposition Clinical Impression: Pleural effusion, Lung infiltrate Disposition: ADMITTED IP TO THIS [facility] Condition: Serious Is patient prescribed a controlled substance at d/c from ED?: No Referrals: Troy Michele MD [Primary Care Provider] - 1-2 days Time of Disposition: 16:47
[2024-04-26 14:18] LABS: ALT 44 U/L (4-49); AST 35 U/L (17-59); African American GFR (CKD) >90 (>60 ml/min/1.73 sqM); Albumin 3.2 g/dL (3.5-5.0); Alkaline Phosphatase 334 U/L (38-126); Anion Gap 9 mmol/L; Blood Urea Nitrogen 14 mg/dL (9-20); Calcium 8.6 mg/dL (8.4-10.2); Carbon Dioxide 28 mmol/L (22-30); Chloride 104 mmol/L (98-107); Glucose 217 mg/dL (74-99); Non-African American GFR(CKD) >90 (>60 ml/min/1.73 sqM); Potassium 4.2 mmol/L (3.5-5.1); Sodium 141 mmol/L (137-145); Total Bilirubin 0.8 mg/dL (0.2-1.3); Total Protein 5.8 g/dL (6.3-8.2)
[2024-04-26 14:36] LABS: INR 1.1 (<1.2); Partial Thromboplastin Time 22.9 sec (22.0-30.0)
[2024-04-26 14:40] LABS: Influenza A Not Detected (Not Detectd); Influenza B Not Detected (Not Detectd); RSV Not Detected (Not Detectd)
--- NOTE | 2024-04-26 14:54 | XR ---
EXAMINATION TYPE: XR chest 2V DATE OF EXAM: 04/26/2024 2:25 PM COMPARISON: 02/20/2024 CLINICAL INDICATION: Male, 59 years old with history of difficulty breathing, TECHNIQUE: XR chest 2V view(s) obtained. FINDINGS: The heart size is enlarged. The pulmonary vasculature is normal. Right mid lung infiltrate is present. Correlate for atelectasis or pneumonia. There may be some eleva tion of the right diaphragm. Small right pleural effusion is present. IMPRESSION: 1. Cardiomegaly. 2. Small right pleural effusion. 3. Right midlung infiltrate. Correlate for atelectasis or pneumonia. Follow-up can be performed. [facility], , 04/26/2024 2:52 PM
[2024-04-26] MEDS: IPRATROPIUM-ALBUTEROL 3 ML NEB INHALATION STA (15:52)
[2024-04-26] MEDS ORDERED: PNEUMONIA PROTOCOL UTILIZED 1 EACH MISC PO PRN (17:06)
[2024-04-26] MEDS ORDERED: IPRATROPIUM-ALBUTEROL 3 ML NEB INHALATION PRN (17:06)
[2024-04-26] MEDS: SODIUM CHLORIDE 0.9% 1,000 ML IV SCH (17:29)
[2024-04-26] MEDS: LEVOFLOXACIN 750MG-D5W PMX 750 MG in DEXTROSE/WATER 1 150ML.BAG IVPB STA (17:30)
[2024-04-26] MEDS ORDERED: ONDANSETRON ODT 4 MG TAB PO PRN (18:37)
[2024-04-26] MEDS ORDERED: CODEINE PHOSPHATE PO PRN (18:37)
[2024-04-26] MEDS ORDERED: [UNRECOGNIZED DRUG - OTHER] PO PRN (18:37)
[2024-04-26] MEDS ORDERED: ALBUTEROL HFA INHALER INHALATION PRN (18:37)
[2024-04-26] MEDS ORDERED: GUAIFENESIN PO PRN (18:37)
[2024-04-26] MEDS ORDERED: traMADol 50 MG TAB PO PRN (18:37)
[2024-04-26] MEDS ORDERED: ALPRAZolam 1 MG TAB PO PRN (18:37)
[2024-04-26] MEDS ORDERED: BENZONATATE 100 MG CAP PO PRN (18:37)
[2024-04-26] MEDS: IPRATROPIUM-ALBUTEROL 3 ML NEB INHALATION SCH (20:21)
[2024-04-26] MEDS: SYMBICORT 160-4.5 MCG INHALER INHALATION SCH (20:21)
[2024-04-26] MEDS ORDERED: MAGNESIUM CITRATE 100 MG PO SCH (21:00)
[2024-04-26] MEDS: metFORMIN 500 MG TAB PO SCH (21:57)
[2024-04-26] MEDS: diphenhydrAMINE 25 MG CAP PO SCH (21:57)
--- NOTE | 2024-04-27 08:31 | XR ---
EXAMINATION TYPE: XR chest 2V DATE OF EXAM: 04/27/2024 5:14 AM COMPARISON: 04/26/2024 CLINICAL INDICATION: Male, 59 years old with history of pneumonia, previous abnormal chest TECHNIQUE: XR chest 2V view(s) obtained. FINDINGS: The heart size is enlarged. The pulmonary vasculature is normal. There is a right upper lobe infiltrate slightly improved from comparison. There is elevation of the r ight diaphragm. Small right pleural effusion is present. IMPRESSION: 1. Right midlung infiltrate with small right pleural effusion. Continued follow-up recommended. [facility], , 04/27/2024 8:28 AM
--- NOTE | 2024-04-27 08:44 | US ---
EXAMINATION TYPE: US chest DATE OF EXAM: 04/27/2024 COMPARISON: CXR CLINICAL INDICATION: Male, 59 years old with history of Markings for thoracentesis by pulmonary staff ; Effusion TECHNIQUE: Grayscale imaging of the chest. Targeted ultrasound of the posterior lower bilateral zahida thoraces FINDINGS: EXAM MEASUREMENTS: Right Pleural Effusion pocket size: 17.6 cm Right skin surface to fluid distance: 4.3 cm Left Pleural Effusion pocket size: 0 cm Right side marked for possible thoracentesis outside the dept. Left side NOT marked for possible thoracentesis outside the dept. Pulmonologists are able to review the images in the patient?s EMR. IMPRESSIONS: 1. Right pleural effusion [facility], , 04/27/2024 8:42 AM
[2024-04-27] MEDS: FLUTICASONE NASAL 50MCG/SPRAY 16GM BTL EA NOSTRIL SCH (10:53)
[2024-04-27] MEDS: MONTELUKAST 10 MG TAB PO SCH (10:54)
[2024-04-27] MEDS: HYDROCORTISONE 1% CREAM 30 GM TUBE TOPICAL SCH (10:54)
[2024-04-27] MEDS: LEVOFLOXACIN 750 MG TAB PO SCH (10:55)
[2024-04-27] MEDS: MULTIVITAMINS, THERA 1 EACH TAB PO SCH (10:55)
[2024-04-27] MEDS: DESVENLAFAXINE SUCCINATE 50 MG TAB.ER.24H PO SCH (10:55)
[2024-04-27] MEDS: PRAVASTATIN SODIUM 20 MG TAB PO SCH (10:56)
[2024-04-27] MEDS: VRAYLAR 3 MG PO SCH (10:59)
[2024-04-27] MEDS: [UNRECOGNIZED DRUG - OTHER] PO SCH (11:00)
[2024-04-27] MEDS: LINAGLIPTIN 5 MG TABLET PO SCH (13:23)
--- NOTE | 2024-04-27 13:59 | P.CNPUL ---
History of Present Illness Consult date: 04/27/24 Requesting physician: Lewis Araiza Reason for consult: dyspnea Chief complaint: Shortness of breath History of present illness: This is a pleasant 59-year-old male patient with a history of hypertension, diabetes mellitus, obstructive sleep apnea utilizing CPAP, bipolar disorder. Lifelong non-smoker. He does have stage IV adenocarcinoma of the lung. PET scan from January 2024 revealed progression of disease with increased uptake involving innumerable osseous metastatic lesions, subcarinal and right hilar lymph nodes and development of the lateral right hepatic lobe lesion. He has al so had recurrent pleural effusions most recent thoracentesis here was in June 2023 that was positive for pulmonary adenocarcinoma. He is most recently on Lazertinib/Lazcluze and amivantamab/Rybrevant and due to high coagulation risk of these medications he is on Eliquis as well. He presented here to the emergency room yesterday with complaints of increasing shortness of breath. Chest x-ray feels right midlung infiltrate with small right pleural effusion. Ultrasound of the right chest reveals a 17.6 cm pleural effusion pocket. White count 10.3. Hemoglobin 15.3. Platelets 215. Sodium 141. Potassium 4.2. Bicarb 28. BUN 14. Creatinine 0.73. Glucose 217. AST 35. ALT 44. Alk phos 334. Viral screen is negative. Procalcitonin negative at 0.12. He is seen today in consultation in the emergency department. He is currently sitting up on a stretcher. Awake and alert in no acute distress. He is maintaining good O2 saturations in 90s on room air. He utilized his home CPAP last night. He denies any worsening shortness of breath at this time. No cough or congestion. No hemoptysis. He does have dyspnea with conversation and dyspnea with minimal exertion. Review of Systems REVIEW OF SYSTEMS: CONSTITUTIONAL: Denies any recent significant weight loss or weight gain. EYES: Denies change in vision. EARS, NOSE, MOUTH, THROAT: Denies headaches, denies sore throat. CARDIOVASCULAR: Denies chest pain, palpitations or syncopal episodes. RESPIRATORY: Positive for shortness of breath, cough, congestion no hemoptysis. GASTROINTESTINAL: Denies change in appetite, denies abdominal pain GENITOURINARY: Denies hematuria, denies infections. MUSKULOSKELETAL: Denies pain, denies swelling. INTEGUMENTARY: Denies rash, denies eczema. NEUROLOGICAL: Denies recent memory loss, no recent seizure activity. PSYCHIATRIC: Denies anxiety, denies depression. HEMATOLOGIC/LYMPHATIC: Denies anemia, denies enlarged lymph nodes. Past Medical History Past Medical History: Cancer, Diabetes Mellitus, Hypertension, Sleep Apnea/CP AP/BIPAP Additional Past Medical History / Comment(s): diverticulitis, lung cancer treated with oral chemo History of Any Multi-Drug Resistant Organisms: C-DIFF Date of last positivie culture/infection: 1994 MDRO Source:: stool Past Surgical History: Bowel Resection, Hernia Repair, Orthopedic Surgery, Tonsillectomy Additional Past Surgical History / Comment(s): sigmoid colon, vasectomy, lung biospy Past Anesthesia/Blood Transfusion Reactions: No Reported Reaction Past Psychological History: Bipolar, Depression, Panic Disorder Smoking Status: Never smoker Past Alcohol Use History: None Reported Past Drug Use History: None Reported - Past Family History Mother Family Medical History: Cancer Additional Family Medical History / Comment(s): Cancer history Father Family Medical History: Coronary Artery Disease (CAD) Additional Family Medical History / Comment(s): Heart Disease Medications and Allergies Home Medications Medication Instructions Recorded Confirmed Type Pravastatin Sodium [Pravachol] 10 mg PO DAILY 10/01/20 04/26/24 History metFORMIN HCL [Glucophage] 1,000 mg PO BID 10/01/20 04/26/24 History Albuterol Sulfate [Albuterol 1 puff INHALATION RT-Q4H PRN 03/24/23 04/26/24 History Sulfate Hfa] Cariprazine HCl [Vraylar] 3 mg PO DAILY 03/24/23 04/26/24 History sitaGLIPtin [Januvia] 100 mg PO DAILY 03/24/23 04/26/24 History ALPRAZolam [Xanax] 1 mg PO BID PRN 09/27/23 04/26/24 History Desvenlafaxine Succinate [Pristiq 50 mg PO DAILY 09/27/23 04/26/24 History ER] Montelukast [Singulair] 10 mg PO DAILY 09/27/23 04/26/24 History Mv-Min/Folic/K1/Lycopen/Lutein 1 tab PO DAILY 09/27/23 04/26/24 History [Centrum Silver Men Tablet] Ondansetron [Zofran] 4 mg PO Q4H PRN 09/27/23 04/26/24 History Amivantamab-Vmjw [Rybrevant] 1,400 mg IV Q14D 04/26/24 04/26/24 History Apixaban [Eliquis] 2.5 mg PO BID 04/26/24 04/26/24 History Benzonatate [Tessalon Perle] 200 mg PO TID PRN 04/26/24 04/26/24 History Budesonide/Formoterol Fumarate 2 puff INHALATION RT-BID 04/26/24 04/26/24 History [Breyna 160-4.5 Mcg Inhaler] Codeine Phosphate/Guaifenesin 5 ml PO Q4H PRN 04/26/24 04/26/24 History [Codeine Phosphate/Guaifenesin 10-100 mg/5 ml] Doxycycline [Vibramycin] 100 mg PO BID 04/26/24 04/26/24 History Fluticasone Propionate [Flonase 1 spray EA NOSTRIL DAILY 04/26/24 04/26/24 History Allergy Relief] Hydrocortisone Cream 1 applic TOPICAL BID 04/26/24 04/26/24 History [Hydrocortisone 2.5% Cream] Insulin Glargine (Lantus) [Lantus See Protocol SQ DAILY MDD 14 units 04/26/24 04/26/24 History Vial] Lazertinib Mesylate [Lazcluze] 240 mg PO DAILY 04/26/24 04/26/24 History Magnesium Citrate 100 mg PO HS 04/26/24 04/26/24 History diphenhydrAMINE [Benadryl] 50 mg PO HS 04/26/24 04/26/24 History traMADol HCl [Ultram] 50 mg PO Q8H PRN 04/26/24 04/26/24 History Allergies Allergy/AdvReac Type Severity Reaction Status Date / Time Cephalosporins AdvReac Diarrhea & Verified 04/26/24 16:47 C-DIFF Physical Exam Vitals: Vital Signs Temp Pulse Resp BP Pulse Ox 04/27/24 11:52 110 H 04/27/24 11:42 114 H 04/27/24 10:54 23 04/27/24 08:53 106 H 24 112/76 94 L 04/27/24 08:32 98 04/27/24 08:21 108 H 04/27/24 05:33 100 18 146/86 95 04/27/24 02:41 109 H 94 L 04/27/24 01:12 110 H 18 96 04/26/24 22:03 110 H 18 126/81 93 L 04/26/24 20:34 92 04/26/24 20:21 90 04/26/24 16:26 120 H 18 122/75 96 04/26/24 16:04 87 04/26/24 15:55 87 04/26/24 13:34 97.8 F 125 H 20 133/83 95 GENERAL EXAM: Alert, pleasant 59-year-old male, on room air, fairly comfortable in no apparent distress. HEAD: Normocephalic. EYES: Normal reaction of pupils, equal size. NOSE: Clear with pink turbinates. THROAT: No erythema or exudates. NECK: No masses, no JVD. CHEST: No chest wall deformity. LUNGS: Equal air entry with crackles in the right lung base, diminished. CVS: S1 and S2 normal with no audible murmur, regular rhythm. Tachycardic ABDOMEN: No hepatosplenomegaly, normal bowel sounds, no guarding or rigidity. SPINE: No scoliosis or deformity SKIN: No rashes CENTRAL NERVOUS SYSTEM: No focal deficits, tone is normal in all 4 extremities. EXTREMITIES: There is no peripheral edema. No clubbing, no cyanosis. Peripheral pulses are intact. Results - Laboratory Findings CBC and BMP: 04/26/24 13:42 04/26/24 13:42 PT/INR, D-dimer PT 12.0 sec (10.0-12.5) 04/26/24 13:42 INR 1.1 (<1.2) 04/26/24 13:42 Abnormal lab findings: Abnormal Labs 04/26/24 04/26/24 04/26/24 13:42 13:42 13:42 RBC 5.98 H MCHC 30.1 L RDW 15.8 H Neutrophils # 8.8 H Lymphocytes # 0.7 L Glucose 217 H Plasma Lactic Acid Wicho 4.2 H* Alkaline Phosphatase 334 H Total Protein 5.8 L Albumin 3.2 L 04/26/24 04/26/24 04/27/24 16:46 20:50 00:07 RBC MCHC RDW Neutrophils # Lymphocytes # Glucose Plasma Lactic Acid Wicho 4.1 H* 4.0 H* 3.5 H* Alkaline Phosphatase Total Protein Albumin 04/27/24 05:17 RBC MCHC RDW Neutrophils # Lymphocytes # Glucose Plasma Lactic Acid Wicho 3.2 H* Alkaline Phosphatase Total Protein Albumin - Diagnostic Findings Chest x-ray: image reviewed Assessment and Plan Assessment: Shortness of breath secondary to moderate right pleural effusion Recurrent pleural effusion, last thoracentesis here back in June 2023 was positive for metastatic adenocarcinoma Stage IV adenocarcinoma of the lung with metastasis to the bone and liver. Currently on immunotherapy with Lazcluze and Rybrevant Diabetes mellitus Hyperlipidemia Bipolar disorder History of depression Plan: The patient was seen and evaluated Imaging, labs and medications reviewed Significant right sided pleural effusion Place Eliquis on hold Stable and on room air Plan for thoracentesis tomorrow Continue bronchodilators Continue Levaquin for now We will continue to follow and make further recommendations based on his clinical status I have personally seen and examined the patient, performed the documentation and the assessment and plan as written. Number of minutes spent on the visit: 20 Dictation was produced using [employer] dictation software. Please excuse any grammatical, word or spelling errors.
[2024-04-27 14:28] LABS: Glucose,Whole Blood 203 mg/dL (70-110)
[2024-04-27 20:24] LABS: Glucose,Whole Blood 139 mg/dL (70-110)
[2024-04-28 07:02] LABS: Glucose,Whole Blood 123 mg/dL (70-110)
[2024-04-28] MEDS: HYDROmorphone 1 MG/ML 1 ML SYRINGE IVP STA (08:53)
--- NOTE | 2024-04-28 09:02 | XR ---
EXAMINATION TYPE: XR chest 1V portable DATE OF EXAM: 04/28/2024 8:54 AM COMPARISON: Chest radiographs from 04/27/2024, ultrasound chest 04/27/2024 TECHNIQUE: XR chest 1V portable Portable AP radiograph of the chest. CLINICAL INDICATION:Male, 59 years old with history of Post right thoracentesis; FINDINGS: Lungs/Pleura: No pneumothorax. No pleural effusion. Similar right mid and lower lung airspace opaciti es. Similar diffuse interstitial prominence. Heart/mediastinum: Cardiomediastinal silhouette is unremarkable. Musculoskeletal: No acute osseous pathology. IMPRESSION: 1. No pneumothorax postthoracentesis. 2. Similar multifocal patchy airspace opacities most pronounced within the right mid and lower lung. Correlate for pneumonia. [facility], , 04/28/2024 9:00 AM
[2024-04-28] MEDS: APIXABAN 2.5 MG TABLET PO SCH (09:40)
[2024-04-28 11:40] VITALS: BMI 25.8
[2024-04-28 12:06] LABS: Glucose,Whole Blood 157 mg/dL (70-110)
--- NOTE | 2024-04-28 13:43 | P.PN ---
Subjective Progress Note Date: 04/28/24 This is a pleasant 59-year-old male patient with a history of hypertension, diabetes mellitus, obstructive sleep apnea utilizing CPAP, bipolar disorder. Lifelong non-smoker. He does have stage IV adenocarcinoma of the lung. PET scan from January 2024 revealed progression of disease with increased uptake involving innumerable osseous metastatic lesions, subcarinal and right hilar lymph nodes and development of the lateral right hepatic lobe lesion. He has also had recurrent pleural effusions most recent thoracentesis here was in June 2023 that was positive for pulmonary adenocarcinoma. He is most recently on Lazertinib/Lazcluze and amivantamab/Rybrevant and due to high coagulation risk of these medications he is on Eliquis as well. He presented here to the emergency room yesterday with complaints of increasing shortness of breath. Chest x-ray feels right midlung infiltrate with small right pleural effusion. Ultrasound of the right chest reveals a 17.6 cm pleural effusion pocket. White count 10.3. Hemoglobin 15.3. Platelets 215. Sodium 141. Potassium 4.2. Bicarb 28. BUN 14. Creatinine 0.73. Glucose 217. AST 35. ALT 44. Alk phos 334. Viral screen is negative. Procalcitonin negative at 0.12. He is seen today in consultation in the emergency department. He is currently sitting up on a stretcher. Awake and alert in no acute distress. He is maintaining good O2 saturations in 90s on room air. He utilized his home CPAP last night. He denies any worsening shortness of breath at this time. No cough or congestion. No hemoptysis. He does have dyspnea with conversation and dyspnea with minimal exertion. The patient is seen today April 28, 2024 in follow-up on the regular medical floor. He is currently sitting up at the bedside. Awake and alert in no acute distress. He is still short of breath. He is maintaining O2 saturations in the 90s on room air. He utilizes home CPAP last night. He is afebrile. Hemodynamically stable. He did undergo a right sided thoracentesis today with Dr. Dennison. 2.4 L of serous fluid was returned. Not sent for analysis or cytology as previous results were positive for metastatic adenocarcinoma cancer. Follow-up chest x-ray revealed no evidence of pneumothorax. Glucose 157. His Eliquis was resumed. He remains on DuoNeb and elations, Symbicort. Antibiotics in the form of Levaquin. Objective - Vital Signs Vital signs: Vital Signs Temp 97.5 F L 04/28/24 07:02 Pulse 88 04/28/24 07:02 Resp 20 04/28/24 07:02 BP 130/78 04/28/24 07:02 Pulse Ox 93 L 04/28/24 07:02 FiO2 Intake & Output 04/27/24 04/28/24 04/28/24 18:59 06:59 18:59 Output Total 150 Balance -150 Weight 81.647 kg 81.647 kg Output: Urine 150 - Exam GENERAL EXAM: Alert, pleasant 59-year-old male, sitting up at the bedside, on room air, fairly comfortable in no apparent distress. HEAD: Normocephalic. EYES: Normal reaction of pupils, equal size. NOSE: Clear with pink turbinates. THROAT: No erythema or exudates. NECK: No masses, no JVD. CHEST: No chest wall deformity. LUNGS: Equal air entry with crackles in the right lung base, diminished. CVS: S1 and S2 normal with no audible murmur, regular rhythm. Tachycardic ABDOMEN: No hepatosplenomegaly, normal bowel sounds, no guarding or rigidity. SPINE: No scoliosis or deformity SKIN: No rashes CENTRAL NERVOUS SYSTEM: No focal deficits, tone is normal in all 4 extremities. EXTREMITIES: There is no peripheral edema. No clubbing, no cyanosis. Peripheral pulses are intact. - Labs CBC & Chem 7: 04/26/24 13:42 04/26/24 13:42 Labs: Abnormal Lab Results - Last 24 Hours (Table) 04/27/24 04/27/24 04/28/24 Range/Units 14:27 20:22 07:01 POC Glucose (mg/dL) 203 H 139 H 123 H (70-110) mg/dL 04/28/24 Range/Units 12:05 POC Glucose (mg/dL) 157 H (70-110) mg/dL Microbiology - Last 24 Hours (Table) 04/26/24 17:23 Blood Culture - Preliminary Blood Assessment and Plan Assessment: Shortness of breath secondary to moderate right pleural effusion. Status post thoracentesis today April 28, 2024 with 2.4 L of sanguinous fluid returned, not sent for analysis Recurrent pleural effusion, last thoracentesis here back in June 2023 was positive for metastatic adenocarcinoma Stage IV adenocarcinoma of the lung with metastasis to the bone and liver. Currently on immunotherapy with Lazcluze and Rybrevant Diabetes mellitus Hyperlipidemia Bipolar disorder History of depression Plan: The patient was seen and evaluated Imaging, labs and medications reviewed Status post right sided thoracentesis 2.4 L of fluid removed Chest x-ray revealed no evidence of pneumothorax Restarted Eliquis Stable and on room air Cleared for discharge from the pulmonary standpoint I have personally seen and examined the patient, performed the documentation and the assessment and plan as written. Number of minutes spent on the visit: 10 Dictation was produced using [employer] dictation software. Please excuse any grammatical, word or spelling errors.
[2024-04-28 17:08] LABS: Glucose,Whole Blood 94 mg/dL (70-110)
--- NOTE | 2024-04-28 17:15 | P.HPIM ---
History of Present Illness H&P Date: 04/27/24 Chief Complaint: Shortness of breath 59-year-old male patient with a history of hypertension, diabetes mellitus, obstructive sleep apnea utilizing CPAP, bipolar disorder; stage IV adenocarcinoma of the lung. PET scan from January 2024 revealed progression of disease with increased uptake involving innumerable osseous metastatic lesions, subcarinal and right hilar lymph nodes and development of the lateral right hepatic lobe lesion. He has also had recurrent pleural effusions most recent thoracentesis here was in June 2023 that was positive for pulmonary adenocarcinom a. He is most recently on Lazertinib/Lazcluze and amivantamab/Rybrevant and due to high coagulation risk of these medications he is on Eliquis as well. He presented here to the emergency room yesterday with complaints of increasing shortness of breath. - Chest x-ray feels right midlung infiltrate with small right pleural effusion. Ultrasound of the right chest reveals a 17.6 cm pleural effusion pocket. -- White count 10.3. Hemoglobin 15.3. Platelets 215. Sodium 141. Potassium 4.2. Bicarb 28. BUN 14. Creatinine 0.73. Glucose 217. AST 35. ALT 44. Alk phos 334. Viral screen is negative. Procalcitonin negative at 0.12. Review of Systems REVIEW OF SYSTEMS: CONSTITUTIONAL: No fever, no malaise, no fatigue. HEENT: No recent visual problems or hearing problems. Denied any sore throat. CARDIOVASCULAR: No chest pain, orthopnea, PND, no palpitations, no syncope. PULMONARY: No shortness of breath, no cough, no hemoptysis. GASTROINTESTINAL: No diarrhea, no nausea, no vomiting, no abdominal pain. NEUROLOGICAL: No headaches, no weakness, no numbness. HEMATOLOGICAL: Denies any bleeding or petechiae. GENITOURINARY: Denies any burning micturition, frequency, or urgency. MUSCULOSKELETAL/RHEUMATOLOGICAL: Denies any joint pain, swelling, or any muscle pain. ENDOCRINE: Denies any polyuria or polydipsia. The rest of the 14-point review of systems is negative. Past Medical History Past Medical History: Cancer, Diabetes Mellitus, Hypertension, Sleep Apnea/CPAP/BIPAP Additional Past Medical History / Comment(s): diverticulitis, lung cancer treated with oral chemo History of Any Multi-Drug Resistant Organisms: C-DIFF Date of last positivie culture/infection: 1994 MDRO Source:: stool Past Surgical History: Bowel Resection, Hernia Repair, Orthopedic Surgery, Tonsillectomy Additional Past Surgical History / Comment(s): sigmoid colon, vasectomy, lung biospy Past Anesthesia/Blood Transfusion Reactions: No Reported Reaction Past Psychological History: Bipolar, Depression, Panic Disorder Smoking Status: Never smoker Past Alcohol Use History: None Reported Past Drug Use History: None Reported - Past Family History Mother Family Medical History: Cancer Additional Family Medical History / Comment(s): Cancer history Father Family Medical History: Coronary Artery Disease (CAD) Additional Family Medical History / Comment(s): Heart Disease Medications and Allergies Home Medications Medication Instructions Recorded Confirmed Type Pravastatin Sodium [Pravachol] 10 mg PO DAILY 10/01/20 04/26/24 History metFORMIN HCL [Glucophage] 1,000 mg PO BID 10/01/20 04/26/24 History Albuterol Sulfate [Albuterol 1 puff INHALATION RT-Q4H PRN 03/24/23 04/26/24 History Sulfate Hfa] Cariprazine HCl [Vraylar] 3 mg PO DAILY 03/24/23 04/26/24 History sitaGLIPtin [Januvia] 100 mg PO DAILY 03/24/23 04/26/24 History ALPRAZolam [Xanax] 1 mg PO BID PRN 09/27/23 04/26/24 History Desvenlafaxine Succinate [Pristiq 50 mg PO DAILY 09/27/23 04/26/24 History ER] Montelukast [Singulair] 10 mg PO DAILY 09/27/23 04/26/24 History Mv-Min/Folic/K1/Lycopen/Lutein 1 tab PO DAILY 09/27/23 04/26/24 History [Centrum Silver Men Tablet] Ondansetron [Zofran] 4 mg PO Q4H PRN 09/27/23 04/26/24 History Amivantamab-Vmjw [Rybrevant] 1,400 mg IV Q14D 04/26/24 04/26/24 History Apixaban [Eliquis] 2.5 mg PO BID 04/26/24 04/26/24 History Benzonatate [Tessalon Perle] 200 mg PO TID PRN 04/26/24 04/26/24 History Budesonide/Formoterol Fumarate 2 puff INHALATION RT-BID 04/26/24 04/26/24 History [Breyna 160-4.5 Mcg Inhaler] Codeine Phosphate/Guaifenesin 5 ml PO Q4H PRN 04/26/24 04/26/24 History [Codeine Phosphate/Guaifenesin 10-100 mg/5 ml] Doxycycline [Vibramycin] 100 mg PO BID 04/26/24 04/26/24 History Fluticasone Propionate [Flonase 1 spray EA NOSTRIL DAILY 04/26/24 04/26/24 History Allergy Relief] Hydrocortisone Cream 1 applic TOPICAL BID 04/26/24 04/26/24 History [Hydrocortisone 2.5% Cream] Insulin Glargine (Lantus) [Lantus See Protocol SQ DAILY MDD 14 units 04/26/24 04/26/24 History Vial] Lazertinib Mesylate [Lazcluze] 240 mg PO DAILY 04/26/24 04/26/24 History Magnesium Citrate 100 mg PO HS 04/26/24 04/26/24 History diphenhydrAMINE [Benadryl] 50 mg PO HS 04/26/24 04/26/24 History traMADol HCl [Ultram] 50 mg PO Q8H PRN 04/26/24 04/26/24 History Allergies Allergy/AdvReac Type Severity Reaction Status Date / Time Cephalosporins AdvReac Diarrhea & Verified 04/26/24 16:47 C-DIFF Physical Exam Vitals: Vital Signs Temp Pulse Resp BP Pulse Ox 04/27/24 10:54 23 04/27/24 08:53 106 H 24 112/76 94 L 04/27/24 08:32 98 04/27/24 08:21 108 H 04/27/24 05:33 100 18 146/86 95 04/27/24 02:41 109 H 94 L 04/27/24 01:12 110 H 18 96 04/26/24 22:03 110 H 18 126/81 93 L 04/26/24 20:34 92 04/26/24 20:21 90 04/26/24 16:26 120 H 18 122/75 96 04/26/24 16:04 87 04/26/24 15:55 87 04/26/24 13:34 97.8 F 125 H 20 133/83 95 GENERAL EXAM: Alert, pleasant 59-year-old male, on room air, fairly comfortable in no apparent distress. HEAD: Normocephalic. EYES: Normal reaction of pupils, equal size. THROAT: No erythema or exudates. NECK: No masses, no JVD. LUNGS: Equal air entry with crackles in the right lung base, diminished. CVS: S1 and S2 normal with no audible murmur, regular rhythm. Tachycardic ABDOMEN: No hepatosplenomegaly, normal bowel sounds, no guarding or rigidity. SKIN: No rashes CENTRAL NERVOUS SYSTEM: No focal deficits, tone is normal in all 4 extremities. EXTREMITIES: There is no peripheral edema. No clubbing, no cyanosis. Peripheral pulses are intact. Results CBC & Chem 7: 04/26/24 13:42 04/26/24 13:42 Labs: Abnormal Lab Results - Last 24 Hours (Table) 04/26/24 04/26/24 04/26/24 Range/Units 13:42 13:42 13:42 RBC 5.98 H (4.30-5.90) m/uL MCHC 30.1 L (31.0-37.0) g/dL RDW 15.8 H (11.5-15.5) % Neutrophils # 8.8 H (1.3-7.7) k/uL Lymphocytes # 0.7 L (1.0-4.8) k/uL Glucose 217 H (74-99) mg/dL Plasma Lactic Acid Wicho 4.2 H* (0.7-2.0) mmol/L Alkaline Phosphatase 334 H (38-126) U/L Total Protein 5.8 L (6.3-8.2) g/dL Albumin 3.2 L (3.5-5.0) g/dL 04/26/24 04/26/24 04/27/24 Range/Units 16:46 20:50 00:07 RBC (4.30-5.90) m/uL MCHC (31.0-37.0) g/dL RDW (11.5-15.5) % Neutrophils # (1.3-7.7) k/uL Lymphocytes # (1.0-4.8) k/uL Glucose (74-99) mg/dL Plasma Lactic Acid Wicho 4.1 H* 4.0 H* 3.5 H* (0.7-2.0) mmol/L Alkaline Phosphatase (38-126) U/L Total Protein (6.3-8.2) g/dL Albumin (3.5-5.0) g/dL 04/27/24 Range/Units 05:17 RBC (4.30-5.90) m/uL MCHC (31.0-37.0) g/dL RDW (11.5-15.5) % Neutrophils # (1.3-7.7) k/uL Lymphocytes # (1.0-4.8) k/uL Glucose (74-99) mg/dL Plasma Lactic Acid Wicho 3.2 H* (0.7-2.0) mmol/L Alkaline Phosphatase (38-126) U/L Total Protein (6.3-8.2) g/dL Albumin (3.5-5.0) g/dL Assessment and Plan Assessment: 1. Moderate right-sided pleural effusion/pneumonia -Recurrent pleural effusion; last thoracentesis completed on 11/06/2023; cytology came back positive for metastatic adenocarcinoma -Patient remains on Levaquin 750 mg p.o. daily; DuoNeb Nebulizer treatments 4 times daily and as needed -Pulmonary consult in place for possible thoracentesis 2. Stage IV adenocarcinoma of the lung; metastases to bone and liver - Currently on immunotherapy with Lazcluze and Rybrevant 3. Diabetes mellitus type II; currently on Tradjenta 5 mg daily; metformin 1000 mg twice daily 4. Hyperlipidemia; Pravachol 10 mg daily 8. Bipolar disorder; continue with home dose of Pristiq ER 50 mg daily; Xanax 1 mg twice daily as needed DVT prophylaxis; CDs/systemic anticoagulation CODE STATUS; full code
--- NOTE | 2024-04-28 17:18 | P.PN ---
Subjective Progress Note Date: 04/28/24 59-year-old male patient with a history of hypertension, diabetes mellitus, obstructive sleep apnea utilizing CPAP, bipolar disorder; stage IV adenocarcinoma of the lung. PET scan from January 2024 revealed progression of disease with increased uptake involving innumerable osseous metastatic lesions, subcarinal and right hilar lymph nodes and development of the lateral right hepatic lobe lesion. He has also had recurrent pleural effusions most recent thoracentesis here was in June 2023 that was positive for pulmonary adenocarcinoma. He is most recently on Lazertinib/Lazcluze and amivantamab/Rybrevant and due to high coagulation risk of these medications he is on Eliquis as well. He presented here to the emergency room yesterday with complaints of increasing shortness of breath. - Chest x-ray feels right midlung infiltrate with small right pleural effusion. Ultrasound of the right chest reveals a 17.6 cm pleural effusion pocket. -- White count 10.3. Hemoglobin 15.3. Platelets 215. Sodium 141. Potassium 4.2. Bicarb 28. BUN 14. Creatinine 0.73. Glucose 217. AST 35. ALT 44. Alk phos 334. Viral screen is negative. Procalcitonin negative at 0.12. Objective - Vital Signs Vital signs: Vital Signs Temp 97.5 F L 04/28/24 07:02 Pulse 88 04/28/24 07:02 Resp 20 04/28/24 07:02 BP 130/78 04/28/24 07:02 Pulse Ox 93 L 04/28/24 07:02 FiO2 Intake & Output 04/27/24 04/28/24 04/28/24 18:59 06:59 18:59 Output Total 150 Balance -150 Weight 81.647 kg Output: Urine 150 - Exam GENERAL EXAM: Alert, pleasant 59-year-old male, on room air, fairly comfortable in no apparent distress. HEAD: Normocephalic. EYES: Normal reaction of pupils, equal size. THROAT: No erythema or exudates. NECK: No masses, no JVD. LUNGS: Equal air entry with crackles in the right lung base, diminished. CVS: S1 and S2 normal with no audible murmur, regular rhythm. Tachycardic ABDOMEN: No hepatosplenomegaly, normal bowel sounds, no guarding or rigidity. CENTRAL NERVOUS SYSTEM: No focal deficits, tone is normal in all 4 extremities. EXTREMITIES: There is no peripheral edema. No clubbing, no cyanosis. Peripheral pulses are intact. - Labs CBC & Chem 7: 04/26/24 13:42 04/26/24 13:42 Labs: Abnormal Lab Results - Last 24 Hours (Table) 04/27/24 04/27/24 04/28/24 Range/Units 14:27 20:22 07:01 POC Glucose (mg/dL) 203 H 139 H 123 H (70-110) mg/dL Microbiology - Last 24 Hours (Table) 04/26/24 17:23 Blood Culture - Preliminary Blood Assessment and Plan Assessment: 1. Moderate right-sided pleural effusion/pneumonia -Recurrent pleural effusion; last thoracentesis completed on 11/06/2023; cytology came back positive for metastatic adenocarcinoma -Patient remains on Levaquin 750 mg p.o. daily; DuoNeb Nebulizer treatments 4 times daily and as needed -Pulmonary consult in place for possible thoracentesis 2. Stage IV adenocarcinoma of the lung; metastases to bone and liver - Currently on immunotherapy with Lazcluze and Rybrevant 3. Diabetes mellitus type II; currently on Tradjenta 5 mg daily; metformin 1000 mg twice daily 4. Hyperlipidemia; Pravachol 10 mg daily 8. Bipolar disorder; continue with home dose of Pristiq ER 50 mg daily; Xanax 1 mg twice daily as needed DVT prophylaxis; CDs/systemic anticoagulation CODE STATUS; full code
--- NOTE | 2024-04-28 20:03 | OP ---
OPERATIVE REPORT DATE OF SERVICE : PROCEDURE PERFORMED: Right-sided thoracentesis. PREOPERATIVE DIAGNOSIS: Right-sided pleural effusion. POSTOPERATIVE DIAGNOSIS: Right-sided pleural effusion. ANESTHESIA USED: 2 mL of 1% lidocaine. DESCRIPTION OF PROCEDURE: The patient was placed in the sitting upright position, the area below the right scapula was prepared in a sterile fashion, drapes were applied. The marking was already at the 8th intercostal space and tip of the scapula. The area was locally anesthetized, and a 26-gauge needle advanced into the pleural space until the fluid was localized with the needle. Then, a small tiny incision was made, and a standard thoracentesis catheter and needle were used and advanced into the pleural space, fluid was obtained. The catheter was advanced over the needle into the pleural space, and the needle was pulled out of the pleural space. Freely flowing fluid removed. Roughly 2400 mL of serosanguineous fluid was removed from the right pleural space. 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 MMODL / IJN: [id number] /
[2024-04-28 20:29] LABS: Glucose,Whole Blood 144 mg/dL (70-110)
[2024-04-28] MEDS: [UNRECOGNIZED DRUG - OTHER] PO SCH (21:00)
[2024-04-29 07:03] LABS: Glucose,Whole Blood 102 mg/dL (70-110)
[2024-04-29 08:31] LABS: Anisocytosis Slight; Basophils % (A) 0 %; Eosinophils # (A) 0.2 k/uL (0-0.7); Eosinophils % (A) 2 %; HCT 47.1 % (39.0-53.0); HGB 14.4 gm/dL (13.0-17.5); Hypochromasia Slight; Lymphocytes # (A) 0.6 k/uL (1.0-4.8); Lymphocytes % (A) 7 %; MCH 25.8 pg (25.0-35.0); MCHC 30.6 g/dL (31.0-37.0); MCV 84.1 fL (80.0-100.0); Mean Platelet Volume 8.8; Monocytes # (A) 0.6 k/uL (0-1.0); Monocytes % (A) 6 %; Neutrophils # (A) 8.4 k/uL (1.3-7.7); Neutrophils % (A) 85 %; Platelet Count 187 k/uL (150-450); RDW 16.3 % (11.5-15.5); WBC 9.9 k/uL (3.8-10.6)
[2024-04-29 08:54] LABS: African American GFR (CKD) >90 (>60 ml/min/1.73 sqM); Anion Gap 4 mmol/L; Blood Urea Nitrogen 8 mg/dL (9-20); Calcium 7.6 mg/dL (8.4-10.2); Carbon Dioxide 28 mmol/L (22-30); Chloride 108 mmol/L (98-107); Glucose 106 mg/dL (74-99); Non-African American GFR(CKD) >90 (>60 ml/min/1.73 sqM); Potassium 4.3 mmol/L (3.5-5.1); Sodium 140 mmol/L (137-145)
[2024-04-29 12:06] LABS: Glucose,Whole Blood 102 mg/dL (70-110)
--- NOTE | 2024-04-29 12:30 | P.PN ---
Subjective Progress Note Date: 04/29/24 This is a pleasant 59-year-old male patient with a history of hypertension, diabetes mellitus, obstructive sleep apnea utilizing CPAP, bipolar disorder. Lifelong non-smoker. He does have stage IV adenocarcinoma of the lung. PET scan from January 2024 revealed progression of disease with increased uptake involving innumerable osseous metastatic lesions, subcarinal and right hilar lymph nodes and development of the lateral right hepatic lobe lesion. He has also had recurrent pleural effusions most recent thoracentesis here was in June 2023 that was positive for pulmonary adenocarcinoma. He is most recently on Lazertinib/Lazcluze and amivantamab/Rybrevant and due to high coagulation risk of these medications he is on Eliquis as well. He presented here to the emergency room yesterday with complaints of increasing shortness of breath. Chest x-ray feels right midlung infiltrate with small right pleural effusion. Ultrasound of the right chest reveals a 17.6 cm pleural effusion pocket. White count 10.3. Hemoglobin 15.3. Platelets 215. Sodium 141. Potassium 4.2. Bicarb 28. BUN 14. Creatinine 0.73. Glucose 217. AST 35. ALT 44. Alk phos 334. Viral screen is negative. Procalcitonin negative at 0.12. He is seen today in consultation in the emergency department. He is currently sitting up on a stretcher. Awake and alert in no acute distress. He is maintaining good O2 saturations in 90s on room air. He utilized his home CPAP last night. He denies any worsening shortness of breath at this time. No cough or congestion. No hemoptysis. He does have dyspnea with conversation and dyspnea with minimal exertion. The patient is seen today April 28, 2024 in follow-up on the regular medical floor. He is currently sitting up at the bedside. Awake and alert in no acute distress. He is still short of breath. He is maintaining O2 saturations in the 90s on room air. He utilizes home CPAP last night. He is afebrile. Hemodynamically stable. He did undergo a right sided thoracentesis today with Dr. Dennison. 2.4 L of serous fluid was returned. Not sent for analysis or cytology as previous results were positive for metastatic adenocarcinoma cancer. Follow-up chest x-ray revealed no evidence of pneumothorax. Glucose 157. His Eliquis was resumed. He remains on DuoNeb and elations, Symbicort. Antibiotics in the form of Levaquin. The patient is seen today April 29, 2024 in follow-up on the regular medical floor. He is currently resting in bed. Awake and alert in no acute distress. Breathing easier today compared to yesterday. He denies any pain. He has been quite weak and a bit unsteady on his feet. He is also having complaints of difficulty in swallowing. Blood culture revealed no growth.. Hemoglobin 14.4. Platelets 187. Sodium 140. Potassium 4.3. Bicarb 28. BUN 8. Creatinine 0.64. Glucose 106. He remains on DuoNeb and elations, Symbicort Singulair. Anticoagulated with Eliquis. Remains on antibiotics in the form of Levaquin. Continued on his home immunotherapy. He does have a rash which is a potential side effect. Objective - Vital Signs Vital signs: Vital Signs Temp 97.7 F 04/29/24 06:45 Pulse 71 04/29/24 06:45 Resp 16 04/29/24 06:45 BP 138/88 04/29/24 06:45 Pulse Ox 93 L 04/29/24 06:45 FiO2 Intake & Output 04/28/24 04/29/24 04/29/24 18:59 06:59 18:59 Intake Total 1620 Output Total 250 400 Balance 1370 -400 Weight 81.647 kg Intake: Oral 1620 Output: Urine 250 400 Other: # Voids 2 - Exam GENERAL EXAM: Alert, pleasant 59-year-old male, resting in bed, on room air, comfortable in no apparent distress. HEAD: Normocephalic. EYES: Normal reaction of pupils, equal size. NOSE: Clear with pink turbinates. THROAT: No erythema or exudates. NECK: No masses, no JVD. CHEST: No chest wall deformity. LUNGS: Equal air entry with crackles in the right lung base, diminished. CVS: S1 and S2 normal with no audible murmur, regular rhythm. Tachycardic ABDOMEN: No hepatosplenomegaly, normal bowel sounds, no guarding or rigidity. SPINE: No scoliosis or deformity SKIN: Positive for a rash, possibly from immunotherapy CENTRAL NERVOUS SYSTEM: No focal deficits, tone is normal in all 4 extremities. EXTREMITIES: There is no peripheral edema. No clubbing, no cyanosis. Peripheral pulses are intact. - Labs CBC & Chem 7: 04/29/24 08:02 04/29/24 08:02 Labs: Abnormal Lab Results - Last 24 Hours (Table) 04/28/24 04/29/24 04/29/24 Range/Units 20:23 08:02 08:02 MCHC 30.6 L (31.0-37.0) g/dL RDW 16.3 H (11.5-15.5) % Neutrophils # 8.4 H (1.3-7.7) k/uL Lymphocytes # 0.6 L (1.0-4.8) k/uL Chloride 108 H (98-107) mmol/L BUN 8 L (9-20) mg/dL Creatinine 0.64 L (0.66-1.25) mg/dL Glucose 106 H (74-99) mg/dL POC Glucose (mg/dL) 144 H (70-110) mg/dL Calcium 7.6 L (8.4-10.2) mg/dL Microbiology - Last 24 Hours (Table) 04/26/24 17:23 Blood Culture - Preliminary Blood Assessment and Plan Assessment: Shortness of breath secondary to moderate right pleural effusion. Status post thoracentesis today April 28, 2024 with 2.4 L of sanguinous fluid returned, not sent for analysis Recurrent pleural effusion, last thoracentesis here back in June 2023 was positive for metastatic adenocarcinoma Stage IV adenocarcinoma of the lung with metastasis to the bone and liver. Currently on immunotherapy with Lazcluze and Rybrevant Diabetes mellitus Hyperlipidemia Bipolar disorder History of depression Plan: The patient was seen and evaluated Labs and medications reviewed Stable and on room air Having issues with dysphagia Speech therapy consult for tomorrow Having issues with lower extremity weakness Physical therapy consulted I have personally seen and examined the patient, performed the documentation and the assessment and plan as written. Number of minutes spent on the visit: 10 Dictation was produced using [employer] software. Please excuse any grammatical, word or spelling errors.
--- NOTE | 2024-04-29 15:30 | P.PN ---
Subjective Progress Note Date: 04/29/24 59-year-old male patient with a history of hypertension, diabetes mellitus, obstructive sleep apnea utilizing CPAP, bipolar disorder; stage IV adenocarcinoma of the lung. PET scan from January 2024 revealed progression of disease with increased uptake involving innumerable osseous metastatic lesions, subcarinal and right hilar lymph nodes and development of the lateral right hepatic lobe lesion. He has also had recurrent pleural effusions most recent thoracentesis here was in June 2023 that was positive for pulmonary adenocarcinoma. He is most recently on Lazertinib/Lazcluze and amivantamab/Rybrevant and due to high coagulation risk of these medications he is on Eliquis as well. He presented here to the emergency room yesterday with complaints of increasing shortness of breath. - Chest x-ray feels right midlung infiltrate with small right pleural effusion. Ultrasound of the right chest reveals a 17.6 cm pleural effusion pocket. -- White count 10.3. Hemoglobin 15.3. Platelets 215. Sodium 141. Potassium 4.2. Bicarb 28. BUN 14. Creatinine 0.73. Glucose 217. AST 35. ALT 44. Alk phos 334. Viral screen is negative. Procalcitonin negative at 0.12. 04/29/2024 Patient is seen and evaluated in follow-up on the regular medical floor. He is currently resting in bed. Awake and alert in no acute distress. Breathing easier today compared to yesterday. He denies any pain. He has been quite weak and a bit unsteady on his feet. He is also having complaints of difficulty in swallowing. Patient is status post thoracentesis with removal of 2.4 L of sanguinous fluid; not sent for analysis; pleural effusion analysis in June 2023 was positive for metastatic adenocarcinoma Blood culture revealed no growth.. Hemoglobin 14.4. Platelets 187. Sodium 140. Potassium 4.3. Bicarb 28. BUN 8. Creatinine 0.64. Glucose 106. --He remains on DuoNeb and elations, Symbicort Singulair. Anticoagulated with Eliquis. Remains on antibiotics in the form of Levaquin. Continued on his home immunotherapy. -Reports marked weakness and difficulty swallowing liquids; PT/OT and CATH LAB TECH is consulted Objective - Vital Signs Vital signs: Vital Signs Temp 97.7 F 04/29/24 06:45 Pulse 71 04/29/24 06:45 Resp 16 04/29/24 06:45 BP 138/88 04/29/24 06:45 Pulse Ox 93 L 04/29/24 06:45 FiO2 Intake & Output 04/28/24 04/29/24 04/29/24 18:59 06:59 18:59 Intake Total 1620 Output Total 250 400 Balance 1370 -400 Weight 81.647 kg Intake: Oral 1620 Output: Urine 250 400 Other: # Voids 2 - Exam GENERAL EXAM: Alert, pleasant 59-year-old male, on room air, fairly comfortable in no apparent distress. HEAD: Normocephalic. EYES: Normal reaction of pupils, equal size. THROAT: No erythema or exudates. NECK: No masses, no JVD. LUNGS: Equal air entry with crackles in the right lung base, diminished. CVS: S1 and S2 normal with no audible murmur, regular rhythm. Tachycardic ABDOMEN: No hepatosplenomegaly, normal bowel sounds, no guarding or rigidity. CENTRAL NERVOUS SYSTEM: No focal deficits, tone is normal in all 4 extremities. EXTREMITIES: There is no peripheral edema. No clubbing, no cyanosis. Peripheral pulses are intact. - Labs CBC & Chem 7: 04/29/24 08:02 04/29/24 08:02 Labs: Abnormal Lab Results - Last 24 Hours (Table) 04/28/24 04/28/24 04/29/24 Range/Units 12:05 20:23 08:02 MCHC 30.6 L (31.0-37.0) g/dL RDW 16.3 H (11.5-15.5) % Neutrophils # 8.4 H (1.3-7.7) k/uL Lymphocytes # 0.6 L (1.0-4.8) k/uL Chloride (98-107) mmol/L BUN (9-20) mg/dL Creatinine (0.66-1.25) mg/dL Glucose (74-99) mg/dL POC Glucose (mg/dL) 157 H 144 H (70-110) mg/dL Calcium (8.4-10.2) mg/dL 04/29/24 Range/Units 08:02 MCHC (31.0-37.0) g/dL RDW (11.5-15.5) % Neutrophils # (1.3-7.7) k/uL Lymphocytes # (1.0-4.8) k/uL Chloride 108 H (98-107) mmol/L BUN 8 L (9-20) mg/dL Creatinine 0.64 L (0.66-1.25) mg/dL Glucose 106 H (74-99) mg/dL POC Glucose (mg/dL) (70-110) mg/dL Calcium 7.6 L (8.4-10.2) mg/dL Microbiology - Last 24 Hours (Table) 04/26/24 17:23 Blood Culture - Preliminary Blood Assessment and Plan Assessment: 1. Moderate right-sided pleural effusion/pneumonia -Recurrent pleural effusion; last thoracentesis completed on 11/06/2023; cytology came back positive for metastatic adenocarcinoma -Patient remains on Levaquin 750 mg p.o. daily; DuoNeb Nebulizer treatments 4 times daily and as needed -Pulmonary consult in place for possible thoracentesis 2. Stage IV adenocarcinoma of the lung; metastases to bone and liver - Currently on immunotherapy with Lazcluze and Rybrevant 3. Diabetes mellitus type II; currently on Tradjenta 5 mg daily; metformin 1000 mg twice daily 4. Hyperlipidemia; Pravachol 10 mg daily 8. Bipolar disorder; continue with home dose of Pristiq ER 50 mg daily; Xanax 1 mg twice daily as needed DVT prophylaxis; CDs/systemic anticoagulation CODE STATUS; full code
[2024-04-29 17:03] LABS: Glucose,Whole Blood 87 mg/dL (70-110)
[2024-04-29 20:17] LABS: Glucose,Whole Blood 166 mg/dL (70-110)
[2024-04-30 07:08] LABS: Glucose,Whole Blood 104 mg/dL (70-110)
[2024-04-30 08:30] LABS: BUN/Creat Ratio 10.71 Ratio (12.00-20.00); Blood Urea Nitrogen 7.5 mg/dL (9.0-27.0); Calcium 7.4 mg/dL (8.7-10.3); Carbon Dioxide 24.7 mmol/L (21.6-31.8); Chloride 113 mmol/L (96-109); Glucose 122 mg/dL (70-110); Potassium 4.2 mmol/L (3.5-5.5); Sodium 144 mmol/L (135-145)
--- NOTE | 2024-04-30 11:13 | P.CONS ---
History of Present Illness - Reason for Consult Consult date: 04/30/24 wound care - History of Present Illness This is a 59-year-old patient past medical history significant for lung cancer with oral chemotherapy, diabetes, hypertension being seen on 5 N. for a stage II pressure ulcer to the midline sacrum. Ulceration measures approximately 1 x 0.3 x 0.2 cm with slough and nonviable tissue present. Minimal to no granulation noted. No tunneling or undermining noted. The periwound does show some excoriation. Patient does not know what his is using to treat it. Patient states that the ulceration has been there for a few weeks now. Review Of Systems: Constitutional: No fever, no chills, no night sweats. No weight change. No weakness, fatigue or lethargy. No daytime sleepiness. Integumentary:reports wounds, no lesions. No rash or pruritus. No unusual bruising. No change in hair or nails. Physical exam: General Appearance: Alert, cooperative, no distress, appears stated age. Skin: See HPI all other Skin color, texture, tugor normal, no rashes or lesions. Neurologic: Alert oriented x3 Assessment: 1. Stage II pressure ulcer sacrum 2. Diabetes with skin ulceration Plan: 1. Apply honey gel bordered foam and change Tuesday. Avoid sitting for long periods of time. Utilize air-filled cushion while sitting. Turn patient every 2 hours as needed. Thank for the consultation any questions please contact the wound care center DNP note has been reviewed and discussed with Dr. Walter and the impression and plan of care has been directed as dictated. Past Medical History Past Medical History: Cancer, Diabetes Mellitus, Hypertension, Sleep Apnea/CPAP/BIPAP Additional Past Medical History / Comment(s): diverticulitis, lung cancer treated with oral chemo History of Any Multi-Drug Resistant Organisms: C-DIFF Year Discovered:: 1994 MDRO Source:: stool Past Surgical History: Bowel Resection, Hernia Repair, Orthopedic Surgery, Tonsillectomy Additional Past Surgical History / Comment(s): sigmoid colon, vasectomy, lung biospy Past Anesthesia/Blood Transfusion Reactions: No Reported Reaction Past Psychological History: Bipolar, Depression, Panic Disorder Smoking Status: Never smoker Past Alcohol Use History: None Reported Past Drug Use History: None Reported - Past Family History Mother Family Medical History: Cancer Additional Family Medical History / Comment(s): Cancer history Father Family Medical History: Coronary Artery Disease (CAD) Additional Family Medical History / Comment(s): Heart Disease Medications and Allergies Home Medications Medication Instructions Recorded Confirmed Type Pravastatin Sodium [Pravachol] 10 mg PO DAILY 10/01/20 04/26/24 History metFORMIN HCL [Glucophage] 1,000 mg PO BID 10/01/20 04/26/24 History Albuterol Sulfate [Albuterol 1 puff INHALATION RT-Q4H PRN 03/24/23 04/26/24 History Sulfate Hfa] Cariprazine HCl [Vraylar] 3 mg PO DAILY 03/24/23 04/26/24 History sitaGLIPtin [Januvia] 100 mg PO DAILY 03/24/23 04/26/24 History ALPRAZolam [Xanax] 1 mg PO BID PRN 09/27/23 04/26/24 History Desvenlafaxine Succinate [Pristiq 50 mg PO DAILY 09/27/23 04/26/24 History ER] Montelukast [Singulair] 10 mg PO DAILY 09/27/23 04/26/24 History Mv-Min/Folic/K1/Lycopen/Lutein 1 tab PO DAILY 09/27/23 04/26/24 History [Centrum Silver Men Tablet] Ondansetron [Zofran] 4 mg PO Q4H PRN 09/27/23 04/26/24 History Amivantamab-Vmjw [Rybrevant] 1,400 mg IV Q14D 04/26/24 04/26/24 History Apixaban [Eliquis] 2.5 mg PO BID 04/26/24 04/26/24 History Benzonatate [Tessalon Perle] 200 mg PO TID PRN 04/26/24 04/26/24 History Budesonide/Formoterol Fumarate 2 puff INHALATION RT-BID 04/26/24 04/26/24 History [Breyna 160-4.5 Mcg Inhaler] Codeine Phosphate/Guaifenesin 5 ml PO Q4H PRN 04/26/24 04/26/24 History [Codeine Phosphate/Guaifenesin 10-100 mg/5 ml] Doxycycline [Vibramycin] 100 mg PO BID 04/26/24 04/26/24 History Fluticasone Propionate [Flonase 1 spray EA NOSTRIL DAILY 04/26/24 04/26/24 History Allergy Relief] Hydrocortisone Cream 1 applic TOPICAL BID 04/26/24 04/26/24 History [Hydrocortisone 2.5% Cream] Insulin Glargine (Lantus) [Lantus See Protocol SQ DAILY MDD 14 units 04/26/24 04/26/24 History Vial] Lazertinib Mesylate [Lazcluze] 240 mg PO DAILY 04/26/24 04/26/24 History Magnesium Citrate 100 mg PO HS 04/26/24 04/26/24 History diphenhydrAMINE [Benadryl] 50 mg PO HS 04/26/24 04/26/24 History traMADol HCl [Ultram] 50 mg PO Q8H PRN 04/26/24 04/26/24 History Allergies Allergy/AdvReac Type Severity Reaction Status Date / Time Cephalosporins AdvReac Diarrhea & Verified 04/26/24 16:47 C-DIFF Physical Exam Vitals: Vital Signs Temp Pulse Resp BP Pulse Ox 04/30/24 07:02 98 F 101 H 22 123/74 99 04/30/24 01:27 98 F 104 H 16 105/67 96 04/29/24 19:32 97.7 F 109 H 16 103/64 97 04/29/24 12:55 97.4 F L 114 H 16 105/70 95 Intake and Output 04/29/24 04/30/24 04/30/24 22:59 06:59 14:59 Intake Total 1080 825 Output Total 600 Balance 1080 225 Intake: Intake, IV Titration 825 Amount Sodium Chloride 0.9% 1, 825 000 ml @ 100 mls/hr IV . Q10H [facility] Rx#:[id number] Oral 1080 Output: Urine 600 Other: # Voids 2 Results CBC & Chem 7: 04/29/24 08:02 04/30/24 05:15 Labs: Abnormal Lab Results - Last 24 Hours (Table) 04/29/24 04/30/24 Range/Units 20:16 05:15 Chloride 113 H (96-109) mmol/L BUN 7.5 L (9.0-27.0) mg/dL BUN/Creatinine Ratio 10.71 L (12.00-20.00) Ratio Glucose 122 H (70-110) mg/dL POC Glucose (mg/dL) 166 H (70-110) mg/dL Calcium 7.4 L (8.7-10.3) mg/dL Microbiology - Last 24 Hours (Table) 04/26/24 17:23 Blood Culture - Preliminary Blood Assessment and Plan (1) Stage II pressure ulcer of sacral region Current Visit: Yes Status: Acute Code(s): L89.152 - PRESSURE ULCER OF SACRAL REGION, STAGE 2 SNOMED Code(s): 84814761303952 (2) Type 2 diabetes mellitus with other skin ulcer Current Visit: Yes Status: Acute Code(s): E11.622 - TYPE 2 DIABETES MELLITUS WITH OTHER SKIN ULCER; L98.499 - NON-PRESSURE CHRONIC ULCER OF SKIN OF SITES W UNSP SEVERITY SNOMED Code(s): 623908954840267
[2024-04-30 12:26] LABS: Glucose,Whole Blood 113 mg/dL (70-110)
[2024-04-30 12:31] VITALS: BP 100/68; PULSE 94; RESP 18; TEMP 97.7
--- NOTE | 2024-04-30 12:38 | FL ---
EXAMINATION TYPE: FL barium swallow w video DATE OF EXAM: 04/30/2024 CLINICAL HISTORY: 59-year-old male with history of lung cancer. Patient with coughing with drink and food at the bedside. Assess for aspiration. TECHNIQUE: Deglutition study is performed utilizing thin liquid barium, barium thick pudding, and ba rium coated cracker. Total dose area product (DAP) in uGy*m?, mGy*cm? (or similar): 150 mGycm2 Total images: 32. Total fluoroscopy time: 2 minutes 1 second. COMPARISON: None. FINDINGS: Moderate to severe vallecular and piriform sinus residuals are noted. In addition, there is decreased epiglottic inversion and diminished posterior pharyngeal wall peristalsis. A single episod e of transient penetration is noted with thin liquids. Otherwise, no other penetration or aspiration seen IMPRESSION: Moderate to severe residuals with abnormal posterior pharyngeal wall peristalsis and decr eased epiglottic inversion. Only a single episode of transient penetration with thin. No aspiration s een. Please refer to speech therapist notes for further details if necessary. [facility], , 04/30/2024 12:36 PM
--- NOTE | 2024-04-30 13:14 | P.PN ---
Subjective Progress Note Date: 04/30/24 This is a pleasant 59-year-old male patient with a history of hypertension, diabetes mellitus, obstructive sleep apnea utilizing CPAP, bipolar disorder. Lifelong non-smoker. He does have stage IV adenocarcinoma of the lung. PET scan from January 2024 revealed progression of disease with increased uptake involving innumerable osseous metastatic lesions, subcarinal and right hilar lymph nodes and development of the lateral right hepatic lobe lesion. He has also had recurrent pleural effusions most recent thoracentesis here was in June 2023 that was positive for pulmonary adenocarcinoma. He is most recently on Lazertinib/Lazcluze and amivantamab/Rybrevant and due to high coagulation risk of these medications he is on Eliquis as well. He presented here to the emergency room yesterday with complaints of increasing shortness of breath. Chest x-ray feels right midlung infiltrate with small right pleural effusion. Ultrasound of the right chest reveals a 17.6 cm pleural effusion pocket. White count 10.3. Hemoglobin 15.3. Platelets 215. Sodium 141. Potassium 4.2. Bicarb 28. BUN 14. Creatinine 0.73. Glucose 217. AST 35. ALT 44. Alk phos 334. Viral screen is negative. Procalcitonin negative at 0.12. He is seen today in consultation in the emergency department. He is currently sitting up on a stretcher. Awake and alert in no acute distress. He is maintaining good O2 saturations in 90s on room air. He utilized his home CPAP last night. He denies any worsening shortness of breath at this time. No cough or congestion. No hemoptysis. He does have dyspnea with conversation and dyspnea with minimal exertion. The patient is seen today April 28, 2024 in follow-up on the regular medical floor. He is currently sitting up at the bedside. Awake and alert in no acute distress. He is still short of breath. He is maintaining O2 saturations in the 90s on room air. He utilizes home CPAP last night. He is afebrile. Hemodynamically stable. He did undergo a right sided thoracentesis today with Dr. Dennison. 2.4 L of serous fluid was returned. Not sent for analysis or cytology as previous results were positive for metastatic adenocarcinoma cancer. Follow-up chest x-ray revealed no evidence of pneumothorax. Glucose 157. His Eliquis was resumed. He remains on DuoNeb and elations, Symbicort. Antibiotics in the form of Levaquin. The patient is seen today April 29, 2024 in follow-up on the regular medical floor. He is currently resting in bed. Awake and alert in no acute distress. Breathing easier today compared to yesterday. He denies any pain. He has been quite weak and a bit unsteady on his feet. He is also having complaints of difficulty in swallowing. Blood culture revealed no growth.. Hemoglobin 14.4. Platelets 187. Sodium 140. Potassium 4.3. Bicarb 28. BUN 8. Creatinine 0.64. Glucose 106. He remains on DuoNeb and elations, Symbicort Singulair. Anticoagulated with Eliquis. Remains on antibiotics in the form of Levaquin. Continued on his home immunotherapy. He does have a rash which is a potential side effect. The patient is seen today April 30, 2024 in follow-up on the regular medical floor. He is currently awake and alert in no acute distress. Resting comfortably in bed. He denies any worsening shortness of breath, cough or congestion. He continues to maintain good O2 saturations in the 90s on 3 L/min per nasal cannula. He is afebrile. Hemodynamically stable. He is working with the speech pathologist. Modified barium swallow is pending. Sodium 144. Potassium 4.2. Bicarb 25. BUN 8. Creatinine 0.7. Glucose 122. He has normal saline at 100 mL/h. Remains on Singulair. Anticoagulated with Eliquis. Objective - Vital Signs Vital signs: Vital Signs Temp 97.7 F 04/30/24 11:39 Pulse 94 04/30/24 11:39 Resp 18 04/30/24 11:39 BP 100/68 04/30/24 11:39 Pulse Ox 97 04/30/24 11:39 FiO2 Intake & Output 04/29/24 04/30/24 04/30/24 18:59 06:59 18:59 Intake Total 1080 825 Output Total 600 Balance 1080 225 Intake: Intake, IV Titration 825 Amount Sodium Chloride 0.9% 1, 825 000 ml @ 100 mls/hr IV . Q10H [facility] Rx#:[id number] Oral 1080 Output: Urine 600 Other: # Voids 2 - Exam GENERAL EXAM: Alert, 59-year-old male, resting in bed, on 3 L nasal cannula, comfortable in no apparent distress. HEAD: Normocephalic. EYES: Normal reaction of pupils, equal size. NOSE: Clear with pink turbinates. THROAT: No erythema or exudates. NECK: No masses, no JVD. CHEST: No chest wall deformity. LUNGS: Equal air entry with crackles in the right lung base, diminished. CVS: S1 and S2 normal with no audible murmur, regular rhythm. Tachycardic ABDOMEN: No hepatosplenomegaly, normal bowel sounds, no guarding or rigidity. SPINE: No scoliosis or deformity SKIN: Positive for a rash, possibly from immunotherapy CENTRAL NERVOUS SYSTEM: No focal deficits, tone is normal in all 4 extremities. EXTREMITIES: There is no peripheral edema. No clubbing, no cyanosis. Peripheral pulses are intact. - Labs CBC & Chem 7: 04/29/24 08:02 04/30/24 05:15 Labs: Abnormal Lab Results - Last 24 Hours (Table) 04/29/24 04/30/24 04/30/24 Range/Units 20:16 05:15 12:25 Chloride 113 H (96-109) mmol/L BUN 7.5 L (9.0-27.0) mg/dL BUN/Creatinine Ratio 10.71 L (12.00-20.00) Ratio Glucose 122 H (70-110) mg/dL POC Glucose (mg/dL) 166 H 113 H (70-110) mg/dL Calcium 7.4 L (8.7-10.3) mg/dL Microbiology - Last 24 Hours (Table) 04/26/24 17:23 Blood Culture - Preliminary Blood Assessment and Plan Assessment: Shortness of breath secondary to moderate right pleural effusion. Status post thoracentesis April 28, 2024 with 2.4 L of sanguinous fluid returned, not sent for analysis Recurrent pleural effusion, last thoracentesis here back in June 2023 was positive for metastatic adenocarcinoma Stage IV adenocarcinoma of the lung with metastasis to the bone and liver. Currently on immunotherapy with Lazcluze and Rybrevant Dysphagia Generalized weakness Diabetes mellitus Hyperlipidemia Bipolar disorder History of depression Plan: The patient was seen and evaluated Labs and medications reviewed Having issues with dysphagia Speech therapy consulted Modified barium swallow pending Having issues with lower extremity weakness Physical therapy recommended rolling walker Evaluate for possible home oxygen Cleared for discharge from the pulmonary standpoint This patient was seen independently by the pulmonary nurse practitioner addressing pulmonary issues I have personally seen and examined the patient, performed the documentation and the assessment and plan as written. Number of minutes spent on the visit: 25 Dictation was produced using Gem dictation software. Please excuse any grammatical, word or spelling errors.
--- NOTE | 2024-05-04 05:28 | P.DS ---
Providers Date of admission: 04/26/24 17:07 Expected date of discharge: 04/30/24 Attending physician: Lewis Araiza MD Consults: 04/26/24 17:06 Consult Physician Routine Consulting Provider: Dennys Swartz Consult Reason/Comments: shireen, effusion, lung ca Do you want consulting provider notified?: Yes Primary care physician: Troy Michele Hospital Course: Final diagnosis -Moderate right-sided pleural effusion/pneumonia -Recurrent pleural effusion; last thoracentesis completed on 11/06/2023; cytology came back positive for metastatic adenocarcinoma -Stage IV adenocarcinoma of the lung; metastases to bone and liver -Acute on chronic hypoxic respiratory failure secondary to metastatic adenocarcinoma -Diabetes mellitus type II -Hyperlipidemia -Bipolar disorder GI prophylaxis DVT prophylaxis Full code Discharge disposition Patient is being discharged in a stable condition with guarded prognosis to home. Patient will follow-up with Dr. Michele in the outpatient setting upon discharge. Patient is to continue with current medication regimen and close outpatient follow-up with oncology and pulmonary as scheduled. Total time taken is greater than 35 minutes. Hospital course This is a 59-year-old male who was recently admitted with moderate right side pleural effusion with recurrent pleural effusions. Patient status post thoracentesis and was continued to be monitored with multiple consultations. Patient chronically wears oxygen outpatient and has been reporting some increased shortness of breath and concerns of swallowing difficulties. Patient evaluated by speech underwent modified barium swallow and has been given instructions on how to avoid aspiration. Patient is extremely high risk for aspiration and recommend close outpatient follow-up with pulmonary. Patient will be discharged today. Please refer to consultation notes for further HPI. Currently no reports of chest pain, shortness of breath, or palpitations. Patient is afebrile. No reports of nausea or vomiting and patient is tolerating diet. Patient will be discharged home today. High risk for readmissions given significant comorbidities ongoing. Physical exam: Gen: This is a 39-year-old male who is awake, alert and oriented x 3, well- developed, thin built, elderly appearing HEENT: Head is atraumatic, normocephalic. Pupils equal, round. Sclerae is anicteric. NECK: Supple. No JVD. No lymphadenopathy. No thyromegaly. LUNGS: Diminished breath sounds bilaterally with a few scattered rhonchi noted. No intercostal retractions. HEART: S1, S2 are muffled ABDOMEN: Soft. Bowel sounds are present. No masses. No tenderness. EXTREMITIES: No pedal edema. No calf tenderness. NEUROLOGICAL: Patient is awake, alert and oriented x3. Cranial nerves 2 through 12 are grossly intact. Please refer to medication reconciliation sheet for a list of medications. The impression and plan of care has been dictated by Lesly Khan, Nurse Practitioner as directed. Dr. Mi MD I have performed a history and examination and MDM of this patient, discussed the same with the dictator, and agree with the dictator's assessment and plan as written ,documented as a scribe. Based on total visit time, I have performed more than 50% of the visit. Patient Condition at Discharge: Fair Plan - Discharge Summary Discharge Rx Participant: No New Discharge Prescriptions: Continue metFORMIN HCL [Glucophage] 1,000 mg PO BID Pravastatin Sodium [Pravachol] 10 mg PO DAILY Albuterol Sulfate [Albuterol Sulfate Hfa] 1 puff INHALATION RT-Q4H PRN PRN Reason: Shortness Of Breath Cariprazine HCl [Vraylar] 3 mg PO DAILY ALPRAZolam [Xanax] 1 mg PO BID PRN PRN Reason: Anxiety Amivantamab-Vmjw [Rybrevant] 1,400 mg IV Q14D Budesonide/Formoterol Fumarate [Breyna 160-4.5 Mcg Inhaler] 2 puff INHALATION RT-BID diphenhydrAMINE [Benadryl] 50 mg PO HS Hydrocortisone Cream [Hydrocortisone 2.5% Cream] 1 applic TOPICAL BID Codeine Phosphate/Guaifenesin [Codeine Phosphate/Guaifenesin 10-100 mg/5 ml] 5 ml PO Q4H PRN PRN Reason: Cough sitaGLIPtin [Januvia] 100 mg PO DAILY Mv-Min/Folic/K1/Lycopen/Lutein [Centrum Silver Men Tablet] 1 tab PO DAILY Ondansetron [Zofran] 4 mg PO Q4H PRN PRN Reason: Nausea And Vomiting Montelukast [Singulair] 10 mg PO DAILY Desvenlafaxine Succinate [Pristiq ER] 50 mg PO DAILY Magnesium Citrate 100 mg PO HS Apixaban [Eliquis] 2.5 mg PO BID Benzonatate [Tessalon Perle] 200 mg PO TID PRN PRN Reason: Cough Fluticasone Propionate [Flonase Allergy Relief] 1 spray EA NOSTRIL DAILY Insulin Glargine (Lantus) [Lantus Vial] See Protocol SQ DAILY MDD 14 units Lazertinib Mesylate [Lazcluze] 240 mg PO DAILY traMADol HCl [Ultram] 50 mg PO Q8H PRN PRN Reason: Pain Discontinued Doxycycline [Vibramycin] 100 mg PO BID Discharge Medication List Pravastatin Sodium [Pravachol] 10 mg PO DAILY 10/01/20 [History] metFORMIN HCL [Glucophage] 1,000 mg PO BID 10/01/20 [History] Albuterol Sulfate [Albuterol Sulfate Hfa] 1 puff INHALATION RT-Q4H PRN 03/24/23 [History] Cariprazine HCl [Vraylar] 3 mg PO DAILY 03/24/23 [History] sitaGLIPtin [Januvia] 100 mg PO DAILY 03/24/23 [History] ALPRAZolam [Xanax] 1 mg PO BID PRN 09/27/23 [History] Desvenlafaxine Succinate [Pristiq ER] 50 mg PO DAILY 09/27/23 [History] Montelukast [Singulair] 10 mg PO DAILY 09/27/23 [History] Mv-Min/Folic/K1/Lycopen/Lutein [Centrum Silver Men Tablet] 1 tab PO DAILY 09/27/23 [History] Ondansetron [Zofran] 4 mg PO Q4H PRN 09/27/23 [History] Amivantamab-Vmjw [Rybrevant] 1,400 mg IV Q14D 04/26/24 [History] Apixaban [Eliquis] 2.5 mg PO BID 04/26/24 [History] Benzonatate [Tessalon Perle] 200 mg PO TID PRN 04/26/24 [History] Budesonide/Formoterol Fumarate [Breyna 160-4.5 Mcg Inhaler] 2 puff INHALATION RT-BID 04/26/24 [History] Codeine Phosphate/Guaifenesin [Codeine Phosphate/Guaifenesin 10-100 mg/5 ml] 5 ml PO Q4H PRN 04/26/24 [History] Fluticasone Propionate [Flonase Allergy Relief] 1 spray EA NOSTRIL DAILY 04/26/24 [History] Hydrocortisone Cream [Hydrocortisone 2.5% Cream] 1 applic TOPICAL BID 04/26/24 [History] Insulin Glargine (Lantus) [Lantus Vial] See Protocol SQ DAILY MDD 14 units 04/26/24 [History] Lazertinib Mesylate [Lazcluze] 240 mg PO DAILY 04/26/24 [History] Magnesium Citrate 100 mg PO HS 04/26/24 [History] diphenhydrAMINE [Benadryl] 50 mg PO HS 04/26/24 [History] traMADol HCl [Ultram] 50 mg PO Q8H PRN 04/26/24 [History] Follow up Appointment(s)/Referral(s): Troy Michele MD [Primary Care Provider] - 05/03/24 11:00 am (Appointment at [facility]. [facility] [NON-STAFF] - 05/07/24 8:00 am Patient Instructions/Handouts: Pleural Effusion (DC), Pressure Injury (DC), Level 3 National Dysphagia Diet (DC), Dysphagia (GEN) Activity/Diet/Wound Care/Special Instructions: Activity limited until follow-up Follow-up with primary care provider on discharge Follow-up with oncology Follow-up with pulmonary outpatient Continue with wound care with honey gel and optifoam dressing to the coccyx region Tuesday/Tuesday/Tuesday or if becomes soiled Recommend to continue with dysphagia Level 3 Chopped diet/thin liquids with small bites/sips, upright positioning and NO STRAWS. Per speech therapist Discharge Disposition: HOME SELF-CARE
[2024-05-07] MEDS ORDERED: [UNRECOGNIZED DRUG - OTHER] IV SCH (09:00)
== END 2024-04-30 17:05 | disposition home or self-care (01) | DRG 180 ==
LOC: EC 13:33 → 4SSUR 17:07 → 5NMEDONC 04-27 14:36
PROVIDERS: ADMIT Internal Medicine; ATTEND Internal Medicine
PROC: 0W993ZZ Drainage of Right Pleural Cavity, Percutaneous Approach (ICD-10-PCS; principal; 2024-04-29)
DX: C34.90 Malignant neoplasm of unspecified part of unspecified bronchus or lung (principal); J18.9 Pneumonia, unspecified organism; C79.51 Secondary malignant neoplasm of bone; L89.152 Pressure ulcer of sacral region, stage 2; C78.7 Secondary malignant neoplasm of liver and intrahepatic bile duct; J91.0 Malignant pleural effusion; C77.1 Secondary and unspecified malignant neoplasm of intrathoracic lymph nodes; R13.10 Dysphagia, unspecified; E11.622 Type 2 diabetes mellitus with other skin ulcer; F31.9 Bipolar disorder, unspecified; I10 Essential (primary) hypertension; R26.81 Unsteadiness on feet; R21 Rash and other nonspecific skin eruption; G47.33 Obstructive sleep apnea (adult) (pediatric); E78.5 Hyperlipidemia, unspecified; F41.0 Panic disorder [episodic paroxysmal anxiety]; Z79.01 Long term (current) use of anticoagulants; Z79.84 Long term (current) use of oral hypoglycemic drugs; Z79.899 Other long term (current) drug therapy; Z20.822 Contact with and (suspected) exposure to COVID-19; Z28.310 Unvaccinated for COVID-19; Z88.1 Allergy status to other antibiotic agents
CPT/HCPCS: 36415; 71045; 71046; 74230; 76604; 80048; 80053; 83605; 84145; 84484; 85025; 85610; 85730; 87040; 87449; 87636; 93005; 94640; 96361; 96365; 96366; 99285

== ENCOUNTER → 2024-05-10 | Outpatient (CLI) | payer MEDICARE ==
--- NOTE | 2024-05-12 20:02 | PE ---
EXAMINATION TYPE: PET CT fusion skull to thigh DATE OF EXAM: 05/10/2024 CLINICAL INDICATION:Male, 59 years old with history of C34.31 LUNG CANCER; TECHNIQUE: Following the intravenous administration of 13.05 mCi of F-18 FDG, whole body images are performed from the skull base to the Mid thigh. Images are reviewed on the computer in the coronal, axial, and sagittal planes. Reconstructed rotating images are created on independent workstation an d reviewed on the computer. A non-contrast CT is performed in conjunction with the PET scan. Glucos e level 114 mg/dL CT DLP: 665 mGycm, Automated exposure control for dose reduction was used. COMPARISON: CT None, PET/CT 02/02/2024, MRI: None FINDINGS: Mediastinal SUV mean is 1.9. Hepatic parenchyma SUV mean is 2.9. SKULL BASE AND NECK: No suspicious radiotracer activity. CHEST, MEDIASTINUM, AND HILAR REGION: * Enlarging area of radiotracer uptake around the right infrahilar region max SUV 8.3, previously 5. 2. Superimposed airspace disease not excluded. * Right upper lobe nodules now more pronounced measuring 6 mm Max SUV 4.6 * Right suprahilar region FDG activity max SUV 6.0 ABDOMEN AND PELVIS: * Areas within liver more pronounced on today's exam measures at least 10 lesions in the liver with some misregistration artifact the larger in the right hepatic lobe max SUV 10.7, previously 8.9., Rig ht lobe lesion now present measuring up to max SUV 6.0. * Physiologic uptake within the bowel. MUSCULOSKELETAL STRUCTURES: Innumerable foci of uptake within the osseous structures with correspondi ng sclerotic lesions . These appear larger and more pronounced compared to prior examples include: * C3 vertebral body with a maximum SUV of 5.6, previously 5.6, 2.4, 5.4, 2.3. * Right transverse process of T1 max SUV 3.8, previously 5.6, 5.4, 4.8, 2.9. * T10 vertebral body max SUV 7.0, previously 6.5, 4.3, 5.7. * Left iliac bone near the sacroiliac joint max SUV 5.3, previously 6.3, 7.2, 6.9, 5.8, * Sacrum max SUV 7.0, previously 6.9, 2.4, 5.6, 5.3. * Left proximal femur maximum SUV 6.9, previously 5.4, 3.1, 5.7, 4.2. * Left iliac crest max SUV 5.7, previously 5.9, 2.1, 5.8, 5.0. * L2 vertebral body max SUV 7.2 previously 8.2 3.6, 8.9, 4.8. OTHER CT: The gallbladder is surgically absent. Few scattered colonic diverticula. Heart is mildly en larged for size. Moderate right pleural effusion redemonstrated. Prostatomegaly. Postsurgical changes to the sigmoid colon. IMPRESSION: Progression of disease with increasing hepatic lesions in size and number now at least 10 lesions. Th e osseous lesions are demonstrating mixed response. Right perihilar increased FDG activity suggesting progression of disease. Superimposed infection not excluded. Right lung apex nodule increased activi ty suggesting malignancy.. [facility], , 05/12/2024 8:00 PM
== END | disposition home or self-care (01) ==
LOC: RADPETMAIN 13:42
PROVIDERS: ATTEND Internal Medicine
DX: C34.31 Malignant neoplasm of lower lobe, right bronchus or lung (principal); J90 Pleural effusion, not elsewhere classified; R91.1 Solitary pulmonary nodule
CPT/HCPCS: 78815; A9552

== ENCOUNTER → 2024-05-23 | Outpatient (CLI) | payer MEDICARE ==
--- NOTE | 2024-05-23 11:50 | XR ---
EXAMINATION TYPE: XR chest 2V DATE OF EXAM: 05/23/2024 CLINICAL INDICATION: Male, 59 years old with history of J90 PLEURAL EFFUSION, NOT ELSEWHERE CLASSIFIE D, TECHNIQUE: Frontal and lateral views of the chest are obtained. COMPARISON: Chest x-ray April 28, 2024 FINDINGS: There is elevated right hemidiaphragm with right mid lung linear scarring and/or atelectasi s. There is new small to moderate size right-sided hydropneumothorax estimated at 15%. No mediastinal shift. Left lung is clear. Cardiomegaly is redemonstrated. Reticulonodular increased opacities bilat erally show improvement from prior study. The osseous structures are intact. IMPRESSION: There is new small to moderate-sized right-sided hydropneumothorax estimated 15%. Ross delgado physician made aware of results at time of dictation by x-ray technologist. [facility], , 05/23/2024 11:48 AM
== END | disposition home or self-care (01) ==
LOC: RADXRMAIN 11:24
PROVIDERS: ATTEND Thoracic Surgery (Cardiothoracic Vascular Surgery)
DX: J90 Pleural effusion, not elsewhere classified (principal); J94.8 Other specified pleural conditions
CPT/HCPCS: 71046

== ENCOUNTER 2024-05-24 08:49 | Day surgery (SDC) | payer MEDICARE ==
[2024-05-23 17:48] VITALS: BMI 23.1
[~2024-05-24 08:49] MED LIST: LIDOCAINE 1% (10MG/ML) FOR IV START INTRADERMA PRN; fentaNYL (PF) 50 MCG/ML 2 ML AMP IV PRN
[2024-05-24 09:25] VITALS: TEMP 96.6
[2024-05-24] MEDS: IV FLUID CONTINUATION 1,000 ML IV ONE (09:26)
[2024-05-24] MEDS: LACTATED RINGERS 1,000 ML IV SCH (09:30)
[2024-05-24] MEDS: ONDANSETRON 4 MG/2 ML VIAL IVP PRN (09:32)
[2024-05-24 09:55] LABS: Glucose,Whole Blood 118 mg/dL (70-110)
[2024-05-24] MEDS ORDERED: PROPOFOL 10 MG/ML 20 ML VIAL IV ONE (13:30)
[2024-05-24] MEDS ORDERED: fentaNYL (PF) 50 MCG/ML 2 ML AMP ONE (13:30)
[2024-05-24] MEDS ORDERED: MIDAZOLAM 2 MG/2 ML VIAL ONE (13:30)
[2024-05-24] MEDS ORDERED: KETAMINE HCL IN 0.9 % NACL 50 MG/5 ML SYRINGE ONE (13:30)
[2024-05-24] MEDS: LIDOCAINE 1% INJ 10MG/ML (20 ML MDV) SQ ONE (14:15)
[2024-05-24 14:25] VITALS: RESP 18
--- NOTE | 2024-05-24 14:28 | FL ---
EXAMINATION TYPE: FL guidance operating room DATE OF EXAM: 05/24/2024 CLINICAL INDICATION: Male, 59 years old with history of RT pleurx catheter, TECHNIQUE: Fluoroscopy. COMPARISON: Chest x-ray one day earlier. FINDINGS: Fluoroscopic guidance was provided during pleurx catheter insertion procedure performed by Dr. Ojeda. A total of 5 seconds of fluoroscopic time was utilized during the procedure and 1 spot images was acquired. TOTAL DAP= 106.38 cGycm2. IMPRESSION: As Above. [facility], , 05/24/2024 2:26 PM
[2024-05-24] MEDS: HYDROmorphone 0.5 MG/0.5 ML SYRINGE IVP PRN (14:50)
--- NOTE | 2024-05-24 15:13 | XR ---
EXAMINATION TYPE: XR chest 1V portable DATE OF EXAM: 05/24/2024 CLINICAL INDICATION: Male, 59 years old with history of post pleurX, TECHNIQUE: Single frontal view of the chest is obtained. COMPARISON: Chest x-ray one day earlier FINDINGS: There is more prominent right-sided pneumothorax despite new right-sided pleurX drainage catheter. Pn eumothorax estimated at 25-30%. Diffuse increased opacities bilaterally favor edema. Stable mild cardiomegaly. Osseous structures are intact. IMPRESSION: As above. [facility], , 05/24/2024 3:11 PM
[2024-05-24 15:28] VITALS: BP 107/80; PULSE 74
--- NOTE | 2024-05-24 18:12 | P.OP ---
Date of Procedure: 05/24/24 Preoperative Diagnosis: Stage IV lung cancer, recurrent right pleural effusion/pneumothorax Postoperative Diagnosis: Same Procedure(s) Performed: Right Pleurx catheter implantation with fluoroscopy Implants: Pleurx catheter Anesthesia: MAC Surgeon: Troy Ojeda Estimated Blood Loss (ml): 1 Pathology: none sent Condition: stable Disposition: PACU Indications for Procedure: 59-year-old male undergoing treatment for stage IV lung cancer. He has had 3 previous thoracenteses for recurrent right pleural effusion. He has again right pleural effusion since he has last thoracentesis on May 02. He also has a pneumothorax currently present. He was seen in the office as an emergency consult and Pleurx catheter placement was recommended for outpatient management. There was scheduled immediately. Operative Findings: 1400+ cc of clear serous fluid was drained. Description of Procedure: Patient was brought to the operating room, placed supine on the table. IV sedation was administered. He was appropriately positioned. Lidocaine anesthesia was administered at the planned interspace level. Fluid was localized in the sixth interspace posteriorly in the posterior axillary line. We attempted to aspirate fluid 1 interspace lowered were able to aspirate fluid but unable to thread a wire. At the sixth interspace we were able to easily thread a wire into the right pleural space and this was confirmed under fluoroscopic visualization. This incision was then enlarged with a knife and split away introducer and sheath were placed. Counterincision was made under lidocaine anesthesia in the right upper quadrant. PleurX catheter was tunneled from this incision into the previous incision and the cuff position just under the skin at the exit site. Catheter was advanced into the introducer sheath under fluoroscopic scopic visualization into the pleural space. Was connected to suction.0 catheter was secured at the exit site with 3-0 silk. The entry site was closed with layers of Vicryl suture. Skin glue was applied at this site. Once the drainage was completed, Pleurx catheter was removed from suction and capped. Was placed in a standard dressing. Patient was transferred to recovery in stable condition.
== END 2024-05-24 16:05 | disposition home health service (06) ==
LOC: OR 08:49
PROVIDERS: ATTEND Thoracic Surgery (Cardiothoracic Vascular Surgery)
DX: J90 Pleural effusion, not elsewhere classified (principal); J93.9 Pneumothorax, unspecified; C34.90 Malignant neoplasm of unspecified part of unspecified bronchus or lung; I10 Essential (primary) hypertension; G47.33 Obstructive sleep apnea (adult) (pediatric); Z99.89 Dependence on other enabling machines and devices; E11.9 Type 2 diabetes mellitus without complications; L89.159 Pressure ulcer of sacral region, unspecified stage; Z79.84 Long term (current) use of oral hypoglycemic drugs; Z79.899 Other long term (current) drug therapy; Z88.8 Allergy status to other drugs, medicaments and biological substances
CPT/HCPCS: 71045; 32550; J2250; J0690; J2405; J2003; J3010; J2704; J1171

== ENCOUNTER 2024-05-29 10:38 | Inpatient (IN) | payer MEDICARE ==
[2024-05-29] MEDS ORDERED: NALOXONE 0.4 MG/ML 1 ML VIAL IV PRN (10:55)
--- NOTE | 2024-05-29 11:11 | ED ---
General Adult HPI - General Chief complaint: ENT Stated complaint: diff swallowing Time Seen by Provider: 05/29/24 10:40 Source: patient, RN notes reviewed, old records reviewed Mode of arrival: ambulatory Limitations: no limitations - History of Present Illness Initial comments: 59 yo male presenting for dehydration, poor oral intake secondary to difficulty swallowing and need for PEG tube. Patient was seen by general surgeon Dr. Davenport, and requested to be admitted for PEG tube placement. Patient has metastatic cancer currently on chemotherapy. He has been unable to eat or drink secondary to difficulty swallowing. He had a swallow evaluation approximately 1 month ago that was abnormal. - Related Data Home Medications Medication Instructions Recorded Confirmed Pravastatin Sodium [Pravachol] 10 mg PO DAILY 10/01/20 05/24/24 metFORMIN HCL [Glucophage] 1,000 mg PO BID 10/01/20 05/24/24 Albuterol Sulfate [Albuterol 1 puff INHALATION RT-Q4H PRN 03/24/23 05/24/24 Sulfate Hfa] Cariprazine HCl [Vraylar] 3 mg PO DAILY 03/24/23 05/24/24 sitaGLIPtin [Januvia] 100 mg PO DAILY 03/24/23 05/24/24 ALPRAZolam [Xanax] 1 mg PO BID PRN 09/27/23 05/24/24 Desvenlafaxine Succinate [Pristiq 50 mg PO DAILY 09/27/23 05/24/24 ER] Montelukast [Singulair] 10 mg PO QAM 09/27/23 05/24/24 Mv-Min/Folic/K1/Lycopen/Lutein 1 tab PO DAILY 09/27/23 05/24/24 [Centrum Silver Men Tablet] Ondansetron [Zofran] 4 mg PO Q4H PRN 09/27/23 05/24/24 Apixaban [Eliquis] 2.5 mg PO BID 04/26/24 05/24/24 Benzonatate [Tessalon Perle] 200 mg PO TID PRN 04/26/24 05/24/24 Codeine Phosphate/Guaifenesin 5 ml PO Q4H PRN 04/26/24 05/24/24 [Codeine Phosphate/Guaifenesin 10-100 mg/5 ml] Hydrocortisone Cream 1 applic TOPICAL BID 04/26/24 05/24/24 [Hydrocortisone 2.5% Cream] Insulin Glargine (Lantus) [Lantus 24 unit SQ DIRECTED PRN 04/26/24 05/24/24 Vial] Lazertinib Mesylate [Lazcluze] 240 mg PO DAILY 04/26/24 05/24/24 diphenhydrAMINE [Benadryl] 50 mg PO HS 04/26/24 05/24/24 traMADol HCl [Ultram] 50 mg PO Q8H PRN 04/26/24 05/24/24 Allergies Allergy/AdvReac Type Severity Reaction Status Date / Time Cephalosporins AdvReac Diarrhea & Verified 05/29/24 10:47 C-DIFF Review of Systems ROS Statement: Those systems with pertinent positive or pertinent negative responses have been documented in the HPI. ROS Other: All systems not noted in ROS Statement are negative. Past Medical History Past Medical History: Cancer, Diabetes Mellitus, Hypertension, Sleep Apnea/CPAP/BIPAP Additional Past Medical History / Comment(s): diverticulitis, lung CA treated with oral meds-IV chemotherapy every 3 weeks starting 05/25/24, sacral wound, sleep apnea -uses Cpap History of Any Multi-Drug Resistant Organisms: C-DIFF Date of last positivie culture/infection: 1994 MDRO Source:: stool Past Surgical History: Bowel Resection, Hernia Repair, Orthopedic Surgery, Tonsillectomy Additional Past Surgical History / Comment(s): sigmoid colon, vasectomy, lung biospy, pleurex cath Past Anesthesia/Blood Transfusion Reactions: No Reported Reaction Past Psychological History: Bipolar, Depression, Panic Disorder Smoking Status: Never smoker Past Alcohol Use History: None Reported Past Drug Use History: None Reported - Past Family History Mother Family Medical History: Cancer Additional Family Medical History / Comment(s): Cancer history Father Family Medical History: Coronary Artery Disease (CAD) Additional Family Medical History / Comment(s): Heart Disease General Exam Limitations: no limitations General appearance: alert, in no apparent distress Head exam: Present: atraumatic, normocephalic Eye exam: Present: normal appearance, PERRL ENT exam: Present: mucous membranes dry Respiratory exam: Absent: respiratory distress Cardiovascular Exam: Present: normal rhythm, tachycardia GI/Abdominal exam: Present: soft. Absent: distended Neurological exam: Present: alert, oriented X3 Psychiatric exam: Present: normal affect, normal mood Skin exam: Present: rash Course Vital Signs 05/29/24 10:43 Temperature 98 F Pulse Rate 127 H Respiratory 28 H Rate Blood Pressure 107/67 O2 Sat by Pulse 99 Oximetry Medical Decision Making - Medical Decision Making Was pt. sent in by a medical professional or institution ([facility]on, [employer], urgent care, hospital, or halfway...) When possible be specific @Sent in by general surgery for PEG tube placement Did you speak to anyone other than the patient for history (EMS, parent, family, police, friend...)? What history was obtained from this source @ -No Did you review nursing and triage notes (agree or disagree)? Why? @ -I reviewed and agree with nursing and triage notes Were old charts reviewed (outside hosp., previous admission, EMS record, old EKG, old radiological studies, urgent care reports/EKG's, halfway records)? Report findings @ -No old charts were reviewed Differential Weakness: Hypoglycemia, shock, sepsis, hyponatremia, anemia, infection, DE, ETOH, adverse medicine reaction, overdose, stroke, this is not meant to be an all-inclusive list. EKG interpreted by me (3pts min.). @ -As above X-rays interpreted by me (1pt min.). @ -None done CT interpreted by me (1pt min.). @ -None done U/S interpreted by me (1pt. min.). @ -None done What testing was considered but not performed or refused? (CT, X-rays, U/S, labs)? Why? @ -None What meds were considered but not given or refused? Why? @ -None Did you discuss the management of the patient with other professionals (professionals i.e. [facility] Staton, RAILROAD CAR LOADER, lab, RT, psych nurse, social work specialist, aircraft cleaner, teacher, professional security officer, case operator)? Give summary @Dr. Lozano will admit Was smoking cessation discussed for >3mins.? @ -No Was critical care preformed (if so, how long)? @ -No Were there social determinants of health that impacted care today? How? (Homelessness, low income, unemployed, alcoholism, drug addiction, transportation, low edu. Level, literacy, decrease access to med. care, snf, rehab)? @ -No Was there de-escalation of care discussed even if they declined (Discuss DNR or withdrawal of care, Hospice)? DNR status @ -No What co-morbidities impacted this encounter? (DM, HTN, Smoking, COPD, CAD, Cancer, CVA, ARF, Chemo, Hep., AIDS, mental health diagnosis, sleep apnea, morbid obesity)? @ -Metastatic cancer, difficulty swallowing Was patient admitted / discharged? Hospital course, mention meds given and route, prescriptions, significant lab abnormalities, going to OR and other pertinent info. @ -Laboratory studies including CBC, CMP will be obtained these results are pending. Patient started on IV fluids. He is admitted for hydration and PEG tube placement. Both the admitting physician and general surgeon are aware. Undiagnosed new problem with uncertain prognosis? @ -No Drug Therapy requiring intensive monitoring for toxicity (Heparin, Nitro, Insulin, Cardizem)? @ -No Were any procedures done? @ -No Diagnosis/symptom? @Difficulty swallowing, dehydration, metastatic cancer Acute, or Chronic, or Acute on Chronic? @ -[Acute on chronic Uncomplicated (without systemic symptoms) or Complicated (systemic symptoms)? @ -Default Side effects of treatment? @ -No Exacerbation, Progression, or Severe Exacerbation? @ -No Poses a threat to life or bodily function? How? (Chest pain, [place], DE, pneumonia, PE, COPD, DKA, ARF, appy, cholecystitis, CVA, Diverticulitis, Homicidal, Suicidal, threat to staff... and all critical care pts) @ -Yes, failure to thrive, dehydration, electrolyte abnormalities, hypovolemic shock. Disposition Clinical Impression: Dehydration, Metastatic cancer Disposition: ADMITTED IP TO THIS [facility] Condition: Stable Is patient prescribed a controlled substance at d/c from ED?: No Referrals: Troy Michele MD [Primary Care Provider] - 1-2 days Time of Disposition: 11:10
[2024-05-29 11:20] LABS: Basophils % (A) 0 %; Eosinophils # (A) 0.1 k/uL (0-0.7); Eosinophils % (A) 1 %; HCT 45.9 % (39.0-53.0); HGB 14.3 gm/dL (13.0-17.5); Hypochromasia Slight; Lymphocytes # (A) 0.3 k/uL (1.0-4.8); Lymphocytes % (A) 3 %; MCH 25.6 pg (25.0-35.0); MCHC 31.2 g/dL (31.0-37.0); MCV 81.9 fL (80.0-100.0); Mean Platelet Volume 8.6; Monocytes # (A) 0.1 k/uL (0-1.0); Monocytes % (A) 2 %; Neutrophils # (A) 7.7 k/uL (1.3-7.7); Neutrophils % (A) 94 %; Platelet Count 137 k/uL (150-450); RBC 5.61 m/uL (4.30-5.90); RDW 15.6 % (11.5-15.5); WBC 8.3 k/uL (3.8-10.6)
[2024-05-29 11:34] LABS: ALT 29 U/L (4-49); AST 39 U/L (17-59); African American GFR (CKD) >90 (>60 ml/min/1.73 sqM); Alkaline Phosphatase 276 U/L (38-126); Anion Gap 3 mmol/L; Blood Urea Nitrogen 21 mg/dL (9-20); Calcium 7.2 mg/dL (8.4-10.2); Carbon Dioxide 27 mmol/L (22-30); Chloride 101 mmol/L (98-107); Glucose 286 mg/dL (74-99); Non-African American GFR(CKD) >90 (>60 ml/min/1.73 sqM); Potassium 4.6 mmol/L (3.5-5.1); Sodium 131 mmol/L (137-145); Total Bilirubin 1.1 mg/dL (0.2-1.3); Total Protein 4.5 g/dL (6.3-8.2)
[2024-05-29] MEDS: SODIUM CHLORIDE 0.9% 500 ML 500 ML IV ONE (11:42)
[2024-05-29] MEDS: ONDANSETRON 4 MG/2 ML VIAL IVP PRN (11:44)
[2024-05-29] MEDS: HYDROmorphone 0.5 MG/0.5 ML SYRINGE IVP PRN (11:45)
[2024-05-29] MEDS: SODIUM CHLORIDE 0.9% 1,000 ML IV SCH (12:19)
[2024-05-29] MEDS ORDERED: ALBUTEROL NEBULIZED 2.5 MG/3 ML INHALATION PRN (13:24)
[2024-05-29] MEDS: ENOXAPARIN 40 MG/0.4 ML SYRINGE SQ SCH (14:49)
--- NOTE | 2024-05-29 17:09 | P.HPIM ---
History of Present Illness H&P Date: 05/29/24 Chief Complaint: Difficulty swallowing 59-year-old patient who follows with Dr. Michele. Chronic stable medical conditions include diabetes mellitus type 2, hypertension, obstructive sleep apnea uses CPAP, diverticulosis, ankylosing spondylosis causing lower back pain depression. 1989 he was positive for TB skin test did receive 6 months of INH. . Non- smoker. Home oxygen 2 L. Stage IV pulmonary adenocarcinoma. Repeated thoracentesis. PET scan July 02, 2023 progression of osseous metastatic disease with positive response of the thorax with decrease in the diffuse micronodular appearance in right lower lung FDG activity. Received Tagrisso Because of side effects patient started on chemotherapy last week. Patient has a rash specially on the face from his chemotherapy. Present for few weeks. For his rash he takes doxycycline and topical hydrocortisone. Last week patient had a pleural vacs placed on the right side. That gets regularly drained. Patient now presents progressively more trouble swallowing. Has been taking liquids. Now barely able to keep anything down including gagging and some pain. Patient was seen in the office of Dr. Rosales the surgeon and sent in today for a PEG tube feeding. Patient is accompanied by his Barb and his 2 sons. In the ER. Rather weak and tired. Review of systems: GEN.: Tired decreased appetite EYES: None HEENT: None NECK: None RESPIRATORY: None CARDIOVASCULAR: None GASTROINTESTINAL: None GENITOURINARY: None MUSCULOSKELETAL: Some joint pain LYMPHATICS: None HEMATOLOGICAL: None PSYCHIATRY: Does feel a bit low NEUROLOGICAL: None Past medical history to include: Diabetes, hypertension, obstructive sleep apnea uses CPAP, depression, and ankylosing spondylosis. 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 Physical examination: VITAL SIGNS: 98, 110, 18, 101 x 68, 94% room air] GENERAL: BMI 23, laying in bed rather tired appearing. EYES: Pupils equal. Conjunctiva lary l. HEENT: Scattered punctate pinhead shaped rash with some surrounding inflammation on the face. Dry mucous membrane. NECK: JVD not raised; masses not palpable. HEART: First and second heart sounds are normal; no edema. LUNGS:[ Respiratory rate increased, decreased breath sound. Right chest wall anteriorly Pleurx catheter. ABDOMEN: Soft, nontender, liver spleen not palpable, no masses palpable. PSYCH: [Alert and oriented x3; mood and affect tired l. MUSCULOSKELETAL:No Clubbing/cyanosis;muscles-grossly intact NEUROLOGICAL: Cranial nerves grossly intact; no facial asymmetry, power and sensation grossly intact. LYMPHATICS: No lymph nodes palpable in the axilla and neck INVESTIGATIONS, reviewed in the clinical context: May 29, 2024: White count 8.3 hemoglobin 14.3 platelets 137 sodium 131 potassium 4.6 BUN 21 creatinine 0.78 AST 39 ALT 29 albumin 2.0 Assessment & Plan: -Progressive severe odynophagia secondary to underlying metastatic adeno carcinoma of the lung. Patient progressively not able to eat or drink barely. Now will require a PEG tube. NPO. Dr. Rosales from general surgery [facility] to the procedure -Scattered rash from previous chemotherapy. Continue doxycycline and topical hydrocortisone -Moderate protein calorie malnutrition with decreased oral intake For PEG tube # NSCLC: Metastatic Patient received Tagrisso. Now started last week on chemotherapy #Type 2 diabetes:, On oral hypoglycemic Hold oral hypoglycemic. Follow Accu-Cheks #Hypertension: Continue home medications -COPD non-smoker DuoNeb, Symbicort # Obstructive sleep apnea: CPAP -Hyperlipidemia Pravachol -Chronic ankylosing spondylitis primary affecting lumbar spine. With muscle spasm. Carbamazepine. Antispasmodic -Depression otherwise specified Pristiq.vraylar -DNR Patient being scheduled for PEG tube. Will see how the tube feeding will be tolerated. Given the complexity and severity of patient's condition expect the patient to be in the hospital at least for 2 overnights Past Medical History Past Medical History: Cancer, Diabetes Mellitus, Hypertension, Sleep Apnea/CPAP /BIPAP Additional Past Medical History / Comment(s): diverticulitis, lung CA treated with oral meds-IV chemotherapy every 3 weeks starting 05/25/24, sacral wound, sleep apnea -uses Cpap History of Any Multi-Drug Resistant Organisms: C-DIFF Date of last positivie culture/infection: 1994 MDRO Source:: stool Past Surgical History: Bowel Resection, Hernia Repair, Orthopedic Surgery, Tonsillectomy Additional Past Surgical History / Comment(s): sigmoid colon, vasectomy, lung biospy, pleurex cath Past Anesthesia/Blood Transfusion Reactions: No Reported Reaction Past Psychological History: Bipolar, Depression, Panic Disorder Smoking Status: Never smoker Past Alcohol Use History: None Reported Past Drug Use History: None Reported - Past Family History Mother Family Medical History: Cancer Additional Family Medical History / Comment(s): Cancer history Father Family Medical History: Coronary Artery Disease (CAD) Additional Family Medical History / Comment(s): Heart Disease Medications and Allergies Home Medications Medication Instructions Recorded Confirmed Type Pravastatin Sodium [Pravachol] 10 mg PO DAILY 10/01/20 05/29/24 History metFORMIN HCL [Glucophage] 1,000 mg PO BID 10/01/20 05/29/24 History Albuterol Sulfate [Albuterol 1 puff INHALATION RT-Q4H PRN 03/24/23 05/29/24 History Sulfate Hfa] Cariprazine HCl [Vraylar] 3 mg PO DAILY 03/24/23 05/29/24 History sitaGLIPtin [Januvia] 100 mg PO DAILY 03/24/23 05/29/24 History ALPRAZolam [Xanax] 1 mg PO BID PRN 09/27/23 05/29/24 History Desvenlafaxine Succinate [Pristiq 50 mg PO DAILY 09/27/23 05/29/24 History ER] Montelukast [Singulair] 10 mg PO DAILY 09/27/23 05/29/24 History Mv-Min/Folic/K1/Lycopen/Lutein 1 tab PO DAILY 09/27/23 05/29/24 History [Centrum Silver Men Tablet] Ondansetron [Zofran] 4 mg PO Q4H PRN 09/27/23 05/29/24 History Apixaban [Eliquis] 2.5 mg PO BID 04/26/24 05/29/24 History Benzonatate [Tessalon Perle] 200 mg PO TID PRN 04/26/24 05/29/24 History Codeine Phosphate/Guaifenesin 5 ml PO Q4H PRN 04/26/24 05/29/24 History [Codeine Phosphate/Guaifenesin 10-100 mg/5 ml] Hydrocortisone Cream 1 applic TOPICAL BID 04/26/24 05/29/24 History [Hydrocortisone 2.5% Cream] Insulin Glargine (Lantus) [Lantus 2 - 14 unit SQ DIRECTED PRN MDD 04/26/24 05/29/24 History Vial] 14 units Lazertinib Mesylate [Lazcluze] 240 mg PO DAILY 04/26/24 05/29/24 History diphenhydrAMINE [Benadryl] 50 mg PO HS 04/26/24 05/29/24 History traMADol HCl [Ultram] 50 mg PO Q8H PRN 04/26/24 05/29/24 History Doxycycline Hyclate 100 mg PO BID 05/29/24 05/29/24 History Folic Acid 1 mg PO DAILY 05/29/24 05/29/24 History Midodrine [ProAmatine] 5 mg PO DIRECTED 05/29/24 05/29/24 History Allergies Allergy/AdvReac Type Severity Reaction Status Date / Time Cephalosporins AdvReac Diarrhea & Verified 05/29/24 11:40 C-DIFF Physical Exam Vitals: Vital Signs Temp Pulse Resp BP Pulse Ox 05/29/24 12:18 110 H 18 101/68 94 L 05/29/24 10:43 98 F 127 H 28 H 107/67 99 Intake and Output 05/29/24 05/29/24 05/29/24 06:59 14:59 22:59 Other: Weight 72.575 kg Results CBC & Chem 7: 05/29/24 11:14 05/29/24 11:14 Labs: Abnormal Lab Results - Last 24 Hours (Table) 05/29/24 05/29/24 Range/Units 11:14 11:14 RDW 15.6 H (11.5-15.5) % Plt Count 137 L (150-450) k/uL Lymphocytes # 0.3 L (1.0-4.8) k/uL Sodium 131 L (137-145) mmol/L BUN 21 H (9-20) mg/dL Glucose 286 H (74-99) mg/dL Calcium 7.2 L (8.4-10.2) mg/dL Alkaline Phosphatase 276 H (38-126) U/L Total Protein 4.5 L (6.3-8.2) g/dL Albumin 2.0 L (3.5-5.0) g/dL
[2024-05-29] MEDS: DEXTROSE 5%-0.45% NACL 1,000 ML IV SCH (17:27)
--- NOTE | 2024-05-29 18:31 | P.CON ---
Consult Note - . Consult date: 05/29/24 Assessment/Plan:: 59-year-old patient with Stage IV pulmonary adenocarcinoma who recently started on chemotherapy last week presents with difficulty swallowing and has not been able to eat or drink. Patient now presents with progressively more trouble s wallowing. He had been taking liquids. Now barely able to keep anything down and is having vomiting and pain when he tries to swallow. Review of Systems ROS Statement: Those systems with pertinent positive or pertinent negative responses have been documented in the HPI. ROS Other: All systems not noted in ROS Statement are negative. Past Medical History Past Medical History: Cancer, Diabetes Mellitus, Hypertension, Sleep Apnea/CPAP/BIPAP Additional Past Medical History / Comment(s): diverticulitis, lung CA treated with oral meds-IV chemotherapy every 3 weeks starting 05/25/24, sacral wound, sleep apnea -uses Cpap History of Any Multi-Drug Resistant Organisms: C-DIFF Date of last positivie culture/infection: 1994 MDRO Source:: stool Past Surgical History: Bowel Resection, Hernia Repair, Orthopedic Surgery, Tonsillectomy Additional Past Surgical History / Comment(s): sigmoid colon, vasectomy, lung biospy, pleurex cath Past Anesthesia/Blood Transfusion Reactions: No Reported Reaction Past Psychological History: Bipolar, Depression, Panic Disorder Smoking Status: Never smoker Past Alcohol Use History: None Reported Past Drug Use History: None Reported - Past Family History Mother Family Medical History: Cancer Additional Family Medical History / Comment(s): Cancer history Father Family Medical History: Coronary Artery Disease (CAD) Additional Family Medical History / Comment(s): Heart Disease General Exam Limitations: no limitations General appearance: alert, in no apparent distress Head exam: Present: atraumatic, normocephalic Eye exam: Present: normal appearance, PERRL ENT exam: Present: mucous membranes dry Respiratory exam: Absent: respiratory distress Cardiovascular Exam: Present: normal rhythm, tachycardia GI/Abdominal exam: Present: soft. Absent: distended Neurological exam: Present: alert, oriented X3 Psychiatric exam: Present: normal affect, normal mood Skin exam: Present: rash 59 year old male with Stage IV Pulmonary Adenocarcinoma and Dysphagia -Will plan for PEG tube insertion tomorrow -CLD, NPO/midnight -Medicine following for medical management -AM labs Ben Davenport DO [facility] [phone]
[2024-05-29] MEDS: TRIAMCINOLONE 0.1% CREAM 80 GM TUBE TOPICAL SCH (19:48)
[2024-05-29] MEDS: DOXYCYCLINE 100 MG TABLET PO SCH (19:49)
[2024-05-29] MEDS: [UNRECOGNIZED DRUG - OTHER] PO SCH (19:50)
[2024-05-30] MEDS: MONTELUKAST 10 MG TAB PO SCH (07:36)
[2024-05-30] MEDS ORDERED: [UNRECOGNIZED DRUG - OTHER] PO SCH (09:00)
[2024-05-30] MEDS ORDERED: PATIENT'S OWN (Cariprazine Hcl [Vraylar] 3 MG Capsule) PO SCH (09:00)
[2024-05-30] MEDS: PATIENT'S OWN (Cariprazine Hcl [Vraylar] 3 MG Capsule) PO SCH (09:46)
[2024-05-30] MEDS ORDERED: LIDOCAINE 1% INJ 10MG/ML (20 ML MDV) ONE (13:57)
[2024-05-30] MEDS ORDERED: MIDAZOLAM 2 MG/2 ML VIAL ONE (13:57)
[2024-05-30] MEDS ORDERED: PROPOFOL 10 MG/ML 20 ML VIAL IV ONE (13:57)
[2024-05-30] MEDS ORDERED: KETAMINE HCL IN 0.9 % NACL 50 MG/5 ML SYRINGE ONE (13:57)
[2024-05-30] MEDS: LACTATED RINGERS 1,000 ML IV ONE ×2 (14:00→14:33)
--- NOTE | 2024-05-30 14:42 | P.PCN ---
Date of Procedure: 05/30/24 Preoperative Diagnosis: Severe dysphagia Metastatic lung cancer Postoperative Diagnosis: Severe dysphagia Metastatic lung cancer Procedure(s) Performed: EGD with PEG tube placement Anesthesia: MAC Surgeon: Migdalia Rodríguez Pathology: none sent Condition: stable Disposition: floor Indications for Procedure: 59-year-old male presents with concern for failure to thrive, severe dysphagia and metastatic lung cancer. Plan is for PEG tube placement for nutritional supplementation. Risks, benefits and alternatives were provided to the patient. All questions were answered. Operative Findings: Appropriate ballottement and transillumination illustrating location of PEG tube Description of Procedure: The patient was brought to the endoscopy suite and placed in supine position. IV sedation provided by anesthesia and scope was placed into the oropharynx into the esophagus and advanced to the stomach. The stomach was transilluminated and ballottement was performed to decide on optimal position for the PEG tube. This was identified using the single poke method. The skin was infiltrated with local and needle sheath was inserted through the abdomen into the stomach under direct visualization. The needle was removed and guidewire was inserted through the sheath. The guidewire was grasped from above with a snare by the endoscopist. It was removed completely and the PEG tube was secured to the guidewire. The guidewire and the PEG tube were then pulled through the mouth and esophagus and snug to the abdominal wall. There is no evidence of bleeding. The bolster was placed on the PEG site. Exam was performed of the stomach with no finding of ulceration or active bleeding. Scope was then removed and it was noted that the patient tolerated procedure well and was transferred to postanesthesia care unit. He can start on tube feeds in 24 hours at trickle rate.
[2024-05-30 14:47] LABS: Glucose,Whole Blood 171 mg/dL (70-110)
--- NOTE | 2024-05-30 16:49 | P.PN ---
Progress Note - Text Progress Note Date: 05/30/24 Chief Complaint: Difficulty swallowing 59-year-old patient who follows with Dr. Michele. Chronic stable medical conditions include diabetes mellitus type 2, hypertension, obstructive sleep apnea uses CPAP, diverticulosis, ankylosing spondylosis causing lower back pain depression. 1989 he was positive for TB skin test did receive 6 months of INH. . Non- smoker. Home oxygen 2 L. Stage IV pulmonary adenocarcinoma. Repeated thoracentesis. PET scan July 02, 2023 progression of osseous metastatic disease with positive response of the thorax with decrease in the diffuse micronodular appearance in right lower lung FDG activity. Received Tagrisso Because of side effects patient started on chemotherapy last week. Patient has a rash specially on the face from his chemotherapy. Present for few weeks. For his rash he takes doxycycline and topical hydrocortisone. Last week patient had a pleural vacs placed on the right side. That gets regularly drained. Patient now presents progressively more trouble swallowing. Has been taking liquids. Now barely able to keep anything down including gagging and some pain. Patient was seen in the office of Dr. Rosales the surgeon and sent in today for a PEG tube feeding. Patient is accompanied by his Barb and his 2 sons. In the ER. Rather weak and tired. May 30: Seen this afternoon. at the bedside. NPO. Pending PEG tube placement. That was placed later this afternoon by Dr. Rodríguez. Dietitian consulted for PEG tube feeding. Active Medications Albuterol Sulfate (Albuterol Nebulized 2.5 Mg/3 Ml) 2.5 mg INHALATION RT-Q4H PRN PRN Reason: Shortness Of Breath Alprazolam (Alprazolam 1 Mg Tab) 1 mg PO BID PRN PRN Reason: Anxiety Doxycycline Hyclate (Doxycycline 100 Mg Tablet) 100 mg PO BID [facility] Last Admin: 05/30/24 09:46 Dose: Not Given Enoxaparin Sodium (Enoxaparin 40 Mg/0.4 Ml Syringe) 40 mg SQ DAILY [facility] Last Admin: 05/30/24 07:35 Dose: Not Given Hydromorphone HCl (Hydromorphone 0.5 Mg/0.5 Ml Syringe) 0.5 mg IVP Q3HR PRN PRN Reason: Severe Pain (Scale 7 to 10) Last Admin: 05/30/24 13:01 Dose: 0.5 mg Dextrose/Sodium Chloride (Dextrose 5%-1/2ns Iv Soln) 1,000 mls @ 125 mls/hr IV .Q8H [facility] Last Admin: 05/30/24 10:20 Dose: 125 mls/hr Montelukast Sodium (Montelukast 10 Mg Tab) 10 mg PO DAILY [facility] Last Admin: 05/30/24 07:36 Dose: Not Given Naloxone HCl (Naloxone 0.4 Mg/Ml 1 Ml Vial) 0.2 mg IV Q2M PRN PRN Reason: Opioid Reversal Patient's Own ( Cariprazine Hcl [ Vraylar] 3 Mg Capsule) 3 mg PO DAILY [facility] Last Admin: 05/30/24 09:46 Dose: Not Given Patient's Own ( Lazertinib Mesylate [Lazcluze] 240 Mg Tablet) 240 mg PO DAILY@1800 [facility] Last Admin: 05/29/24 19:50 Dose: 240 mg Ondansetron HCl (Ondansetron 4 Mg/2 Ml Vial) 4 mg IVP Q8HR PRN PRN Reason: Nausea And Vomiting Last Admin: 05/29/24 11:44 Dose: 4 mg Tramadol HCl (Tramadol 50 Mg Tab) 50 mg PO Q8H PRN PRN Reason: Moderate Pain (Scale 4 to 6) Triamcinolone Acetonide (Triamcinolone 0.1% Cream 80 Gm Tube) 1 applic TOPICAL BID [facility] Last Admin: 05/30/24 10:21 Dose: Not Given Past medical history to include: Diabetes, hypertension, obstructive sleep apnea uses CPAP, depression, and ankylosing spondylosis. 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 Physical examination: VITAL SIGNS: 97.6, 103, 16, 96 x 64, 97% room air GENERAL: BMI 23, laying in bed rather tired EYES: Pupils equal. Conjunctiva lary l. HEENT: Scattered punctate pinhead shaped rash with some surrounding inflammation on the face. Dry mucous membrane. NECK: JVD not raised; masses not palpable. HEART: First and second heart sounds are normal; no edema. LUNGS:[ Respiratory rate increased, decreased breath sound. Right chest wall anteriorly Pleurx catheter. ABDOMEN: Soft, nontender, liver spleen not palpable, no masses palpable. PSYCH: [Alert and oriented x3; mood and affect tired l. MUSCULOSKELETAL:No Clubbing/cyanosis;muscles-grossly intact INVESTIGATIONS, reviewed in the clinical context: May 29, 2024: White count 8.3 hemoglobin 14.3 platelets 137 sodium 131 potassium 4.6 BUN 21 creatinine 0.78 AST 39 ALT 29 albumin 2.0 Assessment & Plan: -Progressive severe odynophagia secondary to underlying metastatic adenocarcinoma of the lung. Patient progressively not able to eat or drink barely. Now will require a PEG tube. NPO. May 30: PEG tube placed by -Scattered rash from previous chemotherapy. Continue doxycycline and topical hydrocortisone -Moderate protein calorie malnutrition with decreased oral intake PEG tube placed today Dietitian consulted # NSCLC: Metastatic Patient received Tagrisso. Now started last week on chemotherapy #Type 2 diabetes:, On oral hypoglycemic Hold oral hypoglycemic. Follow Accu-Cheks #Hypertension: Continue home medications -COPD non-smoker DuoNeb, Symbicort # Obstructive sleep apnea: CPAP -Hyperlipidemia Pravachol -Chronic ankylosing spondylitis primary affecting lumbar spine. With muscle spasm. Carbamazepine. Antispasmodic -Depression otherwise specified Pristiq.vraylar -DNR PEG tube placed today. Start medications through PEG. Dietitian consulted. Past Medical History Past Medical History: Cancer, Diabetes Mellitus, Hypertension, Sleep Apnea/CPAP/BIPAP Additional Past Medical History / Comment(s): diverticulitis, lung CA treated with oral meds-IV chemotherapy every 3 weeks starting 05/25/24, sacral wound, sleep apnea -uses Cpap History of Any Multi-Drug Resistant Organisms: C-DIFF Date of last positivie culture/infection: 1994 MDRO Source:: stool Past Surgical History: Bowel Resection, Hernia Repair, Orthopedic Surgery, Tonsillectomy Additional Past Surgical History / Comment(s): sigmoid colon, vasectomy, lung biospy, pleurex cath Past Anesthesia/Blood Transfusion Reactions: No Reported Reaction Past Psychological History: Bipolar, Depression, Panic Disorder Smoking Status: Never smoker Past Alcohol Use History: None Reported Past Drug Use History: None Reported
[2024-05-31 09:08] LABS: Glucose,Whole Blood 235 mg/dL (70-110)
[2024-05-31] MEDS ORDERED: DEXTROSE 50% SYRINGE 50 ML IVP PRN ×2 (10:42)
[2024-05-31 12:06] LABS: Glucose,Whole Blood 265 mg/dL (70-110)
[2024-05-31] MEDS: INSULIN LISPRO (HumaLOG) 100 UNIT/ML 10 mL VL SQ SCH (12:27)
--- NOTE | 2024-05-31 13:59 | P.PN ---
Subjective Progress Note Date: 05/31/24 SURGICAL PROGRESS NOTE CHIEF COMPLAINT: Dysphagia HISTORY OF PRESENT ILLNESS: Patient is postop day #1 status post PEG tube placement. Pain is controlled. They did try to give meds orally in which patie nt did spit up the medication. Afebrile. Tachycardic PHYSICAL EXAM: VITAL SIGNS: Reviewed. GENERAL: Well-developed in no acute distress. ABDOMEN: Soft. Nondistended. PEG tube site clean dry and intact NEUROLOGIC: Alert and oriented. Cranial nerves II through XII grossly intact. ASSESSMENT: 1. Severe dysphagia 2. Metastatic lung cancer PLAN: -Consult dietitian to start trickle feeds this afternoon -Okay to place medications down PEG tube Physician [employer] Teacher note has been reviewed by physician. Signing provider agrees with the documented findings, assessment, and plan of care. Objective - Vital Signs Vital signs: Vital Signs Temp 98.1 F 05/31/24 13:09 Pulse 123 H 05/31/24 13:09 Resp 18 05/31/24 13:09 BP 120/73 05/31/24 13:09 Pulse Ox 97 05/31/24 13:09 FiO2 Intake & Output 05/30/24 05/31/24 05/31/24 18:59 06:59 18:59 Intake Total 400 Output Total 400 Balance 400 -400 Weight 75.2 kg 75.5 kg Intake: IV 400 Output: Chest Tube Drainage 400 Pleural Catheter Right 400 Anterior Chest Other: Voiding Method Toilet Toilet Toilet Urinal # Voids 1 - Labs CBC & Chem 7: 05/29/24 11:14 05/29/24 11:14 Labs: Abnormal Lab Results - Last 24 Hours (Table) 05/30/24 05/31/24 05/31/24 Range/Units 14:45 09:07 12:05 POC Glucose (mg/dL) 171 H 235 H 265 H (70-110) mg/dL
[2024-05-31 17:08] LABS: Glucose,Whole Blood 164 mg/dL (70-110)
--- NOTE | 2024-05-31 17:09 | P.PN ---
Progress Note - Text Progress Note Date: 05/31/24 Chief Complaint: Difficulty swallowing 59-year-old patient who follows with Dr. Michele. Chronic stable medical conditions include diabetes mellitus type 2, hypertension, obstructive sleep apnea uses CPAP, diverticulosis, ankylosing spondylosis causing lower back pain depression. 1989 he was positive for TB skin test did receive 6 months of INH. . Non- smoker. Home oxygen 2 L. Stage IV pulmonary adenocarcinoma. Repeated thoracentesis. PET scan July 02, 2023 progression of osseous metastatic disease with positive response of the thorax with decrease in the diffuse micronodular appearance in right lower lung FDG activity. Received Tagrisso Because of side effects patient started on chemotherapy last week. Patient has a rash specially on the face from his chemotherapy. Present for few weeks. For his rash he takes doxycycline and topical hydrocortisone. Last week patient had a pleural vacs placed on the right side. That gets regularly drained. Patient now presents progressively more trouble swallowing. Has been taking liquids. Now barely able to keep anything down including gagging and some pain. Patient was seen in the office of Dr. Rosales the surgeon and sent in today for a PEG tube feeding. Patient is accompanied by his Barb and his 2 sons. In the ER. Rather weak and tired. May 30: Seen this afternoon. at the bedside. NPO. Pending PEG tube placement. That was placed later this afternoon by Dr. Rodríguez. Dietitian consulted for PEG tube feeding. May 31: PEG tube placed yesterday. Dietitian has been consulted for PEG tube feeding. Patient may take his chemo pill by mouth. Seen by speech therapist. Some evidence of mucositis. Per speech therapist to remain NPO. [facility] tomorrow. Active Medications Albuterol Sulfate (Albuterol Nebulized 2.5 Mg/3 Ml) 2.5 mg INHALATION RT-Q4H PRN PRN Reason: Shortness Of Breath Alprazolam (Alprazolam 1 Mg Tab) 1 mg PO BID PRN PRN Reason: Anxiety Dextrose/Water (Dextrose 50% Syringe 50 Ml) 25 ml IVP PER PROTOCOL PRN; Protocol PRN Reason: Hypoglycemia Dextrose/Water (Dextrose 50% Syringe 50 Ml) 50 ml IVP PER PROTOCOL PRN; Protocol PRN Reason: Hypoglycemia Doxycycline Hyclate (Doxycycline 100 Mg Tablet) 100 mg PO BID [facility] Last Admin: 05/31/24 12:08 Dose: Not Given Enoxaparin Sodium (Enoxaparin 40 Mg/0.4 Ml Syringe) 40 mg SQ DAILY [facility] Last Admin: 05/31/24 08:08 Dose: 40 mg Hydromorphone HCl (Hydromorphone 0.5 Mg/0.5 Ml Syringe) 0.5 mg IVP Q3HR PRN PRN Reason: Severe Pain (Scale 7 to 10) Last Admin: 05/31/24 16:58 Dose: 0.5 mg Dextrose/Sodium Chloride (Dextrose 5%-1/2ns Iv Soln) 1,000 mls @ 125 mls/hr IV .Q8H [facility] Last Admin: 05/31/24 12:28 Dose: Not Given Insulin Human Lispro (Insulin Lispro (Humalog) 100 Unit/Ml 10 Ml Vl) 0 unit SQ Q6HR [facility]; Protocol Last Admin: 05/31/24 12:27 Dose: 3 unit Montelukast Sodium (Montelukast 10 Mg Tab) 10 mg PO DAILY [facility] Last Admin: 05/31/24 12:08 Dose: Not Given Naloxone HCl (Naloxone 0.4 Mg/Ml 1 Ml Vial) 0.2 mg IV Q2M PRN PRN Reason: Opioid Reversal Patient's Own ( Cariprazine Hcl [ Vraylar] 3 Mg Capsule) 3 mg PO DAILY [facility] Last Admin: 05/31/24 12:08 Dose: Not Given Patient's Own ( Lazertinib Mesylate [Lazcluze] 240 Mg Tablet) 240 mg PO DAILY@1800 [facility] Last Admin: 05/31/24 16:09 Dose: Not Given Ondansetron HCl (Ondansetron 4 Mg/2 Ml Vial) 4 mg IVP Q8HR PRN PRN Reason: Nausea And Vomiting Last Admin: 05/29/24 11:44 Dose: 4 mg Tramadol HCl (Tramadol 50 Mg Tab) 50 mg PO Q8H PRN PRN Reason: Moderate Pain (Scale 4 to 6) Triamcinolone Acetonide (Triamcinolone 0.1% Cream 80 Gm Tube) 1 applic TOPICAL BID [facility] Last Admin: 05/31/24 08:09 Dose: 1 applic Past medical history to include: Diabetes, hypertension, obstructive sleep apnea uses CPAP, depression, and ankylosing spondylosis. 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 Physical examination: VITAL SIGNS: 97.6, 103, 16, 96 x 64, 97% room air GENERAL: BMI 23, laying in bed rather tired EYES: Pupils equal. Conjunctiva lary l. HEENT: Scattered punctate pinhead shaped rash with some surrounding inflammation on the face. Dry mucous membrane. NECK: JVD not raised; masses not palpable. HEART: First and second heart sounds are normal; no edema. LUNGS:[ Respiratory rate increased, decreased breath sound. Right chest wall anteriorly Pleurx catheter. ABDOMEN: Soft, nontender, liver spleen not palpable, no masses palpable. PSYCH: [Alert and oriented x3; mood and affect tired l. MUSCULOSKELETAL:No Clubbing/cyanosis;muscles-grossly intact INVESTIGATIONS, reviewed in the clinical context: May 29, 2024: White count 8.3 hemoglobin 14.3 platelets 137 sodium 131 potassium 4.6 BUN 21 creatinine 0.78 AST 39 ALT 29 albumin 2.0 Assessment & Plan: -Progressive severe odynophagia secondary to underlying metastatic adenocarcinoma of the lung. Patient progressively not able to eat or drink barely. NPO. Failed bedside swallow by speech therapist. For [facility] tomorrow. May 30: PEG tube placed by -Scattered rash from previous chemotherapy. Continue doxycycline and topical hydrocortisone -Moderate protein calorie malnutrition with decreased oral intake PEG tube placed Dietitian consulted # NSCLC: Metastatic Patient received Tagrisso. Now started last week on chemotherapy #Type 2 diabetes:, On oral hypoglycemic Hold oral hypoglycemic. Follow Accu-Cheks #Hypertension: Continue home medications -COPD non-smoker DuoNeb, Symbicort # Obstructive sleep apnea: CPAP -Hyperlipidemia Pravachol -Chronic ankylosing spondylitis primary affecting lumbar spine. With muscle spasm. Carbamazepine. Antispasmodic -Depression otherwise specified Pristiq.vraylar -DNR PEG tube feeding per dietitian. N.p.o. per speech therapist. [facility] tomorrow. Past Medical History Past Medical History: Cancer, Diabetes Mellitus, Hypertension, Sleep Apnea/CPAP/ BIPAP Additional Past Medical History / Comment(s): diverticulitis, lung CA treated with oral meds-IV chemotherapy every 3 weeks starting 05/25/24, sacral wound, sleep apnea -uses Cpap History of Any Multi-Drug Resistant Organisms: C-DIFF Date of last positivie culture/infection: 1994 MDRO Source:: stool Past Surgical History: Bowel Resection, Hernia Repair, Orthopedic Surgery, Tonsillectomy Additional Past Surgical History / Comment(s): sigmoid colon, vasectomy, lung biospy, pleurex cath Past Anesthesia/Blood Transfusion Reactions: No Reported Reaction Past Psychological History: Bipolar, Depression, Panic Disorder Smoking Status: Never smoker Past Alcohol Use History: None Reported Past Drug Use History: None Reported
--- NOTE | 2024-05-31 18:09 | P.CONS ---
History of Present Illness - Reason for Consult Consult date: 05/31/24 NSCLC Requesting physician: Migdalia Rodríguez - Chief Complaint dysphagia - History of Present Illness Mr. Escalante is a 59-year-old male pt of Dr. 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 He was initially seen in consultation at [facility] 03/24/2023. Presented with progressive dyspnea over a 1 month associated with dry cough. CTA chest 03/24/2023 revealed no evidence of pulmonary embolism, but did note multiple tiny nodules and a miliary pattern in both lungs bilaterally. Upon additional history, he noted serving in the [employer] previously and did test positive for tuberculosis and received treatment with isoniazid in the remote past. He did not have any significant travel history. It was unclear whether his presentation was due to atypical infection or malignancy. He underwent bronchoscopy on 03/25/2023 where biopsy of right lower lobe lesions were consistent with adenocarcinoma that were positive for Napsin A and TTF-1 and negative for p40. Since his initial hospitalization, he did have a brief readmission due to testing positive for COVID-19, which was treated with steroids. Brain MRI on 04/05/2023 revealed no evidence of intracranial metastases. PET/CT on 04/07/2023 noted diffuse FDG uptake in the bilateral lungs along with focal uptake in the medial left iliac wing, right medial sacrum, left iliac crest, left femoral neck, and anterior left femoral head concerning for potential metastases. Tissue NGS and circulating tumor DNA both revealed EGFR exon 19 deletion ([id number] del). Shortly after his last visit, he was admitted for progressive acute hypoxic respiratory failure due to malignancy and noted large right pleural effusion. Cytology of the pleural fluid was consistent with metastatic pulmonary adenocarcinoma. Of note germline testing obtained due to first-degree family of her having pancreatic cancer, and it was negative. Oral Osimertinib targeted agent was initiated inpatient 04/29/2023 with progressive improvement in breathing and cough, Zometa 4 mg IV was initiated on 06/06/2023. Repeat PET/CT 06/30/2023 partial response. Thoracentesis on 07/13/2023 revealed malignant pleural effusion. Due to disease progression he was started on amivantamab/lazertinib with cycle 1 started on 03/08/2024. Last weekly amivantamab was completed on 04/09/2024 and subsequently transition to twice weekly amivantamab on 04/23/2024 with the last treatment being on 05/07/2024. PET/CT on 05/10/2024 revealed evidence of disease progression with increased FDG avidity in the right suprahilar and infrahilar regions, right upper lobe nodules, bones, right femur and T10 vertebral body) and new liver lesions. No FDG activity noted with neck. We discussed discontinuing amivantamab and starting doublet chemotherapy with carboplatin/Alimta. For now, patient was instructed to continue lazertinib 240 mg daily with chemotherapy. He completed cycle 1 of carbo/alimta on 05/25/24. Pt has been having progressive dysphagia over the last 1 month, and had swallow evaluation and failed swallow evaluation beginning of April, told thickened liquids, soft foods. Since then, swallowing is progressively getting worse. PEG tube was discussed at that time Patient presented to the emergency room for dysphagia and for PEG tube placement. Patient reports over the last 1 month he has been having progressive difficulty swallowing. He feels food is stuck in his throat as he begins to swallow. Since admission patient has underwent EGD with PEG tube placement with no obstruction noted. Labs reviewed, WBC 8.3, hemoglobin 14.3, platelets 237,000, creatinine 0.78, GFR greater than 90. Review of Systems 10 point ROS is negative except as stated in the HPI Past Medical History Past Medical History: Cancer, Diabetes Mellitus, Hypertension, Sleep Apnea/CPAP/BIPAP Additional Past Medical History / Comment(s): diverticulitis, lung CA treated with oral meds-IV chemotherapy every 3 weeks starting 05/25/24, sacral wound, sleep apnea -uses Cpap History of Any Multi-Drug Resistant Organisms: C-DIFF Year Discovered:: 1994 MDRO Source:: stool Past Surgical History: Bowel Resection, Hernia Repair, Orthopedic Surgery, Tonsillectomy Additional Past Surgical History / Comment(s): sigmoid colon, vasectomy, lung biospy, pleurex cath Past Anesthesia/Blood Transfusion Reactions: No Reported Reaction Past Psychological History: Bipolar, Depression, Panic Disorder Additional Psychological History / Comment(s): Patient admitted with altered mental status a few years ago. Smoking Status: Never smoker Past Alcohol Use History: None Reported Past Drug Use History: None Reported - Past Family History Mother Family Medical History: Cancer Additional Family Medical History / Comment(s): Cancer history Father Family Medical History: Coronary Artery Disease (CAD) Additional Family Medical History / Comment(s): Heart Disease Medications and Allergies Home Medications Medication Instructions Recorded Confirmed Type Pravastatin Sodium [Pravachol] 10 mg PO DAILY 10/01/20 05/29/24 History metFORMIN HCL [Glucophage] 1,000 mg PO BID 10/01/20 05/29/24 History Albuterol Sulfate [Albuterol 1 puff INHALATION RT-Q4H PRN 03/24/23 05/29/24 History Sulfate Hfa] Cariprazine HCl [Vraylar] 3 mg PO DAILY 03/24/23 05/29/24 History sitaGLIPtin [Januvia] 100 mg PO DAILY 03/24/23 05/29/24 History ALPRAZolam [Xanax] 1 mg PO BID PRN 09/27/23 05/29/24 History Desvenlafaxine Succinate [Pristiq 50 mg PO DAILY 09/27/23 05/29/24 History ER] Montelukast [Singulair] 10 mg PO DAILY 09/27/23 05/29/24 History Mv-Min/Folic/K1/Lycopen/Lutein 1 tab PO DAILY 09/27/23 05/29/24 History [Centrum Silver Men Tablet] Ondansetron [Zofran] 4 mg PO Q4H PRN 09/27/23 05/29/24 History Apixaban [Eliquis] 2.5 mg PO BID 04/26/24 05/29/24 History Benzonatate [Tessalon Perle] 200 mg PO TID PRN 04/26/24 05/29/24 History Codeine Phosphate/Guaifenesin 5 ml PO Q4H PRN 04/26/24 05/29/24 History [Codeine Phosphate/Guaifenesin 10-100 mg/5 ml] Hydrocortisone Cream 1 applic TOPICAL BID 04/26/24 05/29/24 History [Hydrocortisone 2.5% Cream] Insulin Glargine (Lantus) [Lantus 2 - 14 unit SQ DIRECTED PRN MDD 04/26/24 05/29/24 History Vial] 14 units Lazertinib Mesylate [Lazcluze] 240 mg PO DAILY 04/26/24 05/29/24 History diphenhydrAMINE [Benadryl] 50 mg PO HS 04/26/24 05/29/24 History traMADol HCl [Ultram] 50 mg PO Q8H PRN 04/26/24 05/29/24 History Doxycycline Hyclate 100 mg PO BID 05/29/24 05/29/24 History Folic Acid 1 mg PO DAILY 05/29/24 05/29/24 History Midodrine [ProAmatine] 5 mg PO DIRECTED 05/29/24 05/29/24 History Allergies Allergy/AdvReac Type Severity Reaction Status Date / Time Cephalosporins AdvReac Diarrhea & Verified 05/29/24 11:40 C-DIFF Physical Exam Vitals: Vital Signs Temp Pulse Resp BP BP Pulse Ox 05/31/24 11:34 97.5 F L 118 H 16 113/76 93 L 05/31/24 10:37 108 H 16 05/31/24 07:57 97.5 F L 110 H 16 122/79 94 L 05/31/24 07:55 98.1 F 108 H 20 118/75 94 L 05/31/24 01:17 98.2 F 114 H 20 94/64 93 L 05/30/24 19:10 98.6 F 107 H 20 97/66 92 L 05/30/24 17:34 97 130/75 95 05/30/24 16:53 104 H 106/53 97 05/30/24 16:22 101 H 104/70 94 L 05/30/24 16:07 101 H 102/70 92 L 05/30/24 15:52 100 99/67 99 05/30/24 15:38 101 H 97/65 97 05/30/24 15:22 97.4 F L 107 H 14 113/76 94 L 05/30/24 15:00 104 H 22 96/70 97 05/30/24 14:45 107 H 16 106/74 96 05/30/24 14:35 96.8 F L 110 H 12 99/73 100 05/30/24 12:37 97.6 F 103 H 16 96/64 97 Intake and Output 05/30/24 05/31/24 05/31/24 22:59 06:59 14:59 Other: Voiding Method Toilet Toilet Urinal # Voids 1 1 Weight 75.5 kg - Constitutional General appearance: average body habitus, no acute distress - EENT Eyes: anicteric sclerae, EOMI ENT: hearing grossly normal - Respiratory Respiratory: bilateral: CTA - Cardiovascular Rhythm: regular - Gastrointestinal General gastrointestinal: soft, no tenderness - Integumentary Integumentary: no cyanotic, rash - Musculoskeletal Musculoskeletal: generalized weakness - Psychiatric Psychiatric: A&O x's 3 Results CBC & Chem 7: 05/29/24 11:14 05/29/24 11:14 Labs: Abnormal Lab Results - Last 24 Hours (Table) 05/30/24 05/31/24 Range/Units 14:45 09:07 POC Glucose (mg/dL) 171 H 235 H (70-110) mg/dL Assessment and Plan (1) Dehydration Current Visit: Yes Status: Acute Priority: High Code(s): E86.0 - DEHYDRATION SNOMED Code(s): 01470719 (2) Metastatic cancer Current Visit: Yes Status: Acute Priority: High Code(s): C79.9 - SECONDARY MALIGNANT NEOPLASM OF UNSPECIFIED SITE SNOMED Code(s): 414754200 (3) Odynophagia Current Visit: Yes Status: Acute Priority: High Code(s): R13.10 - DYSPHAGIA, UNSPECIFIED SNOMED Code(s): 72960214 Plan: Dysphagia: Pt has been having progressive dysphagia over the last 1 month, and had swallow evaluation and failed swallow evaluation beginning of April. -Patient has underwent EGD with PEG tube placement with no obstruction noted. -On exam, mild tongue deviation to the left noted. Will obtain MRI brain to r/o FELT COVERER involvement. MRI brain in 01/2024 negative for metastasis -Possible paraneoplastic syndrome. May need outpt evaluation by ENT for laryngoscopy to evaluate for vocal cord paralysis. PET CT on 05/10/24 showed no FDG uptake in neck -Surgery following Metastatic NSCLC: -Oncology history as dictated in the HPI -Currently on treatment with lazertinib and carbo/alimta completing cycle 1 on 05/25/24. -Continue Lazertinib -Clinic upon f/u upon discharge Doctor attests: I performed a history and physical examination of this patient, developed impression and plan of care. Discussed with dictator. I agree with dictators note, documented as a scribe.
[2024-06-01 00:10] LABS: Glucose,Whole Blood 165 mg/dL (70-110)
[2024-06-01 05:36] LABS: HCT 40.4 % (39.0-53.0); HGB 12.8 gm/dL (13.0-17.5); Hypochromasia Slight; MCH 25.9 pg (25.0-35.0); MCHC 31.7 g/dL (31.0-37.0); MCV 81.6 fL (80.0-100.0); Mean Platelet Volume 9.2; RBC 4.95 m/uL (4.30-5.90); RDW 15.3 % (11.5-15.5)
[2024-06-01 05:44] LABS: WBC 0.7 k/uL (3.8-10.6)
[2024-06-01 06:01] LABS: Glucose,Whole Blood 179 mg/dL (70-110)
[2024-06-01 06:04] LABS: ALT 30 U/L (4-49); AST 35 U/L (17-59); African American GFR (CKD) >90 (>60 ml/min/1.73 sqM); Albumin 1.6 g/dL (3.5-5.0); Albumin/Globulin Ratio 0.7; Alkaline Phosphatase 240 U/L (38-126); Anion Gap 4 mmol/L; Blood Urea Nitrogen 16 mg/dL (9-20); Calcium 6.7 mg/dL (8.4-10.2); Carbon Dioxide 26 mmol/L (22-30); Chloride 106 mmol/L (98-107); Globulin 2.2 g/dL; Glucose 196 mg/dL (74-99); Non-African American GFR(CKD) >90 (>60 ml/min/1.73 sqM); Potassium 4.1 mmol/L (3.5-5.1); Sodium 136 mmol/L (137-145); Total Bilirubin 0.8 mg/dL (0.2-1.3); Total Protein 3.8 g/dL (6.3-8.2)
[2024-06-01 09:56] LABS: Platelet Count 68 k/uL (150-450)
[2024-06-01 12:11] LABS: Glucose,Whole Blood 223 mg/dL (70-110)
--- NOTE | 2024-06-01 13:22 | P.PN ---
Subjective Progress Note Date: 06/01/24 SURGICAL PROGRESS NOTE CHIEF COMPLAINT: Dysphagia HISTORY OF PRESENT ILLNESS: Patient is postop day #2 status post PEG tube placement. Patient is tolerating tube feeds. Pain is controlled. Anticipating discharge tomorrow. Afebrile. tachycardic. PHYSICAL EXAM: VITAL SIGNS: Reviewed. GENERAL: Well-developed in no acute distress. ABDOMEN: Soft. Nondistended. PEG tube site clean dry and intact NEUROLOGIC: Alert and oriented. Cranial nerves II through XII grossly intact. ASSESSMENT: 1. Severe dysphagia 2. Metastatic lung cancer PLAN: -Continue to titrate tube feeds to goal -Patient can be discharged from surgical standpoint Physician Crystal [employer] note has been reviewed by physician. Signing provider agrees with the documented findings, assessment, and plan of care. Attestation Patient seen and examined at bedside on 06/01/2024. Tolerating tube feeding. Continue to titrate tube feeds to goal. Surgically stable for discharge. Case discussed with admitting team. Migdalia Rodríguez DO Objective - Vital Signs Vital signs: Vital Signs Temp 98.2 F 06/01/24 11:49 Pulse 120 H 06/01/24 11:49 Resp 16 06/01/24 11:49 BP 107/75 06/01/24 11:49 Pulse Ox 95 06/01/24 11:49 FiO2 Intake & Output 05/31/24 06/01/24 06/01/24 18:59 06:59 18:59 Intake Total 10 50 Output Total 400 Balance -390 50 Weight 75.9 kg Intake: Tube Feeding 10 50 Output: Chest Tube Drainage 400 Pleural Catheter Right 400 Anterior Chest Other: Voiding Method Toilet Toilet Toilet # Bowel Movements 1 - Labs CBC & Chem 7: 06/02/24 03:51 06/01/24 04:55 Labs: Abnormal Lab Results - Last 24 Hours (Table) 05/31/24 06/01/24 06/01/24 Range/Units 17:07 00:09 04:55 WBC (3.8-10.6) k/uL Hgb (13.0-17.5) gm/dL Plt Count (150-450) k/uL Sodium (137-145) mmol/L Creatinine (0.66-1.25) mg/dL Glucose (74-99) mg/dL POC Glucose (mg/dL) 164 H 165 H (70-110) mg/dL Hemoglobin A1c 7.7 H (<=6.0) % Calcium (8.4-10.2) mg/dL Alkaline Phosphatase (38-126) U/L Total Protein (6.3-8.2) g/dL Albumin (3.5-5.0) g/dL 06/01/24 06/01/24 06/01/24 Range/Units 04:55 04:55 06:00 WBC 0.7 L* (3.8-10.6) k/uL Hgb 12.8 L (13.0-17.5) gm/dL Plt Count 68 L D (150-450) k/uL Sodium 136 L (137-145) mmol/L Creatinine 0.61 L (0.66-1.25) mg/dL Glucose 196 H (74-99) mg/dL POC Glucose (mg/dL) 179 H (70-110) mg/dL Hemoglobin A1c (<=6.0) % Calcium 6.7 L (8.4-10.2) mg/dL Alkaline Phosphatase 240 H (38-126) U/L Total Protein 3.8 L (6.3-8.2) g/dL Albumin 1.6 L (3.5-5.0) g/dL 06/01/24 Range/Units 12:10 WBC (3.8-10.6) k/uL Hgb (13.0-17.5) gm/dL Plt Count (150-450) k/uL Sodium (137-145) mmol/L Creatinine (0.66-1.25) mg/dL Glucose (74-99) mg/dL POC Glucose (mg/dL) 223 H (70-110) mg/dL Hemoglobin A1c (<=6.0) % Calcium (8.4-10.2) mg/dL Alkaline Phosphatase (38-126) U/L Total Protein (6.3-8.2) g/dL Albumin (3.5-5.0) g/dL
[2024-06-01 14:04] VITALS: BMI 24.0
--- NOTE | 2024-06-01 14:42 | FL ---
EXAMINATION TYPE: FL barium swallow w video DATE OF EXAM: 06/01/2024 MODIFIED SWALLOW / DEGLUTITION STUDY CLINICAL HISTORY: Dysphagia. TECHNIQUE: Deglutition study is performed utilizing thin liquid barium, honey and nectar thick liqui d barium, barium thick applesauce, and barium coated cracker. Total dose area product (DAP) in uGy*m ?, mGy*cm? (or similar): COMPARISON: None. FINDINGS: There is significant difficulty in initiation of the oral phase of deglutition therefore th e examination was terminated. Small amount of contrast is seen pooling in the piriform sinus. IMPRESSION: As above [facility], , 06/01/2024 2:40 PM
[2024-06-01] MEDS ORDERED: ONDANSETRON 4 MG/2 ML VIAL IVP PRN (17:54)
[2024-06-01] MEDS ORDERED: LOPERAMIDE 2 MG CAP PO PRN (17:55)
--- NOTE | 2024-06-01 17:55 | US ---
EXAMINATION TYPE: US venous doppler duplex UE BI DATE OF EXAM: 06/01/2024 COMPARISON: NONE CLINICAL INDICATION: Male, 59 years old with history of r/o dvt; Edema, no hx of DVT TECHNIQUE: Grayscale, color Doppler and spectral Doppler imaging of the upper extremity. SIDE PERFORMED: Bilateral Arms VESSELS IMAGED: IJV Subclavian Vein Axilla Vein Brachial Vein(s) Radial Paired Veins Ulnar Paired Veins Cephalic Vein* Basilic Vein* (*superficial vessels) FINDINGS: Right Arm: No evidence of DVT. Forearm edema seen. Left Arm: No evidence of DVT. What appears to be IJV seen in an anterior medial location. Question I JV versus other vein and IJV not visualized. There is questionable identification of the inferior jug ular vein. Unable to visualize cephalic vein. Limited visibility of veins in the mid arm due to IV bandage. Grayscale, color doppler, spectral doppler imaging performed of the deep veins of the upper extremiti es. IMPRESSION: 1. No deep venous thrombosis left upper extremity. [facility], , 06/01/2024 5:53 PM
[2024-06-01 18:26] LABS: Glucose,Whole Blood 270 mg/dL (70-110)
--- NOTE | 2024-06-01 18:34 | P.PN ---
Progress Note - Text Progress Note Date: 06/01/24 Chief Complaint: Difficulty swallowing 59-year-old patient who follows with Dr. Michele. Chronic stable medical conditions include diabetes mellitus type 2, hypertension, obstructive sleep apnea uses CPAP, diverticulosis, ankylosing spondylosis causing lower back pain depression. 1989 he was positive for TB skin test did receive 6 months of INH. . Non- smoker. Home oxygen 2 L. Stage IV pulmonary adenocarcinoma. Repeated thoracentesis. PET scan July 02, 2023 progression of osseous metastatic disease with positive response of the thorax with decrease in the diffuse micronodular appearance in right lower lung FDG activity. Received Tagrisso Because of side effects patient started on chemotherapy last week. Patient has a rash specially on the face from his chemotherapy. Present for few weeks. For his rash he takes doxycycline and topical hydrocortisone. Last week patient had a pleural vacs placed on the right side. That gets regularly drained. Patient now presents progressively more trouble swallowing. Has been taking liquids. Now barely able to keep anything down including gagging and some pain. Patient was seen in the office of Dr. Rosales the surgeon and sent in today for a PEG tube feeding. Patient is accompanied by his Barb and his 2 sons. In the ER. Rather weak and tired. May 30: Seen this afternoon. at the bedside. NPO. Pending PEG tube placement. That was placed later this afternoon by Dr. Rodríguez. Dietitian consulted for PEG tube feeding. May 31: PEG tube placed yesterday. Dietitian has been consulted for PEG tube feeding. Patient may take his chemo pill by mouth. Seen by speech therapist. Some evidence of mucositis. Per speech therapist to remain NPO. MBS tomorrow. June 01: PEG tube feeding has been started. Patient seen this morning. Getting 30 cc an hour. Spoke to the speech therapist: Patient did well with bedside swallowing. But did not do too well with swallowing with a modified barium swallow initiation. Given that patient has to take his chemo pill we will do that with applesauce. Patient is able to tolerate ice chips. At bedside eval. Patient had 1 large bowel movement soft today. On pharyngeal examination patient does have pharyngeal mucositis with some ulcers. Encourage oral feeding as required. White count 0.7. Oncology following. Odynophagia from pharyngeal mucositis secondary to chemo. Patient very keen to go home. Will aim for tomorrow. Total time spent today about 50 minutes with over 30 minutes of discussion. Active Medications Albuterol Sulfate (Albuterol Nebulized 2.5 Mg/3 Ml) 2.5 mg INHALATION RT-Q4H PRN PRN Reason: Shortness Of Breath Alprazolam (Alprazolam 1 Mg Tab) 1 mg PO BID PRN PRN Reason: Anxiety Dextrose/Water (Dextrose 50% Syringe 50 Ml) 25 ml IVP PER PROTOCOL PRN; Protocol PRN Reason: Hypoglycemia Dextrose/Water (Dextrose 50% Syringe 50 Ml) 50 ml IVP PER PROTOCOL PRN; Protocol PRN Reason: Hypoglycemia Doxycycline Hyclate (Doxycycline 100 Mg Tablet) 100 mg PO BID [facility] Last Admin: 06/01/24 11:24 Dose: 100 mg Enoxaparin Sodium (Enoxaparin 40 Mg/0.4 Ml Syringe) 40 mg SQ DAILY [facility] Last Admin: 06/01/24 10:23 Dose: 40 mg Hydromorphone HCl (Hydromorphone 0.5 Mg/0.5 Ml Syringe) 0.5 mg IVP Q3HR PRN PRN Reason: Severe Pain (Scale 7 to 10) Last Admin: 06/01/24 18:24 Dose: 0.5 mg Insulin Human Lispro (Insulin Lispro (Humalog) 100 Unit/Ml 10 Ml Vl) 0 unit SQ Q6HR [facility]; Protocol Last Admin: 06/01/24 13:18 Dose: 2 unit Loperamide HCl (Loperamide 2 Mg Cap) 2 mg PO QID PRN PRN Reason: Diarrhea Montelukast Sodium (Montelukast 10 Mg Tab) 10 mg PO DAILY [facility] Last Admin: 06/01/24 10:25 Dose: 10 mg Naloxone HCl (Naloxone 0.4 Mg/Ml 1 Ml Vial) 0.2 mg IV Q2M PRN PRN Reason: Opioid Reversal Patient's Own ( Cariprazine Hcl [ Vraylar] 3 Mg Capsule) 3 mg PO DAILY [facility] Last Admin: 05/31/24 12:08 Dose: Not Given Patient's Own ( Lazertinib Mesylate [Lazcluze] 240 Mg Tablet) 240 mg PO DAILY@1800 [facility] Last Admin: 06/01/24 18:28 Dose: Not Given Ondansetron HCl (Ondansetron 4 Mg/2 Ml Vial) 4 mg IVP Q4HR PRN PRN Reason: Nausea And Vomiting Tramadol HCl (Tramadol 50 Mg Tab) 50 mg PO Q8H PRN PRN Reason: Moderate Pain (Scale 4 to 6) Triamcinolone Acetonide (Triamcinolone 0.1% Cream 80 Gm Tube) 1 applic TOPICAL BID [facility] Last Admin: 06/01/24 10:25 Dose: 1 applic Past medical history to include: Diabetes, hypertension, obstructive sleep apnea uses CPAP, depression, and ankylosing spondylosis. 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 Physical examination: VITAL SIGNS: 98.1, 118, 16, 106 x 34, 95% room air GENERAL: BMI 23, laying in bed rather tired EYES: Pupils equal. Conjunctiva lary l. HEENT: Scattered punctate pinhead shaped rash with some surrounding inflammation on the face. Dry mucous membrane. Area of inflammation in the pharynx with superficial lindsay ulcers NECK: JVD not raised; masses not palpable. HEART: First and second heart sounds are normal; no edema. LUNGS:[ Respiratory rate increased, decreased breath sound. Right chest wall anteriorly Pleurx catheter. ABDOMEN: Soft, nontender, liver spleen not palpable, no masses palpable. PEG tube with feeding PSYCH: [Alert and oriented x3; mood and affect tired l. MUSCULOSKELETAL:No Clubbing/cyanosis;muscles-grossly intact INVESTIGATIONS, reviewed in the clinical context: June 01: White count 0.7 hemoglobin 12.8 platelets 68 potassium 4.1 creatinine 0.61 May 29, 2024: White count 8.3 hemoglobin 14.3 platelets 137 sodium 131 potassium 4.6 BUN 21 creatinine 0.78 AST 39 ALT 29 albumin 2.0 Assessment & Plan: -Progressive severe odynophagia secondary to pharyngeal mucositis with ulceration. Patient progressively not able to eat or drink barely. Today: Did pass bedside swallow with ice chips. Nestor did fail with initial portion of MBS. Will try the oral chemo pill with applesauce May 30: PEG tube placed by -Scattered rash from previous chemotherapy. Continue doxycycline and topical hydrocortisone -Moderate protein calorie malnutrition with decreased oral intake PEG tube feeding has been started Dietitian consulted - Leukopenia with a white, 0.7 from chemotherapy Hematology following Repeat CBC # NSCLC: Metastatic Patient received Tagrisso. Now started last week on chemotherapy #Type 2 diabetes:, On oral hypoglycemic Resume Lantus 14 units at night follow Accu-Cheks #Hypertension: Continue home medications -COPD non-smoker DuoNeb, Symbicort # Obstructive sleep apnea: CPAP -Hyperlipidemia Pravachol -Chronic ankylosing spondylitis primary affecting lumbar spine. With muscle spasm. Carbamazepine. Antispasmodic -Depression otherwise specified Pristiq.vraylar -DNR Past Medical History Past Medical History: Cancer, Diabetes Mellitus, Hypertension, Sleep Apnea/CPAP/BIPAP Additional Past Medical History / Comment(s): diverticulitis, lung CA treated with oral meds-IV chemotherapy every 3 weeks starting 05/25/24, sacral wound, sleep apnea -uses Cpap History of Any Multi-Drug Resistant Organisms: C-DIFF Date of last positivie culture/infection: 1994 MDRO Source:: stool Past Surgical History: Bowel Resection, Hernia Repair, Orthopedic Surgery, Tonsillectomy Additional Past Surgical History / Comment(s): sigmoid colon, vasectomy, lung biospy, pleurex cath Past Anesthesia/Blood Transfusion Reactions: No Reported Reaction Past Psychological History: Bipolar, Depression, Panic Disorder Smoking Status: Never smoker Past Alcohol Use History: None Reported Past Drug Use History: None Reported
--- NOTE | 2024-06-01 18:37 | P.PN ---
Subjective Progress Note Date: 06/01/24 No acute events overnight. TPN started, reporting diarrhea today. Denies N/V Objective - Vital Signs Vital signs: Vital Signs Temp 98.2 F 06/01/24 11:49 Pulse 120 H 06/01/24 11:49 Resp 16 06/01/24 11:49 BP 107/75 06/01/24 11:49 Pulse Ox 95 06/01/24 11:49 FiO2 Intake & Output 05/31/24 06/01/24 06/01/24 18:59 06:59 18:59 Intake Total 10 50 20 Output Total 400 Balance -390 50 20 Weight 75.9 kg 75.9 kg Intake: Tube Feeding 10 50 20 Output: Chest Tube Drainage 400 Pleural Catheter Right 400 Anterior Chest Other: Voiding Method Toilet Toilet Toilet # Bowel Movements 1 - Constitutional General appearance: Present: no acute distress - EENT Eyes: Present: anicteric sclerae, EOMI ENT: Present: hearing grossly normal - Respiratory Details: breathing is even and unlabored - Cardiovascular Details: skin warm and dry - Integumentary Integumentary: Present: rash. Absent: cyanotic - Neurologic Neurologic: Present: CNII-XII intact - Musculoskeletal Musculoskeletal: Present: strength equal bilaterally - Psychiatric Psychiatric: Present: A&O x's 3 - Labs CBC & Chem 7: 06/01/24 04:55 06/01/24 04:55 Labs: Abnormal Lab Results - Last 24 Hours (Table) 06/01/24 06/01/24 06/01/24 Range/Units 00:09 04:55 04:55 WBC 0.7 L* (3.8-10.6) k/uL Hgb 12.8 L (13.0-17.5) gm/dL Plt Count 68 L D (150-450) k/uL Sodium (137-145) mmol/L Creatinine (0.66-1.25) mg/dL Glucose (74-99) mg/dL POC Glucose (mg/dL) 165 H (70-110) mg/dL Hemoglobin A1c 7.7 H (<=6.0) % Calcium (8.4-10.2) mg/dL Alkaline Phosphatase (38-126) U/L Total Protein (6.3-8.2) g/dL Albumin (3.5-5.0) g/dL 06/01/24 06/01/24 06/01/24 Range/Units 04:55 06:00 12:10 WBC (3.8-10.6) k/uL Hgb (13.0-17.5) gm/dL Plt Count (150-450) k/uL Sodium 136 L (137-145) mmol/L Creatinine 0.61 L (0.66-1.25) mg/dL Glucose 196 H (74-99) mg/dL POC Glucose (mg/dL) 179 H 223 H (70-110) mg/dL Hemoglobin A1c (<=6.0) % Calcium 6.7 L (8.4-10.2) mg/dL Alkaline Phosphatase 240 H (38-126) U/L Total Protein 3.8 L (6.3-8.2) g/dL Albumin 1.6 L (3.5-5.0) g/dL Assessment and Plan (1) Dehydration Current Visit: Yes Status: Acute Priority: High Code(s): E86.0 - DEHYDRATION SNOMED Code(s): 88707957 (2) Metastatic cancer Current Visit: Yes Status: Acute Priority: High Code(s): C79.9 - SECONDARY MALIGNANT NEOPLASM OF UNSPECIFIED SITE SNOMED Code(s): 164211984 (3) Odynophagia Current Visit: Yes Status: Acute Priority: High Code(s): R13.10 - DYSPHAGIA, UNSPECIFIED SNOMED Code(s): 77551999 Plan: Dysphagia: Pt has been having progressive dysphagia over the last 1 month, and had swallow evaluation and failed swallow evaluation beginning of April. -Patient has underwent EGD with PEG tube placement with no obstruction noted. -On exam, mild tongue deviation to the left noted. Will obtain MRI brain to r/o COUNT ROOM CLERK involvement. MRI brain in 01/2024 negative for metastasis -Possible paraneoplastic syndrome. May need outpt evaluation by ENT for laryngoscopy to evaluate for vocal cord paralysis. PET CT on 05/10/24 showed no FDG uptake in neck -TPN started, pt tolerating feedings -Surgery following Metastatic NSCLC: -Oncology history as dictated in the HPI -Currently on treatment with lazertinib and carbo/alimta completing cycle 1 on 05/25/24. -Continue Lazertinib as long as pt can tolerate oral meds, if not please hold medication -WBC 0.7, Hgb 12.8, plt 68,000. Will start G-CSF with goal of ANC > 1,000. Co ntinue to monitor CBC -Clinic upon f/u upon discharge
--- NOTE | 2024-06-01 19:26 | MR ---
EXAMINATION TYPE: MR brain wo/w con DATE OF EXAM: 06/01/2024 6:20 PM COMPARISON: None. CLINICAL INDICATION: Male, 59 years old with history of metastatic lung cancer, r/o brain mets, Metas tatic lung cancer, R/O brain mets, TECHNIQUE: Multiplanar, multiecho imaging on a 3.0 Duyen magnet is performed through the brain. Stud y is performed within 24 hours of arrival to the hospital.Multiplanar, multiecho imaging on a 3.0 Babs la magnet is performed through the knee. IV Contrast: 7.5 mL Gadobutrol (None, if empty) FINDINGS: The craniovertebral junction is normal. The pituitary is normal. Diffusion-weighted imaging is performed. No abnormal hyperintensity is present to suggest an acute i ntracranial infarct or acute ischemic change. No suspicious areas of enhancement are evident. No vasogenic edema is identified. There is minimal periventricular white matter hyperintensity likely on the basis of chronic white mat ter ischemic change. Ventricles and sulci are appropriate for the patient age. IMPRESSION: 1. No suspicious changes to suggest metastatic disease. 2. Mild periventricular white matter changes with age related atrophy. [facility], , 06/01/2024 7:23 PM
[2024-06-01] MEDS: FILGRASTIM-SNDZ 480 MCG/0.8 ML SYRINGE SQ SCH (19:40)
[2024-06-01] MEDS: INSULIN GLARGINE (LANTUS) 100 UNIT/ML SYR SQ SCH (21:05)
[2024-06-01 21:08] LABS: Glucose,Whole Blood 263 mg/dL (70-110)
[2024-06-01 23:19] LABS: Glucose,Whole Blood 267 mg/dL (70-110)
[2024-06-02 04:15] LABS: Basophils % (A) 1 %; Eosinophils % (A) 1 %; HCT 38.3 % (39.0-53.0); HGB 12.2 gm/dL (13.0-17.5); Hypochromasia Slight; Lymphocytes # (A) 0.4 k/uL (1.0-4.8); Lymphocytes % (A) 18 %; MCH 25.5 pg (25.0-35.0); MCHC 31.9 g/dL (31.0-37.0); MCV 79.7 fL (80.0-100.0); Mean Platelet Volume 8.8; Monocytes # (A) 0.1 k/uL (0-1.0); Monocytes % (A) 6 %; Neutrophils # (A) 1.5 k/uL (1.3-7.7); Neutrophils % (A) 73 %; RDW 15.3 % (11.5-15.5); WBC 2.1 k/uL (3.8-10.6)
[2024-06-02 04:28] LABS: Platelet Count 47 k/uL (150-450)
[2024-06-02 04:53] LABS: Tear Drop Cells Present
[2024-06-02 06:07] LABS: Glucose,Whole Blood 286 mg/dL (70-110)
--- NOTE | 2024-06-02 11:43 | P.PN ---
Subjective Progress Note Date: 06/02/24 Patient seen and examined at bedside. No acute events. Objective - Vital Signs Vital signs: Vital Signs Temp 98.2 F 06/02/24 07:34 Pulse 107 H 06/02/24 07:34 Resp 16 06/02/24 07:34 BP 120/72 06/02/24 07:34 Pulse Ox 97 06/02/24 07:34 FiO2 Intake & Output 06/01/24 06/02/24 06/02/24 18:59 06:59 18:59 Intake Total 20 974 Balance 20 974 Weight 75.9 kg 76.6 kg Intake: Tube Feeding 20 574 Other 400 Other: Voiding Method Toilet Toilet Toilet # Bowel Movements 1 - Constitutional General appearance: Present: cooperative, no acute distress - Gastrointestinal Gastrointestinal Comment(s): Soft, nontender, PEG tube in place, receiving tube feeding - Labs CBC & Chem 7: 06/02/24 03:51 06/01/24 04:55 Labs: Abnormal Lab Results - Last 24 Hours (Table) 06/01/24 06/01/24 06/01/24 Range/Units 12:10 18:23 21:05 WBC (3.8-10.6) k/uL Hgb (13.0-17.5) gm/dL Hct (39.0-53.0) % MCV (80.0-100.0) fL Plt Count (150-450) k/uL Lymphocytes # (1.0-4.8) k/uL POC Glucose (mg/dL) 223 H 270 H 263 H (70-110) mg/dL 06/01/24 06/02/24 06/02/24 Range/Units 23:17 03:51 06:06 WBC 2.1 L (3.8-10.6) k/uL Hgb 12.2 L (13.0-17.5) gm/dL Hct 38.3 L (39.0-53.0) % MCV 79.7 L (80.0-100.0) fL Plt Count 47 L (150-450) k/uL Lymphocytes # 0.4 L (1.0-4.8) k/uL POC Glucose (mg/dL) 267 H 286 H (70-110) mg/dL Assessment and Plan Plan: Attestation Patient seen and examined at bedside. Tolerating tube feeding. Continue to titrate tube feeds to goal. Surgically stable for discharge. Migdalia Rodríguez, DO
[2024-06-02 12:23] LABS: Glucose,Whole Blood 212 mg/dL (70-110)
--- NOTE | 2024-06-02 12:53 | P.PN ---
Subjective Progress Note Date: 06/02/24 Patient complaining of increased fatigue, and malaise today. Upper extremity swelling is persistent. He has developed new onset lower extremity swelling. Swallowing difficulty continues to be persistent. He is tolerating tube feeds well. Objective - Vital Signs Vital signs: Vital Signs Temp 98.2 F 06/02/24 11:46 Pulse 109 H 06/02/24 11:46 Resp 16 06/02/24 11:46 BP 99/63 06/02/24 11:46 Pulse Ox 94 L 06/02/24 11:46 FiO2 Intake & Output 06/01/24 06/02/24 06/02/24 18:59 06:59 18:59 Intake Total 20 974 104 Balance 20 974 104 Weight 75.9 kg 76.6 kg Intake: Tube Feeding 20 574 104 Other 400 Other: Voiding Method Toilet Toilet Toilet # Bowel Movements 1 - Constitutional Constitutional Comment(s): Lethargic, slow response General appearance: Present: no acute distress - EENT Eyes: Present: EOMI ENT: Present: hearing grossly normal, pharyngeal erythema - Respiratory Respiratory: bilateral: CTA - Cardiovascular Rhythm: regular Heart sounds: normal: S1, S2 - Gastrointestinal General gastrointestinal: Present: soft - Integumentary Integumentary: Present: rash - Neurologic Neurologic: Present: CNII-XII intact - Musculoskeletal Musculoskeletal: Present: generalized weakness, strength equal bilaterally - Psychiatric Psychiatric Comment(s): Slower affect and response Psychiatric: Present: A&O x's 3 - Labs CBC & Chem 7: 06/02/24 03:51 06/01/24 04:55 Labs: Abnormal Lab Results - Last 24 Hours (Table) 06/01/24 06/01/24 06/01/24 Range/Units 18:23 21:05 23:17 WBC (3.8-10.6) k/uL Hgb (13.0-17.5) gm/dL Hct (39.0-53.0) % MCV (80.0-100.0) fL Plt Count (150-450) k/uL Lymphocytes # (1.0-4.8) k/uL POC Glucose (mg/dL) 270 H 263 H 267 H (70-110) mg/dL 06/02/24 06/02/24 06/02/24 Range/Units 03:51 06:06 12:22 WBC 2.1 L (3.8-10.6) k/uL Hgb 12.2 L (13.0-17.5) gm/dL Hct 38.3 L (39.0-53.0) % MCV 79.7 L (80.0-100.0) fL Plt Count 47 L (150-450) k/uL Lymphocytes # 0.4 L (1.0-4.8) k/uL POC Glucose (mg/dL) 286 H 212 H (70-110) mg/dL - Imaging and Cardiology MRI - head: report reviewed Assessment and Plan (1) Odynophagia Narrative/Plan: On careful evaluation, the issue appears to be more of dysphagia rather than odynophagia, specifically due to difficulty in initiating swallowing. The patient had MRI of the brain done, that showed no MILK VENDOR pathology. -The patient does have some mucositis, but symptomatically a combination of this and dryness, appears to be less likely as he was not complaining of severe pain when he was trying to swallow ice chips. In any case the mucositis is expected to improve as his white blood cells, up in the next few days. He has been started on G-CSF for the same. -If other factors are ruled out, and swallowing difficulty persists, then a paraneoplastic process becomes a more likely differential. In that case the management is alternative feeding through the PEG tube, which has already been initiated. It was discussed that in case of paraneoplastic symptoms, they may or may not improve with treatment of the underlying malignancy Current Visit: Yes Status: Acute Priority: High Code(s): R13.10 - DYSPHAGIA, UNSPECIFIED SNOMED Code(s): 56691130 (2) Metastatic cancer Narrative/Plan: The patient has been unable to swallow the Lazertinib consistently. They were advised to hold it, as his cancer has progressed on this regimen anyway and the plan is to start him on a different regimen. I will check with his primary oncologist, if he does want him to continue, with initiation of the new regimen. Even if continuation is desired, the benefit from this is not likely to be reanna martínez Current Visit: Yes Status: Acute Priority: High Code(s): C79.9 - SECONDARY MALIGNANT NEOPLASM OF UNSPECIFIED SITE SNOMED Code(s): 428169281 Plan: Lower extremity swelling is new. It is more likely due to third spacing and IV fluids. Check lower extremity Dopplers to rule out DVT. Upper extremity Dopplers were negative. Case discussed with IM. Continue G-CSF, while inpatient. WBC showing some improved
[2024-06-02] MEDS: INSULIN NPH 100 UNIT/ML 10 ML VIAL SQ SCH (13:15)
[2024-06-02] MEDS: metFORMIN 500 MG TAB PO SCH (13:15)
[2024-06-02] MEDS: FUROSEMIDE 10 MG/ML 2 ML VIAL IV ONE (13:16)
--- NOTE | 2024-06-02 13:50 | US ---
EXAMINATION TYPE: US venous doppler duplex LE BI DATE OF EXAM: 06/02/2024 1:22 PM COMPARISON: NONE CLINICAL INDICATION: Male, 59 years old with history of suspected DVT; BL LE Swelling Patient denies any signs or symptoms. Currently on chemotherapy treatment , Pain TECHNIQUE: The lower extremity deep venous system is examined utilizing real time linear array sonog brian with graded compression, color doppler sonography, and spectral doppler. SIDE PERFORMED: Bilateral FINDINGS: VESSELS IMAGED: Common Femoral Vein Deep Femoral Vein Greater Saphenous Vein * Femoral Vein Popliteal Vein Small Saphenous Vein * Proximal Calf Veins (* superficial vessels) Right Leg: Negative for DVT, Color Doppler imaging shows patency of the vessels. Spectral waveforms are within normal limits. Left Leg: Negative for DVT, Color Doppler imaging shows patency of the vessels. Spectral waveforms a re within normal limits. IMPRESSION: 1. Bilateral lower extremity ultrasound negative for deep venous thrombosis. [facility], , 06/02/2024 1:48 PM
[2024-06-02 17:09] LABS: Glucose,Whole Blood 215 mg/dL (70-110)
[2024-06-02] MEDS: traMADol 50 MG TAB PO PRN (17:21)
--- NOTE | 2024-06-02 18:47 | P.PN ---
Progress Note - Text Progress Note Date: 06/02/24 Chief Complaint: Difficulty swallowing 59-year-old patient who follows with Dr. Michele. Chronic stable medical conditions include diabetes mellitus type 2, hypertension, obstructive sleep apnea uses CPAP, diverticulosis, ankylosing spondylosis causing lower back pain depression. 1989 he was positive for TB skin test did receive 6 months of INH. . Non- smoker. Home oxygen 2 L. Stage IV pulmonary adenocarcinoma. Repeated thoracentesis. PET scan July 02, 2023 progression of osseous metastatic disease with positive response of the thorax with decrease in the diffuse micronodular appearance in right lower lung FDG activity. Received Tagrisso Because of side effects patient started on chemotherapy last week. Patient has a rash specially on the face from his chemotherapy. Present for few weeks. For his rash he takes doxycycline and topical hydrocortisone. Last week patient had a pleural vacs placed on the right side. That gets regularly drained. Patient now presents progressively more trouble swallowing. Has been taking liquids. Now barely able to keep anything down including gagging and some pain. Patient was seen in the office of Dr. Rosales the surgeon and sent in today for a PEG tube feeding. Patient is accompanied by his Barb and his 2 sons. In the ER. Rather weak and tired. May 30: Seen this afternoon. at the bedside. NPO. Pending PEG tube placement. That was placed later this afternoon by Dr. Rodríguez. Dietitian consulted for PEG tube feeding. May 31: PEG tube placed yesterday. Dietitian has been consulted for PEG tube feeding. Patient may take his chemo pill by mouth. Seen by speech therapist. Some evidence of mucositis. Per speech therapist to remain NPO. MBS tomorrow. June 01: PEG tube feeding has been started. Patient seen this morning. Getting 30 cc an hour. Spoke to the speech therapist: Patient did well with bedside swallowing. But did not do too well with swallowing with a modified barium swallow initiation. Given that patient has to take his chemo pill we will do that with applesauce. Patient is able to tolerate ice chips. At bedside eval. Patient had 1 large bowel movement soft today. On pharyngeal examination patient does have pharyngeal mucositis with some ulcers. Encourage oral feeding as required. White count 0.7. Oncology following. Odynophagia from pharyngeal mucositis secondary to chemo. Patient very keen to go home. Will aim for tomorrow. Total time spent today about 50 minutes with over 30 minutes of discussion. June 02: Patient feels rather tired. Had been getting Dilaudid. Which is being discontinued. Some discomfort. Will use Tylenol as needed. Dr. Shell was present in the room. Chemotherapy pill not to be given further. Patient tolerating tube feeding at 52 cc an hour. Will give 1 dose of IV Lasix 20 mg. Accu-Cheks are running on the high side now. Will add metformin 5 mg twice daily. Insulin dose being adjusted today. Since patient is more tired we will hold off discharge for now. So does inform me that home tube feeding has not been arranged. Doppler ultrasound was ordered for lower extremity. Both came back negative. Patient generalized swelling in the arms and legs felt to be from third spacing from hyperlipidemia and patient received IV fluids and tube feeding now. Patient yesterday also received a dose of filgrastim for leukopenia Active Medications Acetaminophen (Acetaminophen Tab 500 Mg Tab) 500 mg PO Q6HR PRN PRN Reason: Fever and/ or Pain Albuterol Sulfate (Albuterol Nebulized 2.5 Mg/3 Ml) 2.5 mg INHALATION RT-Q4H PRN PRN Reason: Shortness Of Breath Alprazolam (Alprazolam 1 Mg Tab) 1 mg PO BID PRN PRN Reason: Anxiety Dextrose/Water (Dextrose 50% Syringe 50 Ml) 25 ml IVP PER PROTOCOL PRN; Protocol PRN Reason: Hypoglycemia Dextrose/Water (Dextrose 50% Syringe 50 Ml) 50 ml IVP PER PROTOCOL PRN; Protocol PRN Reason: Hypoglycemia Doxycycline Hyclate (Doxycycline 100 Mg Tablet) 100 mg PO BID [facility] Last Admin: 06/02/24 09:08 Dose: 100 mg Enoxaparin Sodium (Enoxaparin 40 Mg/0.4 Ml Syringe) 40 mg SQ DAILY [facility] Last Admin: 06/02/24 09:09 Dose: 40 mg Filgrastim-Sndz (Filgrastim-Sndz 480 Mcg/0.8 Ml Syringe) 480 mcg SQ DAILY@1800 [facility] Last Admin: 06/01/24 19:40 Dose: 480 mcg Insulin Glargine (Insulin Glargine (Lantus) 100 Unit/Ml Syr) 22 unit SQ [facility] Insulin Human Lispro (Insulin Lispro (Humalog) 100 Unit/Ml 10 Ml Vl) 0 unit SQ Q6HR [facility]; Protocol Last Admin: 06/02/24 17:45 Dose: 2 unit Loperamide HCl (Loperamide 2 Mg Cap) 2 mg PO QID PRN PRN Reason: Diarrhea Metformin HCl (Metformin 500 Mg Tab) 500 mg PO BID-W/MEALS [facility] Last Admin: 06/02/24 17:21 Dose: 500 mg Montelukast Sodium (Montelukast 10 Mg Tab) 10 mg PO DAILY [facility] Last Admin: 06/02/24 09:08 Dose: 10 mg Naloxone HCl (Naloxone 0.4 Mg/Ml 1 Ml Vial) 0.2 mg IV Q2M PRN PRN Reason: Opioid Reversal Patient's Own ( Cariprazine Hcl [ Vraylar] 3 Mg Capsule) 3 mg PO DAILY [facility] Last Admin: 06/02/24 09:11 Dose: Not Given Patient's Own ( Lazertinib Mesylate [Lazcluze] 240 Mg Tablet) 240 mg PO DAILY@1800 [facility] Last Admin: 06/02/24 17:20 Dose: Not Given Ondansetron HCl (Ondansetron 4 Mg/2 Ml Vial) 4 mg IVP Q4HR PRN PRN Reason: Nausea And Vomiting Tramadol HCl (Tramadol 50 Mg Tab) 50 mg PO Q8H PRN PRN Reason: Moderate Pain (Scale 4 to 6) Last Admin: 06/02/24 17:21 Dose: 50 mg Triamcinolone Acetonide (Triamcinolone 0.1% Cream 80 Gm Tube) 1 applic TOPICAL BID [facility] Last Admin: 06/02/24 11:42 Dose: 1 applic Past medical history to include: Diabetes, hypertension, obstructive sleep apnea uses CPAP, depression, and ankylosing spondylosis. 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 Physical examination: VITAL SIGNS: 98.2, 109, 16, 99 x 63, 94% room air GENERAL: BMI 23, laying in bed-tired EYES: Pupils equal. Conjunctiva lary l. HEENT: Scattered punctate pinhead shaped rash with some surrounding inflammation on the face. Dry mucous membrane. Area of inflammation in the pharynx with superficial lindsay ulcers NECK: JVD not raised; masses not palpable. HEART: First and second heart sounds are normal; no edema. LUNGS:[ Respiratory rate increased, decreased breath sound. Right chest wall anteriorly Pleurx catheter. ABDOMEN: Soft, nontender, liver spleen not palpable, no masses palpable. PEG tube with feeding PSYCH: [Alert and oriented x3; mood and affect tired l. MUSCULOSKELETAL:No Clubbing/cyanosis;muscles-grossly intact INVESTIGATIONS, reviewed in the clinical context: June 02: White count 2.1 hemoglobin 12.2 platelets 47 June 01: White count 0.7 hemoglobin 12.8 platelets 68 potassium 4.1 creatinine 0.61 May 29, 2024: White count 8.3 hemoglobin 14.3 platelets 137 sodium 131 potassium 4.6 BUN 21 creatinine 0.78 AST 39 ALT 29 albumin 2.0 Assessment & Plan: -Progressive severe odynophagia secondary to pharyngeal mucositis with ulceration. Patient progressively not able to eat or drink. June 02: Did pass bedside swallow with ice chips. Though did fail with initial portion of MBS. [Discussed with Diana speech therapist: Ice chips as tolerated.] May 30: PEG tube placed by -Scattered rash from previous chemotherapy. Continue doxycycline and topical hydrocortisone -Moderate protein calorie malnutrition with decreased oral intake PEG tube feeding up to goal Dietitian following - Leukopenia with a white, 0.7 from chemotherapy Hematology following Received a dose of filgrastim June 02, 2024 - Generalized edema including upper extremity lower extremity. Likely third spacing from severe hypoalbuminemia. Patient received IV fluids and getting tube feedings. 1 dose of IV Lasix 20 mg. Doppler ultrasound negative for DVT lower extremities # NSCLC: Metastatic Patient received Tagrisso. #Type 2 diabetes:, On oral hypoglycemic Lantus 22 units subcu nightly. Resume metformin 500 mg twice daily - Severe thrombocytopenia from chemotherapy - Normocytic anemia secondary to underlying malignancy #Hypertension: Continue home medications -COPD non-smoker DuoNeb, Symbicort # Obstructive sleep apnea: CPAP -Hyperlipidemia Pravachol -Chronic ankylosing spondylitis primary affecting lumbar spine. With muscle spasm. Carbamazepine. Antispasmodic -Depression otherwise specified Pristiq.vraylar -DNR Care was discussed length with the patient, his , his brother at the bedside. Past Medical History Past Medical History: Cancer, Diabetes Mellitus, Hypertension, Sleep Apnea/CPA P/BIPAP Additional Past Medical History / Comment(s): diverticulitis, lung CA treated with oral meds-IV chemotherapy every 3 weeks starting 05/25/24, sacral wound, sleep apnea -uses Cpap History of Any Multi-Drug Resistant Organisms: C-DIFF Date of last positivie culture/infection: 1994 MDRO Source:: stool Past Surgical History: Bowel Resection, Hernia Repair, Orthopedic Surgery, Tonsillectomy Additional Past Surgical History / Comment(s): sigmoid colon, vasectomy, lung biospy, pleurex cath Past Anesthesia/Blood Transfusion Reactions: No Reported Reaction Past Psychological History: Bipolar, Depression, Panic Disorder Smoking Status: Never smoker Past Alcohol Use History: None Reported Past Drug Use History: None Reported
[2024-06-02] MEDS: INSULIN GLARGINE (LANTUS) 100 UNIT/ML SYR SQ SCH (22:12)
[2024-06-03 00:05] LABS: Glucose,Whole Blood 131 mg/dL (70-110)
[2024-06-03 06:05] LABS: Glucose,Whole Blood 155 mg/dL (70-110)
[2024-06-03 06:11] LABS: Basophils % (A) 1 %; Eosinophils % (A) 1 %; HCT 38.2 % (39.0-53.0); HGB 12.1 gm/dL (13.0-17.5); Lymphocytes # (A) 0.5 k/uL (1.0-4.8); Lymphocytes % (A) 10 %; MCH 25.4 pg (25.0-35.0); MCHC 31.6 g/dL (31.0-37.0); MCV 80.5 fL (80.0-100.0); Mean Platelet Volume 11.7; Monocytes # (A) 0.3 k/uL (0-1.0); Monocytes % (A) 6 %; Neutrophils # (A) 3.8 k/uL (1.3-7.7); Neutrophils % (A) 81 %; RBC 4.75 m/uL (4.30-5.90); RDW 15.6 % (11.5-15.5); WBC 4.7 k/uL (3.8-10.6)
[2024-06-03 06:26] LABS: Platelet Count 40 k/uL (150-450)
[2024-06-03] MEDS: ACETAMINOPHEN TAB 500 MG TAB PO PRN (06:44)
[2024-06-03 07:23] LABS: RBC Morphology Normal
[2024-06-03 07:39] VITALS: RESP 16
--- NOTE | 2024-06-03 09:06 | P.PN ---
Subjective Progress Note Date: 06/03/24 Patient seen and examined at bedside. No acute events. Tube feeding running at goal. Objective - Vital Signs Vital signs: Vital Signs Temp 98.1 F 06/03/24 06:46 Pulse 116 H 06/03/24 06:46 Resp 16 06/03/24 06:46 BP 101/69 06/03/24 06:46 Pulse Ox 95 06/03/24 06:46 FiO2 Intake & Output 06/02/24 06/03/24 06/03/24 18:59 06:59 18:59 Intake Total 1156 156 Balance 1156 156 Weight 76.5 kg Intake: Oral 1000 Tube Feeding 156 156 Other: Voiding Method Toilet # Voids 5 # Bowel Movements 1 - Constitutional General appearance: Present: no acute distress - Gastrointestinal Gastrointestinal Comment(s): Soft, nontender, PEG tube in place - Labs CBC & Chem 7: 06/03/24 05:02 06/01/24 04:55 Labs: Abnormal Lab Results - Last 24 Hours (Table) 06/02/24 06/02/24 06/03/24 Range/Units 12:22 17:08 00:03 Hgb (13.0-17.5) gm/dL Hct (39.0-53.0) % RDW (11.5-15.5) % Plt Count (150-450) k/uL Lymphocytes # (1.0-4.8) k/uL POC Glucose (mg/dL) 212 H 215 H 131 H (70-110) mg/dL 06/03/24 06/03/24 Range/Units 05:02 06:03 Hgb 12.1 L (13.0-17.5) gm/dL Hct 38.2 L (39.0-53.0) % RDW 15.6 H (11.5-15.5) % Plt Count 40 L (150-450) k/uL Lymphocytes # 0.5 L (1.0-4.8) k/uL POC Glucose (mg/dL) 155 H (70-110) mg/dL Assessment and Plan Plan: Tube feeds running at goal. At this point, no further surgical intervention planned. Surgically stable for discharge. Migdalia Rodríguez DO
[2024-06-03] MEDS: ALPRAZolam 1 MG TAB PO PRN (09:30)
[2024-06-03 12:03] LABS: Glucose,Whole Blood 170 mg/dL (70-110)
[2024-06-03] MEDS: LINAGLIPTIN 5 MG TABLET PO SCH (14:20)
[2024-06-03] MEDS: FUROSEMIDE 10 MG/ML 2 ML VIAL IV ONE (14:20)
[2024-06-03 17:04] LABS: Glucose,Whole Blood 169 mg/dL (70-110)
--- NOTE | 2024-06-03 17:31 | P.PN ---
Progress Note - Text Progress Note Date: 06/03/24 Chief Complaint: Difficulty swallowing 59-year-old patient who follows with Dr. Michele. Chronic stable medical conditions include diabetes mellitus type 2, hypertension, obstructive sleep apnea uses CPAP, diverticulosis, ankylosing spondylosis causing lower back pain depression. 1989 he was positive for TB skin test did receive 6 months of INH. . Non- smoker. Home oxygen 2 L. Stage IV pulmonary adenocarcinoma. Repeated thoracentesis. PET scan July 02, 2023 progression of osseous metastatic disease with positive response of the thorax with decrease in the diffuse micronodular appearance in right lower lung FDG activity. Received Tagrisso Because of side effects patient started on chemotherapy last week. Patient has a rash specially on the face from his chemotherapy. Present for few weeks. For his rash he takes doxycycline and topical hydrocortisone. Last week patient had a pleural vacs placed on the right side. That gets regularly drained. Patient now presents progressively more trouble swallowing. Has been taking liquids. Now barely able to keep anything down including gagging and some pain. Patient was seen in the office of Dr. Rosales the surgeon and sent in today for a PEG tube feeding. Patient is accompanied by his Barb and his 2 sons. In the ER. Rather weak and tired. May 30: Seen this afternoon. at the bedside. NPO. Pending PEG tube placement. That was placed later this afternoon by Dr. Rodríguez. Dietitian consulted for PEG tube feeding. May 31: PEG tube placed yesterday. Dietitian has been consulted for PEG tube feeding. Patient may take his chemo pill by mouth. Seen by speech therapist. Some evidence of mucositis. Per speech therapist to remain NPO. MBS tomorrow. June 01: PEG tube feeding has been started. Patient seen this morning. Getting 30 cc an hour. Spoke to the speech therapist: Patient did well with bedside swallowing. But did not do too well with swallowing with a modified barium swallow initiation. Given that patient has to take his chemo pill we will do that with applesauce. Patient is able to tolerate ice chips. At bedside eval. Patient had 1 large bowel movement soft today. On pharyngeal examination patient does have pharyngeal mucositis with some ulcers. Encourage oral feeding as required. White count 0.7. Oncology following. Odynophagia from pharyngeal mucositis secondary to chemo. Patient very keen to go home. Will aim for tomorrow. Total time spent today about 50 minutes with over 30 minutes of discussion. June 02: Patient feels rather tired. Had been getting Dilaudid. Which is being discontinued. Some discomfort. Will use Tylenol as needed. Dr. Shell was present in the room. Chemotherapy pill not to be given further. Patient tolerating tube feeding at 52 cc an hour. Will give 1 dose of IV Lasix 20 mg. Accu-Cheks are running on the high side now. Will add metformin 5 mg twice daily. Insulin dose being adjusted today. Since patient is more tired we will hold off discharge for now. So does inform me that home tube feeding has not been arranged. Doppler ultrasound was ordered for lower extremity. Both came back negative. Patient generalized swelling in the arms and legs felt to be from third spacing from hyperlipidemia and patient received IV fluids and tube feeding now. Patient yesterday also received a dose of filgrastim for leukopenia June 03: I came in patient is lying in the bed. But "more awake. Bit tired. Was able to shift himself get up and sit up in a recliner. He is able to tolerate water sips. Pain medications discussed. Has been off Dilaudid. Will use Ultram 50 mg 3 times a day as needed alternating with Tylenol. Also discussed with exercise. Edema has come down in the limbs. Will give 1 more dose of additional IV Lasix 20 mg today. Facial lesions likely looking better. Tolerating tube feeding. Diet was discussed. Also increase metformin to 1000 mg twice daily. Patient does take Jardiance 100 mg a day at home. Cut back dose of Lantus for today. Active Medications Acetaminophen (Acetaminophen Tab 500 Mg Tab) 500 mg PO Q6HR PRN PRN Reason: Fever and/ or Pain Last Admin: 06/03/24 14:31 Dose: 500 mg Albuterol Sulfate (Albuterol Nebulized 2.5 Mg/3 Ml) 2.5 mg INHALATION RT-Q4H PRN PRN Reason: Shortness Of Breath Alprazolam (Alprazolam 1 Mg Tab) 1 mg PO BID PRN PRN Reason: Anxiety Last Admin: 06/03/24 09:30 Dose: 1 mg Dextrose/Water (Dextrose 50% Syringe 50 Ml) 25 ml IVP PER PROTOCOL PRN; Protocol PRN Reason: Hypoglycemia Dextrose/Water (Dextrose 50% Syringe 50 Ml) 50 ml IVP PER PROTOCOL PRN; Protocol PRN Reason: Hypoglycemia Doxycycline Hyclate (Doxycycline 100 Mg Tablet) 100 mg PO BID [facility], [facility] Last Admin: 06/03/24 09:25 Dose: 100 mg Enoxaparin Sodium (Enoxaparin 40 Mg/0.4 Ml Syringe) 40 mg SQ DAILY [facility] Last Admin: 06/03/24 09:25 Dose: 40 mg Filgrastim-Sndz (Filgrastim-Sndz 480 Mcg/0.8 Ml Syringe) 480 mcg SQ DAILY@1800 [facility], [facility]1983 Last Admin: 06/02/24 18:40 Dose: 480 mcg Insulin Glargine (Insulin Glargine (Lantus) 100 Unit/Ml Syr) 14 unit SQ [facility] Insulin Human Lispro (Insulin Lispro (Humalog) 100 Unit/Ml 10 Ml Vl) 0 unit SQ Q6HR [facility], [facility]; Protocol Last Admin: 06/03/24 13:12 Dose: 1 unit Linagliptin (Linagliptin 5 Mg Tablet) 5 mg PO DAILY [facility] Last Admin: 06/03/24 14:20 Dose: 5 mg Loperamide HCl (Loperamide 2 Mg Cap) 2 mg PO QID PRN PRN Reason: Diarrhea Metformin HCl (Metformin 500 Mg Tab) 1,000 mg PO BID-W/MEALS [facility] Montelukast Sodium (Montelukast 10 Mg Tab) 10 mg PO DAILY [facility] Last Admin: 06/03/24 09:26 Dose: 10 mg Naloxone HCl (Naloxone 0.4 Mg/Ml 1 Ml Vial) 0.2 mg IV Q2M PRN PRN Reason: Opioid Reversal Patient's Own ( Cariprazine Hcl [ Vraylar] 3 Mg Capsule) 3 mg PO DAILY [facility] Last Admin: 06/03/24 13:14 Dose: 3 mg Patient's Own ( Lazertinib Mesylate [Lazcluze] 240 Mg Tablet) 240 mg PO D AILY@1800 [facility] Last Admin: 06/02/24 17:20 Dose: Not Given Ondansetron HCl (Ondansetron 4 Mg/2 Ml Vial) 4 mg IVP Q4HR PRN PRN Reason: Nausea And Vomiting Tramadol HCl (Tramadol 50 Mg Tab) 50 mg PO Q8H PRN PRN Reason: Moderate Pain (Scale 4 to 6) Last Admin: 06/03/24 09:30 Dose: 50 mg Triamcinolone Acetonide (Triamcinolone 0.1% Cream 80 Gm Tube) 1 applic TOPICAL BID PONCHO Last Admin: 06/03/24 09:25 Dose: 1 applic Past medical history to include: Diabetes, hypertension, obstructive sleep apnea uses CPAP, depression, and ankylosing spondylosis. 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 Physical examination: VITAL SIGNS: 98.2, 100, 16, 101 x 69, 93% room air GENERAL: BMI 23, a bit less tired. Patient has swelling of the upper extremities lower extremities. A bit decreased today. EYES: Pupils equal. Conjunctiva lary l. HEENT: Scattered punctate pinhead shaped rash with some surrounding inflammation on the face. Dry mucous membrane. Area of inflammation in the pharynx with superficial lindsay ulcers NECK: JVD not raised; masses not palpable. HEART: First and second heart sounds are normal; edema with decreased LUNGS:[ Respiratory rate increased, decreased breath sound. Right chest wall anteriorly Pleurx catheter. ABDOMEN: Soft, nontender, liver spleen not palpable, no masses palpable. PEG tube with feeding PSYCH: [Alert and oriented x3; mood and affect tired l. MUSCULOSKELETAL:No Clubbing/cyanosis;muscles-grossly intact INVESTIGATIONS, reviewed in the clinical context: June 03: White count 4.70 globin 12.1 platelets 40 June 02: White count 2.1 hemoglobin 12.2 platelets 47 June 01: White count 0.7 hemoglobin 12.8 platelets 68 potassium 4.1 creatinine 0.61 May 29, 2024: White count 8.3 hemoglobin 14.3 platelets 137 sodium 131 potassium 4.6 BUN 21 creatinine 0.78 AST 39 ALT 29 albumin 2.0 Assessment & Plan: -Progressive severe odynophagia secondary to pharyngeal mucositis with ulceration. Patient progressively not able to eat or drink. June 02: Did pass bedside swallow with ice chips. Though did fail with initial portion of MBS. [Discussed with Diana speech therapist: Ice chips as tolerated.] May 30: PEG tube placed by June 03: Patient able to tolerate water. -Scattered rash from previous chemotherapy. Continue doxycycline and topical hydrocortisone -Moderate protein calorie malnutrition with decreased oral intake PEG tube feeding up to goal Dietitian following - Leukopenia with a white, 0.7 from chemotherapy Hematology following Received a dose of filgrastim June 02, 2024 - Generalized edema including upper extremity lower extremity. Likely third spacing from severe hypoalbuminemia. Patient received IV fluids and getting tube feedings.: Some improvement Repeat 1 dose of IV Lasix 20 mg. Doppler ultrasound negative for DVT lower extremities # NSCLC: Metastatic Patient received Tagrisso. #Type 2 diabetes:, On oral hypoglycemic Decrease Lantus 14 units subcu nightly. Increase metformin to 1000 mg twice daily. Jardiance 100 mg daily home dose. Resume - Severe thrombocytopenia from chemotherapy - Normocytic anemia secondary to underlying malignancy #Hypertension: Continue home medications -COPD non-smoker DuoNeb, Symbicort # Obstructive sleep apnea: CPAP -Hyperlipidemia Pravachol -Chronic ankylosing spondylitis primary affecting lumbar spine. With muscle spasm. Carbamazepine. Antispasmodic -Depression otherwise specified Pristiq.vraylar -DNR Discussed with patient and the . Up in a chair. Hopefully can be discharged tomorrow. Past Medical History Past Medical History: Cancer, Diabetes Mellitus, Hypertension, Sleep Apnea/CPAP/BIPAP Additional Past Medical History / Comment(s): diverticulitis, lung CA treated with oral meds-IV chemotherapy every 3 weeks starting 05/25/24, sacral wound, sleep apnea -uses Cpap History of Any Multi-Drug Resistant Organisms: C-DIFF Date of last positivie culture/infection: 1994 MDRO Source:: stool Past Surgical History: Bowel Resection, Hernia Repair, Orthopedic Surgery, Tonsillectomy Additional Past Surgical History / Comment(s): sigmoid colon, vasectomy, lung biospy, pleurex cath Past Anesthesia/Blood Transfusion Reactions: No Reported Reaction Past Psychological History: Bipolar, Depression, Panic Disorder Smoking Status: Never smoker Past Alcohol Use History: None Reported Past Drug Use History: None Reported
[2024-06-03] MEDS: metFORMIN 500 MG TAB PO SCH (17:57)
[2024-06-03] MEDS: MIDODRINE 5 MG TAB PO SCH (20:01)
[2024-06-03] MEDS: INSULIN GLARGINE (LANTUS) 100 UNIT/ML SYR SQ SCH (21:40)
[2024-06-03 23:51] LABS: Glucose,Whole Blood 80 mg/dL (70-110)
[2024-06-04 06:11] LABS: Glucose,Whole Blood 93 mg/dL (70-110)
[2024-06-04 08:11] VITALS: BP 106/70; PULSE 102; TEMP 96.7
[2024-06-04 09:26] LABS: HCT 36.5 % (39.6-50.0); HGB 11.8 g/dL (13.0-17.0); Immature Platelet Fraction 11.9 % (1.1-6.1); MCHC 32.3 g/dL (32.0-37.0); MCV 80.6 FL (80.0-97.0); NRBC Per 100 WBC 0 X 10*3/uL (0.00-0.01); Platelet Count 22 X 10*3/uL (140-440); RBC 4.53 X 10*6/uL (4.40-5.60); RDW 15.7 % (11.5-14.5); WBC 3.29 X 10*3/uL (4.50-10.00)
[2024-06-04 09:31] LABS: Band Neutrophils % 6 %; Basophils # (M) 0 X 10*3/uL (0.00-0.10); Eosinophils # (M) 0.03 X 10*3/uL (0.04-0.35); Lymphocytes # (M) 0.33 X 10*3/uL (0.90-5.00); Monocytes # (M) 0.33 X 10*3/uL (0.20-1.00); Neutrophils % (M) 73 %
[2024-06-04 12:28] LABS: Glucose,Whole Blood 75 mg/dL (70-110)
--- NOTE | 2024-06-04 16:37 | P.DS ---
Providers Date of admission: 05/29/24 10:56 Expected date of discharge: 06/04/24 Attending physician: Rodney Lozano Consults: 05/30/24 18:32 Consult Physician Routine Consulting Provider: [place] Shell Consult Reason/Comments: Oral chemo, pt has peg tube Do you want consulting provider notified?: Yes Primary care physician: [facility] Course: Chief Complaint: Difficulty swallowing 59-year-old patient who follows with Dr. Michele. Chronic stable medical conditions include diabetes mellitus type 2, hypertension, obstructive sleep apnea uses CPAP, diverticulosis, ankylosing spondylosis causing lower back pain depression. 1989 he was positive for TB skin test did receive 6 months of INH. . Non- smoker. Home oxygen 2 L. Stage IV pulmonary adenocarcinoma. Repeated thoracentesis. PET scan July 02, 2023 progression of osseous metastatic disease with positive response of the thorax with decrease in the diffuse micronodular appearance in right lower lung FDG activity. Received Tagrisso Because of side effects patient started on chemotherapy last week. Patient has a rash specially on the face from his chemotherapy. Present for few weeks. For his rash he takes doxycycline and topical hydrocortisone. Last week patient had a pleural vacs placed on the right side. That gets regularly drained. Patient now presents progressively more trouble swallowing. Has been taking liquids. Now barely able to keep anything down including gagging and some pain. Patient was seen in the office of Dr. Rosales the surgeon and sent in today for a PEG tube feeding. Patient is accompanied by his Barb and his 2 sons. In the ER. Rather weak and tired. May 2: Seen this afternoon. at the bedside. NPO. Pending PEG tube placement. That was placed later this afternoon by Dr. Rodríguez. Dietitian consulted for PEG tube feeding. May 31: PEG tube placed yesterday. Dietitian has been consulted for PEG tube feeding. Patient may take his chemo pill by mouth. Seen by speech therapist. Some evidence of mucositis. Per speech therapist to remain NPO. MBS tomorrow. June 01: PEG tube feeding has been started. Patient seen this morning. Getting 30 cc an hour. Spoke to the speech therapist: Patient did well with bedside swallowing. But did not do too well with swallowing with a modified barium swallow initiation. Given that patient has to take his chemo pill we will do that with applesauce. Patient is able to tolerate ice chips. At bedside eval. Patient had 1 large bowel movement soft today. On pharyngeal examination pat ient does have pharyngeal mucositis with some ulcers. Encourage oral feeding as required. White count 0.7. Oncology following. Odynophagia from pharyngeal mucositis secondary to chemo. Patient very keen to go home. Will aim for tomorrow. Total time spent today about 50 minutes with over 30 minutes of discussion. June 02: Patient feels rather tired. Had been getting Dilaudid. Which is being discontinued. Some discomfort. Will use Tylenol as needed. Dr. Shell was present in the room. Chemotherapy pill not to be given further. Patient tolerating tube feeding at 52 cc an hour. Will give 1 dose of IV Lasix 20 mg. Accu-Cheks are running on the high side now. Will add metformin 5 mg twice daily. Insulin dose being adjusted today. Since patient is more tired we will hold off discharge for now. So does inform me that home tube feeding has not been arranged. Doppler ultrasound was ordered for lower extremity. Both came back negative. Patient generalized swelling in the arms and legs felt to be from third spacing from hyperlipidemia and patient received IV fluids and tube feeding now. Patient yesterday also received a dose of filgrastim for leukopenia June 03: I came in patient is lying in the bed. But "more awake. Bit tired. Was able to shift himself get up and sit up in a recliner. He is able to tolerate water sips. Pain medications discussed. Has been off Dilaudid. Will use Ultram 50 mg 3 times a day as needed alternating with Tylenol. Also discussed with exercise. Edema has come down in the limbs. Will give 1 more dose of additional IV Lasix 20 mg today. Facial lesions likely looking better. Tolerating tube feeding. Diet was discussed. Also increase metformin to 1000 mg twice daily. Patient does take Jardiance 100 mg a day at home. Cut back dose of Lantus for today. June 04: Patient doing better. Facial lesions are much better. Spoke to the and the patient that they can check with Dr. Beverly and hopefully doxycycline can be discontinued. Tube feeding at goal. Tolerating water. Follow-up with speech therapy outpatient. Will DC Lantus. Continue Jardiance and metformin. Use Ultram and Tylenol alternatively for pain. Has been up to the chair. Continue with activity as needed tolerated. Chemo pill held for now. Follow-up with oncology. Also to use bilateral LATISHA stockings thigh-high. Both for edema and blood pressure. change manager working out home requirements including feeding Discussion and discharge planning more than 35 minutes Past medical history to include: Diabetes, hypertension, obstructive sleep apnea uses CPAP, depression, and ankylosing spondylosis. 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 Physical examination: VITAL SIGNS: 96.7, 102, 16, 106 x 70, 97% room air GENERAL: BMI 23, a bit less tired. Patient has swelling of the upper extremities lower extremities. Edema improving EYES: Pupils equal. Conjunctiva lary l. HEENT: Scattered punctate pinhead shaped rash with some surrounding inflammation on the face. Dry mucous membrane. Area of inflammation in the pharynx with superficial lindsay ulcers NECK: JVD not raised; masses not palpable. HEART: First and second heart sounds are normal; edema with decreased LUNGS:[ Respiratory rate increased, decreased breath sound. Right chest wall anteriorly Pleurx catheter. ABDOMEN: Soft, nontender, liver spleen not palpable, no masses palpable. PEG tube with feeding PSYCH: [Alert and oriented x3; mood and affect tired l. MUSCULOSKELETAL:No Clubbing/cyanosis;muscles-grossly intact INVESTIGATIONS, reviewed in the clinical context: June 04: White count 3.2 hemoglobin 11.8 platelets 22 May 6: White count 4.70 globin 12.1 platelets 40 June 02: White count 2.1 hemoglobin 12.2 platelets 47 June 01: White count 0.7 hemoglobin 12.8 platelets 68 potassium 4.1 creatinine 0.61 May 29, 2024: White count 8.3 hemoglobin 14.3 platelets 137 sodium 131 potassium 4.6 BUN 21 creatinine 0.78 AST 39 ALT 29 albumin 2.0 Assessment & Plan: -Progressive severe odynophagia secondary to pharyngeal mucositis with ulceration.: Some improvement Patient progressively not able to eat or drink. On presentation. Not tolerating water June 02: Did pass bedside swallow with ice chips. Though did fail with initial portion of MBS. [Discussed with Diana speech therapist: Ice chips as tolerated.] May 30: PEG tube placed by Patient able to tolerate water. Will follow-up outpatient with speech therapy -Scattered rash from previous chemotherapy.: Improving Continue doxycycline and topical hydrocortisone -Moderate protein calorie malnutrition with decreased oral intake PEG tube feeding up to goal Dietitian following - Leukopenia with a white, 0.7 from chemotherapy: Better Hematology following Received a dose of filgrastim June 02, 2024 - Generalized edema including upper extremity lower extremity. Likely third spacing from severe hypoalbuminemia. Patient received IV fluids and getting tube feedings.: Some improvement Received Lasix Doppler ultrasound negative for DVT lower extremities Bilateral LATISHA stockings thigh-high # NSCLC: Metastatic Patient received Tagrisso. Follow-up with For results of her #Type 2 diabetes:, On oral hypoglycemic Stop Lantus. Continue metformin to 1000 mg twice daily. Jardiance 100 mg daily home dose. - Severe thrombocytopenia from chemotherapy Follow CBC outpatient - Normocytic anemia secondary to underlying malignancy Follow CBC outpatient #Hypertension: Continue home medications -COPD non-smoker DuoNeb, Symbicort # Obstructive sleep apnea: CPAP -Hyperlipidemia Pravachol -Chronic ankylosing spondylitis primary affecting lumbar spine. With muscle spasm. Carbamazepine. Antispasmodic -Depression otherwise specified Pristiq-ER unable to swallow or crushed. Hold for now. .vraylar -DNR Disposition: Home Past Medical History Past Medical History: Cancer, Diabetes Mellitus, Hypertension, Sleep Apnea/CPAP/BIPAP Additional Past Medical History / Comment(s): diverticulitis, lung CA treated with oral meds-IV chemotherapy every 3 weeks starting 05/25/24, sacral wound, sleep apnea -uses Cpap History of Any Multi-Drug Resistant Organisms: C-DIFF Date of last positivie culture/infection: 1994 MDRO Source:: stool Past Surgical History: Bowel Resection, Hernia Repair, Orthopedic Surgery, Tonsillectomy Additional Past Surgical History / Comment(s): sigmoid colon, vasectomy, lung biospy, pleurex cath Past Anesthesia/Blood Transfusion Reactions: No Reported Reaction Past Psychological History: Bipolar, Depression, Panic Disorder Smoking Status: Never smoker Past Alcohol Use History: None Reported Past Drug Use History: None Reported Plan - Discharge Summary Discharge Rx Participant: No New Discharge Prescriptions: New Acetaminophen Tab [Tylenol] 500 mg PO Q6HR PRN tab PRN Reason: Fever And/ Or Pain Continue metFORMIN HCL [Glucophage] 1,000 mg PO BID Albuterol Sulfate [Albuterol Sulfate Hfa] 1 puff INHALATION RT-Q4H PRN PRN Reason: Shortness Of Breath Cariprazine HCl [Vraylar] 3 mg PO DAILY ALPRAZolam [Xanax] 1 mg PO BID PRN PRN Reason: Anxiety Hydrocortisone Cream [Hydrocortisone 2.5% Cream] 1 applic TOPICAL BID Codeine Phosphate/Guaifenesin [Codeine Phosphate/Guaifenesin 10-100 mg/5 ml] 5 ml PO Q4H PRN PRN Reason: Cough Folic Acid 1 mg PO DAILY Doxycycline Hyclate 100 mg PO BID sitaGLIPtin [Januvia] 100 mg PO DAILY Mv-Min/Folic/K1/Lycopen/Lutein [Centrum Silver Men Tablet] 1 tab PO DAILY Ondansetron [Zofran] 4 mg PO Q4H PRN PRN Reason: Nausea And Vomiting Montelukast [Singulair] 10 mg PO DAILY Benzonatate [Tessalon Perle] 200 mg PO TID PRN PRN Reason: Cough traMADol HCl [Ultram] 50 mg PO Q8H PRN PRN Reason: Pain Changed Midodrine [ProAmatine] 5 mg PO TID #90 tab Discontinued Pravastatin Sodium [Pravachol] 10 mg PO DAILY diphenhydrAMINE [Benadryl] 50 mg PO HS Desvenlafaxine Succinate [Pristiq ER] 50 mg PO DAILY Apixaban [Eliquis] 2.5 mg PO BID Insulin Glargine (Lantus) [Lantus Vial] 2 - 14 unit SQ DIRECTED PRN MDD 14 units PRN Reason: Chemotherapy days, q 3weeks No Action Lazertinib Mesylate [Lazcluze] 240 mg PO DAILY Discharge Medication List metFORMIN HCL [Glucophage] 1,000 mg PO BID 10/01/20 [History] Albuterol Sulfate [Albuterol Sulfate Hfa] 1 puff INHALATION RT-Q4H PRN 03/24/23 [History] Cariprazine HCl [Vraylar] 3 mg PO DAILY 03/24/23 [History] sitaGLIPtin [Januvia] 100 mg PO DAILY 03/24/23 [History] ALPRAZolam [Xanax] 1 mg PO BID PRN 09/27/23 [History] Montelukast [Singulair] 10 mg PO DAILY 09/27/23 [History] Mv-Min/Folic/K1/Lycopen/Lutein [Centrum Silver Men Tablet] 1 tab PO DAILY 09/27/23 [History] Ondansetron [Zofran] 4 mg PO Q4H PRN 09/27/23 [History] Benzonatate [Tessalon Perle] 200 mg PO TID PRN 04/26/24 [History] Codeine Phosphate/Guaifenesin [Codeine Phosphate/Guaifenesin 10-100 mg/5 ml] 5 ml PO Q4H PRN 04/26/24 [History] Hydrocortisone Cream [Hydrocortisone 2.5% Cream] 1 applic TOPICAL BID 04/26/24 [History] Lazertinib Mesylate [Lazcluze] 240 mg PO DAILY 04/26/24 [History] traMADol HCl [Ultram] 50 mg PO Q8H PRN 04/26/24 [History] Doxycycline Hyclate 100 mg PO BID 05/29/24 [History] Folic Acid 1 mg PO DAILY 05/29/24 [History] Acetaminophen Tab [Tylenol] 500 mg PO Q6HR PRN tab 06/04/24 [Rx] Midodrine [ProAmatine] 5 mg PO TID #90 tab 06/04/24 [Rx] Follow up Appointment(s)/Referral(s): Troy Michele MD [Primary Care Provider] - 1-2 days (The office was on lunch ple ase call to make follow up appointment.) [facility], [REFERRING] - 1 Week [facility] [NON-STAFF] - 1 Week Discharge Disposition: HOME WITH HOME HEALTH SERVICES
--- NOTE | 2024-06-04 19:42 | P.PN ---
Subjective Progress Note Date: 06/04/24 No acute events overnight. TPN started, overall tolerating well. Diarrhea improved. Denies N/V Objective - Vital Signs Vital signs: Vital Signs Temp 96.7 F L 06/04/24 07:32 Pulse 102 H 06/04/24 07:32 Resp 16 06/04/24 07:32 BP 106/70 06/04/24 07:32 Pulse Ox 97 06/04/24 07:32 FiO2 Intake & Output 06/03/24 06/04/24 06/04/24 18:59 06:59 18:59 Intake Total 516 52 Output Total 200 Balance 516 -148 Weight 86.778 kg Intake: Oral 360 Tube Feeding 156 52 Output: Urine 200 Other: Voiding Method Toilet Urinal - Constitutional General appearance: Present: average body habitus, no acute distress - EENT Eyes: Present: anicteric sclerae, EOMI ENT: Present: hearing grossly normal - Respiratory Details: breathing is even and unlabored - Cardiovascular Details: breathing is even and unlabored - Integumentary Integumentary: Present: rash. Absent: cyanotic - Musculoskeletal Musculoskeletal: Present: generalized weakness - Psychiatric Psychiatric: Present: A&O x's 3 - Labs CBC & Chem 7: 06/04/24 04:21 06/01/24 04:55 Labs: Abnormal Lab Results - Last 24 Hours (Table) 06/03/24 06/03/24 06/04/24 Range/Units 12:02 17:02 04:21 WBC 3.29 L (4.50-10.00) X 10*3/uL Hgb 11.8 L (13.0-17.0) g/dL Hct 36.5 L (39.6-50.0) % MCH 26.0 L (27.0-32.0) pg RDW 15.7 H (11.5-14.5) % Plt Count 22 A* (140-440) X 10*3/uL Lymphocytes # (Manual) 0.33 L (0.90-5.00) X 10*3/uL Eosinophils # (Manual) 0.03 L (0.04-0.35) X 10*3/uL Immature Plt Fraction 11.9 H (1.1-6.1) % POC Glucose (mg/dL) 170 H 169 H (70-110) mg/dL Assessment and Plan (1) Dehydration Status: Acute Priority: High Code(s): E86.0 - DEHYDRATION SNOMED Code(s): 85615817 (2) Metastatic cancer Status: Acute Priority: High Code(s): C79.9 - SECONDARY MALIGNANT NEOPLASM OF UNSPECIFIED SITE SNOMED Code(s): 969128505 (3) Odynophagia Status: Acute Priority: High Code(s): R13.10 - DYSPHAGIA, UNSPECIFIED SNOMED Code(s): 12860554 Plan: Dysphagia: On careful evaluation, the issue appears to be more of dysphagia rather than odynophagia, specifically due to difficulty in initiating swallowing. 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 -The patient does have some mucositis, but symptomatically a combination of this and dryness, appears to be less likely as he was not complaining of severe pain when he was trying to swallow ice chips. In any case the mucositis is expected to improve as his white blood cells, up in the next few days. He has been started on G-CSF for the same. -If other factors are ruled out, and swallowing difficulty persists, then a paraneoplastic process becomes a more likely differential. In that case the management is alternative feeding through the PEG tube, which has already been i nitiated. It was discussed that in case of paraneoplastic symptoms, they may or may not improve with treatment of the underlying malignancy Metastatic NSCLC: -Oncology history as dictated in the HPI -Currently on treatment with lazertinib and carbo/alimta completing cycle 1 on 05/25/24. -The patient has been unable to swallow the Lazertinib consistently. They were advised to hold it, as his cancer has progressed on this regimen anyway and the plan is to start him on a different regimen. I will check with his primary oncologist, if he does want him to continue, with initiation of the new regimen. Even if continuation is desired, the benefit from this is not likely to be major -Clinic f/u upon discharge
== END 2024-06-04 13:36 | disposition home health service (06) | DRG 158 ==
LOC: EC 10:38 → OBSVTOIN 10:56 → 5NMEDONC 10:56
PROVIDERS: ADMIT Hospitalist; ATTEND Hospitalist
PROC: 3E0G76Z Introduction of Nutritional Substance into Upper GI, Via Natural or Artificial Opening (ICD-10-PCS; 2024-05-30)
PROC: 0DH63UZ Insertion of Feeding Device into Stomach, Percutaneous Approach (ICD-10-PCS; principal; 2024-05-30 07:45)
DX: K12.31 Oral mucositis (ulcerative) due to antineoplastic therapy (principal); C34.31 Malignant neoplasm of lower lobe, right bronchus or lung; E44.0 Moderate protein-calorie malnutrition; C79.51 Secondary malignant neoplasm of bone; D70.1 Agranulocytosis secondary to cancer chemotherapy; R62.7 Adult failure to thrive; Z66 Do not resuscitate; E88.09 Other disorders of plasma-protein metabolism, not elsewhere classified; E11.9 Type 2 diabetes mellitus without complications; J44.9 Chronic obstructive pulmonary disease, unspecified; M45.6 Ankylosing spondylitis lumbar region; D69.59 Other secondary thrombocytopenia; D63.0 Anemia in neoplastic disease; F32.A Depression, unspecified; I10 Essential (primary) hypertension; K76.89 Other specified diseases of liver; Z79.4 Long term (current) use of insulin; E86.0 Dehydration; T45.1X5A Adverse effect of antineoplastic and immunosuppressive drugs, initial encounter; G47.33 Obstructive sleep apnea (adult) (pediatric); E78.5 Hyperlipidemia, unspecified; K57.30 Diverticulosis of large intestine without perforation or abscess without bleeding; L98.8 Other specified disorders of the skin and subcutaneous tissue; M79.89 Other specified soft tissue disorders; Z99.81 Dependence on supplemental oxygen; Z68.23 Body mass index [BMI] 23.0-23.9, adult; Z79.84 Long term (current) use of oral hypoglycemic drugs; Z79.01 Long term (current) use of anticoagulants; Z79.899 Other long term (current) drug therapy; Z80.0 Family history of malignant neoplasm of digestive organs
CPT/HCPCS: 36415; 43246; 70553; 74230; 80053; 83036; 85025; 93970; 96361; 96372; 96374; 99285

== ENCOUNTER 2024-06-11 20:53 | Inpatient (IN) | payer MEDICARE ==
[2024-06-11] MEDS: IPRATROPIUM-ALBUTEROL 3 ML NEB INHALATION STA (21:56)
--- NOTE | 2024-06-11 22:15 | ED ---
SOB HPI - General Chief Complaint: Shortness of Breath Stated Complaint: Shortness of Breath Time Seen by Provider: 06/11/24 21:30 Source: patient, EMS, RN notes reviewed, old records reviewed, Caregiver Mode of arrival: ambulatory Limitations: no limitations - History of Present Illness Initial Comments: This is a 59 male with known CAD coming in for weakness shortness of breath chest pain increasing difficulty in breathing. Recent changes in feeding which did cause initially swelling of the lower legs which is improved. Symptoms of shortness of breath are persistent here in the ER he does have Pleurx catheter recently drained secondary to pleural effusion. Patient has no cough no fever no chest pain MD Complaint: shortness of breath -: days(s) Severity: severe Consistency: constant Improves With: oxygen (Patient needing required oxygen currently) Worsens With: exertion, medication Known History Of: other (History of lung cancer with metastasis) Context: choking/aspiration, anxiety Associated Symptoms: chest pain, cough, sputum production Treatments Prior to Arrival: oxygen - Related Data Home Medications Medication Instructions Recorded Confirmed Albuterol Sulfate [Albuterol 1 puff INHALATION RT-Q4H PRN 03/24/23 06/12/24 Sulfate Hfa] Cariprazine HCl [Vraylar] 3 mg PEG/G-TUBE DAILY 03/24/23 06/12/24 sitaGLIPtin [Januvia] 100 mg PEG/G-TUBE DAILY 03/24/23 06/12/24 ALPRAZolam [Xanax] 1 mg PEG/G-TUBE BID PRN 09/27/23 06/12/24 Ondansetron [Zofran] 4 mg PEG/G-TUBE Q4H PRN 09/27/23 06/12/24 Hydrocortisone Cream 1 applic TOPICAL BID 04/26/24 06/12/24 [Hydrocortisone 2.5% Cream] traMADol HCl [Ultram] 50 mg PEG/G-TUBE Q8H PRN 04/26/24 06/12/24 Acetaminophen Tab [Tylenol] 500 mg PEG/G-TUBE Q6HR PRN 06/12/24 06/12/24 Midodrine [ProAmatine] 5 mg PEG/G-TUBE TID 06/12/24 06/12/24 Previous Rx's Medication Instructions Recorded Amoxic-Pot Clav 875-125Mg 1 tab PO BID #14 tab 06/13/24 [Augmentin 875-125] HYDROcodone/APAP 5-325MG [Gary 1 each PO Q6HR PRN tab 06/13/24 5-325] Ipratropium-Albuterol Nebulize 3 ml INHALATION RT-QID each 06/13/24 [Duoneb 0.5 mg-3 mg/3 ml Soln] Psyllium Husk 100% [Metamucil 6 gm PO DAILY packet 06/13/24 Packet] Allergies Allergy/AdvReac Type Severity Reaction Status Date / Time Cephalosporins AdvReac Diarrhea & Verified 06/12/24 07:18 C-DIFF Review of Systems ROS Statement: Those systems with pertinent positive or pertinent negative responses have been documented in the HPI. ROS Other: All systems not noted in ROS Statement are negative. Past Medical History Past Medical History: Cancer, Diabetes Mellitus, Hypertension, Sleep Apnea/CPAP/BIPAP Additional Past Medical History / Comment(s): diverticulitis, lung CA treated with oral meds-IV chemotherapy every 3 weeks starting 05/25/24, sacral wound, sleep apnea -uses Cpap History of Any Multi-Drug Resistant Organisms: C-DIFF Date of last positivie culture/infection: 1994 MDRO Source:: stool Past Surgical History: Bowel Resection, Hernia Repair, Orthopedic Surgery, Tonsillectomy Additional Past Surgical History / Comment(s): sigmoid colon, vasectomy, lung biospy, pleurex cath Past Anesthesia/Blood Transfusion Reactions: No Reported Reaction Past Psychological History: Bipolar, Depression, Panic Disorder Smoking Status: Never smoker Past Alcohol Use History: None Reported Past Drug Use History: None Reported - Past Family History Mother Family Medical History: Cancer Additional Family Medical History / Comment(s): Cancer history Father Family Medical History: Coronary Artery Disease (CAD) Additional Family Medical History / Comment(s): Heart Disease General Exam General appearance: alert, in no apparent distress, anxious, in distress Head exam: Present: atraumatic, normocephalic, normal inspection Eye exam: Present: normal appearance, PERRL, EOMI. Absent: scleral icterus, conjunctival injection, periorbital swelling ENT exam: Present: normal exam, mucous membranes moist Neck exam: Present: normal inspection. Absent: tenderness, meningismus, lymphadenopathy Respiratory exam: Present: normal lung sounds bilaterally. Absent: respiratory distress, wheezes, rales, rhonchi, stridor Cardiovascular Exam: Present: regular rate, normal rhythm, normal heart sounds. Absent: systolic murmur, diastolic murmur, rubs, gallop, clicks GI/Abdominal exam: Present: soft, normal bowel sounds. Absent: distended, tenderness, guarding, rebound, rigid Extremities exam: Present: normal inspection, full ROM, normal capillary refill. Absent: tenderness, pedal edema, joint swelling, calf tenderness Back exam: Present: normal inspection Neurological exam: Present: alert, oriented X3, CN II-XII intact Psychiatric exam: Present: normal affect, normal mood Skin exam: Present: warm, dry, intact, normal color. Absent: rash Course Vital Signs 06/11/24 06/11/24 06/11/24 20:57 21:56 22:06 Temperature 97.6 F Pulse Rate 107 H 103 H 108 H Respiratory 18 Rate Blood Pressure 95/62 O2 Sat by Pulse 100 Oximetry 06/11/24 06/11/24 06/12/24 23:30 23:49 00:07 Temperature 97.8 F Pulse Rate 106 H 104 H 109 H Respiratory 19 20 Rate Blood Pressure 98/63 93/55 82/56 O2 Sat by Pulse 96 97 95 Oximetry 06/12/24 06/12/24 02:23 05:18 Temperature 97.6 F Pulse Rate 94 102 H Respiratory 19 20 Rate Blood Pressure 107/70 89/41 O2 Sat by Pulse 93 L 96 Oximetry - Reevaluation(s) Reevaluation #1: 06/11/24 23:30 Medical records reviewed Reevaluation #2: 06/11/24 23:30 Patient blood pressures consistently in significant low here in the ER Reevaluation #3: Patient symptoms improved here in the ER Reevaluation #4: Was pt. sent in by a medical professional or institution (, PA, SERVICE SHOP FOREMAN, urgent care, hospital, or jail...) When possible be specific @ -no Did you speak to anyone other than the patient for history (EMS, parent, family, police, friend...)? What history was obtained from this source @ -no Did you review nursing and triage notes (agree or disagree)? Why? @ -agree Are old charts reviewed (outside hosp., previous admission, EMS record, old EKG, old radiological studies, urgent care reports/EKG's, jail records)? Report findings @ -yes Differential Diagnosis (chest pain, altered mental status, abdominal pain women, abdominal pain men, vaginal bleeding, weakness, fever, dyspnea, syncope, headach e, dizziness, GI bleed, back pain, seizure, CVA, palpatations, mental health, musculoskeletal)? @ -prior EKG interpreted by me (3pts min.). @ -yes X-rays interpreted by me (1pt min.). @ -no CT interpreted by me (1pt min.). @ yes has positive multilobar pneumonia with effusion U/S interpreted by me (1pt. min.). @ -no What testing was considered but not performed or refused? (CT, X-rays, U/S, labs)? Why? @ -none What meds were considered but not given or refused? Why? @ -none Did you discuss the management of the patient with other professionals (professionals i.e. , PA, SERVICE SHOP FOREMAN, lab, RT, psych nurse, social insurance specialist, community organization director, teacher, security patrol officer, leather case finisher)? Give summary @ -no Was smoking cessation discussed for >3mins.? @ -no Was critical care preformed (if so, how long)? @ -no Were there social determinants of health that impacted care today? How? (Homelessness, low income, unemployed, alcoholism, drug addiction, transportation, low edu. Level, literacy, decrease access to med. care, correction, rehab)? @ -none Was there de-escalation of care discussed even if they declined (Discuss DNR or withdrawal of care, Hospice)? DNR status @ -no What co-morbidities impacted this encounter? (DM, HTN, Smoking, COPD, CAD, Cancer, CVA, ARF, Chemo, Hep., AIDS, mental health diagnosis, sleep apnea, morbid obesity)? @ -none Was patient admitted / discharged? Hospital course, mention meds given and route, prescriptions, significant lab abnormalities, going to OR and other pertinent info. @ - 59 male with underlying cancer COPD coming in for COPD exacerbation, failure by multilobar pneumonia will admit for IV antibiotics Admitted Undiagnosed new problem with uncertain prognosis? @ -no Drug Therapy requiring intensive monitoring for toxicity (Heparin, Nitro, Insulin, Cardizem)? @ -no Were any procedures done? @ -no Diagnosis/symptom? @ -COPD with pneumonia Acute, or Chronic, or Acute on Chronic? @ -Acute Uncomplicated (without systemic symptoms) or Complicated (systemic symptoms)? @ -Complicated Side effects of treatment? @ -no Exacerbation, Progression, or Severe Exacerbation? @ -exacerbation Poses a threat to life or bodily function? How? (Chest pain, [place], [place], pneumonia, PE, COPD, DKA, ARF, appy, cholecystitis, CVA, Diverticulitis, Homicidal, Suicidal, threat to staff... and all critical care pts) @ -yes respiratory illness and significant pneumonia Reevaluation #5: Differential Dyspnea: Coronary syndrome, arrhythmia, tamponade, asthma, COPD, pulmonary embolism, pneumonia, pneumothorax, pulmonary effusion, anaphylaxis, diabetic ketoacidosis, flailed chest, pulmonary contusion, diaphragmatic rupture, anemia, neuromuscular, this is not meant to be an all-inclusive list. Differential Weakness: Hypoglycemia, shock, sepsis, hyponatremia, anemia, infection, [place], ETOH, adverse medicine reaction, overdose, stroke, this is not meant to be an all-inclusive list. - Consultations Consultation #1: Spoke with admitting physicians who agreed to admit this patient Medical Decision Making - Medical Decision Making 59 male with underlying cancer COPD coming in for COPD exacerbation, failure by multilobar pneumonia will admit for IV antibiotics - Lab Data Result diagrams: 06/11/24 22:05 06/11/24 22:05 Lab Results 06/11/24 06/11/24 06/11/24 Range/Units 22:05 22:05 22:05 WBC 13.84 H (4.50-10.00) 10*3/uL RBC 4.09 L (4.40-5.60) 10*6/uL Hgb 10.9 L (13.0-17.0) g/dL Hct 34.6 L (39.6-50.0) % MCV 84.6 (80.0-97.0) fL MCH 26.7 L (27.0-32.0) pg MCHC 31.5 L (32.0-37.0) g/dL Plt Count 286 (140-440) 10*3/uL MPV 11.1 (9.5-12.2) fL Immature Gran % (Auto) 6.1 % Neutrophils % (Manual) 79 % Band Neuts % (Manual) 7 % Lymphocytes % (Manual) 3 % Monocytes % (Manual) 11 % Immature Gran # 0.85 H (0.00-0.04) 10*3/uL Neutrophils # (Manual) 11.90 H (1.3-7.7) k/uL Lymphocytes # (Manual) 0.42 L (1.0-4.8) k/uL Monocytes # (Manual) 1.52 H (0-1.0) k/uL Nucleated RBCs 0 (0-0) /100 WBC Manual Slide Review Performed Anisocytosis (manual) Present Ovalocytes Present Rouleaux PT 11.8 (10.0-12.5) sec INR 1.1 (<1.2) APTT 24.1 (22.0-30.0) sec D-Dimer 4.14 H (<0.60) mg/L FEU Sodium 133 L (137-145) mmol/L Potassium 4.6 (3.5-5.1) mmol/L Chloride 100 (98-107) mmol/L Carbon Dioxide 38 H (22-30) mmol/L Anion Gap -5 mmol/L BUN 18 (9-20) mg/dL Creatinine 0.62 L (0.66-1.25) mg/dL Est GFR (CKD-EPI)AfAm >90 (>60 ml/min/1.73 sqM) Est GFR (CKD-EPI)NonAf >90 (>60 ml/min/1.73 sqM) Glucose 132 H (74-99) mg/dL Plasma Lactic Acid Wicho (0.7-2.0) mmol/L Calcium 7.4 L (8.4-10.2) mg/dL Magnesium 2.2 (1.6-2.3) mg/dL Total Bilirubin 0.4 (0.2-1.3) mg/dL AST 52 (17-59) U/L ALT 40 (4-49) U/L Alkaline Phosphatase 364 H (38-126) U/L Troponin I (0.000-0.034) ng/mL NT-Pro-B Natriuret Pep 233 pg/mL Total Protein 3.9 L (6.3-8.2) g/dL Albumin 1.6 L (3.5-5.0) g/dL 06/11/24 06/11/24 Range/Units 22:05 22:05 WBC (4.50-10.00) 10*3/uL RBC (4.40-5.60) 10*6/uL Hgb (13.0-17.0) g/dL Hct (39.6-50.0) % MCV (80.0-97.0) fL MCH (27.0-32.0) pg MCHC (32.0-37.0) g/dL Plt Count (140-440) 10*3/uL MPV (9.5-12.2) fL Immature Gran % (Auto) % Neutrophils % (Manual) % Band Neuts % (Manual) % Lymphocytes % (Manual) % Monocytes % (Manual) % Immature Gran # (0.00-0.04) 10*3/uL Neutrophils # (Manual) (1.3-7.7) k/uL Lymphocytes # (Manual) (1.0-4.8) k/uL Monocytes # (Manual) (0-1.0) k/uL Nucleated RBCs (0-0) /100 WBC Manual Slide Review Anisocytosis (manual) Ovalocytes Rouleaux PT (10.0-12.5) sec INR (<1.2) APTT (22.0-30.0) sec D-Dimer (<0.60) mg/L FEU Sodium (137-145) mmol/L Potassium (3.5-5.1) mmol/L Chloride (98-107) mmol/L Carbon Dioxide (22-30) mmol/L Anion Gap mmol/L BUN (9-20) mg/dL Creatinine (0.66-1.25) mg/dL Est GFR (CKD-EPI)AfAm (>60 ml/min/1.73 sqM) Est GFR (CKD-EPI)NonAf (>60 ml/min/1.73 sqM) Glucose (74-99) mg/dL Plasma Lactic Acid Wicho 1.0 (0.7-2.0) mmol/L Calcium (8.4-10.2) mg/dL Magnesium (1.6-2.3) mg/dL Total Bilirubin (0.2-1.3) mg/dL AST (17-59) U/L ALT (4-49) U/L Alkaline Phosphatase (38-126) U/L Troponin I <0.012 (0.000-0.034) ng/mL NT-Pro-B Natriuret Pep pg/mL Total Protein (6.3-8.2) g/dL Albumin (3.5-5.0) g/dL - EKG Data -: EKG Interpreted by Me (EKG is sinus tachycardia 106 MO 136 QRS 104 QTc 403) - Radiology Data Radiology results: report reviewed (CT chest positive multilobar pneumonia), image reviewed Disposition Clinical Impression: COPD (chronic obstructive pulmonary disease), Non-small cell lung cancer (NSCLC), Hypoxia, Metastatic cancer, Community acquired pneumonia, Acute exacerbation of chronic obstructive pulmonary disease Disposition: ADMITTED IP TO THIS HOSP Is patient prescribed a controlled substance at d/c from ED?: No Time of Disposition: 01:00
[2024-06-11] MEDS: SODIUM CHLORIDE 0.9% 1,000 ML IV SCH (22:21)
[2024-06-11 22:23] LABS: HCT 34.6 % (39.6-50.0); HGB 10.9 g/dL (13.0-17.0); MCH 26.7 pg (27.0-32.0); MCHC 31.5 g/dL (32.0-37.0); MCV 84.6 fL (80.0-97.0); Mean Platelet Volume 11.1 fL (9.5-12.2); Platelet Count 286 10*3/uL (140-440); RBC 4.09 10*6/uL (4.40-5.60); WBC 13.84 10*3/uL (4.50-10.00)
[2024-06-11 22:36] LABS: ALT 40 U/L (4-49); AST 52 U/L (17-59); African American GFR (CKD) >90 (>60 ml/min/1.73 sqM); Albumin 1.6 g/dL (3.5-5.0); Alkaline Phosphatase 364 U/L (38-126); Anion Gap -5 mmol/L; Blood Urea Nitrogen 18 mg/dL (9-20); Calcium 7.4 mg/dL (8.4-10.2); Carbon Dioxide 38 mmol/L (22-30); Chloride 100 mmol/L (98-107); Glucose 132 mg/dL (74-99); Magnesium 2.2 mg/dL (1.6-2.3); Non-African American GFR(CKD) >90 (>60 ml/min/1.73 sqM); Potassium 4.6 mmol/L (3.5-5.1); Sodium 133 mmol/L (137-145); Total Bilirubin 0.4 mg/dL (0.2-1.3); Total Protein 3.9 g/dL (6.3-8.2)
[2024-06-11 22:39] LABS: INR 1.1 (<1.2); Partial Thromboplastin Time 24.1 sec (22.0-30.0); Prothrombin Time 11.8 sec (10.0-12.5)
[2024-06-11 22:45] LABS: NT-Pro-B-Type Natriuretic Pept 233 pg/mL
[2024-06-11 23:23] LABS: Band Neutrophils % 7 %; Lymphocytes # (M) 0.42 k/uL (1.0-4.8); Monocytes # (M) 1.52 k/uL (0-1.0); Neutrophils % (M) 79 %; Nucleated Red Blood Cells 0 /100 WBC (0-0); Total Cells Counted 100
[2024-06-11 23:25] LABS: Anisocytosis (M) Present; Ovalocytes Present
[2024-06-12] MEDS: MIDODRINE 5 MG TAB PO SCH
--- NOTE | 2024-06-12 01:23 | CT ---
EXAM: CT Angiography Chest With Intravenous Contrast CLINICAL HISTORY: ITS.REASON CT Reason: cp TECHNIQUE: Axial computed tomographic angiography images of the chest with intravenous contrast. CTDI is 54.8 mGy and DLP is 440.3 mGy-cm. This CT exam was performed using one or more of the following dose reduction techniques: automated exposure control, adjustment of the mA and/or kV according to patient size, and/or use of iterative reconstruction technique. MIP reconstructed images were created and reviewed. COMPARISON: No relevant prior studies available. FINDINGS: Pulmonary arteries: Unremarkable. No pulmonary embolism. Aorta: No acute findings. No thoracic aortic aneurysm. Lungs: Moderate patchy bilateral airspace consolidations, consistent with multilobar pneumonia. Findings preferentially involve the RIGHT lung. Mild RIGHT parapneumonic effusion would continue to chest tube catheter. Small LEFT pleural effusion. Pleural space: See above. Heart: Unremarkable. No cardiomegaly. No significant pericardial effusion. No evidence of RV dysfunction. Bones/joints: No acute fracture. No dislocation. Soft tissues: Unremarkable. Lymph nodes: Unremarkable. No enlarged lymph nodes. Intraperitoneal space: Hepatic steatosis. Ascites. Cystectomy. PEG tube in the stomach. IMPRESSION: 1. Moderate patchy bilateral airspace consolidations, consistent with multilobar pneumonia. Findings preferentially involve the RIGHT lung. Small RIGHT parapneumonic effusion would continue to chest tube catheter. Small LEFT pleural effusion. 2. Hepatic steatosis. Ascites. Cystectomy. PEG tube in the stomach.
[2024-06-12] MEDS ORDERED: PNEUMONIA PROTOCOL UTILIZED 1 EACH MISC PO PRN (01:29)
[2024-06-12] MEDS ORDERED: IPRATROPIUM-ALBUTEROL 3 ML NEB INHALATION PRN ×2 (01:29)
[2024-06-12] MEDS: IPRATROPIUM-ALBUTEROL 3 ML NEB INHALATION STA (01:39)
[2024-06-12] MEDS: AZITHROMYCIN 500 MG in SODIUM CHLORIDE 0.9% 250 ML IVPB STA (02:22)
[2024-06-12] MEDS: PIPERACILLIN-TAZOBACTAM 3.375 GM in SODIUM CHLORIDE 0.9% 100 ML IVPB SCH (03:23)
[2024-06-12 04:15] LABS: Influenza A Not Detected (Not Detectd); Influenza B Not Detected (Not Detectd); RSV Not Detected (Not Detectd)
--- NOTE | 2024-06-12 05:56 | P.CNPUL ---
History of Present Illness Consult date: 06/12/24 Requesting physician: Ilir Figueroa Reason for consult: pneumonia Chief complaint: Shortness of breath History of present illness: Patient is a 59-year-old male with past medical history significant for stage IV pulmonary adenocarcinoma, recurrent right-sided pleural effusion, previous P leurx catheter insertion. Originally, diagnosed back in February, with endobronchial biopsy of a right lower lobe lesion which was positive for positive for pulmonary adenocarcinoma. Has had a recurrent right-sided malignant pleural effusion with thoracentesis in April, as well as June, and fluid cytology positive for metastatic pulmonary adenocarcinoma. More recently, patient had a right-sided Pleurx catheter placed on 05/24/2024. His medical oncologist is Dr. Beverly. Most recent PET scan from 05/10/2024 consistent with disease progression with right lung apical nodule and increased perihilar FDG activity, also increasing hepatic lesions mixed response of osseous lesions. Most recently on a combination of Lazertinib and carbo/alimta. Of late, patient has had difficulty swallowing, and underwent PEG tube placement on 05/30/2024. Also, has history of pulmonary tuberculosis which was previously treated, obstructive sleep apnea with home CPAP, hypertension, diabetes jocelyne itus, bipolar disorder. Presented to the emergency department late last night with a chief complaint of increasing work of breathing. Also, noted to have some lower extremity swelling. Chest CT angio did not show any evidence of pulmonary embolism. There was moderate patchy bilateral airspace consolidations consistent with multilobar pneumonia versus treatment induced pneumonitis versus disease progression. Small right-sided pleural effusion with Pleurx catheter in place. Small left pleural effusion. Hepatic steatosis with ascites. CBC: WBC count 13.8, hemoglobin 10.9, platelets 286. CMP: Sodium 133, potassium 4.6, chloride 100, serum bicarb 38, BUN 18, creatinine 0.62, glucose 132. Lactic 1. Albumin 1.6. LFTs fairly unremarkable. Troponin less than 0.012. NT proBNP not significantly elevated. Viral screen negative for influenza A/B, RSV, COVID. Patient previously placed on antibiotics in the ED in the form of azithromycin and Zosyn. Currently resting comfortably on room air. Gross anasarca. Blood pressure is marginal, on midodrine 3 times daily. Endorses worsening shortness of breath associated congested cough without much sputum production. Denies fever/chills. Denies known sick contacts. Denies any hemoptysis, chest pain, heart palpitations, syncopal events. States that his drains his Pleurx catheter approximately every other day with a total of 30 0 to 400 cc of brown colored fluid. No change in color or consistency. Also, utilizing his PEG tube with bolus feeds. Also takes oral ice chips for pleasure. Afebrile. Current vital signs are stable. Review of Systems Constitutional: Reports fatigue, Reports weight gain, Denies chills, Denies fever, Denies poor appetite, Denies sweats, Denies weight loss Ears, nose, mouth and throat: Reports dysphagia, Reports voice changes, Denies headache, Denies nasal congestion, Denies nasal discharge, Denies post-nasal drip, Denies sinus pain, Denies sinus pressure, Denies sore throat Cardiovascular: Reports dyspnea on exertion, Reports leg edema, Reports shortness of breath, Denies chest pain, Denies lightheadedness, Denies orthopnea, Denies palpitations, Denies paroxysmal nocturnal dyspnea Respiratory: Reports congestion, Reports cough, Reports dyspnea, Denies cough with sputum, Denies excessive sputum, Denies hemoptysis Gastrointestinal: Reports diarrhea, Denies abdominal pain, Denies constipation, Denies hematochezia, Denies melena, Denies nausea, Denies vomiting Genitourinary: Denies dysuria Musculoskeletal: Denies limitation of motion Integumentary: Denies rash Neurological: Denies headaches, Denies numbness, Denies paralysis, Denies paresthesias, Denies seizures, Denies syncope, Denies visual changes Psychiatric: Reports depression, Denies anxiety, Denies suicidal ideation Past Medical History Past Medical History: Cancer, Diabetes Mellitus, Hypertension, Sleep Apnea/CPA P/BIPAP Additional Past Medical History / Comment(s): diverticulitis, lung CA treated with oral meds-IV chemotherapy every 3 weeks starting 05/25/24, sacral wound, sleep apnea -uses Cpap History of Any Multi-Drug Resistant Organisms: C-DIFF Date of last positivie culture/infection: 1994 MDRO Source:: stool Past Surgical History: Bowel Resection, Hernia Repair, Orthopedic Surgery, Tonsillectomy Additional Past Surgical History / Comment(s): sigmoid colon, vasectomy, lung biospy, pleurex cath Past Anesthesia/Blood Transfusion Reactions: No Reported Reaction Past Psychological History: Bipolar, Depression, Panic Disorder Smoking Status: Never smoker Past Alcohol Use History: None Reported Past Drug Use History: None Reported - Past Family History Mother Family Medical History: Cancer Additional Family Medical History / Comment(s): Cancer history Father Family Medical History: Coronary Artery Disease (CAD) Additional Family Medical History / Comment(s): Heart Disease Medications and Allergies Home Medications Medication Instructions Recorded Confirmed Type metFORMIN HCL [Glucophage] 1,000 mg PO BID 10/01/20 05/29/24 History Albuterol Sulfate [Albuterol 1 puff INHALATION RT-Q4H PRN 03/24/23 05/29/24 History Sulfate Hfa] Cariprazine HCl [Vraylar] 3 mg PO DAILY 03/24/23 05/29/24 History sitaGLIPtin [Januvia] 100 mg PO DAILY 03/24/23 05/29/24 History ALPRAZolam [Xanax] 1 mg PO BID PRN 09/27/23 05/29/24 History Montelukast [Singulair] 10 mg PO DAILY 09/27/23 05/29/24 History Mv-Min/Folic/K1/Lycopen/Lutein 1 tab PO DAILY 09/27/23 05/29/24 History [Centrum Silver Men Tablet] Ondansetron [Zofran] 4 mg PO Q4H PRN 09/27/23 05/29/24 History Benzonatate [Tessalon Perle] 200 mg PO TID PRN 04/26/24 05/29/24 History Codeine Phosphate/Guaifenesin 5 ml PO Q4H PRN 04/26/24 05/29/24 History [Codeine Phosphate/Guaifenesin 10-100 mg/5 ml] Hydrocortisone Cream 1 applic TOPICAL BID 04/26/24 05/29/24 History [Hydrocortisone 2.5% Cream] Lazertinib Mesylate [Lazcluze] 240 mg PO DAILY 04/26/24 05/29/24 History traMADol HCl [Ultram] 50 mg PO Q8H PRN 04/26/24 05/29/24 History Doxycycline Hyclate 100 mg PO BID 05/29/24 05/29/24 History Folic Acid 1 mg PO DAILY 05/29/24 05/29/24 History Acetaminophen Tab [Tylenol] 500 mg PO Q6HR PRN tab 06/04/24 Rx Midodrine [ProAmatine] 5 mg PO TID #90 tab 06/04/24 Rx Allergies Allergy/AdvReac Type Severity Reaction Status Date / Time Cephalosporins AdvReac Diarrhea & Verified 05/29/24 11:40 C-DIFF Physical Exam Vitals: Vital Signs Temp Pulse Resp BP Pulse Ox 06/12/24 02:23 97.6 F 94 19 107/70 93 L 06/12/24 00:07 109 H 20 82/56 95 06/11/24 23:49 97.8 F 104 H 19 93/55 97 06/11/24 23:30 106 H 98/63 96 06/11/24 22:06 108 H 06/11/24 21:56 103 H 06/11/24 20:57 97.6 F 107 H 18 95/62 100 Intake and Output 06/11/24 06/11/24 06/12/24 14:59 22:59 06:59 Other: Weight 72.575 kg GENERAL EXAM: Alert, 59-year-old male, sitting at the edge of the bed, fairly comfortable, in no apparent distress. HEAD: Normocephalic and atraumatic EYES: Normal reaction of pupils, equal size. NOSE: Clear with pink turbinates. THROAT: No erythema or exudates. NECK: No masses, no JVD. CHEST: No chest wall deformity. Right-sided Pleurx catheter secured to the ri t chest wall. LUNGS: Equal air entry with no crackles, wheeze, rhonchi or dullness. Room air. No conversational dyspnea or accessory muscle use.. CVS: S1 and S2 normal with no audible murmur, regular rhythm. No extra heart sounds ABDOMEN: Abdomen is flat, PEG tube with some surrounding erythema and yellow purulent drainage. Bowel sounds active. No hepatosplenomegaly or masses. No guarding or rigidity. SPINE: No scoliosis or deformity SKIN: No rashes CENTRAL NERVOUS SYSTEM: No focal deficits, tone is normal in all 4 extremities. EXTREMITIES: There is 2-3+ bilateral lower extremity pitting edema along with upper extremity nonpitting edema. No clubbing or cyanosis. Peripheral pulses are intact. Results - Laboratory Findings CBC and BMP: 06/11/24 22:05 06/11/24 22:05 PT/INR, D-dimer PT 11.8 sec (10.0-12.5) 06/11/24 22:05 INR 1.1 (<1.2) 06/11/24 22:05 D-Dimer 4.14 mg/L FEU (<0.60) H 06/11/24 22:05 Abnormal lab findings: Abnormal Labs 06/11/24 06/11/24 06/11/24 22:05 22:05 22:05 WBC 13.84 H RBC 4.09 L Hgb 10.9 L Hct 34.6 L MCH 26.7 L MCHC 31.5 L Immature Gran # 0.85 H Neutrophils # (Manual) 11.90 H Lymphocytes # (Manual) 0.42 L Monocytes # (Manual) 1.52 H D-Dimer 4.14 H Sodium 133 L Carbon Dioxide 38 H Creatinine 0.62 L Glucose 132 H Calcium 7.4 L Alkaline Phosphatase 364 H Total Protein 3.9 L Albumin 1.6 L - Diagnostic Findings CT scan - chest: image reviewed Assessment and Plan Assessment: Stage IV pulmonary adenocarcinoma, most recent PET scan from 05/10/2024 consistent with disease progression with right lung apical nodule and increased perihilar FDG activity, also increasing hepatic lesions mixed response of osseous lesions. Most recently on a combination of Lazertinib and carbo/alimta Acute hypoxemic respiratory failure, chest CT angio did not show any evidence of pulmonary embolism. There was moderate patchy bilateral airspace consolidations consistent with possible multilobar pneumonia, medication induced pneumonitis, or disease progression. Small right-sided pleural effusion with Pleurx catheter in place. Small left pleural effusion. Recurrent right-sided pleural effusion status post Pleurx catheter insertion on 05/24/2024 Dysphagia, status post PEG tube insertion on 05/30/2024 Hypotension, on midodrine 5 mg tabs 3 times daily Hypoalbuminemia and gross anasarca Acute leukocytosis Anemia, no acute blood loss noted History of obstructive sleep apnea with home CPAP Hypertension History of hyperlipidemia Diabetes mellitus type II Bipolar disorder Plan: Patient's medications, labs, imaging reviewed Currently on room air Continue empiric antibiotics Check procalcitonin level Continue bronchodilators [id number] Start high-dose IV steroids Continue to drain right Pleurx catheter as needed Consult dietitian for tube feeds Consult medical oncology Case to be discussed with Dr. Go I have personally seen and examined the patient, performed the documentation and the assessment and plan as written. Number of minutes spent on the visit:20 This dictation was produced using [employer] dictation software please excuse grammatical errors Time with Patient: Greater than 30
[2024-06-12] MEDS: methylPREDNISolone SOD SUCCI 125 MG/2 ML VIAL IV SCH (06:34)
[2024-06-12 08:22] LABS: Glucose,Whole Blood 131 mg/dL (70-110)
[2024-06-12] MEDS ORDERED: ALBUTEROL HFA INHALER INHALATION PRN (08:28)
[2024-06-12] MEDS ORDERED: ACETAMINOPHEN TAB 500 MG TAB PEG/G-TUBE PRN (08:28)
[2024-06-12] MEDS ORDERED: ONDANSETRON ODT 4 MG TAB PEG/G-TUBE PRN (08:28)
[2024-06-12] MEDS ORDERED: BENZONATATE 100 MG CAP PO PRN (08:28)
[2024-06-12] MEDS ORDERED: guaiFENesin-Coden 100-10MG/5ML 10 ML CUP PEG/G-TUBE PRN (08:28)
[2024-06-12] MEDS ORDERED: [UNRECOGNIZED DRUG - OTHER] PEG/G-TUBE SCH (09:00)
[2024-06-12] MEDS: IPRATROPIUM-ALBUTEROL 3 ML NEB INHALATION SCH (09:15)
[2024-06-12] MEDS: MULTIVITAMINS, THERA 1 EACH TAB PEG/G-TUBE SCH (10:58)
[2024-06-12] MEDS: ENOXAPARIN 40 MG/0.4 ML SYRINGE SQ SCH (10:59)
[2024-06-12] MEDS: LINAGLIPTIN 5 MG TABLET PEG/G-TUBE SCH (10:59)
[2024-06-12] MEDS: MONTELUKAST 10 MG TAB PEG/G-TUBE SCH (10:59)
[2024-06-12] MEDS: FOLIC ACID 1 MG TAB PEG/G-TUBE SCH (10:59)
[2024-06-12] MEDS: HYDROCORTISONE 1% CREAM 30 GM TUBE TOPICAL SCH (11:00)
[2024-06-12 12:03] LABS: Glucose,Whole Blood 166 mg/dL (70-110)
[2024-06-12] MEDS: traMADol 50 MG TAB PEG/G-TUBE PRN (13:40)
--- NOTE | 2024-06-12 13:50 | P.CONS ---
History of Present Illness - Reason for Consult Consult date: 06/12/24 met NSCLC Requesting physician: Ilir Figueroa - Chief Complaint SOB - History of Present Illness Mr. Escalante is a pleasant 59-year-old male pt of Dr. Villa Beverly with a history of pulmonary adenocarcinoma diagnosed in Feb 2023. Pt has been on 2 different treatments during this time, unfortunately more recently, he has had difficulty with side effects from treatment and other complications. In the last few months pt has slowly declined overall. He failed a swallow eval at the beginning of April, PEG tube was recently placed. He had significant dermatological toxicities to treatment. Patient is currently admitted with complaint plaints of shortness of breath and increasing difficulty in breathing. He has been having some diarrhea from tube feedings. He has been using the Pleurx catheter to drain malignant pleural effusion. Chest CTA reporting patchy bilateral airspace consolidations consistent with multilobar pneumonia, hepatic steatosis, ascites. Dr. Beverly had a long discussion with pt and . Side effects of treatment are mostly intolerable now, treatment of disease has become worse than the disease. Hospice philosophy discussed with the patient and his . Review of Systems Focused review of systems is as stated in HPI Past Medical History Past Medical History: Cancer, Diabetes Mellitus, Hypertension, Sleep Apnea/CPAP/BIPAP Additional Past Medical History / Comment(s): diverticulitis, lung CA treated with oral meds-IV chemotherapy every 3 weeks starting 05/25/24, sacral wound, sleep apnea -uses Cpap History of Any Multi-Drug Resistant Organisms: C-DIFF Year Discovered:: 1994 MDRO Source:: stool Past Surgical History: Bowel Resection, Hernia Repair, Orthopedic Surgery, Tonsillectomy Additional Past Surgical History / Comment(s): sigmoid colon, vasectomy, lung biospy, pleurex cath Past Anesthesia/Blood Transfusion Reactions: No Reported Reaction Past Psychological History: Bipolar, Depression, Panic Disorder Smoking Status: Never smoker Past Alcohol Use History: None Reported Past Drug Use History: None Reported - Past Family History Mother Family Medical History: Cancer Additional Family Medical History / Comment(s): Cancer history Father Family Medical History: Coronary Artery Disease (CAD) Additional Family Medical History / Comment(s): Heart Disease Medications and Allergies Home Medications Medication Instructions Recorded Confirmed Type metFORMIN HCL [Glucophage] 1,000 mg PEG/G-TUBE BID 10/01/20 06/12/24 History Albuterol Sulfate [Albuterol 1 puff INHALATION RT-Q4H PRN 03/24/23 06/12/24 History Sulfate Hfa] Cariprazine HCl [Vraylar] 3 mg PEG/G-TUBE DAILY 03/24/23 06/12/24 History sitaGLIPtin [Januvia] 100 mg PEG/G-TUBE DAILY 03/24/23 06/12/24 History ALPRAZolam [Xanax] 1 mg PEG/G-TUBE BID PRN 09/27/23 06/12/24 History Montelukast [Singulair] 10 mg PEG/G-TUBE DAILY 09/27/23 06/12/24 History Mv-Min/Folic/K1/Lycopen/Lutein 1 tab PEG/G-TUBE DAILY 09/27/23 06/12/24 History [Centrum Silver Men Tablet] Ondansetron [Zofran] 4 mg PEG/G-TUBE Q4H PRN 09/27/23 06/12/24 History Benzonatate [Tessalon Perle] 200 mg PEG/G-TUBE TID PRN 04/26/24 06/12/24 History Codeine Phosphate/Guaifenesin 5 ml PEG/G-TUBE Q4H PRN 04/26/24 06/12/24 History [Codeine Phosphate/Guaifenesin 10-100 mg/5 ml] Hydrocortisone Cream 1 applic TOPICAL BID 04/26/24 06/12/24 History [Hydrocortisone 2.5% Cream] Lazertinib Mesylate [Lazcluze] 240 mg PEG/G-TUBE DAILY 04/26/24 06/12/24 History traMADol HCl [Ultram] 50 mg PEG/G-TUBE Q8H PRN 04/26/24 06/12/24 History Doxycycline Hyclate 100 mg PEG/G-TUBE BID 05/29/24 06/12/24 History Folic Acid 1 mg PEG/G-TUBE DAILY 05/29/24 06/12/24 History Acetaminophen Tab [Tylenol] 500 mg PEG/G-TUBE Q6HR PRN 06/12/24 06/12/24 History Midodrine [ProAmatine] 5 mg PEG/G-TUBE TID 06/12/24 06/12/24 History Allergies Allergy/AdvReac Type Severity Reaction Status Date / Time Cephalosporins AdvReac Diarrhea & Verified 06/12/24 07:18 C-DIFF Physical Exam Vitals: Vital Signs Temp Pulse Pulse Resp BP BP Pulse Ox 06/12/24 08:00 97.5 F L 101 H 16 100/67 94 L 06/12/24 05:18 102 H 20 89/41 96 06/12/24 02:23 97.6 F 94 19 107/70 93 L 06/12/24 00:07 109 H 20 82/56 95 06/11/24 23:49 97.8 F 104 H 19 93/55 97 06/11/24 23:30 106 H 98/63 96 06/11/24 22:06 108 H 06/11/24 21:56 103 H 06/11/24 20:57 97.6 F 107 H 18 95/62 100 Intake and Output 06/11/24 06/12/24 06/12/24 22:59 06:59 14:59 Other: Weight 72.575 kg - Constitutional General appearance: average body habitus, cooperative, no acute distress - EENT Eyes: anicteric sclerae, EOMI ENT: hearing grossly normal - Respiratory resp unlabored at rest - Cardiovascular swelling of the upper extremities, mild Rhythm: regular - Gastrointestinal PEG insitu - Integumentary skin rash from treatment has cleared up Integumentary: pale - Neurologic Neurologic: CNII-XII intact - Musculoskeletal Musculoskeletal: generalized weakness - Psychiatric Psychiatric: A&O x's 3, appropriate affect, intact judgment & insight Results CBC & Chem 7: 06/11/24 22:05 06/11/24 22:05 Labs: Abnormal Lab Results - Last 24 Hours (Table) 06/11/24 06/11/24 06/11/24 Range/Units 22:05 22:05 22:05 WBC 13.84 H (4.50-10.00) 10*3/uL RBC 4.09 L (4.40-5.60) 10*6/uL Hgb 10.9 L (13.0-17.0) g/dL Hct 34.6 L (39.6-50.0) % MCH 26.7 L (27.0-32.0) pg MCHC 31.5 L (32.0-37.0) g/dL Immature Gran # 0.85 H (0.00-0.04) 10*3/uL Neutrophils # (Manual) 11.90 H (1.3-7.7) k/uL Lymphocytes # (Manual) 0.42 L (1.0-4.8) k/uL Monocytes # (Manual) 1.52 H (0-1.0) k/uL D-Dimer 4.14 H (<0.60) mg/L FEU Sodium 133 L (137-145) mmol/L Carbon Dioxide 38 H (22-30) mmol/L Creatinine 0.62 L (0.66-1.25) mg/dL Glucose 132 H (74-99) mg/dL POC Glucose (mg/dL) (70-110) mg/dL Calcium 7.4 L (8.4-10.2) mg/dL Alkaline Phosphatase 364 H (38-126) U/L Total Protein 3.9 L (6.3-8.2) g/dL Albumin 1.6 L (3.5-5.0) g/dL 06/12/24 Range/Units 08:21 WBC (4.50-10.00) 10*3/uL RBC (4.40-5.60) 10*6/uL Hgb (13.0-17.0) g/dL Hct (39.6-50.0) % MCH (27.0-32.0) pg MCHC (32.0-37.0) g/dL Immature Gran # (0.00-0.04) 10*3/uL Neutrophils # (Manual) (1.3-7.7) k/uL Lymphocytes # (Manual) (1.0-4.8) k/uL Monocytes # (Manual) (0-1.0) k/uL D-Dimer (<0.60) mg/L FEU Sodium (137-145) mmol/L Carbon Dioxide (22-30) mmol/L Creatinine (0.66-1.25) mg/dL Glucose (74-99) mg/dL POC Glucose (mg/dL) 131 H (70-110) mg/dL Calcium (8.4-10.2) mg/dL Alkaline Phosphatase (38-126) U/L Total Protein (6.3-8.2) g/dL Albumin (3.5-5.0) g/dL CT scan - chest: report reviewed Assessment and Plan (1) Non-small cell lung cancer (NSCLC) Current Visit: Yes Status: Chronic Priority: Medium Code(s): C34.90 - MALIGNANT NEOPLASM OF UNSP PART OF UNSP BRONCHUS OR LUNG SNOMED Code(s): 660070288 (2) Odynophagia Current Visit: No Status: Acute Priority: High Code(s): R13.10 - DYSPHAGIA, UNSPECIFIED SNOMED Code(s): 77922143 (3) Pleural effusion Current Visit: Yes Status: Chronic Priority: Medium Code(s): J90 - PLEURAL EFFUSION, NOT ELSEWHERE CLASSIFIED SNOMED Code(s): 14426527 Plan: Non-small cell lung cancer -Diagnosis and treatments are documented in of[facility] medical record as well as in consult note dated 05/31, pt has not received any treatment since that visit -stop oral targeted agent lazcluze, concerns for pneumonitis -pt is s/p 1st cycle of carbo/alimta on 05/25, no significant side effects to report Long discussion with pt and about cancer, treatments, symptoms of cancer and side effects of treatment. Hospice philosophy discussed. Support pt and decision for hospice care. All questions answered to their satisfaction. Case discussed with Internal Medicine. Ok for discharge once services to support pt and family are in place Doctor attests: I performed a history and physical examination of this patient, developed impression and plan of care. Discussed with dictator. I agree with dictators note, documented as a scribe. Time with Patient: Greater than 30
[2024-06-12] MEDS: HYDROcodone/APAP 5-325MG 1 EACH TAB PO PRN (17:16)
[2024-06-12] MEDS: metFORMIN 500 MG TAB PO SCH (17:16)
[2024-06-12 17:27] VITALS: BMI 22.9
[2024-06-12 17:56] LABS: Glucose,Whole Blood 201 mg/dL (70-110)
[2024-06-12] MEDS: ALPRAZolam 1 MG TAB PEG/G-TUBE PRN (21:20)
--- NOTE | 2024-06-12 23:14 | P.HPIM ---
History of Present Illness H&P Date: 06/12/24 Chief Complaint: Weak tired short of 59-year-old patient who follows with Dr. Michele. Chronic medical conditions include diabetes mellitus type 2, hypertension, obstructive sleep apnea uses CPAP, diverticulosis, ankylosing spondylosis causing lower back pain depression. 1989 he was positive for TB skin test did receive 6 months of INH. . Non- smoker. Home oxygen 2 L. Stage IV pulmonary adenocarcinoma. Repeated thoracentesis. PET scan July 02, 2023 progression of osseous metastatic disease with positive response of the thorax with decrease in the diffuse micronodular appearance in right lower lung FDG activity. Received Tagrisso Patient Sater rash on the face postchemotherapy. Did receive doxycycline. Present for few weeks. Recently in the hospital. PEG tube was placed and feeding started. Also has a Pleurx catheter in place. Patient now presents with increasing shortness of breath. Difficulty breathing. Diet. Has been getting tube feeding. But having 2-3 bowel movements a day. Generalized pain. This morning he feels he cannot continue with treatments anymore. present at the bedside. Wants to do hospice. Only takes water by mouth-because of dysphagia from mucositis Review of systems: GEN.: Decreased appetite tired EYES: None HEENT: None NECK: None RESPIRATORY: As above CARDIOVASCULAR: None GASTROINTESTINAL: [PEG tube feeding GENITOURINARY: None MUSCULOSKELETAL: Joint pain LYMPHATICS: None HEMATOLOGICAL: None PSYCHIATRY: [Bit depressed NEUROLOGICAL: None Past medical history to include: Diabetes, hypertension, obstructive sleep apnea uses CPAP, depression, and ankylosing spondylosis. Stage IV metastatic pulmonary adeno- carcinoma- treatment. PEG tube. 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 Physical examination: VITAL SIGNS: 97.114, 20, 98 x 65, 93% room GENERAL: BMI 23, sitting up in a recliner. Tired EYES: Pupils equal. Conjunctiva pale HEENT: Scattered punctate pinhead shaped rash dry mucous membrane. NECK: JVD not raised; masses not palpable. HEART: First and second heart sounds are normal; edema with decreased LUNGS:[ Respiratory rate increased, decreased breath sound. Right chest wall anteriorly Pleurx catheter. ABDOMEN: Soft, nontender, liver spleen not palpable, no masses palpable. PEG tube PSYCH: Alert and oriented x3; mood and affect depressed. MUSCULOSKELETAL:No Clubbing/cyanosis;muscles-grossly intact INVESTIGATIONS, reviewed in the clinical context: June 11, 2024: White count 13.8 hemoglobin 10.9 platelets 286 sodium 133 potassium 4.6 BUN 18 creatinine 0.62 albumin 1.6 EKG tracing personally reviewed by me-sinus tachycardia. Nonspecific ST-T wave change Chest CT: Moderate patchy bilateral airspace consolidation. Hepatic steatosis. Ascites Assessment & Plan: - Bilateral multilobar patchy pneumonia in immunosuppressed patient, likely gram-negative bacilli IV Zosyn. Zithromax - Dysphagia secondary to pharyngeal mucositis with ulceration.: Some improvement May 30: PEG tube placed by Patient able to tolerate water. -Scattered rash from previous chemotherapy.: I much improved and dried up Top doxycycline -Severe protein calorie malnutrition with decreased oral intake PEG tube feeding Dietitian - Some loose stools from likely tube feeding. Given that patient was on doxycycline rule out C. difficile. Stool for C. difficile. - Peg tube feeding Keep with 30 cc an hour for now. # NSCLC: Metastatic Patient received Tagrisso. Patient's spouse of decided to proceed with hospice. Patient follows with Dr. Juan Beverly #Type 2 diabetes:, On oral hypoglycemic Oral hypoglycemic - Normocytic anemia secondary to underlying malignancy Follow CBC outpatient #Hypertension: Continue home medications -COPD non-smoker DuoNeb, Symbicort # Obstructive sleep apnea: CPAP -Hyperlipidemia Pravachol -Chronic ankylosing spondylitis primary affecting lumbar spine. With muscle spasm. Carbamazepine. Antispasmodic -Depression otherwise specified .vraylar -DNR Met with patient and the at length. He is given a good trial to his cancer. Wants hospice. At moderate. Spoke to director social welfare. Spoke to Dr. MCGOVERN. Spoke to Dr. Beverly from oncology. Past Medical History Past Medical History: Cancer, Diabetes Mellitus, Hypertension, Sleep Apnea/CPAP/BIPAP Additional Past Medical History / Comment(s): diverticulitis, lung CA treated with oral meds-IV chemotherapy every 3 weeks starting 05/25/24, sacral wound, sleep apnea -uses Cpap History of Any Multi-Drug Resistant Organisms: C-DIFF Date of last positivie culture/infection: 1994 MDRO Source:: stool Past Surgical History: Bowel Resection, Hernia Repair, Orthopedic Surgery, Tonsillectomy Additional Past Surgical History / Comment(s): sigmoid colon, vasectomy, lung biospy, pleurex cath Past Anesthesia/Blood Transfusion Reactions: No Reported Reaction Past Psychological History: Bipolar, Depression, Panic Disorder Smoking Status: Never smoker Past Alcohol Use History: None Reported Past Drug Use History: None Reported - Past Family History Mother Family Medical History: Cancer Additional Family Medical History / Comment(s): Cancer history Father Family Medical History: Coronary Artery Disease (CAD) Additional Family Medical History / Comment(s): Heart Disease Medications and Allergies Home Medications Medication Instructions Recorded Confirmed Type metFORMIN HCL [Glucophage] 1,000 mg PEG/G-TUBE BID 10/01/20 06/12/24 History Albuterol Sulfate [Albuterol 1 puff INHALATION RT-Q4H PRN 03/24/23 06/12/24 History Sulfate Hfa] Cariprazine HCl [Vraylar] 3 mg PEG/G-TUBE DAILY 03/24/23 06/12/24 History sitaGLIPtin [Januvia] 100 mg PEG/G-TUBE DAILY 03/24/23 06/12/24 History ALPRAZolam [Xanax] 1 mg PEG/G-TUBE BID PRN 09/27/23 06/12/24 History Montelukast [Singulair] 10 mg PEG/G-TUBE DAILY 09/27/23 06/12/24 History Mv-Min/Folic/K1/Lycopen/Lutein 1 tab PEG/G-TUBE DAILY 09/27/23 06/12/24 History [Centrum Silver Men Tablet] Ondansetron [Zofran] 4 mg PEG/G-TUBE Q4H PRN 09/27/23 06/12/24 History Benzonatate [Tessalon Perle] 200 mg PEG/G-TUBE TID PRN 04/26/24 06/12/24 History Codeine Phosphate/Guaifenesin 5 ml PEG/G-TUBE Q4H PRN 04/26/24 06/12/24 History [Codeine Phosphate/Guaifenesin 10-100 mg/5 ml] Hydrocortisone Cream 1 applic TOPICAL BID 04/26/24 06/12/24 History [Hydrocortisone 2.5% Cream] Lazertinib Mesylate [Lazcluze] 240 mg PEG/G-TUBE DAILY 04/26/24 06/12/24 History traMADol HCl [Ultram] 50 mg PEG/G-TUBE Q8H PRN 04/26/24 06/12/24 History Doxycycline Hyclate 100 mg PEG/G-TUBE BID 05/29/24 06/12/24 History Folic Acid 1 mg PEG/G-TUBE DAILY 05/29/24 06/12/24 History Acetaminophen Tab [Tylenol] 500 mg PEG/G-TUBE Q6HR PRN 06/12/24 06/12/24 History Midodrine [ProAmatine] 5 mg PEG/G-TUBE TID 06/12/24 06/12/24 History Allergies Allergy/AdvReac Type Severity Reaction Status Date / Time Cephalosporins AdvReac Diarrhea & Verified 06/12/24 07:18 C-DIFF Physical Exam Vitals: Vital Signs Temp Pulse Pulse Resp BP BP Pulse Ox 06/12/24 08:00 97.5 F L 101 H 16 100/67 94 L 06/12/24 05:18 102 H 20 89/41 96 06/12/24 02:23 97.6 F 94 19 107/70 93 L 06/12/24 00:07 109 H 20 82/56 95 06/11/24 23:49 97.8 F 104 H 19 93/55 97 06/11/24 23:30 106 H 98/63 96 06/11/24 22:06 108 H 06/11/24 21:56 103 H 06/11/24 20:57 97.6 F 107 H 18 95/62 100 Intake and Output 06/11/24 06/12/24 06/12/24 22:59 06:59 14:59 Other: Weight 72.575 kg Results CBC & Chem 7: 06/11/24 22:05 06/11/24 22:05 Labs: Abnormal Lab Results - Last 24 Hours (Table) 06/11/24 06/11/24 06/11/24 Range/Units 22:05 22:05 22:05 WBC 13.84 H (4.50-10.00) 10*3/uL RBC 4.09 L (4.40-5.60) 10*6/uL Hgb 10.9 L (13.0-17.0) g/dL Hct 34.6 L (39.6-50.0) % MCH 26.7 L (27.0-32.0) pg MCHC 31.5 L (32.0-37.0) g/dL Immature Gran # 0.85 H (0.00-0.04) 10*3/uL Neutrophils # (Manual) 11.90 H (1.3-7.7) k/uL Lymphocytes # (Manual) 0.42 L (1.0-4.8) k/uL Monocytes # (Manual) 1.52 H (0-1.0) k/uL D-Dimer 4.14 H (<0.60) mg/L FEU Sodium 133 L (137-145) mmol/L Carbon Dioxide 38 H (22-30) mmol/L Creatinine 0.62 L (0.66-1.25) mg/dL Glucose 132 H (74-99) mg/dL POC Glucose (mg/dL) (70-110) mg/dL Calcium 7.4 L (8.4-10.2) mg/dL Alkaline Phosphatase 364 H (38-126) U/L Total Protein 3.9 L (6.3-8.2) g/dL Albumin 1.6 L (3.5-5.0) g/dL 06/12/24 Range/Units 08:21 WBC (4.50-10.00) 10*3/uL RBC (4.40-5.60) 10*6/uL Hgb (13.0-17.0) g/dL Hct (39.6-50.0) % MCH (27.0-32.0) pg MCHC (32.0-37.0) g/dL Immature Gran # (0.00-0.04) 10*3/uL Neutrophils # (Manual) (1.3-7.7) k/uL Lymphocytes # (Manual) (1.0-4.8) k/uL Monocytes # (Manual) (0-1.0) k/uL D-Dimer (<0.60) mg/L FEU Sodium (137-145) mmol/L Carbon Dioxide (22-30) mmol/L Creatinine (0.66-1.25) mg/dL Glucose (74-99) mg/dL POC Glucose (mg/dL) 131 H (70-110) mg/dL Calcium (8.4-10.2) mg/dL Alkaline Phosphatase (38-126) U/L Total Protein (6.3-8.2) g/dL Albumin (3.5-5.0) g/dL
[2024-06-12 23:51] LABS: Glucose,Whole Blood 275 mg/dL (70-110)
[2024-06-13 05:59] LABS: Glucose,Whole Blood 336 mg/dL (70-110)
[2024-06-13] MEDS: AZITHROMYCIN 500 MG in SODIUM CHLORIDE 0.9% 250 ML IVPB SCH (08:44)
[2024-06-13] MEDS: PSYLLIUM HUSK 100% 6 GM PACKET PO SCH (08:48)
[2024-06-13] MEDS: methylPREDNISolone SOD SUCCI 40 MG/ML 1 ML VIAL IV SCH (08:53)
[2024-06-13 11:39] VITALS: BP 97/63; PULSE 95; RESP 16; TEMP 98.1
[2024-06-13 12:06] LABS: Glucose,Whole Blood 346 mg/dL (70-110)
[2024-06-13] MEDS ORDERED: DEXTROSE 50% SYRINGE 50 ML IVP PRN ×2 (12:20)
--- NOTE | 2024-06-13 12:26 | P.PN ---
Subjective Progress Note Date: 06/13/24 Patient is a 59-year-old male with past medical history significant for stage IV pulmonary adenocarcinoma, recurrent right-sided pleural effusion, previous Pleurx catheter insertion. Originally, diagnosed back in February, with endobronchial biopsy of a right lower lobe lesion which was positive for positive for pulmonary adenocarcinoma. Has had a recurrent right-sided malignant pleural effusion with thoracentesis in April, as well as Jun, 2023 and fluid cytology positive for metastatic pulmonary adenocarcinoma. More recently, patient had a right-sided Pleurx catheter placed on 05/24/2024. His medical oncologist is Dr. Beverly. Most recent PET scan from 05/10/2024 consistent with disease progression with right lung apical nodule and increased perihilar FDG activity, also increasing hepatic lesions mixed response of osseous lesions. Most recently on a combination of Lazertinib and carbo/alimta. Of late, patient has had difficulty swallowing, and underwent PEG tube placement on 05/30/2024. Also, has history of pulmonary tuberculosis which was previously treated, obstructive sleep apnea with home CPAP, hypertension, diabetes mellitus, bipolar disorder. Presented to the emergency department late last night with a chief complaint of increasing work of breathing. Also, noted to have some lower extremity swelling. Chest CT angio did not show any evidence of pulmonary embolism. There was moderate patchy bilateral airspace consolidations consistent with multilobar pneumonia versus treatment induced pneumonitis versus disease progression. Small right-sided pleural effusion with Pleurx catheter in place. Small left pleural effusion. Hepatic steatosis with ascites. CBC: WBC count 13.8, hemoglobin 10.9, platelets 286. CMP: Sodium 133, potassium 4.6, chloride 100, serum bicarb 38, BUN 18, creatinine 0.62, glucose 132. Lactic 1. Albumin 1.6. LFTs fairly unremarkable. Troponin less than 0.012. NT proBNP not significantly elevated. Viral screen negative for influenza A/B, RSV, COVID. Patient previously placed on antibiotics in the ED in the form of azithromycin and Zosyn. Currently resting comfortably on room air. Gross anasarca. Blood pressure is marginal, on midodrine 3 times daily. Endorses worsening shortness of breath associated congested cough without much sputum production. Denies fever/chills. Denies known sick contacts. Denies any hemoptysis, chest pain, heart palpitations, syncopal events. States that his drains his Pleurx catheter approximately every other day with a total of 300 to 400 cc of brown colored fluid. No change in color or consistency. Also, utilizing his PEG tube with bolus feeds. Also takes oral ice chips for pleasure. Afebrile. Current vital signs are stable. The patient is seen today June 13, 2024 in follow-up on the regular medical floor. He is currently resting comfortably in bed. He did have a restless night. His is at the bedside. He is maintaining good O2 saturations in the 90s on room air. He is afebrile. Hemodynamically stable. Glucose 336. He has been receiving Ultram for pain control. Xanax for anxiety. He is continued on DuoNeb inhalations, Solu-Medrol and Singulair. Antibiotics in the form of Zosyn and azithromycin. Lovenox for DVT prophylaxis. Procalcitonin was 0.21. He is receiving Glucerna at 30 mL/h for nutritional support. Objective - Vital Signs Vital signs: Vital Signs Temp 98.1 F 06/13/24 11:39 Pulse 95 06/13/24 11:39 Resp 16 06/13/24 11:39 BP 97/63 06/13/24 11:39 Pulse Ox 93 L 06/13/24 11:39 FiO2 Intake & Output 06/12/24 06/13/24 06/13/24 18:59 06:59 18:59 Intake Total 1000 480 Balance 1000 480 Weight 72.575 kg 79.8 kg Intake: Oral 1000 480 Other: Voiding Method Toilet Toilet Toilet # Voids 4 - Exam GENERAL EXAM: Alert, 59-year-old male, on room air oxygen, resting in bed, currently comfortable, in no apparent distress. HEAD: Normocephalic and atraumatic EYES: Normal reaction of pupils, equal size. NOSE: Clear with pink turbinates. THROAT: No erythema or exudates. NECK: No masses, no JVD. CHEST: No chest wall deformity. Right-sided Pleurx catheter secured to the right chest wall. LUNGS: Equal air entry with no crackles, wheeze, rhonchi or dullness. No convers ational dyspnea or accessory muscle use.. CVS: S1 and S2 normal with no audible murmur, regular rhythm. No extra heart sounds ABDOMEN: Abdomen is flat, PEG tube with some surrounding erythema and yellow purulent drainage. Bowel sounds active. No hepatosplenomegaly or masses. No guarding or rigidity. SPINE: No scoliosis or deformity SKIN: No rashes CENTRAL NERVOUS SYSTEM: No focal deficits, tone is normal in all 4 extremities. EXTREMITIES: There is 2-3+ bilateral lower extremity pitting edema along with upper extremity nonpitting edema. No clubbing or cyanosis. Peripheral pulses are intact. - Labs CBC & Chem 7: 06/11/24 22:05 06/11/24 22:05 Labs: Abnormal Lab Results - Last 24 Hours (Table) 06/12/24 06/12/24 06/12/24 Range/Units 12:02 17:55 23:48 POC Glucose (mg/dL) 166 H 201 H 275 H (70-110) mg/dL 06/13/24 Range/Units 05:55 POC Glucose (mg/dL) 336 H (70-110) mg/dL Assessment and Plan Assessment: Stage IV pulmonary adenocarcinoma, most recent PET scan from 05/10/2024 consistent with disease progression with right lung apical nodule and increased perihilar FDG activity, also increasing hepatic lesions mixed response of osseous lesions. Most recently on a combination of Lazertinib and carbo/alimta Acute hypoxemic respiratory failure, chest CT angio did not show any evidence of pulmonary embolism. There was moderate patchy bilateral airspace consolidations consistent with possible multilobar pneumonia, medication induced pneumonitis, or disease progression. Small right-sided pleural effusion with Pleurx catheter in place. Small left pleural effusion. Recovered and on room air Recurrent right-sided pleural effusion status post Pleurx catheter insertion on 05/24/2024 Dysphagia, status post PEG tube insertion on 05/30/2024 Hypotension, on midodrine 5 mg tabs 3 times daily Hypoalbuminemia and gross anasarca Acute leukocytosis Anemia, no acute blood loss noted History of obstructive sleep apnea with home CPAP Hypertension History of hyperlipidemia Diabetes mellitus type II Bipolar disorder Plan: The patient was seen and evaluated Stable and on room air oxygen Labs and medications reviewed Procalcitonin negative Antibiotics discontinued Decrease Solu-Medrol Continue Ultram for pain control Continue Xanax for anxiety Lovenox for DVT prophylaxis Plan is for possible discharge to hospice today Plan of care was discussed with the patient and his who is at the bedside This patient was seen independently by the pulmonary nurse practitioner addressing pulmonary issues I have personally seen and examined the patient, performed the documentation and the assessment and plan as written. Number of minutes spent on the visit: 24 Dictation was produced using [employer] dictation software. Please excuse any grammatical, word or spelling errors.
[2024-06-13] MEDS: INSULIN LISPRO (HumaLOG) 100 UNIT/ML 10 mL VL SQ SCH (12:36)
--- NOTE | 2024-06-15 19:58 | P.DS ---
Providers Date of admission: 06/12/24 01:31 Expected date of discharge: 06/13/24 Attending physician: Rodney Lozano Consults: 06/12/24 01:29 Consult Physician Routine Consulting Provider: Dennys Swartz Consult Reason/Comments: pna Do you want consulting provider notified?: Yes Consult Physician Routine Consulting Provider: [place] Shell Consult Reason/Comments: known Do you want consulting provider notified?: Yes Primary care physician: [facility] Course: Chief Complaint: Weak tired short of 59-year-old patient who follows with Dr. Michele. Chronic medical conditions include diabetes mellitus type 2, hypertension, obstructive sleep apnea uses CPAP, diverticulosis, ankylosing spondylosis causing lower back pain depression. 1989 he was positive for TB skin test did receive 6 months of INH. . Non- smoker. Home oxygen 2 L. Stage IV pulmonary adenocarcinoma. Repeated thoracentesis. PET scan July 02, 2023 progression of osseous metastatic disease with positive response of the thorax with decrease in the diffuse micronodular appearance in right lower lung FDG activity. Received Tagrisso Patient Sater rash on the face postchemotherapy. Did receive doxycycline. Present for few weeks. Recently in the hospital. PEG tube was placed and feeding started. Also has a Pleurx catheter in place. Patient now presents with increasing shortness of breath. Difficulty breathing. Diet. Has been getting tube feeding. But having 2-3 bowel movements a day. Generalized pain. This morning he feels he cannot continue with treatments anymore. present at the bedside. Wants to do hospice. Only takes water by mouth-because of dysphagia from mucositis June 15: Patient be discharged to [facility]. Medications reviewed. Discussed with the . And the patient. Patient is rather tired. Arrangements have been made. Medications will be taking care of by hospice team. Tube feeding at 30 cc an hour. As tolerated. Discussion and discharge planning more than 35 minutes Past medical history to include: Diabetes, hypertension, obstructive sleep apnea uses CPAP, depression, and ankylosing spondylosis. Stage IV metastatic pulmonary adeno- carcinoma- treatment. PEG tube. 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 Physical examination: VITAL SIGNS: 98.1, 95, 16, 97 x 63, 93% room air GENERAL: BMI 23, laying in bed, tired EYES: Pupils equal. Conjunctiva pale HEENT: Scattered punctate pinhead shaped rash dry mucous membrane. NECK: JVD not raised; masses not palpable. HEART: First and second heart sounds are normal; edema with decreased LUNGS:[ Respiratory rate increased, decreased breath sound. Right chest wall a nteriorly Pleurx catheter. ABDOMEN: Soft, nontender, liver spleen not palpable, no masses palpable. PEG tube PSYCH: Answering simple questions. Rather tired. Feeling low MUSCULOSKELETAL:No Clubbing/cyanosis;muscles-grossly intact INVESTIGATIONS, reviewed in the clinical context: June 11, 2024: White count 13.8 hemoglobin 10.9 platelets 286 sodium 133 potassium 4.6 BUN 18 creatinine 0.62 albumin 1.6 EKG tracing personally reviewed by me-sinus tachycardia. Nonspecific ST-T wave change Chest CT: Moderate patchy bilateral airspace consolidation. Hepatic steatosis. Ascites Assessment & Plan: - Bilateral multilobar patchy pneumonia in immunosuppressed patient, likely gram-negative bacilli IV Zosyn. Zithromax: Discharge on Augmentin - Dysphagia secondary to pharyngeal mucositis with ulceration.: Water as tolerated May 30: PEG tube placed by -Scattered rash from previous chemotherapy.: I much improved and dried up Doxycycline discontinued -Severe protein calorie malnutrition with decreased oral intake PEG tube feeding at 30 cc an hour Dietitian - Some loose stools from likely tube feeding. Given that patient was on doxycycline rule out C. difficile. Stool for C. difficile. - Peg tube feeding Keep with 30 cc an hour for now. # NSCLC: Metastatic Patient received Tagrisso. Patient's spouse of decided to proceed with hospice. Patient follows with Dr. Juan Beverly #Type 2 diabetes:, On oral hypoglycemic Oral hypoglycemic - Normocytic anemia secondary to underlying malignancy #Hypertension: Continue home medications -COPD non-smoker DuoNeb, Symbicort # Obstructive sleep apnea: CPAP -Hyperlipidemia Pravachol -Chronic ankylosing spondylitis primary affecting lumbar spine. With muscle spasm. Carbamazepine. Antispasmodic -Depression otherwise specified .vraylar -DNR Disposition: [place], hospice house Past Medical History Past Medical History: Cancer, Diabetes Mellitus, Hypertension, Sleep Apnea/CPAP/BIPAP Additional Past Medical History / Comment(s): diverticulitis, lung CA treated with oral meds-IV chemotherapy every 3 weeks starting 05/25/24, sacral wound, sleep apnea -uses Cpap History of Any Multi-Drug Resistant Organisms: C-DIFF Date of last positivie culture/infection: 1994 MDRO Source:: stool Past Surgical History: Bowel Resection, Hernia Repair, Orthopedic Surgery, Tonsillectomy Additional Past Surgical History / Comment(s): sigmoid colon, vasectomy, lung biospy, pleurex cath Past Anesthesia/Blood Transfusion Reactions: No Reported Reaction Past Psychological History: Bipolar, Depression, Panic Disorder Smoking Status: Never smoker Past Alcohol Use History: None Reported Past Drug Use History: None Reported Plan - Discharge Summary Discharge Rx Participant: Yes New Discharge Prescriptions: New Amoxic-Pot Clav 875-125Mg [Augmentin 875-125] 1 tab PO BID #14 tab HYDROcodone/APAP 5-325MG [[place] 5-325] 1 each PO Q6HR PRN tab PRN Reason: Pain Ipratropium-Albuterol Nebulize [Duoneb 0.5 mg-3 mg/3 ml Soln] 3 ml INHALATION RT-QID each Psyllium Husk 100% [Metamucil Packet] 6 gm PO DAILY packet Continue Albuterol Sulfate [Albuterol Sulfate Hfa] 1 puff INHALATION RT-Q4H PRN PRN Reason: Shortness Of Breath Cariprazine HCl [Vraylar] 3 mg PEG/G-TUBE DAILY ALPRAZolam [Xanax] 1 mg PEG/G-TUBE BID PRN PRN Reason: Anxiety Hydrocortisone Cream [Hydrocortisone 2.5% Cream] 1 applic TOPICAL BID Acetaminophen Tab [Tylenol] 500 mg PEG/G-TUBE Q6HR PRN PRN Reason: Fever And/ Or Pain sitaGLIPtin [Januvia] 100 mg PEG/G-TUBE DAILY Ondansetron [Zofran] 4 mg PEG/G-TUBE Q4H PRN PRN Reason: Nausea And Vomiting traMADol HCl [Ultram] 50 mg PEG/G-TUBE Q8H PRN PRN Reason: Pain Midodrine [ProAmatine] 5 mg PEG/G-TUBE TID Discontinued metFORMIN HCL [Glucophage] 1,000 mg PEG/G-TUBE BID Codeine Phosphate/Guaifenesin [Codeine Phosphate/Guaifenesin 10-100 mg/5 ml] 5 ml PEG/G-TUBE Q4H PRN PRN Reason: Cough Folic Acid 1 mg PEG/G-TUBE DAILY Doxycycline Hyclate 100 mg PEG/G-TUBE BID Mv-Min/Folic/K1/Lycopen/Lutein [Centrum Silver Men Tablet] 1 tab PEG/G-TUBE DAILY Montelukast [Singulair] 10 mg PEG/G-TUBE DAILY Benzonatate [Tessalon Perle] 200 mg PEG/G-TUBE TID PRN PRN Reason: Cough Lazertinib Mesylate [Lazcluze] 240 mg PEG/G-TUBE DAILY Discharge Medication List Albuterol Sulfate [Albuterol Sulfate Hfa] 1 puff INHALATION RT-Q4H PRN 03/24/23 [History] Cariprazine HCl [Vraylar] 3 mg PEG/G-TUBE DAILY 03/24/23 [History] sitaGLIPtin [Januvia] 100 mg PEG/G-TUBE DAILY 03/24/23 [History] ALPRAZolam [Xanax] 1 mg PEG/G-TUBE BID PRN 09/27/23 [History] Ondansetron [Zofran] 4 mg PEG/G-TUBE Q4H PRN 09/27/23 [History] Hydrocortisone Cream [Hydrocortisone 2.5% Cream] 1 applic TOPICAL BID 04/26/24 [History] traMADol HCl [Ultram] 50 mg PEG/G-TUBE Q8H PRN 04/26/24 [History] Acetaminophen Tab [Tylenol] 500 mg PEG/G-TUBE Q6HR PRN 06/12/24 [History] Midodrine [ProAmatine] 5 mg PEG/G-TUBE TID 06/12/24 [History] Amoxic-Pot Clav 875-125Mg [Augmentin 875-125] 1 tab PO BID #14 tab 06/13/24 [Rx] HYDROcodone/APAP 5-325MG [[place] 5-325] 1 each PO Q6HR PRN tab 06/13/24 [Rx] Ipratropium-Albuterol Nebulize [Duoneb 0.5 mg-3 mg/3 ml Soln] 3 ml INHALATION RT-QID each 06/13/24 [Rx] Psyllium Husk 100% [Metamucil Packet] 6 gm PO DAILY packet 06/13/24 [Rx] Follow up Appointment(s)/Referral(s): Troy Michele MD [Primary Care Provider] - 1-2 days Discharge Disposition: HOME SELF-CARE
== END 2024-06-13 15:48 | disposition home or self-care (01) | DRG 193 ==
LOC: EC 20:53 → 5NMEDONC 06-12 01:31
PROVIDERS: ADMIT Hospitalist; ATTEND Hospitalist
DX: J18.9 Pneumonia, unspecified organism (principal); E43 Unspecified severe protein-calorie malnutrition; J96.01 Acute respiratory failure with hypoxia; C79.51 Secondary malignant neoplasm of bone; J91.0 Malignant pleural effusion; Z66 Do not resuscitate; R18.8 Other ascites; R13.10 Dysphagia, unspecified; E88.09 Other disorders of plasma-protein metabolism, not elsewhere classified; C34.90 Malignant neoplasm of unspecified part of unspecified bronchus or lung; D84.9 Immunodeficiency, unspecified; J44.1 Chronic obstructive pulmonary disease with (acute) exacerbation; M45.6 Ankylosing spondylitis lumbar region; E11.649 Type 2 diabetes mellitus with hypoglycemia without coma; F31.9 Bipolar disorder, unspecified; I10 Essential (primary) hypertension; D63.0 Anemia in neoplastic disease; K76.0 Fatty (change of) liver, not elsewhere classified; J44.0 Chronic obstructive pulmonary disease with (acute) lower respiratory infection; E11.9 Type 2 diabetes mellitus without complications; Z93.1 Gastrostomy status; M62.838 Other muscle spasm; L27.1 Localized skin eruption due to drugs and medicaments taken internally; T45.1X5A Adverse effect of antineoplastic and immunosuppressive drugs, initial encounter; R19.7 Diarrhea, unspecified; Z11.52 Encounter for screening for COVID-19; K12.30 Oral mucositis (ulcerative), unspecified; E78.5 Hyperlipidemia, unspecified; F41.0 Panic disorder [episodic paroxysmal anxiety]; G47.33 Obstructive sleep apnea (adult) (pediatric); I25.10 Atherosclerotic heart disease of native coronary artery without angina pectoris; K57.30 Diverticulosis of large intestine without perforation or abscess without bleeding; M47.896 Other spondylosis, lumbar region; Z79.84 Long term (current) use of oral hypoglycemic drugs; Z79.899 Other long term (current) drug therapy; Z82.49 Family history of ischemic heart disease and other diseases of the circulatory system; Z85.118 Personal history of other malignant neoplasm of bronchus and lung; Z86.11 Personal history of tuberculosis; Z92.21 Personal history of antineoplastic chemotherapy; Z88.1 Allergy status to other antibiotic agents; Z87.19 Personal history of other diseases of the digestive system; X58.XXXA Exposure to other specified factors, initial encounter
CPT/HCPCS: 36415; 71275; 80053; 83605; 83735; 83880; 84145; 84484; 85025; 85379; 85610; 85730; 87040; 87449; 87636; 93005; 94640; 96361; 96365; 96366; 96368; 96375; 99285